=== PATIENT | male | born 1940 | race Caucasian/White ===

== ENCOUNTER 2020-06-24 10:52 | Inpatient (IN) | payer MEDICARE ==
[~2020-06-24] VITALS: Ht 177 cm; Wt 121.8 kg
[2020-06-24 10:30] VITALS: BP 153/65
--- NOTE | 2020-06-24 10:50 | NUR ---
Pt admitted to room 225-1, with an admitting diagnosis of S/P Laminectomy & Spinal fusion, on 06/24/[address] [facility] via ambulance, accompanied by 2 EMS attendants. ARLETH LOVE introduced to surroundings, call light, bed controls, phone, TV, temperature control, lights, meal times, smoking policy, visitor policy, side rail policy, bathrooms and showers. Patient Rights given to patient in the handbook. ARLETH LOVE acknowledges understanding that [facility] is not responsible for the loss or damage to any personal effects or valuables that are kept in the patients posession during their hospitalization. The following Patient Care Plans were discussed with the pt: Discharge Planning, Self Care Deficit, Impaired Mobility, Potential for falls/injury. ARLETH LOVE verbalizes understanding of Interdisciplinary Patient Education. Patient and/or family were informed about the Rapid Response Team and its purpose. Patient received Patient Rights Booklet, which includes Privacy Act Statement and Data Collection Information Summary.
[~2020-06-24 10:52] MED LIST: BISACODYL 10 MG SUPP (DULCOLAX) PR PRN; CALCIUM CARBONATE 500 MG (TUMS) TAB.CHEW PO PRN; DOCUSATE SODIUM 100 MG (COLACE) CAP PO PRN; FLEET ENEMA ADULT 1 EA BTL PR PRN; LOPERAMIDE 2 MG (IMODIUM) TABLET PO PRN; MELATONIN 3 MG TABLET PO PRN; ONDANSETRON 4 MG (ZOFRAN) ORAL DISSOLVE TAB PO PRN
[2020-06-24] MEDS ORDERED: LOSA100T57 PO (10:57)
[2020-06-24] MEDS ORDERED: TMSL.4C PO (10:57)
[2020-06-24] MEDS ORDERED: TRM50T PO (10:57)
[2020-06-24] MEDS ORDERED: LEVO50CA4 PO (10:57)
[2020-06-24] MEDS ORDERED: FURO40TA4 PO (10:57)
[2020-06-24] MEDS ORDERED: LORA10TA76 PO (10:57)
[2020-06-24] MEDS ORDERED: ONDA4TAB11 PO (10:57)
[2020-06-24] MEDS ORDERED: LACT1CAP39 PO (10:57)
[2020-06-24] MEDS ORDERED: MTP25TSR PO (10:57)
[2020-06-24] MEDS ORDERED: FENT1PAT57 TD (10:57)
[2020-06-24] MEDS ORDERED: ROSU5TAB PO (10:57)
[2020-06-24] MEDS ORDERED: DIPH25CA79 PO (10:57)
[2020-06-24] MEDS ORDERED: ACET-2267 PO (10:57)
[2020-06-24] MEDS ORDERED: OMEP20CA18 PO (10:57)
[2020-06-24] MEDS ORDERED: POTA10TA6 PO (10:57)
[2020-06-24] MEDS ORDERED: GABA300C PO ×2 (10:57)
[2020-06-24] MEDS ORDERED: VIT1TABL26 PO (10:57)
--- NOTE | 2020-06-24 11:16 | Occupational Therapy Eval ---
OT Evaluation-General/PLF Medical Diagnosis Admission Date Jun 24, 2020 at 10:52 Medical Diagnosis: Spondylosis with myelopathy Onset Date: Jun 21, 2020 Therapy Diagnosis Therapy Diagnosis: L2-4 fusion and L3-4 laminectomy. Precautions Precautions/Isolations: Standard Precautions Weight Bear Status Weight Bearing Restriction: Weight Bearing/Tolerated back precautions. Referral Physician: Lydia Referral Reason: Activity Tolerance, Self Care, Evaluation/Treatment, Strengthening/ROM Medical History Pertinent Medical History: Arthritis, HTN, Hypothroidism, OA Additional Medical History DDD, essential HTN, fatigue, GERD, HLD, hypothyroidism, OA, obesity, chronic pain, R TKA, R middle finger trigger finger Current History Persistent back/ BLE pain/ weakness. Back surg 2013 (fusion of L4-5); 06/21/20 L2-4 fusion and L3-4 laminectomy. Reviewed History: Yes Social History Home: Single Level Current Living Status: Spouse Entry Into Home: Ramp Steps Into Home: 0 (ramp from garage) Steps Inside Home: 0 ADL-Prior Level of Function SCALE: Activities may be completed with or without assistive devices. 8-Pvmsjqasyb-dpmebgq completes the activity by him/herself with no assistance from a helper. 5-Set-up or Clean-up Assistance-helper sets up or cleans up; patient completes activity. Kelly assists only prior to or following the activity. 4-Supervision or Touching Assistance-helper provides verbal cues and/or touching/steadying and/or contact guard assistance as patient completes activity. Assistance may be provided throughout the activity or intermittently. 3-Partial/Moderate Assistance-helper does LESS THAN HALF the effort. Kelly lifts, holds or supports trunk or limbs, but provides less than half the effort. 2-Substantial/Maximal Assistance-helper does MORE THAN HALF the effort. Kelly lifts or holds trunk or limbs and provides more than half the effort. 5-Djvwnbyac-glwbfv does ALL the effort. Patient does none of the effort to complete the activity. Or, the assistance of 2 or more helpers is required for the patient to complete the activity. If activity was not attempted, code reason: 7-Patient Refused. 9-Not Applicable-not attempted and the patient did not perform the activity before the current illness, exacerbation or injury. 10-Not Attempted due to Environmental Limitations-(lack of equipment, weather restraints, etc.). 88-Not Attempted due to Medical Conditions or Safety Concerns. ADL PLOF Comments Pt states IND within the home: use of walking stick/ walker 1-2 weeks prior to surgery due to pain/ weakness. 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 Drive Self: Yes OT Current Status Subjective Pt AxO, assisted from EMS staff to bed. Pt agrees to tx. States 6/10 pain, though denies pain meds as has pain patch. OT evaluation: (10) PT evaluation: [id number] OT/ PT co-treat: (30)Co treat rendered at this time. OT addresses UE movement/ balance/ problem solving/ fx endurance; PT addresses fx ambulation/ sit to stands/ transfers/ LE movement. Mental Status/Objective Patient Orientation: Person, Place, Situation Attachments: Drains Current Glasses/Contacts: Yes Hearing Aids: No Dentures/Partials: Yes Hand Dominance: Right Upper Extremity ROM R WFL L limited shoulder abduction/ shoulder flexion due to L shoulder repair. Upper Extremity Coordination WFL BUE (slight tremors, does not functionally affect tasks) Upper Extremity Sensation WLF per pt. Upper Extremity Strength (DNT due to precautions, though WFL) Edema: none noted. ADL-Treatment Eating (QC): 6 (IND) Oral Hygiene (QC): 5 (s/u) Shower/Bathe Self (QC): 2 (max A per clinical judgement) Upper Body Dressing (QC): 2 (max A for back brace. ) Lower Body Dressing (QC): 1 (TD due to max A x2 in stance. Pt able to thread BLE with min A and AD . ) On/Off Footwear (QC): 2 (Max A due to precautions and decreased energy. Pt is educated on sock aide (has one at home/ is familiar) and completes one sock with sock aide with mod A. ) Toileting Hygiene (QC): 1 (TD due to max Ax2 in stance. ) Other Treatments OT evaluation: [id number] (10) PT evaluation: [id number] OT/ PT co-treat: 1390-5409 (30)Co treat rendered at this time. OT addresses UE movement/ balance/ problem solving/ fx endurance; PT addresses fx ambulation/ sit to stands/ transfers/ LE movement. Pt educated on spinal precautions and use of AD for ADLs, pt is familiar with AD due to previous surgery and has AD at home. Pt completes log roll in bed to complete rolling with education throughout. Pt completes with mod A side to side. Pt bed mob from supine to sit with education and max Ax1/ mod A x1. Pt sit to stand with mod Ax2 from raised bed. Pt ambulates with increased time/ vocalizations due to pain to chair. Sits with control. Pt uncomfortable/ in pain, requests back to bed. Sit to stand from chair with min A. Pt ambulates to bed with CGA. Pt sits/ supine with max A. Pt reclined, introduced to room/ call light/ menu/ ARU expectations. OT individual tx: [id number] (30) Pt completes bed mob with max A supine to sit. Pt then sits EOB to complete sponge bath as outlined. C/o pain throughout, nursing notified and administration of medication. OT/ PT co-treat: 4712-8247 (10) Pt sit to stand with max A x1 while OT addresses bottom hygiene (TD) and pant hike (TD). pt sits EOB. Pt requests to lay down. Sit to supine with TD, TD to reach HOB. Increase in pain noted. Pt left with PT end of session. Education OT Patient Education: Correct positioning, Energy conservation, Modified ADL techniques, Progress toward Goal/Update tx plan, Purpose of tx/functional activities, Reviewed precautions, Rehab process, Safety issues, Transfer techniques, Use of adapted equipment Teaching Recipient: Patient Teaching Methods: Demonstration, Discussion Response to Teaching: Verbalize Understanding, Return Demonstration, Reinforcement Needed OT Fdc Goals Disaster Recovery Specialist Goals Time Frame: Jul 08, 2020 Eating (QC): 6 Oral Hygiene (QC): 6 Toileting Hygiene (QC): 4 Shower/Bathe Self (QC): 5 Upper Body Dressing (QC): 6 Lower Body Dressing (QC): 4 On/Off Footwear (QC): 6 Additional Goals: 1-Demonstrate ADL Tasks, 2-Verbalize Understanding, 3- ImproveStrength/Aby 1=Demonstrate adherence to instructed precautions during ADL tasks. 2=Patient will verbalize/demonstrate understanding of assistive devices/mo difications for ADL. 3=Patient will improve strength/tolerance for activity to enable patient to perform ADL's. OT Education/Plan Problem List/Assessment Assessment: Decreased Activ Tolerance, Decreased UE Strength, Dependent Transfers, Impaired Bed Mobility, Impaired Funct Balance, Impaired I ADL's, Impaired Self-Care Skills, Restricted Funct UE ROM Discharge Recommendations Plan/Recommendations: Continue POC Therapy Discharge Recommendati: Intermittent Supervision, Home & Family, Post Acute OT Treatment Plan/Plan of Care Treatment,Training & Education: Yes Patient would benefit from OT for education, treatment and training to promote independence in ADL's, mobility, safety and/or upper extremity function for ADL's. Plan of Care: ADL Retraining, Caregiver Training, Concurrent Therapy, Functional Mobility, Group Exercise/Act as Ind, Orthotic Fitting/Training, UE Funct Exercise/Act, W/C Management Training Treatment Duration: Jul 08, 2020 Frequency: At least 5 of 7 days/Wk (IRF) Estimated Hrs Per Day: 1.5 hours per day Agreement: Yes Rehab Potential: Good Time/GCodes Start Time: 10:55 (1315) Stop Time: 11:50 (1355) Total Time Billed (hr/min): 85 (2 separate tx: 45+40= 85) Billed Treatment Time OT evaluation: 9634-9059 (15) 1, EVM PT evaluation: 3243-1398 OT/ PT co-treat: [id number] (30)Co treat rendered at this time. OT addresses UE movement/ balance/ problem solving/ fx endurance; PT addresses fx ambulation/ sit to stands/ transfers/ LE movement. 1, FA 2 OT tx with OT/ PT co-treat: 7084-2662 (40): 1, ADL 4 SHASTA LUTZ OTR Jun 24, 2020 11:16
--- NOTE | 2020-06-24 11:58 | Physical Therapy Evaluation ---
PT Evaluation-General Medical Diagnosis Admission Date Jun 24, 2020 at 10:52 Medical Diagnosis: Spondylosis with myelopathy Onset Date: Jun 21, 2020 Therapy Diagnosis Therapy Diagnosis: weakness; abn gait Precautions Precautions/Isolations: Standard Precautions Lumbar brace when up Referral Physician: Lydia Reason for Referral: Evaluation/Treatment Medical History Pertinent Medical History: Arthritis, HTN, Hypothroidism, OA Current History Post lumbar fusion L2-4 with replacement of hardware L4-5. Admitted to ARU for continued skilled therapy services and medical management. Laminectomy L3-4 Reviewed History: Yes Social History Home: Single Level Current Living Status: Spouse Entry Into Home: Ramp PT Steps Into Home: 0 (ramp from garage) PT Steps Inside Home: 0 Prior Prior Level of Function SCALE: Activities may be completed with or without assistive devices. 8-Eymrqucsyl-eyobcxk completes the activity by him/herself with no assistance from a helper. 5-Set-up or Clean-up Assistance-helper sets up or cleans up; patient completes activity. Terrell assists only prior to or following the activity. 4-Supervision or Touching Assistance-helper provides verbal cues and/or touching/steadying and/or contact guard assistance as patient completes activity. Assistance may be provided throughout the activity or intermittently. 3-Partial/Moderate Assistance-helper does LESS THAN HALF the effort. Terrell lifts, holds or supports trunk or limbs, but provides less than half the effort. 2-Substantial/Maximal Assistance-helper does MORE THAN HALF the effort. Terrell lifts or holds trunk or limbs and provides more than half the effort. 1-Bqhxnjjyt-nyxgwk does ALL the effort. Patient does none of the effort to complete the activity. Or, the assistance of 2 or more helpers is required for the patient to complete the activity. If activity was not attempted, code reason: 7-Patient Refused. 9-Not Applicable-not attempted and the patient did not perform the activity before the current illness, exacerbation or injury. 10-Not Attempted due to Environmental Limitations-(lack of equipment, weather restraints, etc.). 88-Not Attempted due to Medical Conditions or Safety Concerns. Bed Mobility: 6 Transfers (B,C,W/C): 6 Gait: 6 (use of cane or walking stick; gait primarily in home distances. ) Indoor Mobility (Ambulation): Independent Stairs: Not [place] Limited out of home ambulation, but still drives; uses a ramp to enter/exit his home. Pt reports he was indep with self care. PT Evaluation-Current Subjective Agrees to PT. Reports he lives with his and she is in good health. She will be able to assist some at home. Pain Numeric Pain Scale: 7 Location: Posterior Location Body Site: Back Pain Description: Ache Pt/Family Goals Return home at prior ability to care for himself. Objective Patient Orientation: Person, Place, Time, Situation ROM/Strength ROM Lower Extremities WFL; neural tension noted right LE. Strength Lower Extremities Grossly 3/5 throughout Integumentary/Posture Integumentary intact Bowel Incontinence: No Bladder Incontinence: No Posture symmetrical with slightly rounded shoulders. Neuromuscular (Tone, Coordination, Reflexes) intact and functional B LE Sensory Vision: Functional Hearing: Functional Hand Dominance: Right Sensation Right Lower Extremit: Intact Sensation Left Lower Extremity: Intact Transfers Roll Left & Right (QC): 2 Sit to Lying (QC): 2 Lying to Sitting/Side of Bed(Q: 2 Sit to Stand (QC): 2 Chair/Iqa-md-Ketrm Xfer(QC): 3 Toilet Transfer (QC): 2 Car Transfer (QC): 88 (unsafe/unable to attempt due to limited transfer status. ) max assist with bed mobility with skilled cues for sequencing; reviewed log roll technique and used it for transfers. Cues for hand placement with sit to stand transfers; takes extra time to come to a full stand with quad and hip extensor weakness noted. Gait Does the Patient Walk?: Yes Mode of Locomotion: Walk Anticipated Mode of Locomotion: Walk Walk 10 feet (QC): 88 (unable to walk this distance safely) Walk 50 ft with 2 Turns(QC): 88 Walk 150 ft (QC): 88 Walking 10ft/uneven surface-QC: 88 Distance: 5 ft x 2 Gait Assistive Device: FWW Comments/Gait Description slow gait with close CGA with noted quad weakness. Wheelchair Training Does the Pt Use a Wheelchair?: No Wheel 50 ft with 2 turns (QC): 9 Wheel 150 ft (QC): 9 Stairs 1 Step (curb) (QC): 88 4 Steps (QC): 9 12 Steps (QC): 9 Balance Sitting Static: Fair Sitting Dynamic: Fair Standing Static: Fair Standing Dynamic: Fair Picking up an Object (QC): 88 (back precautions forbid this) Treatment Co treat with OT due to the need for skill of 2 clincians to effectively and safely complete tasks; OT addressed safety and use of UE as PT addressed gross mobility, transitional movement and transfer activity. Bed mobility, transfers and walking short distances performed. Pt in bed post treatment with needs met. LSO in place throughout treatment. Assessment/Needs Post lumbar surgery with noted strength, balance, activity tolerance deficits as well as increased pain. he is requiring assist with all functional mobility and unable to safely return home. He is max assist with bed mobility and transfers and only able to walk approx 5 ft at a time. He will benefit from skilled PT services to address deficits to return mobiltiy to a mod indep level to allow him to discharge home with his . Rehab Potential: Good PT Short Term Goals Short Term Goals Time Frame: Jul 05, 2020 Roll Left & Right: 4 Sit to lyin Lying to sitting on side of be: 4 Sit to stand: 4 Chair/zse-em-knxmm transfer: 4 Toilet transfer: 4 Walk 10 feet: 4 Walk 50 feet with two turns: 4 PT Family Engagement Specialist Goals Family Engagement Specialist Goals PT Family Engagement Specialist Goals Time Frame: Jul 22, 2020 Roll Left & Right (QC): 6 Sit to Lying (QC): 6 Lying-Sitting on Side/Bed(QC): 6 Sit to Stand (QC): 6 Chair/Jag-bf-Vpcse Xfer(QC): 6 Toilet Transfer (QC): 6 Car Transfer (QC): 6 Does the Patient Walk: Yes Walk 10 feet (QC): 6 Walk 50ft with 2 Turns (QC): 6 Walk 150 ft (QC): 6 Walking 10ft on Uneven Surface: 5 1 Step (curb) (QC): 4 4 Steps (QC): 9 12 Steps (QC): 9 Picking up an Object (QC): 88 Wheel 50 feet with 2 turns (QC: 9 Wheel 150 feet: 9 PT Plan Problem List Problem List: Activity Tolerance, Functional Strength, Safety, Balance, Gait, Transfer, Bed Mobility Treatment/Plan Treatment Plan: Continue Plan of Care Treatment Plan: Bed Mobility, Education, Functional Activity Aby, Functional Strength, Group Therapy, Gait, Safety, Therapeutic Exercise, Transfers Treatment Duration: Jul 22, 2020 Frequency: At least 5 of 7 days/Wk (IRF) Estimated Hrs Per Day: 1.5 hours per day Patient and/or Family Agrees t: Yes Safety Risks/Education Patient Education: Transfer Techniques, Safety Issues Teaching Recipient: Patient Teaching Methods: Demonstration, Discussion Response to Teaching: Reinforcement Needed Discharge Recommendations Therapy Discharge Recommendati: Post Acute PT Time/GCodes Time In: 1110 Time Out: 1120 (1120 to 1150 (co treat with OT)) Total Billed Treatment Time: 40 Total Billed Treatment visit EVM 10 FA 30 ROBERT SHIN PT Jun 24, 2020 11:58
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
[2020-06-24] MEDS ORDERED: FUROSEMIDE 40 MG (LASIX) TAB PO PRN (12:15)
[2020-06-24] MEDS ORDERED: KCL 10 MEQ TAB (MICRO K) PO PRN (12:15)
[2020-06-24] MEDS: ACETAMINOPHEN 500 MG TAB (TYLENOL) PO SCH ×3 (13:35→23:33)
[2020-06-24] MEDS: SENNA W/DOCUSATE (SENOKOT S) TABLET PO SCH ×2 (13:38→21:51)
[2020-06-24] MEDS: polyethylene glycoL POWDER 17 GM (MIRALAX) PACK PO SCH ×2 (13:39→21:52)
[2020-06-24] MEDS: DOCUSATE SODIUM 100 MG (COLACE) CAP PO SCH ×2 (13:39→21:51)
[2020-06-24] MEDS: LACTULOSE SYRUP 10GM/15ML (ENULOSE) 30ML UDC PO PRN (13:39)
--- NOTE | 2020-06-24 13:40 | NUR ---
DURAGESIC PATCH WAS PLACED ON RT SHOULDER AT [facility] PRIOR TO PT LEAVING THERE THIS AM. THIS RN PLACED OPSITE OVER THE PATCH TO KEEP SECURE
--- NOTE | 2020-06-24 14:54 | ST Cognitive Linguistic Eval ---
Speech Evaluation-General Medical Diagnosis Spondylosis with myelopathy Onset Date: Jun 21, 2020 Therapy Diagnosis Therapy Diagnosis: Cognitive-communication Medical History Pertinent Medical History: Arthritis, HTN, Hypothroidism, OA Reviewed History: Yes Social History Current Living Status: Spouse Speech PLF-Current Status Prior Level of Function Patient lives at home with his where he was independent for much of his daily needs. Subjective Patient was resting in bed following his PT session. Language Eval: Auditory Comprehends Simple Yes/No Ques: Functional Indent/Objects Multiple Mac: Functional Ident/Pics in Multiple Mac: Functional Follows 1-Step Commands: Functional Follows Complex Directions: Functional Follows General Conversations: Functional Language Eval: Verbal Language Completes Spontaneous Greeting: Functional Produces Auto, Serial Info: Functional Imitates Simple Words/Phrases: Functional Word Finding: Functional Requests Basic Needs: Functional States Basic Personal Info: Functional Expresses Complex Ideas: Functional Objective Cognitive Domain Attention: WNL Memory: WNL Problem Solving: Functional Executive Functions: WNL Visuospatial Skills: WNL Composite Severity Rating: WNL Clock Drawing Severity Rating: WNL Objective Formal/Standardized Tests [facility] Mental Status ([facility]) Results 28/30, within normal range of function Oral Motor/Speech Production Within Normal Limits Impression Patient is a pleasant 79 y/o male who was admitted to the ARU s/p spinal surgery. Patient was given the UMS at bedside with a score of 28/30 obtained. This score is within the normal range of function and does not indicate further ST services. Speech Patient Assess Expression of Ideas/Wants: Expression (4) Understanding Verbal Content: Understands (4) Brief Interview-Mental Status: Yes Repetition of Three Words: Three (3) Temporal Orientation: Year: Correct (3) Temporal Orientation: Month: Accurate within 5 days(2) Temporal Orientation: Day: Correct (1) Recall : Wear to say "Sock": Yes, no cue required (2) Recall : Color: Yes, after cueing (1) Recall : Bed: Yes, no cue required (2) Memory/Recall Ability: Current season, Staff names and faces, That he or she is in a hsp/hsp unit Speech-Plan Patient/Family Goals Patient/Family Goals: Patient plans on returning to his home upon discharge. Treatment Plan Speech Therapy Treatment Plan: Discontinue ST Treatment Duration: Jun 24, 2020 Frequency: 1 time per week Estimated Hrs Per Day: .5 hour per day Rehab Potential: Good Barriers to Learning: None identified Pt/Family Agrees to Plan: Yes Safety Risks/Education Teaching Recipient: Patient Teaching Methods: Discussion Response to Teaching: Verbalize Understanding Education Topics Provided: Safety within his room, utilization of the call light as needed Time Speech Therapy Time In: 14:30 Speech Therapy Time Out: 15:00 Total Billed Time: 30 Billed Treatment Time 1, SPSNDCOMTANISHA Santamaria Jun 24, 2020 14:54
--- NOTE | 2020-06-24 14:56 | Physical Therapy Daily Note ---
PT Daily Note-Current Subjective Pt initially co-treated with OT to complete bathing/dressing due to difficulty with standing. Pt reports severe lumbar pain on arrival and throughout seated and standing activity. Moderate relief reported once he transferred to supine. Pain Numeric Pain Scale: 10-Worst Possible Pain Location: Lower Location Body Site: Back Pain Description: Stabbing, Sharp Appearance Pt is in agony when performing standing and when going from seated to supine. He is total assist for sit to supine and with bed mobility. Mental Status Patient Orientation: Person, Place, Time, Situation Transfers SCALE: Activities may be completed with or without assistive devices. 7-Pzotxhhciv-vugxaob completes the activity by him/herself with no assistance from a helper. 5-Set-up or Clean-up Assistance-helper sets up or cleans up; patient completes activity. [place] assists only prior to or following the activity. 4-Supervision or Touching Assistance-helper provides verbal cues and/or touching/steadying and/or contact guard assistance as patient completes activity. Assistance may be provided throughout the activity or intermittently. 3-Partial/Moderate Assistance-helper does LESS THAN HALF the effort. [place] lifts, holds or supports trunk or limbs, but provides less than half the effort. 2-Substantial/Maximal Assistance-helper does MORE THAN HALF the effort. [place] lifts or holds trunk or limbs and provides more than half the effort. 7-Fmbyccprr-pdxbir does ALL the effort. Patient does none of the effort to complete the activity. Or, the assistance of 2 or more helpers is required for the patient to complete the activity. If activity was not attempted, code reason: 7-Patient Refused. 9-Not Applicable-not attempted and the patient did not perform the activity before the current illness, exacerbation or injury. 10-Not Attempted due to Environmental Limitations-(lack of equipment, weather restraints, etc.). 88-Not Attempted due to Medical Conditions or Safety Concerns. Roll Left & Right (QC): 1 Sit to Lying (QC): 1 Lying to Sitting/Side of Bed(Q: 1 Sit to Stand (QC): 1 Gait Training Does the Patient Walk?: No and Walking Goal IS indicated Gait Assistive Device: FWW Performed sit to stand to complete bathing and dressing. Unable to take steps forward or side due to lumbar pain. Exercises Supine Ex: LE Protocol, Glut sets Supine Reps: 20 Treatments Co-treat with OT for completing bathing and dressing due to pt difficulty with transfers and standing. Aided OT with sit to stand and steadying in standing. Pt requires total assist for transfer and bed mobility with at least 2 people for all mobility. Assessment Current Status: Good Progress Pt had set a personal goal yesterday to perform a heel slide without assistance. He was able to perform 10 on each side without assist and required assist for the last 10 on each. PT Short Term Goals Short Term Goals Time Frame: Jul 05, 2020 Roll Left & Right: 4 Sit to lyin Lying to sitting on side of be: 4 Sit to stand: 4 Chair/jlx-dt-exbmd transfer: 4 Toilet transfer: 4 Walk 10 feet: 4 Walk 50 feet with two turns: 4 PT Manager Hospice Goals Halfway Goals PT Manager Hospice Goals Time Frame: Jul 22, 2020 Roll Left & Right (QC): 6 Sit to Lying (QC): 6 Lying-Sitting on Side/Bed(QC): 6 Sit to Stand (QC): 6 Chair/Buj-ht-Hpbgw Xfer(QC): 6 Toilet Transfer (QC): 6 Car Transfer (QC): 6 Does the Patient Walk: Yes Walk 10 feet (QC): 6 Walk 50ft with 2 Turns (QC): 6 Walk 150 ft (QC): 6 Walking 10ft on Uneven Surface: 5 1 Step (curb) (QC): 4 4 Steps (QC): 9 12 Steps (QC): 9 Picking up an Object (QC): 88 Wheel 50 feet with 2 turns (QC: 9 Wheel 150 feet: 9 PT Plan Treatment/Plan Treatment Plan: Continue Plan of Care Treatment Plan: Bed Mobility, Education, Functional Activity Aby, Functional Strength, Group Therapy, Gait, Safety, Therapeutic Exercise, Transfers Treatment Duration: Jul 22, 2020 Frequency: At least 5 of 7 days/Wk (IRF) Estimated Hrs Per Day: 1.5 hours per day Patient and/or Family Agrees t: Yes Time/GCodes Time In: 1345 Time Out: 1425 Total Billed Treatment Time: 40 Total Billed Treatment 1, fa (10), ex x2 (30) DONNA HUDDLESTON PT Jun 24, 2020 14:56
[2020-06-24 17:14] VITALS: BP 148/66
[2020-06-24] MEDS: LACTOBACILLUS ACIDOPHILUS (PROBIOTIC) CAPSULE PO SCH (17:52)
[2020-06-24] MEDS: ALPRAZolam 0.25 MG (XANAX) TAB PO PRN (19:11)
--- NOTE | 2020-06-24 19:28 | NUR ---
Bedside report received from MELLISA BAUER, assume care of pt
--- NOTE | 2020-06-24 19:30 | NUR ---
Resting quietly in bed, pain level 0/10 on CNPI SCALE
[2020-06-24] MEDS ORDERED: GABAPENTIN 300 MG (NEURONTIN) CAP PO SCH (21:00)
[2020-06-24 21:48] VITALS: BP 165/71
[2020-06-24] MEDS: TAMSULOSIN 0.4 MG (FLOMAX) CAP PO SCH (21:51)
[2020-06-24] MEDS: LOSARTAN 100 MG (COZAAR) TABLET PO SCH (21:51)
[2020-06-24] MEDS: ROSUVASTATIN 5 MG (CRESTOR) TABLET PO SCH (21:51)
--- NOTE | 2020-06-24 21:51 | NUR ---
Pt took all laxatives, states pain in lower back is so bad can not stand it, v/s [phone]%-165/71 rates pain at 10/10 on numeric scale, tried repositioning pt but pt will not try position change long enough to see if it helps
--- NOTE | 2020-06-24 22:12 | NUR ---
notified of pt c/o lower back pain & meds already given & could not have any more until close to midnight
--- NOTE | 2020-06-24 22:13 | NUR ---
No new orders received
--- NOTE | 2020-06-24 23:33 | NUR ---
scheduled Tylenol 500mg & Ultram 50mg & melatonin 3mg, rates pain to back at 10/10 on numeric scale, tried getting pt up to chair but immediately wants to go back to bed, told pt to try at least 30min
--- NOTE | 2020-06-25 00:15 | NUR ---
still rates pain at 10/10 on numeric scale, to commode then back to bed
--- NOTE | 2020-06-25 00:25 | NUR ---
stated could increase ULTRAM 50mfg q 3h PRN but pt gets confused at night also has increase pain at nightime, we could also try Voltaren gel & k pad
--- NOTE | 2020-06-25 00:48 | NUR ---
Resting quietly in bed, pain level 0/10 on CNPI SCALE
--- NOTE | 2020-06-25 03:16 | NUR ---
C/O back pain, pain level 10/10 on numeric scale, ultram 50mg given
--- NOTE | 2020-06-25 04:05 | NUR ---
Resting quietly in bed, pain level 0/10 on CNPI SCALE
--- NOTE | 2020-06-25 05:13 | Individualized Plan of Care ---
Individualized Plan of Care Rehab Nursing IPOC Order Admission Date Jun 24, 2020 at 10:52 Current Orders Orders Admission Order(Inpt,Obs,Sdc) (06/24/20 04:39) Vital Signs: Per Unit Policy ( 08,16,00 (06/24/20 04:39) Mateusz Suero (06/24/20 04:39) Sequential Compression Device Q4H (06/24/20 04:39) Director Drug Safety-Inpt Rehab Con (06/24/20 04:39) Rehab Nursing Orders-Ipoc (06/24/20 04:39) Physical Therapy Rehab Orders (06/24/20 04:39) Occupational Therapy Rehab Ord (06/24/20 04:39) Speech Therapy Rehab Orders (06/24/20 04:39) Cbc With Automated Diff (06/25/20 06:00) Comprehensive Metabolic Panel (06/25/20 06:00) General/Regular (06/24/20 Breakfast) Intake & Output 06,14, (06/24/20 04:39) Precautions (Aru) (06/24/20 04:39) Weekly Weight WEEK (06/24/20 04:39) Rehab-Intensity Of Therapy (06/24/20 04:39) Initiate Admission Nursing Pro .admission (06/24/20 04:39) Alprazolam Tablet (Xanax Tablet) (06/24/20 04:45) Calcium Carbonate Chew Tablet (Antacid C (06/24/20 04:45) Diphenhydramine Tablet (Benadryl Tablet) (06/24/20 04:45) Docusate Sodium Capsule (Colace Capsule) (06/24/20 09:00) Docusate Sodium Capsule (Colace Capsule) (06/24/20 04:45) Bisacodyl Suppository (Dulcolax Supposit (06/24/20 04:45) Lactulose Oral Solution (Enulose Oral So (06/24/20 04:45) Na Phos/Na Biphos Enema (Fleet Enema Kiko (06/24/20 04:45) Guaifenesin/Codeine Syrup (Robitussin Ac (06/24/20 04:45) Loperamide Tablet (Imodium Tablet) (06/24/20 04:45) Melatonin Tablet (Melatonin Tablet) (06/24/20 04:45) Polyethylene Glycol Powder Pkt (Miralax (06/24/20 09:00) Ondansetron Oral Dissolve Tab (Zofran (06/24/20 04:45) Senna S Tablet (Senokot S Tablet) (06/24/20 09:00) Tramadol Tablet (Ultram Tablet) (06/24/20 04:45) Vte Contraindication (06/24/20 04:39) Initiate Admission Nursing Pro .admission (06/24/20 04:39) Acetaminophen Tablet/Caplet (Tylenol T (06/24/20 11:00) Acetaminophen Tablet (Tylenol Tablet) (06/24/20 12:15) Furosemide Tablet (Lasix Tablet) (06/24/20 12:15) Gabapentin Capsule/Tablet (Neurontin Cap (06/25/20 08:00) Gabapentin Capsule/Tablet (Neurontin Cap (06/24/20 21:00) Loratadine Tablet (Claritin Tablet) (06/24/20 12:15) Losartan Tablet (Cozaar Tablet) (06/24/20 21:00) Metoprolol Succinate (Xl) Tab (Toprol Xl (06/24/20 21:00) Omeprazole (Non-Formulary) (Prilosec (No (06/25/20 09:00) Ondansetron Oral Dissolve Tab (Zofran (06/24/20 12:15) Potassium Chloride (Tablet) (Klor Con Ta (06/24/20 12:15) Rosuvastatin Tablet (Crestor Tablet) (06/24/20 21:00) Tamsulosin Capsule (Flomax Capsule) (06/24/20 21:00) Tramadol Tablet (Ultram Tablet) (06/24/20 12:15) Lactobacillus Acidophilus Cap (Acidophil (06/24/20 18:00) Levothyroxine Tablet (Synthroid Tablet) (06/25/20 06:30) (Nf) Vit A,C & E/Lutein/Minerals (Ocuvit (06/25/20 09:00) General/Regular (06/24/20 Lunch) Pantoprazole Tablet (Protonix Tablet) (06/25/20 09:00) Fentanyl Patch (Duragesic Patch) (06/26/20 09:00) Therapeutic Multivitamin Tab (Vitamins, (06/25/20 07:00) Patient Visit (06/24/20 ) Pt Eval Moderate Complexity (06/24/20 ) Functional Activities, Ea 15 (06/24/20 ) Fentanyl Patch (Duragesic Patch) (06/27/20 09:00) Patch Removal (Patch Removal) (06/27/20 08:59) Patient Visit (06/24/20 ) Speech Sound Lang Comp (06/24/20 ) Patient Visit (06/24/20 ) Functional Activities, Ea 15 (06/24/20 ) Exercise Therap, Ea 15 Min (06/24/20 ) Diclofenac 1% Gel (Voltaren 1% Gel) (06/25/20 09:00) Tramadol Tablet (Ultram Tablet) (06/25/20 00:45) Quetiapine Immediate Release (Seroquel I (06/25/20 09:18) Quetiapine Immediate Release (Seroquel I (06/25/20 21:00) Urinalysis (06/25/20 14:23) Patient Visit (06/25/20 ) Functional Activities, Ea 15 (06/25/20 ) Olanzapine Orally Dissolve Tab (Zyprexa (06/25/20 21:00) Haloperidol Injection (Haldol Injectio (06/25/20 15:45) Lorazepam Injection (Ativan Injection) (06/25/20 15:45) Ct Head Wo (06/25/20 15:37) Rehab Nursing Orders: Ongoing Assess. of Cognitive Status, Ongoing Assess. of Function Status, Bladder Management, Bladder Scan, Bladder Training, Bowel Management, Bowel Training, Disease Management & Educaiton, DVT Prophylaxis, Fall Prevention, Fluid/Electrolyte/Nutrition Mgmt, Infection Prevention, Medication Management & Education, Management of Risks & Complications, Management of Skin Intergrity, Nutrition Management, Pain Management, Patient/Family Support, Safety Management Intensity of Therapy to be met Patient to be seen: Min.3h per day/5 of 7d PT IPOC Problem List: Activity Tolerance, Functional Strength, Safety, Balance, Gait, Transfer, Bed Mobility Treatment Plan: Continue Plan of Care Bed Mobility, Education, Functional Activity Aby, Functional Strength, Group Therapy, Gait, Safety, Therapeutic Exercise, Transfers Treatment Duration: Jul 22, 2020 Frequency: At least 5 of 7 days/Wk (IRF) Estimated Hrs Per Day: 1.5 hours per day OT IPOC Problems: Decreased Activ Tolerance, Decreased UE Strength, Dependent Transfers, Impaired Bed Mobility, Impaired Funct Balance, Impaired I ADL's, Impaired Self-Care Skills, Restricted Funct UE ROM OT Treatment, Training and Edu: Yes Plan of Care: ADL Retraining, Caregiver Training, Concurrent Therapy, Functional Mobility, Group Exercise/Act as Ind, Orthotic Fitting/Training, UE Funct Exercise/Act, W/C Management Training Treatment Duration: Jul 08, 2020 Frequency: At least 5 of 7 days/Wk (IRF) Estimated Hrs Per Day: 1.[address] IPOC Speech Therapy Treatment Plan: Discontinue ST Treatment Duration: Jun 24, 2020 Frequency: 1 time per week Estimated Hrs Per Day: .5 hour per day Director Drug Safety/Case Mgmt Director Drug Safety/Case Managemen: Discharge Planning Dietitian/Construction Pit Worker Dietitian/Construction Pit Worker to monitor nutritional status and make changes and/or recommendations as needed and work with speech pathology on dietary upgrades as the occur. Physician IPOC Medical Issues being managed closely and that require the 24 hour availability of a physician: Recent complex lumbar spine surgery will need close monitoring due to delirium following the surgery and the apparent baseline dementia confirmed after speaking to spouse and will try to prevent decompensation Medical Issues: Bowel/Bladder Function, DVT Prophylaxis, Falls Precautions, Fluid/Electrolyte/Nutrition Balance, Infection Protection, Swallowing Precautions Brief Synthesis of Preadmission Screen, Post-Admission Evaluation, and Therapy Evaluations: PT OT ST will focus on regaining strength and function along with orientation in order to enable him to return to home with to live independent Medical Prognosis: Guarded Anticipated Length of Stay: 7 days ERIC LUTHER DO Jun 25, 2020 05:13
--- NOTE | 2020-06-25 05:13 | PM&R Progress Note ---
Subjective HPI/CC On Admission Date Seen by Provider: Jun 25, 2020 Time Seen by Provider: 08:00 Subjective/Events-last exam 06/25/20: Confusion last night was significant Pain out of proportion to the number of days he is out of post op is related to his cognitive deficits Hgb 9.4 Ultram and Tylenol given for pain No BM yet Impulsive Oxycodone made him very confused at [facility] Seroquel 12.5 will be given now and 25mg in evening and Zyprexa 5mg at night Spoke to in-depth for 15 minutes on the phone since I knew her from [facility] and it is now apparent he has cognition deficits so will try to improve and clear the delirium with antipsychotics Kept his eyes closed similar to 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 dementia 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 [place] [facility] [place] of Systems Musculoskeletal: back pain Neurological: Confusion Objective Exam Vital Signs Vital Signs Date Time Temp Pulse Resp B/P (MAP) Pulse Ox O2 Delivery O2 Flow Rate FiO2 06/26/20 05:38 36.4 95 19 138/60 (86) 94 Room Air Capillary Refill : General Appearance: No Apparent Distress, WD/WN, Chronically ill HEENT: PERRL/EOMI, Normal ENT Inspection, Pharynx Normal Neck: Full Range of Motion, Normal Inspection, Non Tender, Supple, Carotid Bruit Respiratory: Chest Non Tender, Lungs Clear, Normal Breath Sounds, No Accessory Muscle Use, No Respiratory Distress Cardiovascular: Regular Rate, Rhythm, No Edema, No Gallop, No JVD, No Murmur, Normal Peripheral Pulses Gastrointestinal: Normal Bowel Sounds, No Organomegaly, No Pulsatile Mass, Non Tender, Soft Back: Normal Inspection, Decreased Range of Motion, Muscle Spasm, Vertebral Tenderness Extremity: Normal Capillary Refill, Normal Inspection, Normal Range of Motion, Non Tender, No Calf Tenderness, No Pedal Edema Neurologic/Psychiatric: Alert, Oriented x3, No Motor/Sensory Deficits, Normal Mood/Affect, Abnormal Gait, Disoriented, Motor Weakness (bilateral legs) Skin: Normal Color, Warm/Dry Lymphatic: No Adenopathy Results/Procedures Lab Patient resulted labs reviewed. FIM Transfers Therapy Code Descriptions/Definitions Functional [place] Measure: 0=Not Assessed/NA 4=Minimal Assistance 1=Total Assistance 5=Supervision or Setup 2=Maximal Assistance 6=Modified Vilas 3=Moderate Assistance 7=Complete IndependenceSCALE: Activities may be completed with or without assistive devices. 1-Avhnixnopx-mcwqirr completes the activity by him/herself with no assistance from a helper. 5-Set-up or Clean-up Assistance-helper sets up or cleans up; patient completes activity. [place] assists only prior to or following the activity. 4-Supervision or Touching Assistance-helper provides verbal cues and/or touching/steadying and/or contact guard assistance as patient completes activity. Assistance may be provided throughout the activity or intermittently. 3-Partial/Moderate Assistance-helper does LESS THAN HALF the effort. [place] lifts, holds or supports trunk or limbs, but provides less than half the effort. 2-Substantial/Maximal Assistance-helper does MORE THAN HALF the effort. [place] lifts or holds trunk or limbs and provides more than half the effort. 2-Cnxeksdam-aqgsun does ALL the effort. Patient does none of the effort to complete the activity. Or, the assistance of 2 or more helpers is required for the patient to complete the activity. If activity was not attempted, code reason: 7-Patient Refused. 9-Not Applicable-not attempted and the patient did not perform the activity before the current illness, exacerbation or injury. 10-Not Attempted due to Environmental Limitations-(lack of equipment, weather restraints, etc.). 88-Not Attempted due to Medical Conditions or Safety Concerns. Roll Left to Right (QC): 1 Sit to Lying (QC): 1 Sit to Stand (QC): 1 Chair/Mpy-gz-Znatd Xfer(QC): 3 Car Transfer (QC): 88 (unsafe/unable to attempt due to limited transfer status. ) Gait Training Does the Patient Walk?: No and Walking Goal IS indicated Walk 10 feet (QC): 88 (unable to walk this distance safely) Walk 50 ft with 2 Turns(QC): 88 Walk 150 ft (QC): 88 Walking 10ft/uneven surface-QC: 88 Gait Assistive Device: FWW Wheelchair Training Does the Pt Use a Wheelchair?: No Wheel 50 ft with 2 turns (QC): 9 Wheel 150 ft (QC): 9 Stair Training 1 Step (curb) (QC): 88 4 Steps (QC): 9 12 Steps (QC): 9 Balance Picking up an Object (QC): 88 (back precautions forbid this) ADL-Treatment Eating (QC): 6 (IND) Oral Hygiene (QC): 5 (s/u) Shower/Bathe Self (QC): 2 (max A per clinical judgement) Upper Body Dressing (QC): 2 (max A for back brace. ) Lower Body Dressing (QC): 1 (TD due to max A x2 in stance. Pt able to thread BLE with min A and AD . ) On/Off Footwear (QC): 2 (Max A due to precautions and decreased energy. Pt is educated on sock aide (has one at home/ is familiar) and completes one sock with sock aide with mod A. ) Toileting Hygiene (QC): 1 (TD due to max Ax2 in stance. ) Assessment/Plan Assessment and Plan Assess & Plan/Chief Complaint Assessment: s/p lumbar spine surgery for stenosis now with slow recovery and severe pain Cognitive deficits contributing to slow recovery and severe pain out of proportion of expected HTN HLP BETTY Obesity Prostate cancer hx Constipation Plan: BM regimen IRF protocol Pain meds Monitor confusion Limit pain meds due to confusion 06/25/20: Monitor confusion Dementia noted after speaking to and the interaction I had with the patient in [facility] Antipsychotics (1) Spinal stenosis, lumbar region with neurogenic claudication (2) Prostate cancer (3) Obesity (4) Hypertension (5) Cognitive deficits (6) BETTY on CPAP (7) Hyperlipemia ERIC LUTHER DO Jun 25, 2020 05:13
[2020-06-25] MEDS: LEVOTHYROXINE 50 MCG (LEVOTHROID) TAB PO SCH (05:52)
[2020-06-25] MEDS: MULTIVIT W/MINERALS TAB (THERAGRAN M) PO SCH (05:52)
[2020-06-25] MEDS: ACETAMINOPHEN 500 MG TAB (TYLENOL) PO SCH ×3 (05:53→20:07)
[2020-06-25 05:55] VITALS: BP 158/70
[2020-06-25 06:05] LABS: BASOPHILS % (AUTO) 1 % (0-10); EOSINOPHILS # (AUTO) 0.1 10^3/uL (0.0-0.3); EOSINOPHILS % (AUTO) 1 % (0-10); HEMATOCRIT 29 % (40-54); HEMOGLOBIN 9.4 g/dL (13.3-17.7); LYMPHOCYTES # (AUTO) 0.5 10^3/uL (1.0-4.0); LYMPHOCYTES % (AUTO) 9 % (12-44); MEAN CORPUSCULAR HEMOGLOBIN 30 pg (25-34); MEAN CORPUSCULAR HGB CONC 32 g/dL (32-36); MEAN CORPUSCULAR VOLUME 92 fL (80-99); MEAN PLATELET VOLUME 9.4 fL (9.0-12.2); MONOCYTES # (AUTO) 0.6 10^3/uL (0.0-1.0); MONOCYTES % (AUTO) 10 % (0-12); NEUTROPHILS # (AUTO) 4.8 10^3/uL (1.8-7.8); NEUTROPHILS % (AUTO) 78 % (42-75); PLATELET COUNT 207 10^3/uL (130-400); WHITE BLOOD COUNT 6.1 10^3/uL (4.3-11.0)
[2020-06-25 06:25] LABS: CHLORIDE 100 MMOL/L (98-107); POTASSIUM 4.4 MMOL/L (3.6-5.0); SODIUM 135 MMOL/L (135-145)
[2020-06-25 06:26] LABS: CALCIUM 8.6 MG/DL (8.5-10.1)
[2020-06-25 06:27] LABS: GLUCOSE 98 MG/DL (70-105); TOTAL PROTEIN 5.1 GM/DL (6.4-8.2)
[2020-06-25 06:28] LABS: CARBON DIOXIDE 24 MMOL/L (21-32)
[2020-06-25 06:29] LABS: BILIRUBIN,TOTAL 0.9 MG/DL (0.1-1.0)
[2020-06-25 06:30] LABS: ALKALINE PHOSPHATASE 46 U/L (40-136)
[2020-06-25 06:31] LABS: CREATININE SERUM 0.93 MG/DL (0.60-1.30); GFR ESTIMATED > 60
[2020-06-25 06:32] LABS: BUN/CREATININE RATIO 14
[2020-06-25 06:34] LABS: ALANINE AMINOTRANSFERASE 14 U/L (0-55)
--- NOTE | 2020-06-25 06:41 | NUR ---
up in recliner with 2 people assist & walker
--- NOTE | 2020-06-25 07:58 | NUR ---
Pt was sitting up in recliner, rocking himself, moaning, c/o pain, attempting to get out of chair by himself, but unable, had turned call lt on, & pushing breakfast tray away, which he had partially ate. Ax2 to transfer from chair to bed. Pt reports that he does feel better in bed, the pain is less; less moaning. Bed alarm turned on, 4 rails up, call lt in hand.
[2020-06-25] MEDS: ONDANSETRON 4 MG (ZOFRAN) ORAL DISSOLVE TAB PO PRN (08:14)
[2020-06-25] MEDS ORDERED: OMEPRAZOLE 20 MG (PriLOSEC) CAP NON-FORMULARY PO SCH (09:00)
[2020-06-25] MEDS ORDERED: NON-FORMULARY MEDICATION 1 EA EA (Vit A,C & E/Lutein/Minerals (Ocuvite with Lutein Tablet) PO SCH (09:00)
[2020-06-25 09:02] VITALS: BP 138/65
[2020-06-25] MEDS: LACTULOSE SYRUP 10GM/15ML (ENULOSE) 30ML UDC PO PRN (09:05)
[2020-06-25] MEDS: polyethylene glycoL POWDER 17 GM (MIRALAX) PACK PO SCH ×2 (09:05→21:00)
[2020-06-25] MEDS: PANTOPRAZOLE 20 MG TABLET (PROTONIX) PO SCH (09:06)
[2020-06-25] MEDS: DOCUSATE SODIUM 100 MG (COLACE) CAP PO SCH ×2 (09:06→21:00)
[2020-06-25] MEDS: GABAPENTIN 300 MG (NEURONTIN) CAP PO SCH ×2 (09:06→14:28)
[2020-06-25] MEDS: ALPRAZolam 0.25 MG (XANAX) TAB PO PRN (09:06)
[2020-06-25] MEDS: LACTOBACILLUS ACIDOPHILUS (PROBIOTIC) CAPSULE PO SCH ×2 (09:06→20:07)
[2020-06-25] MEDS: SENNA W/DOCUSATE (SENOKOT S) TABLET PO SCH ×2 (09:12→21:00)
[2020-06-25] MEDS ORDERED: QUEtiapine 25 MG (SEROquel) TAB IMMEDIATE RELEASE PO NR (09:18)
[2020-06-25] MEDS: DICLOFENAC 1% GEL 100 GM (VOLTAREN) TUBE TOP SCH ×4 (10:19→21:00)
--- NOTE | 2020-06-25 11:14 | Physical Therapy Daily Note ---
PT Daily Note-Current Subjective Pt in bed w/ RN in room, upon arrival. NEEDLE STRAIGHTENER has heard pt moaning and shouting out all morning. Per RN, pt has received pain medication. Pain Numeric Pain Scale: 10-Worst Possible Pain Location: Lower Location Body Site: Back Mental Status Patient Orientation: Person, Confused Attachments: Drains Transfers SCALE: Activities may be completed with or without assistive devices. 0-Uyjdbwwizj-zzroppk completes the activity by him/herself with no assistance from a helper. 5-Set-up or Clean-up Assistance-helper sets up or cleans up; patient completes activity. [place] assists only prior to or following the activity. 4-Supervision or Touching Assistance-helper provides verbal cues and/or touching/steadying and/or contact guard assistance as patient completes activi ty. Assistance may be provided throughout the activity or intermittently. 3-Partial/Moderate Assistance-helper does LESS THAN HALF the effort. [place] lifts, holds or supports trunk or limbs, but provides less than half the effort. 2-Substantial/Maximal Assistance-helper does MORE THAN HALF the effort. [place] lifts or holds trunk or limbs and provides more than half the effort. 7-Xkuqkvazy-pzdbbu does ALL the effort. Patient does none of the effort to complete the activity. Or, the assistance of 2 or more helpers is required for the patient to complete the activity. If activity was not attempted, code reason: 7-Patient Refused. 9-Not Applicable-not attempted and the patient did not perform the activity before the current illness, exacerbation or injury. 10-Not Attempted due to Environmental Limitations-(lack of equipment, weather restraints, etc.). 88-Not Attempted due to Medical Conditions or Safety Concerns. Treatments Attempted supine ex; pt unable to tolerate, moans and yells out. Attempted to reposition pt; pt unable to tolerate, moans and yells out. Pt remains in bed w/ bedside table and call light w/in reach and all needs met. Assessment Current Status: Poor Progress Pt moans and yells out w/ all movement. Pt unable to tell NEEDLE STRAIGHTENER where he is; pt told NEEDLE STRAIGHTENER he's at [facility]. Pt pain level extremely limits pt ability to participate w/ NEEDLE STRAIGHTENER. PT Short Term Goals Short Term Goals Time Frame: Jul 05, 2020 Roll Left & Right: 4 Sit to lyin Lying to sitting on side of be: 4 Sit to stand: 4 Chair/lny-lq-kogya transfer: 4 Toilet transfer: 4 Walk 10 feet: 4 Walk 50 feet with two turns: 4 PT Deli Clerk Goals Deli Clerk Goals PT Residential Goals Time Frame: Jul 22, 2020 Roll Left & Right (QC): 6 Sit to Lying (QC): 6 Lying-Sitting on Side/Bed(QC): 6 Sit to Stand (QC): 6 Chair/Hij-ta-Trgnw Xfer(QC): 6 Toilet Transfer (QC): 6 Car Transfer (QC): 6 Does the Patient Walk: Yes Walk 10 feet (QC): 6 Walk 50ft with 2 Turns (QC): 6 Walk 150 ft (QC): 6 Walking 10ft on Uneven Surface: 5 1 Step (curb) (QC): 4 4 Steps (QC): 9 12 Steps (QC): 9 Picking up an Object (QC): 88 Wheel 50 feet with 2 turns (QC: 9 Wheel 150 feet: 9 PT Plan Problem List Problem List: Activity Tolerance, Functional Strength, Safety, Balance, Gait, Transfer, Bed Mobility, ROM, Other (Pain level control) Treatment/Plan Treatment Plan: Continue Plan of Care Treatment Plan: Bed Mobility, Education, Functional Activity Aby, Functional Strength, Group Therapy, Gait, Safety, Therapeutic Exercise, Transfers Treatment Duration: Jul 22, 2020 Frequency: At least 5 of 7 days/Wk (IRF) Estimated Hrs Per Day: 1.5 hours per day Patient and/or Family Agrees t: Yes Safety Risks/Education Patient Education: Correct Positioning, Safety Issues Teaching Recipient: Patient Teaching Methods: Discussion Response to Teaching: Unable to Comprehend Time/GCodes Time In: 1035 Time Out: 1050 Total Billed Treatment Time: 15 Total Billed Treatment 1, FA (15m) DANY COLLINS NEEDLE STRAIGHTENER Jun 25, 2020 11:14
[2020-06-25 14:37] LABS: CLARITY,URINE CLEAR; COLOR,URINE YELLOW; GLUCOSE, URINE (UA) NEGATIVE (NEGATIVE); KETONES,URINE 3+ (NEGATIVE); LEUKOCYTE ESTERASE ,URINE NEGATIVE (NEGATIVE); NITRITE,URINE NEGATIVE (NEGATIVE); PROTEIN,URINE NEGATIVE (NEGATIVE)
[2020-06-25 14:49] LABS: BACTERIA,URINE NEGATIVE /HPF; BILIRUBIN,URINE 1+ (NEGATIVE); SQUAMOUS EPITHELIAL CELL,UR 0-2 /HPF
[2020-06-25] MEDS ORDERED: LORazepam INJ 2 MG/ML (ATIVAN) VIAL IM PRN (15:45)
[2020-06-25] MEDS ORDERED: HALOPERIDOL 5 MG/ML (HALDOL) VIAL IM PRN (15:45)
--- NOTE | 2020-06-25 15:59 | NUR ---
PT INCT OF LG SOFT BM IN BED, CLEANSED
--- NOTE | 2020-06-25 16:39 | NUR ---
PT DRINKING VANMARCUS HOPKINS & PEDRO LUIS PERSAUD NOW
[2020-06-25 17:08] VITALS: BP 145/63
--- NOTE | 2020-06-25 17:27 | NUR ---
PT RETURNING PER BED FROM CT HEAD ORDERED.
--- NOTE | 2020-06-25 18:45 | Diagnostic Imaging Report ---
TECHNIQUE: CT head without contrast. All CT scans use one or more of the following dose optimizing techniques: automated exposure control, MA and/or KvP adjustment based on patient size and exam type or iterative reconstruction. INDICATION: Acute mental status changes, poor historian. COMPARISON STUDY: None. FINDINGS: Noncontrast CT scanning of the head demonstrates no mass effect, midline shift, hemorrhage or extra-axial fluid collection. The león-white matter differentiation is normal. Minimal age-related atrophy is present. Paranasal sinuses and mastoid air cells are clear. IMPRESSION: Normal CT scanning of the head. Dictated by: Dictated on workstation # [id number]
--- NOTE | 2020-06-25 19:45 | NUR ---
Dr. Freeman on floor to see pts, this RN notified her that 1800 scheduled meds have not been given bc pt has been sleeping since around 1744. Dr. Freeman stated that was fine, can wait until pt wakes up to give evening or night meds. Pt sleeping now, in bed, appears comfortable, resp 18, no signs of discomfort or pain.
[2020-06-25 22:00] VITALS: BP 187/74
--- NOTE | 2020-06-25 22:00 | NUR ---
AWAKENED TO BE CLEANED. INCONTINENT OF A LARGE AMOUNT OF BROWN DIARRHEA STOOL AND TOTAL LINEN CHANGE AND PARTIAL BATH GIVEN. DENIES PAIN AT THIS TIME. ORIENTED TO NAME ONLY AND BED EXIT ALARM ON.
[2020-06-25] MEDS: ROSUVASTATIN 5 MG (CRESTOR) TABLET PO SCH (22:08)
[2020-06-25] MEDS: QUEtiapine 25 MG (SEROquel) TAB IMMEDIATE RELEASE PO SCH (22:09)
[2020-06-25] MEDS: TAMSULOSIN 0.4 MG (FLOMAX) CAP PO SCH (22:09)
[2020-06-25] MEDS: LOSARTAN 100 MG (COZAAR) TABLET PO SCH (22:12)
[2020-06-25] MEDS: OLANZapine 5 MG ODT (ZyPREXA ZYDIS) PO SCH (22:55)
[2020-06-26] MEDS: ACETAMINOPHEN 500 MG TAB (TYLENOL) PO SCH ×4 (00:37→18:34)
--- NOTE | 2020-06-26 01:00 | NUR ---
COMPLAIN BACK PAIN AND MEDICATED WITH TYLENOL AND ULTRAM. REPOSITIONED. ONLY 20 CC OUTPUT PER NITHYA DRAIN IN 30 HOURS. ORDER TO REMOVE DRAIN WHEN < 80 CC RELAYED BY Mahesh WISDOM RN AND DRAIN REMOVED AND LARGE BANDAID APPLIED AFTER HOLDING PRESSURE.
[2020-06-26] MEDS: ALPRAZolam 0.25 MG (XANAX) TAB PO PRN ×2 (01:54→12:00)
[2020-06-26 05:38] VITALS: BP 138/60
--- NOTE | 2020-06-26 06:00 | NUR ---
SLEPT FAIR. HAD A HARD TIME GETTING COMFORTABLE IN BED. USED URINAL WELL - INCONTINENT X 1 TONIGHT. NO AGITATION TONIGHT.
[2020-06-26] MEDS: LEVOTHYROXINE 50 MCG (LEVOTHROID) TAB PO SCH (06:41)
[2020-06-26] MEDS: MULTIVIT W/MINERALS TAB (THERAGRAN M) PO SCH (06:42)
--- NOTE | 2020-06-26 08:08 | PM&R Progress Note ---
Subjective HPI/CC On Admission Date Seen by Provider: Jun 26, 2020 Time Seen by Provider: 12:30 Subjective/Events-last exam 06/26/20: Confusion varies Zyprexa helped him sleep Seroquel in evening has also helped Talked about his pain and told him we will continue to support him in pain meds but he needs to move around BM large last night Ate bfast Dry mouth reported 06/25/20: Confusion last night was significant Pain out of proportion to the number of days he is out of post op is related to his cognitive deficits Hgb 9.4 Ultram and Tylenol given for pain No BM yet Impulsive Oxycodone made him very confused at [place] Seroquel 12.5 will be given now and 25mg in evening and Zyprexa 5mg at night Spoke to in-depth for 15 minutes on the phone since I knew her from [place] and it is now apparent he has cognition deficits so will try to improve and clear the delirium with antipsychotics Kept his eyes closed similar to the dementia 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 in senior unit at [facility] Review of Systems Musculoskeletal: back pain Neurological: Confusion Objective Exam Vital Signs Vital Signs Date Time Temp Pulse Resp B/P (MAP) Pulse Ox O2 Delivery O2 Flow Rate FiO2 06/26/20 17:33 36.4 79 20 138/64 (88) 92 Room Air Capillary Refill : General Appearance: No Apparent Distress, WD/WN, Chronically ill HEENT: PERRL/EOMI, Normal ENT Inspection, Pharynx Normal Neck: Full Range of Motion, Normal Inspection, Non Tender, Supple, Carotid Bruit Respiratory: Chest Non Tender, Lungs Clear, Normal Breath Sounds, No Accessory Muscle Use, No Respiratory Distress Cardiovascular: Regular Rate, Rhythm, No Edema, No Gallop, No JVD, No Murmur, Normal Peripheral Pulses Gastrointestinal: Normal Bowel Sounds, No Organomegaly, No Pulsatile Mass, Non Tender, Soft Back: Normal Inspection, Decreased Range of Motion, Muscle Spasm, Vertebral Tenderness Extremity: Normal Capillary Refill, Normal Inspection, Normal Range of Motion, Non Tender, No Calf Tenderness, No Pedal Edema Neurologic/Psychiatric: Alert, Oriented x3, No Motor/Sensory Deficits, Normal Mood/Affect, Abnormal Gait, Disoriented, Motor Weakness (bilateral legs) Skin: Normal Color, Warm/Dry Lymphatic: No Adenopathy Results/Procedures Lab Patient resulted labs reviewed. FIM Transfers Therapy Code Descriptions/Definitions Functional [place] Measure: 0=Not Assessed/NA 4=Minimal Assistance 1=Total Assistance 5=Supervision or Setup 2=Maximal Assistance 6=Modified [place] 3=Moderate Assistance 7=Complete IndependenceSCALE: Activities may be completed with or without assistive devices. 6-Onsrmyvkaa-nxvrtmc completes the activity by him/herself with no assistance from a helper. 5-Set-up or Clean-up Assistance-helper sets up or cleans up; patient completes activity. [place] assists only prior to or following the activity. 4-Supervision or Touching Assistance-helper provides verbal cues and/or touching/steadying and/or contact guard assistance as patient completes activity. Assistance may be provided throughout the activity or intermittently. 3-Partial/Moderate Assistance-helper does LESS THAN HALF the effort. [place] lifts, holds or supports trunk or limbs, but provides less than half the effort. 2-Substantial/Maximal Assistance-helper does MORE THAN HALF the effort. [place] lifts or holds trunk or limbs and provides more than half the effort. 2-Ydctimliq-tdxdts does ALL the effort. Patient does none of the effort to complete the activity. Or, the assistance of 2 or more helpers is required for the patient to complete the activity. If activity was not attempted, code reason: 7-Patient Refused. 9-Not Applicable-not attempted and the patient did not perform the activity before the current illness, exacerbation or injury. 10-Not Attempted due to Environmental Limitations-(lack of equipment, weather restraints, etc.). 88-Not Attempted due to Medical Conditions or Safety Concerns. Roll Left to Right (QC): 1 Sit to Lying (QC): 1 Sit to Stand (QC): 1 Chair/Gdj-tp-Nyyiz Xfer(QC): 3 Car Transfer (QC): 88 (unsafe/unable to attempt due to limited transfer status. ) Gait Training Does the Patient Walk?: No and Walking Goal IS indicated Walk 10 feet (QC): 88 (unable to walk this distance safely) Walk 50 ft with 2 Turns(QC): 88 Walk 150 ft (QC): 88 Walking 10ft/uneven surface-QC: 88 Gait Assistive Device: FWW Wheelchair Training Does the Pt Use a Wheelchair?: No Wheel 50 ft with 2 turns (QC): 9 Wheel 150 ft (QC): 9 Stair Training 1 Step (curb) (QC): 88 4 Steps (QC): 9 12 Steps (QC): 9 Balance Picking up an Object (QC): 88 (back precautions forbid this) ADL-Treatment Eating (QC): 6 (IND) Oral Hygiene (QC): 5 (s/u) Shower/Bathe Self (QC): 2 (max A per clinical judgement) Upper Body Dressing (QC): 2 (max A for back brace. ) Lower Body Dressing (QC): 1 (TD due to max A x2 in stance. Pt able to thread BLE with min A and AD . ) On/Off Footwear (QC): 2 (Max A due to precautions and decreased energy. Pt is educated on sock aide (has one at home/ is familiar) and completes one sock with sock aide with mod A. ) Toileting Hygiene (QC): 1 (TD due to max Ax2 in stance. ) Assessment/Plan Assessment and Plan Assess & Plan/Chief Complaint Assessment: s/p lumbar spine surgery for stenosis now with slow recovery and severe pain Cognitive deficits contributing to slow recovery and severe pain out of proportion of expected HTN HLP BETTY Obesity Prostate cancer hx Constipation Plan: BM regimen IRF protocol Pain meds Monitor confusion Limit pain meds due to confusion 06/25/20: Monitor confusion Dementia noted after speaking to and the interaction I had with the patient in [place] Antipsychotics 06/26/20: Anti-psychotics Monitor delirium Pain management PT OT (1) Spinal stenosis, lumbar region with neurogenic claudication (2) Prostate cancer (3) Obesity (4) Hypertension (5) Cognitive deficits (6) BETTY on CPAP (7) Hyperlipemia ERIC LUTHER DO Jun 26, 2020 08:08
[2020-06-26] MEDS ORDERED: fentaNYL PATCH 25 MCG (DURAGESIC) TD SCH (09:00)
[2020-06-26] MEDS: LACTOBACILLUS ACIDOPHILUS (PROBIOTIC) CAPSULE PO SCH ×2 (10:12→18:34)
[2020-06-26] MEDS: SENNA W/DOCUSATE (SENOKOT S) TABLET PO SCH ×2 (10:12→21:47)
[2020-06-26] MEDS: PANTOPRAZOLE 20 MG TABLET (PROTONIX) PO SCH (10:12)
[2020-06-26] MEDS: GABAPENTIN 300 MG (NEURONTIN) CAP PO SCH ×2 (10:12→11:19)
[2020-06-26] MEDS: DOCUSATE SODIUM 100 MG (COLACE) CAP PO SCH ×2 (10:13→21:47)
[2020-06-26] MEDS: DICLOFENAC 1% GEL 100 GM (VOLTAREN) TUBE TOP SCH ×4 (10:13→21:56)
[2020-06-26] MEDS: polyethylene glycoL POWDER 17 GM (MIRALAX) PACK PO SCH ×2 (10:13→21:48)
[2020-06-26] MEDS: ACETAMINOPHEN 325 MG TABLET PO PRN (11:29)
[2020-06-26] MEDS ORDERED: SALIVA STIMULANT MOUTH SPRAY (BIOTENE) 1.5 OZ MM PRN (12:00)
[2020-06-26 17:33] VITALS: BP 138/64
--- NOTE | 2020-06-26 19:52 | NUR ---
Received order on day of admission that NITHYA drain can be removed when 50cc or less drainage in 24 hours.
[2020-06-26] MEDS: LOSARTAN 100 MG (COZAAR) TABLET PO SCH (21:48)
[2020-06-26] MEDS: OLANZapine 5 MG ODT (ZyPREXA ZYDIS) PO SCH (21:48)
[2020-06-26] MEDS: TAMSULOSIN 0.4 MG (FLOMAX) CAP PO SCH (21:48)
[2020-06-26] MEDS: QUEtiapine 25 MG (SEROquel) TAB IMMEDIATE RELEASE PO SCH (21:48)
[2020-06-26] MEDS: ROSUVASTATIN 5 MG (CRESTOR) TABLET PO SCH (21:48)
[2020-06-27] MEDS: ACETAMINOPHEN 500 MG TAB (TYLENOL) PO SCH ×4 (00:22→18:35)
[2020-06-27 01:22] VITALS: BP 116/62
[2020-06-27] MEDS: LEVOTHYROXINE 50 MCG (LEVOTHROID) TAB PO SCH (05:37)
[2020-06-27 06:05] LABS: BASOPHILS % (AUTO) 1 % (0-10); EOSINOPHILS # (AUTO) 0.1 10^3/uL (0.0-0.3); EOSINOPHILS % (AUTO) 2 % (0-10); HEMATOCRIT 30 % (40-54); HEMOGLOBIN 9.5 g/dL (13.3-17.7); LYMPHOCYTES # (AUTO) 0.4 10^3/uL (1.0-4.0); LYMPHOCYTES % (AUTO) 10 % (12-44); MEAN CORPUSCULAR HEMOGLOBIN 30 pg (25-34); MEAN CORPUSCULAR HGB CONC 32 g/dL (32-36); MEAN CORPUSCULAR VOLUME 94 fL (80-99); MEAN PLATELET VOLUME 9.4 fL (9.0-12.2); MONOCYTES # (AUTO) 0.4 10^3/uL (0.0-1.0); MONOCYTES % (AUTO) 10 % (0-12); NEUTROPHILS % (AUTO) 72 % (42-75); PLATELET COUNT 254 10^3/uL (130-400); WHITE BLOOD COUNT 4.2 10^3/uL (4.3-11.0)
[2020-06-27 06:15] LABS: ALBUMIN 2.8 GM/DL (3.2-4.5); POTASSIUM 4.3 MMOL/L (3.6-5.0)
[2020-06-27] MEDS: MULTIVIT W/MINERALS TAB (THERAGRAN M) PO SCH (06:16)
[2020-06-27 06:17] LABS: CALCIUM 8.4 MG/DL (8.5-10.1)
[2020-06-27 06:18] LABS: TOTAL PROTEIN 4.9 GM/DL (6.4-8.2)
[2020-06-27 06:20] LABS: BILIRUBIN,TOTAL 0.6 MG/DL (0.1-1.0)
[2020-06-27 06:21] LABS: CREATININE SERUM 1.18 MG/DL (0.60-1.30)
[2020-06-27 06:37] VITALS: BP 132/58
--- NOTE | 2020-06-27 08:44 | PM&R Progress Note ---
Subjective HPI/CC On Admission Date Seen by Provider: Jun 27, 2020 Time Seen by Provider: 08:30 Subjective/Events-last exam 06/27/20: Pt still pretty confused No Haldol or Ativan required Changing dressing daily Zyprexa at night seems to be helpful Keeps his eyes closed most of the time but does open them when we try to get him to open his eyes Updated Dr. Stark 06/26/20: Confusion varies Zyprexa helped him sleep Seroquel in evening has also helped Talked about his pain and told him we will continue to support him in pain meds but he needs to move around BM large last night Ate bfast Dry mouth reported 06/25/20: Confusion last night was significant Pain out of proportion to the number of days he is out of post op is related to his cognitive deficits Hgb 9.4 Ultram and Tylenol given for pain No BM yet Impulsive Oxycodone made him very confused at [place] Seroquel 12.5 will be given now and 25mg in evening and Zyprexa 5mg at night Spoke to in-depth for 15 minutes on the phone since I knew her from [place] and it is now apparent he has cognition deficits so will try to improve and clear the delirium with antipsychotics Kept his eyes closed similar to the dementia 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 in senior unit at [facility] Review of Systems General: Fatigue, Malaise Musculoskeletal: back pain Neurological: Weakness Objective Exam Vital Signs Vital Signs Date Time Temp Pulse Resp B/P (MAP) Pulse Ox O2 Delivery O2 Flow Rate FiO2 06/27/20 21:10 98 151/66 (94) 99 Room Air 06/27/20 18:39 36.7 16 Capillary Refill : General Appearance: No Apparent Distress, WD/WN, Chronically ill HEENT: PERRL/EOMI, Normal ENT Inspection, Pharynx Normal Neck: Full Range of Motion, Normal Inspection, Non Tender, Supple, Carotid Bruit Respiratory: Chest Non Tender, Lungs Clear, Normal Breath Sounds, No Accessory Muscle Use, No Respiratory Distress Cardiovascular: Regular Rate, Rhythm, No Edema, No Gallop, No JVD, No Murmur, Normal Peripheral Pulses Gastrointestinal: Normal Bowel Sounds, No Organomegaly, No Pulsatile Mass, Non Tender, Soft Back: Normal Inspection, Decreased Range of Motion, Muscle Spasm, Vertebral Tenderness Extremity: Normal Capillary Refill, Normal Inspection, Normal Range of Motion, Non Tender, No Calf Tenderness, No Pedal Edema Neurologic/Psychiatric: Alert, Oriented x3, No Motor/Sensory Deficits, Normal Mood/Affect, Abnormal Gait, Disoriented, Motor Weakness (bilateral legs) Skin: Normal Color, Warm/Dry Lymphatic: No Adenopathy Results/Procedures Lab Laboratory Tests 06/27/20 05:20 Patient resulted labs reviewed. FIM Transfers Therapy Code Descriptions/Definitions Functional [place] Measure: 0=Not Assessed/NA 4=Minimal Assistance 1=Total Assistance 5=Supervision or Setup 2=Maximal Assistance 6=Modified [place] 3=Moderate Assistance 7=Complete IndependenceSCALE: Activities may be completed with or without assistive devices. 4-Sgxsedogky-wrogtqd completes the activity by him/herself with no assistance from a helper. 5-Set-up or Clean-up Assistance-helper sets up or cleans up; patient completes activity. [place] assists only prior to or following the activity. 4-Supervision or Touching Assistance-helper provides verbal cues and/or touching/steadying and/or contact guard assistance as patient completes activity. Assistance may be provided throughout the activity or intermittently. 3-Partial/Moderate Assistance-helper does LESS THAN HALF the effort. [place] lifts, holds or supports trunk or limbs, but provides less than half the effort. 2-Substantial/Maximal Assistance-helper does MORE THAN HALF the effort. [place] lifts or holds trunk or limbs and provides more than half the effort. 5-Kmgcdcdzc-ctfxnw does ALL the effort. Patient does none of the effort to complete the activity. Or, the assistance of 2 or more helpers is required for the patient to complete the activity. If activity was not attempted, code reason: 7-Patient Refused. 9-Not Applicable-not attempted and the patient did not perform the activity before the current illness, exacerbation or injury. 10-Not Attempted due to Environmental Limitations-(lack of equipment, weather restraints, etc.). 88-Not Attempted due to Medical Conditions or Safety Concerns. Roll Left to Right (QC): 1 Sit to Lying (QC): 1 Sit to Stand (QC): 1 Chair/Xtu-xu-Jgkbv Xfer(QC): 3 Car Transfer (QC): 88 (unsafe/unable to attempt due to limited transfer status. ) Gait Training Does the Patient Walk?: No and Walking Goal IS indicated Walk 10 feet (QC): 88 (unable to walk this distance safely) Walk 50 ft with 2 Turns(QC): 88 Walk 150 ft (QC): 88 Walking 10ft/uneven surface-QC: 88 Gait Assistive Device: FWW Wheelchair Training Does the Pt Use a Wheelchair?: No Wheel 50 ft with 2 turns (QC): 9 Wheel 150 ft (QC): 9 Stair Training 1 Step (curb) (QC): 88 4 Steps (QC): 9 12 Steps (QC): 9 Balance Picking up an Object (QC): 88 (back precautions forbid this) ADL-Treatment Eating (QC): 6 (IND) Oral Hygiene (QC): 5 (s/u) Shower/Bathe Self (QC): 2 (max A per clinical judgement) Upper Body Dressing (QC): 2 (max A for back brace. ) Lower Body Dressing (QC): 1 (TD due to max A x2 in stance. Pt able to thread BLE with min A and AD . ) On/Off Footwear (QC): 2 (Max A due to precautions and decreased energy. Pt is educated on sock aide (has one at home/ is familiar) and completes one sock with sock aide with mod A. ) Toileting Hygiene (QC): 1 (TD due to max Ax2 in stance. ) Assessment/Plan Assessment and Plan Assess & Plan/Chief Complaint Assessment: s/p lumbar spine surgery for stenosis now with slow recovery and severe pain Cognitive deficits contributing to slow recovery and severe pain out of proportion of expected HTN HLP BETTY Obesity Prostate cancer hx Constipation Plan: BM regimen IRF protocol Pain meds Monitor confusion Limit pain meds due to confusion 06/25/20: Monitor confusion Dementia noted after speaking to and the interaction I had with the patient in [place] Antipsychotics 06/26/20: Anti-psychotics Monitor delirium Pain management PT OT 06/27/20: Antipsychotics Monitor closely Monitor BP (1) Spinal stenosis, lumbar region with neurogenic claudication (2) Prostate cancer (3) Obesity (4) Hypertension (5) Cognitive deficits (6) BETTY on CPAP (7) Hyperlipemia ERIC LUTHER DO Jun 27, 2020 08:44
[2020-06-27] MEDS: SENNA W/DOCUSATE (SENOKOT S) TABLET PO SCH ×2 (09:47→21:30)
[2020-06-27] MEDS: PANTOPRAZOLE 20 MG TABLET (PROTONIX) PO SCH (09:48)
[2020-06-27] MEDS: GABAPENTIN 300 MG (NEURONTIN) CAP PO SCH ×2 (09:48→13:38)
[2020-06-27] MEDS: polyethylene glycoL POWDER 17 GM (MIRALAX) PACK PO SCH ×2 (09:48→21:31)
[2020-06-27] MEDS: DOCUSATE SODIUM 100 MG (COLACE) CAP PO SCH ×2 (09:48→21:31)
[2020-06-27] MEDS: LACTOBACILLUS ACIDOPHILUS (PROBIOTIC) CAPSULE PO SCH ×2 (09:48→17:25)
[2020-06-27] MEDS: DICLOFENAC 1% GEL 100 GM (VOLTAREN) TUBE TOP SCH ×4 (09:49→21:37)
[2020-06-27] MEDS: ALPRAZolam 0.25 MG (XANAX) TAB PO PRN (10:28)
[2020-06-27] MEDS: fentaNYL PATCH 25 MCG (DURAGESIC) TD SCH (10:28)
--- NOTE | 2020-06-27 10:58 | Physical Therapy Daily Note ---
PT Daily Note-Current Subjective Patient in bed pre tx, agrees to PT, has 10/10 pain in low back, nurse gives him pain meds during tx, will be co-treating with OT due to poor patient mobility, strength, endurance, severe pain, the need to coordinate UE and LE during activity, safety and reduce risk of falls. Appearance Patient in bed post tx with nurse call, phone, tray, all needs met. Mental Status Patient Orientation: Person, Place, Situation back brace Transfers SCALE: Activities may be completed with or without assistive devices. 2-Cofjybrpdl-qxqwegy completes the activity by him/herself with no assistance from a helper. 5-Set-up or Clean-up Assistance-helper sets up or cleans up; patient completes activity. [place] assists only prior to or following the activity. 4-Supervision or Touching Assistance-helper provides verbal cues and/or touching/steadying and/or contact guard assistance as patient completes activity. Assistance may be provided throughout the activity or intermittently. 3-Partial/Moderate Assistance-helper does LESS THAN HALF the effort. [place] lifts, holds or supports trunk or limbs, but provides less than half the effort. 2-Substantial/Maximal Assistance-helper does MORE THAN HALF the effort. [place] lifts or holds trunk or limbs and provides more than half the effort. 7-Fqflyfjco-nmdirx does ALL the effort. Patient does none of the effort to complete the activity. Or, the assistance of 2 or more helpers is required for the patient to complete the activity. If activity was not attempted, code reason: 7-Patient Refused. 9-Not Applicable-not attempted and the patient did not perform the activity before the current illness, exacerbation or injury. 10-Not Attempted due to Environmental Limitations-(lack of equipment, weather restraints, etc.). 88-Not Attempted due to Medical Conditions or Safety Concerns. Roll Left & Right (QC): 2 Sit to Lying (QC): 1 Lying to Sitting/Side of Bed(Q: 2 Sit to Stand (QC): 1 Chair/Tsa-tg-Zxbuj Xfer(QC): 1 Toilet Transfer (QC): 1 Patient rolls to the side with max assist, supine to sit with max assist, dress upper and put on back brace, stand pivot transfer to dependent, put on shorts and stand again to get them up, after getting to room use a sit to stand machine to transfer back to bed, after standing he says he is having a BM in his pants, transfer to commode, has a small BM, stand again with sit to stand machine, clean and then transfer to bed, dependent for sit to supine. 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 Assessment Current Status: Poor Progress decline in functional mobility, severe pain, need to get pain meds before PT next time PT Short Term Goals Short Term Goals Time Frame: Jul 05, 2020 Roll Left & Right: 4 Sit to lyin Lying to sitting on side of be: 4 Sit to stand: 4 Chair/qxl-ts-nxpjo transfer: 4 Toilet transfer: 4 Walk 10 feet: 4 Walk 50 feet with two turns: 4 PT Penitentiary Goals Penitentiary Goals PT Penitentiary Goals Time Frame: Jul 22, 2020 Roll Left & Right (QC): 6 Sit to Lying (QC): 6 Lying-Sitting on Side/Bed(QC): 6 Sit to Stand (QC): 6 Chair/Ihg-ix-Uliyc Xfer(QC): 6 Toilet Transfer (QC): 6 Car Transfer (QC): 6 Does the Patient Walk: Yes Walk 10 feet (QC): 6 Walk 50ft with 2 Turns (QC): 6 Walk 150 ft (QC): 6 Walking 10ft on Uneven Surface: 5 1 Step (curb) (QC): 4 4 Steps (QC): 9 12 Steps (QC): 9 Picking up an Object (QC): 88 Wheel 50 feet with 2 turns (QC: 9 Wheel 150 feet: 9 PT Plan Problem List Problem List: Activity Tolerance, Functional Strength, Safety, Balance, Gait, Transfer, Bed Mobility, ROM Treatment/Plan Treatment Plan: Continue Plan of Care Treatment Plan: Bed Mobility, Education, Functional Activity Aby, Functional Strength, Group Therapy, Gait, Safety, Therapeutic Exercise, Transfers Treatment Duration: Jul 22, 2020 Frequency: At least 5 of 7 days/Wk (IRF) Estimated Hrs Per Day: 1.5 hours per day Patient and/or Family Agrees t: Yes Safety Risks/Education Patient Education: Transfer Techniques, Correct Positioning, W/C Management, Reviewed Don/Doff Brace, Safety Issues Teaching Recipient: Patient Teaching Methods: Demonstration, Discussion Response to Teaching: Reinforcement Needed Time/GCodes Time In: 1000 Time Out: 1100 Total Billed Treatment Time: 60 Total Billed Treatment 1 visit FA 60' co-treated with OT for 60' JAYLYN VARGAS PT Jun 27, 2020 10:58
--- NOTE | 2020-06-27 11:00 | Occupational Ther Daily Note ---
OT Current Status-Daily Note Subjective Pt alert, lying in bed. Pt agrees to therapy. Pt c/o back pain and nausea, 10+/10. Reported to nrsg and nrsg brought meds when available. Mental Status/Objective Patient Orientation: Person, Place, Time, Situation Attachments: Other-See Comments (back brace) ADL-Treatment Pt dependent with lower body dressing due to assist x2 one to stand and one to manipulate clothing, Max A x2 for bed mobility. Max A x2 for supine to EOB then verbal cues to sit up and not lean back. Initially Max A x2 for SPT from bed to w/c then using sit to stand lift to transfer back to bed. Pt dependent with transfer to toilet, hygiene and clothing manipulation. After session, pt lying in bed with call light/phone in reach. All needs met in room. Therapy Code Descriptions/Definitions Functional [place] Measure: 0=Not Assessed/NA 4=Minimal Assistance 1=Total Assistance 5=Supervision or Setup 2=Maximal Assistance 6=Modified [place] 3=Moderate Assistance 7=Complete IndependenceSCALE: Activities may be completed with or without assistive devices. 8-Nymrvsfkdz-zzkauyn completes the activity by him/herself with no assistance from a helper. 5-Set-up or Clean-up Assistance-helper sets up or cleans up; patient completes activity. [place] assists only prior to or following the activity. 4-Supervision or Touching Assistance-helper provides verbal cues and/or touching/steadying and/or contact guard assistance as patient completes activity. Assistance may be provided throughout the activity or intermittently. 3-Partial/Moderate Assistance-helper does LESS THAN HALF the effort. [place] lifts, holds or supports trunk or limbs, but provides less than half the effort. 2-Substantial/Maximal Assistance-helper does MORE THAN HALF the effort. [place] lifts or holds trunk or limbs and provides more than half the effort. 6-Gbugzoqhb-jvdsnk does ALL the effort. Patient does none of the effort to complete the activity. Or, the assistance of 2 or more helpers is required for the patient to complete the activity. If activity was not attempted, code reason: 7-Patient Refused. 9-Not Applicable-not attempted and the patient did not perform the activity before the current illness, exacerbation or injury. 10-Not Attempted due to Environmental Limitations-(lack of equipment, weather restraints, etc.). 88-Not Attempted due to Medical Conditions or Safety Concerns. Upper Body Dressing (QC): 2 (Max A for upper body dressing.) Lower Body Dressing (QC): 1 On/Off Footwear: 2 Toileting Hygiene (QC): 1 Toilet Transfer (QC): 1 Other Treatment Co-treat with PT ([id number]), skills of 2 clinicians required for skilled instruction and mobility due to increased pain, dependent mobility and decreased activity tolerance. PT focusing on transfers and w/c mobility while OT focusing on B UE placment during mobility and ADLs. Pt would only propel w/c 3x's with B UE before taking rest break. Pt c/o pain throughout session, breaks taken for pain and activity tolerance. After therapy, pt lying in bed with call light/phone in reach. All needs met in room. OT Cost Recorder Goals Assisted Goals Time Frame: Jul 08, 2020 Eating (QC): 6 Oral Hygiene (QC): 6 Toileting Hygiene (QC): 4 Shower/Bathe Self (QC): 5 Upper Body Dressing (QC): 6 Lower Body Dressing (QC): 4 On/Off Footwear (QC): 6 Additional Goals: 1-Demonstrate ADL Tasks, 2-Verbalize Understanding, 3- ImproveStrength/Aby 1=Demonstrate adherence to instructed precautions during ADL tasks. 2=Patient will verbalize/demonstrate understanding of assistive devices/modifications for ADL. 3=Patient will improve strength/tolerance for activity to enable patient to perform ADL's. OT Education/Plan Problem List/Assessment Assessment: Decreased Activ Tolerance, Decreased Safety Aware, Decreased UE Strength, Dependent Transfers, Impaired Bed Mobility, Impaired Coordination, Impaired Funct Balance, Impaired Self-Care Skills, Restricted Funct UE ROM Discharge Recommendations Plan/Recommendations: Continue POC Treatment Plan/Plan of Care Patient would benefit from OT for education, treatment and training to promote independence in ADL's, mobility, safety and/or upper extremity function for ADL's. Plan of Care: ADL Retraining, Caregiver Training, Concurrent Therapy, Functional Mobility, Group Exercise/Act as Ind, Orthotic Fitting/Training, UE Funct Exercise/Act, W/C Management Training Treatment Duration: Jul 08, 2020 Frequency: At least 5 of 7 days/Wk (IRF) Estimated Hrs Per Day: 1.5 hours per day Agreement: Yes Rehab Potential: Good Time/GCodes Start Time: 10:00 Stop Time: 11:00 Total Time Billed (hr/min): 60 Billed Treatment Time 1 visit-ADL 2 (30 min) FA 2 (30 min) ROBERT MCDONOUGH Jun 27, 2020 11:00
--- NOTE | 2020-06-27 13:32 | Occupational Ther Daily Note ---
OT Current Status-Daily Note Subjective Pt alert, lying in bed. Pt agrees to therapy. Pt states that he is pain though did not rate. Pt stated that he felt like that the pain meds need to be stronger to cut through the pain even if it is addictive. Mental Status/Objective Patient Orientation: Person, Place, Time, Situation ADL-Treatment Therapy Code Descriptions/Definitions Functional [place] Measure: 0=Not Assessed/NA 4=Minimal Assistance 1=Total Assistance 5=Supervision or Setup 2=Maximal Assistance 6=Modified [place] 3=Moderate Assistance 7=Complete IndependenceSCALE: Activities may be completed with or without assistive devices. 3-Gmlecflrad-egjstpa completes the activity by him/herself with no assistance from a helper. 5-Set-up or Clean-up Assistance-helper sets up or cleans up; patient completes activity. [place] assists only prior to or following the activity. 4-Supervision or Touching Assistance-helper provides verbal cues and/or luis alberto keisha/steadying and/or contact guard assistance as patient completes activity. Assistance may be provided throughout the activity or intermittently. 3-Partial/Moderate Assistance-helper does LESS THAN HALF the effort. [place] lifts, holds or supports trunk or limbs, but provides less than half the effort. 2-Substantial/Maximal Assistance-helper does MORE THAN HALF the effort. [place] lifts or holds trunk or limbs and provides more than half the effort. 3-Npzxzdmqm-xegnqo does ALL the effort. Patient does none of the effort to complete the activity. Or, the assistance of 2 or more helpers is required for the patient to complete the activity. If activity was not attempted, code reason: 7-Patient Refused. 9-Not Applicable-not attempted and the patient did not perform the activity before the current illness, exacerbation or injury. 10-Not Attempted due to Environmental Limitations-(lack of equipment, weather restraints, etc.). 88-Not Attempted due to Medical Conditions or Safety Concerns. Other Treatment Pt able to set own meal then uses regular utensils to eat. Pt takes increased time to complete all tasks due to increased pain and fatigue. Pt educated on theraband B UE exercises using medium resistant band. Due to increased pain, pt only able to complete 3 exercise, 1 set 10 reps. After session, pt lying in bed with call light/phone with in reach. All needs met in room. OT [facility]itent[facility] Goals Operation Agent Goals Time Frame: Jul 08, 2020 Eating (QC): 6 Oral Hygiene (QC): 6 Toileting Hygiene (QC): 4 Shower/Bathe Self (QC): 5 Upper Body Dressing (QC): 6 Lower Body Dressing (QC): 4 On/Off Footwear (QC): 6 Additional Goals: 1-Demonstrate ADL Tasks, 2-Verbalize Understanding, 3- ImproveStrength/Aby 1=Demonstrate adherence to instructed precautions during ADL tasks. 2=Patient will verbalize/demonstrate understanding of assistive devices/modifications for ADL. 3=Patient will improve strength/tolerance for activity to enable patient to perform ADL's. OT Education/Plan Problem List/Assessment Assessment: Decreased Activ Tolerance, Decreased UE Strength, Dependent Transfers, Impaired Bed Mobility, Impaired Self-Care Skills Discharge Recommendations Plan/Recommendations: Continue POC Treatment Plan/Plan of Care Patient would benefit from OT for education, treatment and training to promote independence in ADL's, mobility, safety and/or upper extremity function for ADL's. Plan of Care: ADL Retraining, Caregiver Training, Concurrent Therapy, Functional Mobility, Group Exercise/Act as Ind, Orthotic Fitting/Training, UE Funct Exercise/Act, W/C Management Training Treatment Duration: Jul 08, 2020 Frequency: At least 5 of 7 days/Wk (IRF) Estimated Hrs Per Day: 1.5 hours per day Agreement: Yes Rehab Potential: Good Time/GCodes Start Time: 13:00 Stop Time: 13:30 Total Time Billed (hr/min): 30 Billed Treatment Time 1 visit-FA 1 (15 min) EX 1 (15 min) ROBERT MCDONOUGH Jun 27, 2020 13:31
[2020-06-27] MEDS: FENTANYL PATCH REMOVAL TP SCH (13:39)
--- NOTE | 2020-06-27 14:23 | Physical Therapy Daily Note ---
PT Daily Note-Current Subjective Patient in bed pre tx, agrees to PT, voices no complaints of pain, talking non- sensically Appearance Patient in bed post tx with nurse call, phone, tray, all needs met. Mental Status Patient Orientation: Person, Confused, Situation Transfers SCALE: Activities may be completed with or without assistive devices. 5-Yaeciewlkm-uylqtqt completes the activity by him/herself with no assistance from a helper. 5-Set-up or Clean-up Assistance-helper sets up or cleans up; patient completes activity. [place] assists only prior to or following the activity. 4-Supervision or Touching Assistance-helper provides verbal cues and/or touching/steadying and/or contact guard assistance as patient completes activity. Assistance may be provided throughout the activity or intermittently. 3-Partial/Moderate Assistance-helper does LESS THAN HALF the effort. [place] lifts, holds or supports trunk or limbs, but provides less than half the effort. 2-Substantial/Maximal Assistance-helper does MORE THAN HALF the effort. [place] lifts or holds trunk or limbs and provides more than half the effort. 6-Qqarfwrwq-zcfpdh does ALL the effort. Patient does none of the effort to complete the activity. Or, the assistance of 2 or more helpers is required for the patient to complete the activity. If activity was not attempted, code reason: 7-Patient Refused. 9-Not Applicable-not attempted and the patient did not perform the activity before the current illness, exacerbation or injury. 10-Not Attempted due to Environmental Limitations-(lack of equipment, weather restraints, etc.). 88-Not Attempted due to Medical Conditions or Safety Concerns. Exercises Supine Ex: Ankle pumps, Quad Set, Glut sets, Heel Slides, Short Arc Quads, Str aight leg raise, Hip abd/add Supine Reps: 20 (AAROM with HS, SLR, hip abd/add) Treatments LE exercise Assessment Current Status: Poor Progress Patient needs assist with exercise, needed several rest breaks due to fatigue and pain. PT Short Term Goals Short Term Goals Time Frame: Jul 05, 2020 Roll Left & Right: 4 Sit to lyin Lying to sitting on side of be: 4 Sit to stand: 4 Chair/cev-tz-jqxih transfer: 4 Toilet transfer: 4 Walk 10 feet: 4 Walk 50 feet with two turns: 4 PT Assistant Football Coach Goals Assistant Football Coach Goals PT Snf Goals Time Frame: Jul 22, 2020 Roll Left & Right (QC): 6 Sit to Lying (QC): 6 Lying-Sitting on Side/Bed(QC): 6 Sit to Stand (QC): 6 Chair/Ecy-tx-Qaoqy Xfer(QC): 6 Toilet Transfer (QC): 6 Car Transfer (QC): 6 Does the Patient Walk: Yes Walk 10 feet (QC): 6 Walk 50ft with 2 Turns (QC): 6 Walk 150 ft (QC): 6 Walking 10ft on Uneven Surface: 5 1 Step (curb) (QC): 4 4 Steps (QC): 9 12 Steps (QC): 9 Picking up an Object (QC): 88 Wheel 50 feet with 2 turns (QC: 9 Wheel 150 feet: 9 PT Plan Problem List Problem List: Activity Tolerance, Functional Strength, Safety, Balance, Gait, Transfer, Bed Mobility, ROM Treatment/Plan Treatment Plan: Continue Plan of Care Treatment Plan: Bed Mobility, Education, Functional Activity Aby, Functional Strength, Group Therapy, Gait, Safety, Therapeutic Exercise, Transfers Treatment Duration: Jul 22, 2020 Frequency: At least 5 of 7 days/Wk (IRF) Estimated Hrs Per Day: 1.5 hours per day Patient and/or Family Agrees t: Yes Safety Risks/Education Patient Education: Correct Positioning, Safety Issues Teaching Recipient: Patient Teaching Methods: Demonstration, Discussion Response to Teaching: Reinforcement Needed Time/GCodes Time In: 1400 Time Out: 1430 Total Billed Treatment Time: 30 Total Billed Treatment 1 visit EX 30' JAYLYN VARGAS PT Jun 27, 2020 14:23
--- NOTE | 2020-06-27 16:02 | NUR ---
CM/SS ADMISSION Patient was admitted 06/24/20 to ARU from [facility] post op for lumbar spinal stenosis with neurogenic claudication. Contacted spouse Nohemi Ramey for additional input regarding history and performance. Patient was reportedly IADL prior to surgery. He used a 'walking stick' for ambulation, he has a FWW he would use when his back was more problematic. This FWW is reportedly old and no longer folds up. The goal is that patient would return home as before. PCP: Dr. Simone Bonds, affiliated with [address] [phone] PHARMACY: [facility] [place] INSURANCE: Medicare with supplement through DME: Has 'walking stick', cane, broken FWW, shower chair, walk-in shower, back brace post op BARRIERS TO DISCHARGE PLANNING: Patient has exhibited confusion and/or cognitive deficits which his describes as unusual. His PLOF was 6's, now as low as 2-3's for mobility. They have two children in different states. When asked if they had a network of friends or family to assist locally, Nohemi stated she could call the neighbor across the street or EMS. Patient's goal is to return home, maximizing his level of functioning is paramount. He is insured well for post discharge [facility] therapies as long as he is safe to ambulate short distances at home. CONTACTS: Tommie Ramey, Son [address] [place] [address] Dylon Ramey, Son [address] [place] [address] Nohemi understands the purpose and process of the weekly patient care conference and that patient's first review will be 06/29/20.
--- NOTE | 2020-06-27 18:38 | NUR ---
"RD ASSESSMENT PMHx: CA(prostate); GERD; HTN; HLD; hypothyroidism; PT INTERACTION: Pt was awake and pleasant during nutrition consult for MST score. Note pt has AMS, per chart review. Pt states current appetite is poor. Note avg PO intake 40% x3d, per chart review. Pt states following a regular diet at home, and has no issues with chewing/swallowing food. Pt states some recent issues with nausea. Note last BM was 06/26, and pt currently on bowel regimen of colace BID, senna BID, and miralax BID, per chart review. Pt states unsure of recent wt changes. Note unable to determine recent wt hx, per chart review. Upon visual assessment, pt appears to be well nourished with no visible signs of muscle/fat wasting. Given PO intake, wt hx, and visual assessment, pt does not meet criteria for malnutrition per ASPEN guidelines. Est. kcal needs: 6051-5461 kcal | 15-18 kcal/kg Est. Pro needs: 94-118 g Pro | 0.8-1.0 g Pro/kg PES STATEMENT: Inadequate oral intake (NI-2.1) related to loss of appetite, and nausea, as evidenced by pt interview, and avg PO intake 40% x3d. INTERVENTION: Continue with current diet order of Regular diet. Add Ensure Enlive (vary) to meals TID, for increased kcal intake. Provides 350 kcal and 20 g Pro per serving. Will continue to follow and reassess as pt needs, intake, and status change. Amrit JIMENEZ, MS RD LD [phone] cell"
[2020-06-27 18:39] VITALS: BP 119/69
[2020-06-27 21:10] VITALS: BP 151/66
[2020-06-27] MEDS: OLANZapine 5 MG ODT (ZyPREXA ZYDIS) PO SCH (21:31)
[2020-06-27] MEDS: LOSARTAN 100 MG (COZAAR) TABLET PO SCH (21:31)
[2020-06-27] MEDS: TAMSULOSIN 0.4 MG (FLOMAX) CAP PO SCH (21:31)
[2020-06-27] MEDS: ROSUVASTATIN 5 MG (CRESTOR) TABLET PO SCH (21:31)
[2020-06-27] MEDS: QUEtiapine 25 MG (SEROquel) TAB IMMEDIATE RELEASE PO SCH (21:31)
[2020-06-28] MEDS: ACETAMINOPHEN 500 MG TAB (TYLENOL) PO SCH ×4 (00:52→17:28)
[2020-06-28] MEDS: LEVOTHYROXINE 50 MCG (LEVOTHROID) TAB PO SCH (05:40)
[2020-06-28 06:20] VITALS: BP 137/62
[2020-06-28] MEDS: MULTIVIT W/MINERALS TAB (THERAGRAN M) PO SCH (06:36)
[2020-06-28 08:00] VITALS: BP 131/58
[2020-06-28] MEDS: LACTOBACILLUS ACIDOPHILUS (PROBIOTIC) CAPSULE PO SCH ×2 (08:11→17:27)
[2020-06-28] MEDS: PANTOPRAZOLE 20 MG TABLET (PROTONIX) PO SCH (08:11)
[2020-06-28] MEDS: GABAPENTIN 300 MG (NEURONTIN) CAP PO SCH ×2 (08:11→11:54)
[2020-06-28] MEDS: DICLOFENAC 1% GEL 100 GM (VOLTAREN) TUBE TOP SCH ×4 (08:12→21:14)
[2020-06-28] MEDS: DOCUSATE SODIUM 100 MG (COLACE) CAP PO SCH ×2 (08:13→19:19)
[2020-06-28] MEDS: polyethylene glycoL POWDER 17 GM (MIRALAX) PACK PO SCH ×2 (08:14→19:20)
--- NOTE | 2020-06-28 08:41 | PM&R Progress Note ---
Subjective HPI/CC On Admission Date Seen by Provider: Jun 28, 2020 Time Seen by Provider: 08:30 Subjective/Events-last exam 06/28/20: Ultram and Tylenol working pretty well Much improved mentation Has his eyes open today Gabapentin will be increased back to his home dosing gradually Updated Dr. Stark 06/27/20: Pt still pretty confused No Haldol or Ativan required Changing dressing daily Zyprexa at night seems to be helpful Keeps his eyes closed most of the time but does open them when we try to get him to open his eyes Updated Dr. Stark 06/26/20: Confusion varies Zyprexa helped him sleep Seroquel in evening has also helped Talked about his pain and told him we will continue to support him in pain meds but he needs to move around BM large last night Ate bfast Dry mouth reported 06/25/20: Confusion last night was significant Pain out of proportion to the number of days he is out of post op is related to his cognitive deficits Hgb 9.4 Ultram and Tylenol given for pain No BM yet Impulsive Oxycodone made him very confused at [place] Seroquel 12.5 will be given now and 25mg in evening and Zyprexa 5mg at night Spoke to in-depth for 15 minutes on the phone since I knew her from [place] and it is now apparent he has cognition deficits so will try to improve and clear the delirium with antipsychotics Kept his eyes closed similar to the dementia 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 in senior unit at [facility] Review of Systems Musculoskeletal: back pain Neurological: Weakness, Confusion Objective Exam Vital Signs Vital Signs Date Time Temp Pulse Resp B/P (MAP) Pulse Ox O2 Delivery O2 Flow Rate FiO2 06/28/20 20:45 Room Air 06/28/20 17:40 36.8 85 18 116/69 (85) 94 Capillary Refill : General Appearance: No Apparent Distress, WD/WN, Chronically ill HEENT: PERRL/EOMI, Normal ENT Inspection, Pharynx Normal Neck: Full Range of Motion, Normal Inspection, Non Tender, Supple, Carotid Bru it Respiratory: Chest Non Tender, Lungs Clear, Normal Breath Sounds, No Accessory Muscle Use, No Respiratory Distress Cardiovascular: Regular Rate, Rhythm, No Edema, No Gallop, No JVD, No Murmur, Normal Peripheral Pulses Gastrointestinal: Normal Bowel Sounds, No Organomegaly, No Pulsatile Mass, Non Tender, Soft Back: Normal Inspection, Decreased Range of Motion, Muscle Spasm, Vertebral Tenderness Extremity: Normal Capillary Refill, Normal Inspection, Normal Range of Motion, Non Tender, No Calf Tenderness, No Pedal Edema Neurologic/Psychiatric: Alert, Oriented x3, No Motor/Sensory Deficits, Normal Mood/Affect, Abnormal Gait, Disoriented, Motor Weakness (bilateral legs) Skin: Normal Color, Warm/Dry Lymphatic: No Adenopathy Results/Procedures Lab Patient resulted labs reviewed. FIM Transfers Therapy Code Descriptions/Definitions Functional [place] Measure: 0=Not Assessed/NA 4=Minimal Assistance 1=Total Assistance 5=Supervision or Setup 2=Maximal Assistance 6=Modified [place] 3=Moderate Assistance 7=Complete IndependenceSCALE: Activities may be completed with or without assistive devices. 3-Shkowpqfjo-iscavqb completes the activity by him/herself with no assistance from a helper. 5-Set-up or Clean-up Assistance-helper sets up or cleans up; patient completes activity. [place] assists only prior to or following the activity. 4-Supervision or Touching Assistance-helper provides verbal cues and/or touching/steadying and/or contact guard assistance as patient completes activity. Assistance may be provided throughout the activity or intermittently. 3-Partial/Moderate Assistance-helper does LESS THAN HALF the effort. [place] lifts, holds or supports trunk or limbs, but provides less than half the effort. 2-Substantial/Maximal Assistance-helper does MORE THAN HALF the effort. [place] lifts or holds trunk or limbs and provides more than half the effort. 8-Uszdrbnai-okbwjr does ALL the effort. Patient does none of the effort to c omplete the activity. Or, the assistance of 2 or more helpers is required for the patient to complete the activity. If activity was not attempted, code reason: 7-Patient Refused. 9-Not Applicable-not attempted and the patient did not perform the activity before the current illness, exacerbation or injury. 10-Not Attempted due to Environmental Limitations-(lack of equipment, weather restraints, etc.). 88-Not Attempted due to Medical Conditions or Safety Concerns. Roll Left to Right (QC): 2 Sit to Lying (QC): 1 Sit to Stand (QC): 1 Chair/Hgc-vw-Sovaj Xfer(QC): 1 Car Transfer (QC): 88 (unsafe/unable to attempt due to limited transfer status. ) Gait Training Does the Patient Walk?: No and Walking Goal IS indicated Walk 10 feet (QC): 88 (unable to walk this distance safely) Walk 50 ft with 2 Turns(QC): 88 Walk 150 ft (QC): 88 Walking 10ft/uneven surface-QC: 88 Gait Assistive Device: FWW Wheelchair Training Does the Pt Use a Wheelchair?: Yes Wheel 50 ft with 2 turns (QC): 9 Wheel 150 ft (QC): 9 Type of Wheelchair: Manual Stair Training 1 Step (curb) (QC): 88 4 Steps (QC): 9 12 Steps (QC): 9 Balance Picking up an Object (QC): 88 (back precautions forbid this) ADL-Treatment Eating (QC): 6 (IND) Oral Hygiene (QC): 5 (s/u) Shower/Bathe Self (QC): 2 (max A per clinical judgement) Upper Body Dressing (QC): 2 (Max A for upper body dressing.) Lower Body Dressing (QC): 1 On/Off Footwear (QC): 2 Toileting Hygiene (QC): 1 Toilet Transfer (QC): 1 Assessment/Plan Assessment and Plan Assess & Plan/Chief Complaint Assessment: s/p lumbar spine surgery for stenosis now with slow recovery and severe pain Cognitive deficits contributing to slow recovery and severe pain out of proportion of expected HTN HLP BETTY Obesity Prostate cancer hx Constipation Plan: BM regimen IRF protocol Pain meds Monitor confusion Limit pain meds due to confusion 06/25/20: Monitor confusion Dementia noted after speaking to and the interaction I had with the patient in [place] Antipsychotics 06/26/20: Anti-psychotics Monitor delirium Pain management PT OT 06/27/20: Antipsychotics Monitor closely Monitor BP 06/28/20: Improved mentation Monitor BP Pain management (1) Spinal stenosis, lumbar region with neurogenic claudication (2) Prostate cancer (3) Obesity (4) Hypertension (5) Cognitive deficits (6) BETTY on CPAP (7) Hyperlipemia ERIC LUTHER DO Jun 28, 2020 08:41
[2020-06-28] MEDS: SENNA W/DOCUSATE (SENOKOT S) TABLET PO SCH ×2 (08:46→19:20)
--- NOTE | 2020-06-28 11:06 | Occupational Ther Daily Note ---
OT Current Status-Daily Note Subjective Pt alert, lying in bed. Pt had signs of confusion during therapy, such as difficulty with understanding that he was on a BSC, OWENS had explained multiple times that OT/PT had placed him on BSC and continued to think he had to call nrsg to get him cleaned up from a BM. Mental Status/Objective Patient Orientation: Person, Place, Situation Attachments: Other-See Comments (back brace) ADL-Treatment Co-treat with PT ([id number]), skills of 2 clinicians required for skilled instruction and mobility due to increased pain, dependent mobility and decreased activity tolerance. PT focusing on transfers and w/c mobility while OT focusing on B UE placment during mobility and ADLs. Using sit to stand lift to complete all transfers. Pt unable to wt bear or push to stand due to increase weakness and self limiting behavior. Pt able to roll to R side and with assist from PT a ble to push to sit EOB. Pt required physical assist to sit on EOB due to pain and pt would attempt to throw self backward. Dependent with donning lower body clothing, max A with footwear. During transfer pt stated that he was having a BM and was placed on BSC then did not understand that he was on BSC. Pt dependent with toileting and lower body dressing. Pt would only propel w/c 3x's with B UE then stated he could not do anymore. Attempted to stand with pt at parallel bars, unable to push buttocks off of w/c. B UE and B LE exercises completed to strengthen for standing. Pt c/o pain throughout session, breaks taken for pain and activity tolerance. Pt dependent for scooting up in bed. Pt is assisting with rolling toward R side. After therapy, pt lying in bed with call light/phone in reach. All needs met in room. Therapy Code Descriptions/Definitions Functional [place] Measure: 0=Not Assessed/NA 4=Minimal Assistance 1=Total Assistance 5=Supervision or Setup 2=Maximal Assistance 6=Modified [place] 3=Moderate Assistance 7=Complete IndependenceSCALE: Activities may be completed with or without assistive devices. 6-Pjycazitdn-desbcyk completes the activity by him/herself with no assistance from a helper. 5-Set-up or Clean-up Assistance-helper sets up or cleans up; patient completes activity. [place] assists only prior to or following the activity. 4-Supervision or Touching Assistance-helper provides verbal cues and/or touching/steadying and/or contact guard assistance as patient completes activity. Assistance may be provided throughout the activity or intermittently. 3-Partial/Moderate Assistance-helper does LESS THAN HALF the effort. [place] lifts, holds or supports trunk or limbs, but provides less than half the effort. 2-Substantial/Maximal Assistance-helper does MORE THAN HALF the effort. [place] lifts or holds trunk or limbs and provides more than half the effort. 7-Icfgqnaez-frfgno does ALL the effort. Patient does none of the effort to complete the activity. Or, the assistance of 2 or more helpers is required for the patient to complete the activity. If activity was not attempted, code reason: 7-Patient Refused. 9-Not Applicable-not attempted and the patient did not perform the activity before the current illness, exacerbation or injury. 10-Not Attempted due to Environmental Limitations-(lack of equipment, weather restraints, etc.). 88-Not Attempted due to Medical Conditions or Safety Concerns. Lower Body Dressing (QC): 1 On/Off Footwear: 2 Toileting Hygiene (QC): 1 Toilet Transfer (QC): 1 OT Penitentiary Goals Door Trimmer Goals Time Frame: Jul 08, 2020 Eating (QC): 6 Oral Hygiene (QC): 6 Toileting Hygiene (QC): 4 Shower/Bathe Self (QC): 5 Upper Body Dressing (QC): 6 Lower Body Dressing (QC): 4 On/Off Footwear (QC): 6 Additional Goals: 1-Demonstrate ADL Tasks, 2-Verbalize Understanding, 3- ImproveStrength/Aby 1=Demonstrate adherence to instructed precautions during ADL tasks. 2=Patient will verbalize/demonstrate understanding of assistive devices/modifications for ADL. 3=Patient will improve strength/tolerance for activity to enable patient to perform ADL's. OT Education/Plan Problem List/Assessment Assessment: Decreased Activ Tolerance, Decreased Safety Aware, Decreased UE Strength, Dependent Transfers, Impaired Bed Mobility, Impaired Cognition, Impaired Self-Care Skills Discharge Recommendations Plan/Recommendations: Continue POC Treatment Plan/Plan of Care Patient would benefit from OT for education, treatment and training to promote independence in ADL's, mobility, safety and/or upper extremity function for ADL's. Plan of Care: ADL Retraining, Caregiver Training, Concurrent Therapy, F unctional Mobility, Group Exercise/Act as Ind, Orthotic Fitting/Training, UE Funct Exercise/Act, W/C Management Training Treatment Duration: Jul 08, 2020 Frequency: At least 5 of 7 days/Wk (IRF) Estimated Hrs Per Day: 1.5 hours per day Agreement: Yes Rehab Potential: Good Time/GCodes Start Time: 10:00 Stop Time: 11:00 Total Time Billed (hr/min): 60 Billed Treatment Time 1 visit-ADL 2 (30 min) FA 2 (30 min) co-treat with PT 60 min ROBERT MCDONOUGH Jun 28, 2020 11:06
--- NOTE | 2020-06-28 11:54 | Physical Therapy Daily Note ---
PT Daily Note-Current Subjective Patient in bed pre tx, agrees to PT, has unrated pain in back. Will be co- treating with OT due to poor patient mobility, severe pain, endurance, strength, the need to coordinate UE and LE during activity, reduce risk of falls. Appearance Patient in bed post tx with nurse call, phone, tray, all needs met. Mental Status Patient Orientation: Person, Place, Situation back brace Transfers SCALE: Activities may be completed with or without assistive devices. 0-Uyrmkdhskl-mipmtnc completes the activity by him/herself with no assistance from a helper. 5-Set-up or Clean-up Assistance-helper sets up or cleans up; patient completes activity. [place] assists only prior to or following the activity. 4-Supervision or Touching Assistance-helper provides verbal cues and/or touching/steadying and/or contact guard assistance as patient completes activity. Assistance may be provided throughout the activity or intermittently. 3-Partial/Moderate Assistance-helper does LESS THAN HALF the effort. [place] lifts, holds or supports trunk or limbs, but provides less than half the effort. 2-Substantial/Maximal Assistance-helper does MORE THAN HALF the effort. [place] lifts or holds trunk or limbs and provides more than half the effort. 9-Prvspoydr-jwqrtr does ALL the effort. Patient does none of the effort to complete the activity. Or, the assistance of 2 or more helpers is required for the patient to complete the activity. If activity was not attempted, code reason: 7-Patient Refused. 9-Not Applicable-not attempted and the patient did not perform the activity before the current illness, exacerbation or injury. 10-Not Attempted due to Environmental Limitations-(lack of equipment, weather restraints, etc.). 88-Not Attempted due to Medical Conditions or Safety Concerns. Roll Left & Right (QC): 2 Sit to Lying (QC): 1 Lying to Sitting/Side of Bed(Q: 2 Sit to Stand (QC): 1 Chair/Xtt-iu-Psnpl Xfer(QC): 1 Toilet Transfer (QC): 1 Patient roll and supine to sit with max assist, put brace on (dependent), partially dress, use sit to stand machine to transfer to , patient states he need to have a BM, sit to stand to commode, patient has a BM, dependent for cleaning and dressing, transfer to , patient is only able to propel WC about 10' before saying he can't do it any more (min assist), taken to therapy gym, practice standing, he cannot stand but performs 2 sets of 5 of pre standing exercise, patient is taken back to his room, has a BM while using the sit to stand machine to transfer to bed, dependent for cleaning, lays down dependent, scoots up dependent. Treatments PT performed bed mobility and transfers, pre standing, WC mobility, toileting, OT performed toileting, dressing, cleaning, UE positioning and safety during activity Assessment Current Status: Poor Progress Patient has poor motivation, he doesn't seem to be able to handle his pain but at the same time he seems very groggy. Patient gives up easily. PT Short Term Goals Short Term Goals Time Frame: Jul 05, 2020 Roll Left & Right: 4 Sit to lyin Lying to sitting on side of be: 4 Sit to stand: 4 Chair/ird-fx-vnrjs transfer: 4 Toilet transfer: 4 Walk 10 feet: 4 Walk 50 feet with two turns: 4 PT Dust Control Engineer Goals Dust Control Engineer Goals PT [facility] Goals Time Frame: Jul 22, 2020 Roll Left & Right (QC): 6 Sit to Lying (QC): 6 Lying-Sitting on Side/Bed(QC): 6 Sit to Stand (QC): 6 Chair/Etl-ri-Doznr Xfer(QC): 6 Toilet Transfer (QC): 6 Car Transfer (QC): 6 Does the Patient Walk: Yes Walk 10 feet (QC): 6 Walk 50ft with 2 Turns (QC): 6 Walk 150 ft (QC): 6 Walking 10ft on Uneven Surface: 5 1 Step (curb) (QC): 4 4 Steps (QC): 9 12 Steps (QC): 9 Picking up an Object (QC): 88 Wheel 50 feet with 2 turns (QC: 9 Wheel 150 feet: 9 PT Plan Problem List Problem List: Activity Tolerance, Functional Strength, Safety, Balance, Gait, Transfer, Bed Mobility, ROM Treatment/Plan Treatment Plan: Continue Plan of Care Treatment Plan: Bed Mobility, Education, Functional Activity Aby, Functional Strength, Group Therapy, Gait, Safety, Therapeutic Exercise, Transfers Treatment Duration: Jul 22, 2020 Frequency: At least 5 of 7 days/Wk (IRF) Estimated Hrs Per Day: 1.5 hours per day Patient and/or Family Agrees t: Yes Safety Risks/Education Patient Education: Transfer Techniques, Correct Positioning, Safety Issues Teaching Recipient: Patient Teaching Methods: Demonstration, Discussion Response to Teaching: Reinforcement Needed Time/GCodes Time In: 1000 Time Out: 1100 Total Billed Treatment Time: 60 Total Billed Treatment 1 visit FA 60' co-treated with OT for 60' JAYLYN VARGAS PT Jun 28, 2020 11:54
--- NOTE | 2020-06-28 13:00 | NUR ---
FEELS LOW BACK PAIN NOT BEING CONTROLLED. DR. LUTHER NOTIFIED AND INCREASED NEURONTIN DOSE. SHE DOES NOT WANT TO INCREASE PAIN MEDICATIONS AT THIS TIME DUE TO CONFUSION. PATIENT FEELS GIVING TYLENOL AND ULTRAM TOGETHER WORKS BEST. MENTALLY CLEARER TODAY.
--- NOTE | 2020-06-28 13:38 | Occupational Ther Daily Note ---
OT Current Status-Daily Note Subjective Pt alert, lying in bed. Pt agrees to therapy. Nrsg in room. Pt c/o pain though does not rate. Mental Status/Objective Patient Orientation: Person, Place, Time, Situation ADL-Treatment Therapy Code Descriptions/Definitions Functional [place] Measure: 0=Not Assessed/NA 4=Minimal Assistance 1=Total Assistance 5=Supervision or Setup 2=Maximal Assistance 6=Modified [place] 3=Moderate Assistance 7=Complete IndependenceSCALE: Activities may be completed with or without assistive devices. 9-Gisdtgopad-xkcweda completes the activity by him/herself with no assistance from a helper. 5-Set-up or Clean-up Assistance-helper sets up or cleans up; patient completes activity. [place] assists only prior to or following the activity. 4-Supervision or Touching Assistance-helper provides verbal cues and/or touching/steadying and/or contact guard assistance as patient completes activity. Assistance may be provided throughout the activity or intermittently. 3-Partial/Moderate Assistance-helper does LESS THAN HALF the effort. [place] lifts, holds or supports trunk or limbs, but provides less than half the effort. 2-Substantial/Maximal Assistance-helper does MORE THAN HALF the effort. [place] lifts or holds trunk or limbs and provides more than half the effort. 8-Mgzzfxttv-enczfs does ALL the effort. Patient does none of the effort to complete the activity. Or, the assistance of 2 or more helpers is required for the patient to complete the activity. If activity was not attempted, code reason: 7-Patient Refused. 9-Not Applicable-not attempted and the patient did not perform the activity before the current illness, exacerbation or injury. 10-Not Attempted due to Environmental Limitations-(lack of equipment, weather restraints, etc.). 88-Not Attempted due to Medical Conditions or Safety Concerns. Other Treatment Pt able to remember 2 of 5 exercises using medium resistance theraband. Skilled instruction for technique and modifications required for correct positioning. Pt required verbal and physical cues to complete exercises to maintain proper technique. Pt able to complete 4/6 exercises without cues in second set of exercises. 2 sets 10 reps of each exercise. Pt c/o decreased AROM of L shldr due to past surgery. Pt assisted with scooting self up in bed with bed rails, assist x2 and HOB declined. After session, pt lying in bed with call light/phone in reach. OT Skilled Nursing Goals Skilled Nursing Goals Time Frame: Jul 08, 2020 Eating (QC): 6 Oral Hygiene (QC): 6 Toileting Hygiene (QC): 4 Shower/Bathe Self (QC): 5 Upper Body Dressing (QC): 6 Lower Body Dressing (QC): 4 On/Off Footwear (QC): 6 Additional Goals: 1-Demonstrate ADL Tasks, 2-Verbalize Understanding, 3- ImproveStrength/[place] 1=Demonstrate adherence to instructed precautions during ADL tasks. 2=Patient will verbalize/demonstrate understanding of assistive de vices/modifications for ADL. 3=Patient will improve strength/tolerance for activity to enable patient to perform ADL's. OT Education/Plan Problem List/Assessment Assessment: Decreased Activ Tolerance, Decreased UE Strength, Impaired Bed Mobility, Impaired Self-Care Skills, Restricted Funct UE ROM Discharge Recommendations Plan/Recommendations: Continue POC Treatment Plan/Plan of Care Patient would benefit from OT for education, treatment and training to promote independence in ADL's, mobility, safety and/or upper extremity function for ADL's. Plan of Care: ADL Retraining, Caregiver Training, Concurrent Therapy, Functional Mobility, Group Exercise/Act as Ind, Orthotic Fitting/Training, UE Funct Exercise/Act, W/C Management Training Treatment Duration: Jul 08, 2020 Frequency: At least 5 of 7 days/Wk (IRF) Estimated Hrs Per Day: 1.5 hours per day Agreement: Yes Rehab Potential: Good Time/GCodes Start Time: 13:00 Stop Time: 13:30 Total Time Billed (hr/min): 30 Billed Treatment Time 1 visit-FA 1 (10 min) EX 1 (20 min) ROBERT MCDONOUGH Jun 28, 2020 13:38
--- NOTE | 2020-06-28 14:00 | Physical Therapy Daily Note ---
PT Daily Note-Current Subjective Patient in bed pre tx, agrees to PT, has unrated low back pain Appearance Patient in bed post tx with nurse call, phone, tray, all needs met. Mental Status Patient Orientation: Person, Place, Situation Attachments: SCD's Transfers SCALE: Activities may be completed with or without assistive devices. 1-Uovwkyptee-eyqafry completes the activity by him/herself with no assistance from a helper. 5-Set-up or Clean-up Assistance-helper sets up or cleans up; patient completes activity. [place] assists only prior to or following the activity. 4-Supervision or Touching Assistance-helper provides verbal cues and/or touching/steadying and/or contact guard assistance as patient completes activity. Assistance may be provided throughout the activity or intermittently. 3-Partial/Moderate Assistance-helper does LESS THAN HALF the effort. [place] lifts, holds or supports trunk or limbs, but provides less than half the effort. 2-Substantial/Maximal Assistance-helper does MORE THAN HALF the effort. [place] lifts or holds trunk or limbs and provides more than half the effort. 2-Nkfzjadgz-wnqwol does ALL the effort. Patient does none of the effort to complete the activity. Or, the assistance of 2 or more helpers is required for the patient to complete the activity. If activity was not attempted, code reason: 7-Patient Refused. 9-Not Applicable-not attempted and the patient did not perform the activity before the current illness, exacerbation or injury. 10-Not Attempted due to Environmental Limitations-(lack of equipment, weather restraints, etc.). 88-Not Attempted due to Medical Conditions or Safety Concerns. Exercises Supine Ex: Ankle pumps, Quad Set, Glut sets, Heel Slides, Short Arc Quads, Straight leg raise, Hip abd/add Supine Reps: 20 AAROM with hip abd/add, heel slides, SLR, patient has significant pain with SLR, multiple rest breaks due to pain and fatigue Treatments LE exercise Assessment Current Status: Poor Progress no change in mobility PT Short Term Goals Short Term Goals Time Frame: Jul 05, 2020 Roll Left & Right: 4 Sit to lyin Lying to sitting on side of be: 4 Sit to stand: 4 Chair/kaz-lh-rvxpe transfer: 4 Toilet transfer: 4 Walk 10 feet: 4 Walk 50 feet with two turns: 4 PT Fpc Goals [employer] 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 Teacher Goals PT Fpc Goals Time Frame: Jul 22, 2020 Roll Left & Right (QC): 6 Sit to Lying (QC): 6 Lying-Sitting on Side/Bed(QC): 6 Sit to Stand (QC): 6 Chair/Bfe-ce-Qwbse Xfer(QC): 6 Toilet Transfer (QC): 6 Car Transfer (QC): 6 Does the Patient Walk: Yes Walk 10 feet (QC): 6 Walk 50ft with 2 Turns (QC): 6 Walk 150 ft (QC): 6 Walking 10ft on Uneven Surface: 5 1 Step (curb) (QC): 4 4 Steps (QC): 9 12 Steps (QC): 9 Picking up an Object (QC): 88 Wheel 50 feet with 2 turns (QC: 9 Wheel 150 feet: 9 PT Plan Problem List Problem List: Activity Tolerance, Functional Strength, Safety, Balance, Gait, Transfer, Bed Mobility, ROM Treatment/Plan Treatment Plan: Continue Plan of Care Treatment Plan: Bed Mobility, Education, Functional Activity Aby, Functional Strength, Group Therapy, Gait, Safety, Therapeutic Exercise, Transfers Treatment Duration: Jul 22, 2020 Frequency: At least 5 of 7 days/Wk (IRF) Estimated Hrs Per Day: 1.5 hours per day Patient and/or Family Agrees t: Yes Safety Risks/Education Patient Education: Correct Positioning, Safety Issues Teaching Recipient: Patient Teaching Methods: Demonstration, Discussion Response to Teaching: Reinforcement Needed Time/GCodes Time In: 1330 Time Out: 1400 Total Billed Treatment Time: 30 Total Billed Treatment 1 visit EX 30' JAYLYN VARGAS PT Jun 28, 2020 14:00
--- NOTE | 2020-06-28 17:00 | NUR ---
BACK PAIN INCREASED AGAIN WHEN TRYING TO SIT UP IN BED TO EAT DINNER. PAIN EASED AFTER MEDICATING AND REPOSITIONING. IS VERY GRATEFUL FOR ASSISTANCE. NO FURTHER LOOSE STOOLS SINCE THIS AM.
[2020-06-28] MEDS: GABAPENTIN 600 MG (NEURONTIN) TAB PO SCH (17:27)
[2020-06-28 17:40] VITALS: BP 116/69
--- NOTE | 2020-06-28 21:10 | NUR ---
Pt requesting pm meds as he is ready to go to sleep from the night. Meds given. Pt informed of schedules Tylenol for midnight and he requested to not be woken up for this . Cont to monitor.
[2020-06-28] MEDS: OLANZapine 5 MG ODT (ZyPREXA ZYDIS) PO SCH (21:13)
[2020-06-28] MEDS: ROSUVASTATIN 5 MG (CRESTOR) TABLET PO SCH (21:13)
[2020-06-28] MEDS: TAMSULOSIN 0.4 MG (FLOMAX) CAP PO SCH (21:13)
[2020-06-28] MEDS: QUEtiapine 25 MG (SEROquel) TAB IMMEDIATE RELEASE PO SCH (21:13)
[2020-06-28] MEDS: LOSARTAN 100 MG (COZAAR) TABLET PO SCH (21:13)
[2020-06-29] MEDS: ACETAMINOPHEN 500 MG TAB (TYLENOL) PO SCH ×5 (00:09→23:30)
[2020-06-29] MEDS: MULTIVIT W/MINERALS TAB (THERAGRAN M) PO SCH (06:01)
[2020-06-29] MEDS: LEVOTHYROXINE 50 MCG (LEVOTHROID) TAB PO SCH (06:01)
[2020-06-29 06:22] VITALS: BP 143/65
[2020-06-29] MEDS: GABAPENTIN 300 MG (NEURONTIN) CAP PO SCH ×2 (08:21→12:42)
[2020-06-29] MEDS: PANTOPRAZOLE 20 MG TABLET (PROTONIX) PO SCH (08:21)
[2020-06-29] MEDS: DOCUSATE SODIUM 100 MG (COLACE) CAP PO SCH ×2 (08:21→19:45)
[2020-06-29] MEDS: polyethylene glycoL POWDER 17 GM (MIRALAX) PACK PO SCH ×2 (08:21→19:45)
[2020-06-29] MEDS: LACTOBACILLUS ACIDOPHILUS (PROBIOTIC) CAPSULE PO SCH ×2 (08:21→17:19)
[2020-06-29] MEDS: SENNA W/DOCUSATE (SENOKOT S) TABLET PO SCH ×2 (08:22→19:45)
[2020-06-29] MEDS: DICLOFENAC 1% GEL 100 GM (VOLTAREN) TUBE TOP SCH ×4 (08:22→20:19)
[2020-06-29 08:25] VITALS: BP 148/66
--- NOTE | 2020-06-29 10:21 | NUR ---
C/O SEVERE DRY MOUTH. BIOTENE MOUTH SPRAY AT BEDSIDE. DR. LUTHER INFORMED WITH ORDERS TO DC SEROJULIANAL.
--- NOTE | 2020-06-29 10:24 | Occupational Ther Daily Note ---
OT Current Status-Daily Note Subjective Pt mostly alert, Ox4. Pt agrees to tx. Pt states 7/10 pain and OT asks if pt desires pain medication. Pt states yes, nursing is notified. However, pt denies pain medication, stating he would rather take medication in one pill rather than 2 separate. Nursing and pt discuss issue, pt denies medication at this time. Pt's pain and decreased strength limits pt through session. Co-treat with PT ([id number]), skills of 2 clinicians required for skilled instruction and mobility due to increased pain, dependent mobility and decreased activity tolerance. PT focusing on transfers and w/c mobility while OT focusing on B UE placment during mobility and ADLs. Mental Status/Objective Patient Orientation: Person, Place, Situation ADL-Treatment Therapy Code Descriptions/Definitions Functional [place] Measure: 0=Not Assessed/NA 4=Minimal Assistance 1=Total Assistance 5=Supervision or Setup 2=Maximal Assistance 6=Modified [place] 3=Moderate Assistance 7=Complete IndependenceSCALE: Activities may be completed with or without assistive devices. 4-Oolxgnzsmy-xkyefce completes the activity by him/herself with no assistance from a helper. 5-Set-up or Clean-up Assistance-helper sets up or cleans up; patient completes activity. [place] assists only prior to or following the activity. 4-Supervision or Touching Assistance-helper provides verbal cues and/or touching/steadying and/or contact guard assistance as patient completes activi ty. Assistance may be provided throughout the activity or intermittently. 3-Partial/Moderate Assistance-helper does LESS THAN HALF the effort. [place] lifts, holds or supports trunk or limbs, but provides less than half the effort. 2-Substantial/Maximal Assistance-helper does MORE THAN HALF the effort. [place] lifts or holds trunk or limbs and provides more than half the effort. 7-Kigdymjlh-qkoznx does ALL the effort. Patient does none of the effort to complete the activity. Or, the assistance of 2 or more helpers is required for the patient to complete the activity. If activity was not attempted, code reason: 7-Patient Refused. 9-Not Applicable-not attempted and the patient did not perform the activity before the current illness, exacerbation or injury. 10-Not Attempted due to Environmental Limitations-(lack of equipment, weather restraints, etc.). 88-Not Attempted due to Medical Conditions or Safety Concerns. Eating (QC): 6 Shower/Bathe Self (QC): 1 (TD due to need of Ax2 during sit to stand/ bottom care. Pt completes UB washing, OT completes LB washing and bottom/ back/ feet.) Upper Body Dressing (QC): 3 (s/u shirt. mod A with back brace tightening. ) Lower Body Dressing (QC): 1 (TD due to need of Ax2 in stance to lime puller hips. Pt completes undergarment donning with use of AD. Pt's pants donned for him at this time due to pain and increased time needed. Pt sit to stand with max Ax2, OT completes bottom care/ pant hike while PT maintains stance with pt. ) Toileting Hygiene (QC): 1 (TD) Other Treatment Pt denies pain meds after stating he desires pain meds. Pt agrees to OT/ PT co- treat and sponge bath. Denies getting to recliner, rather would complete EOB. Pt completes bed mob supine to sit with assistance. Pt sits EOB ~20 min while completing UB/ washing/ prep for stance. Pt sit to stand max A x2, OT complete bottom care/ pant hike while PT addresses fx stance/ mobility/ balance. Pt must return to sit after ~15-20 seconds of stance. Pt states increased pain (sharp/ shooting) and decreased ability to stand/ decreased strength. Pt is educated on need to swap beds, agrees to sit in recliner for bit. Sit to stand max Ax2, s mall steps with walker and Ax2 for balance/ safety. Pt sits in recliner, desires to sit back in chair, though cannot assist physically with this. Prior to getting pt toward back of chair pt expresses need to get to bed/ immediate need. Pt completes similar sit to stand and small steps toward EOB. Sit to supine with max A and adjusted in bed with TD/ Ax2. Pt rests, OT completes LB washing with TD. Bed exercises completed remainder of session with skilled adaptations due to L shoulder AROM and pain limitations. Pt completes the following with red theraband/ adaptation to L shoulder with either PROM/ AAROM/ AROM: shoulder flexion, shoulder ab/ adduction, shoulder in/ external rotation, midline crossing, bicep curls. Pt completes 10 reps bilaterally as tolerated. Pt left in bed with all needs met, call light in reach. Pt educated on additional session after lunch to address fx mobility. Pt agrees. Pt AxO in bed. Agrees to tx. Pt completes sit to supine max A. Sits EOB ~3 min to prep for stance. Sit to stand max Ax2, pt stands minimally before stating need for return to sit. Pt sits with limited control, stating L knee buckled and R knee couldn't hold him up. Use of sit to stand lift from EOB to chair (TD), pt able to straighten LEs without cues in sit to stand. Pt sits in recliner, pt states, "That went better than expected," denied pain, pt's head leans to R side onto OT, stating, "I'm fatigued." Pt's head flops onto OT, no control, eyes close. Pt does not respond to name call or touch of shoulder. Pt responds to sternal rub after ~5 seconds of application. Pt wakes, stating he doesn't remember sitting down, though he had no pain. Vitals are assessed by nursing staff. Pt is left with nursing staff for assistance/ pt is safe in chair with staff present. Education OT Patient Education: Correct positioning, Exercise program, Home exercise program, Modified ADL techniques, Purpose of tx/functional activities, Reviewed precautions, Rehab process, Safety issues, Transfer techniques Teaching Recipient: Patient Teaching Methods: Demonstration, Discussion Response to Teaching: Verbalize Understanding, Unable to Return Demonstration, Return Demonstration, Reinforcement Needed OT Suture Winder Hand Goals Assisted Goals Time Frame: Jul 08, 2020 Eating (QC): 6 Oral Hygiene (QC): 6 Toileting Hygiene (QC): 4 Shower/Bathe Self (QC): 5 Upper Body Dressing (QC): 6 Lower Body Dressing (QC): 4 On/Off Footwear (QC): 6 Additional Goals: 1-Demonstrate ADL Tasks, 2-Verbalize Understanding, 3- ImproveStrength/[place] 1=Demonstrate adherence to instructed precautions during ADL tasks. 2=Patient will verbalize/demonstrate understanding of assistive devices/modifications for ADL. 3=Patient will improve strength/tolerance for activity to enable patient to perform ADL's. OT Education/Plan Problem List/Assessment Assessment: Decreased Activ Tolerance, Decreased UE Strength, Dependent Transfers, Impaired Bed Mobility, Impaired Funct Balance, Impaired I ADL's, Impaired Self-Care Skills, Restricted Funct UE ROM Discharge Recommendations Plan/Recommendations: Continue POC Therapy Discharge Recommendati: Scheduled Assistance, Home & Family, Post Acute OT Treatment Plan/Plan of Care Treatment,Training & Education: Yes Patient would benefit from OT for education, treatment and training to promote independence in ADL's, mobility, safety and/or upper extremity function for ADL's. Plan of Care: ADL Retraining, Caregiver Training, Concurrent Therapy, Functional Mobility, Group Exercise/Act as Ind, Orthotic Fitting/Training, UE Funct Exercise/Act, W/C Management Training Treatment Duration: Jul 08, 2020 Frequency: At least 5 of 7 days/Wk (IRF) Estimated Hrs Per Day: 1.5 hours per day Agreement: Yes Rehab Potential: Good Time/GCodes Start Time: 09:00 (1245) Stop Time: 10:00 (1515) Total Time Billed (hr/min): 90 (60+30) Billed Treatment Time [id number]: 1, ADL 2 (30), EX 2 (30)= 60 Co-treat with PT ([id number]), skills of 2 clinicians required for skilled instruction and mobility due to increased pain, dependent mobility and decreased activity tolerance. PT focusing on transfers and w/c mobility while OT focusing on B UE placment during mobility and ADLs. [id number] (30):1, FA 2 (30) Total: 90 SHASTA LUTZ OTR Jun 29, 2020 10:24
--- NOTE | 2020-06-29 10:36 | PM&R Progress Note ---
Subjective HPI/CC On Admission Date Seen by Provider: Jun 29, 2020 Time Seen by Provider: 08:30 Subjective/Events-last exam 06/29/20: Pt having significant dry mouth Seroquel will be discontinued to help that Zyprexa at night will be maintained Pt still complaining of more and more pain, I did confer with Dr. Stark which the pain is out of proportion for the type of surgery and type of disease he has of the spine, so although his mentation is improved, I doubt we will be able to cross over the threshold to improve his status 06/28/20: Ultram and Tylenol working pretty well Much improved mentation Has his eyes open today Gabapentin will be increased back to his home dosing gradually Updated Dr. Stark 06/27/20: Pt still pretty confused No Haldol or Ativan required Changing dressing daily Zyprexa at night seems to be helpful Keeps his eyes closed most of the time but does open them when we try to get him to open his eyes Updated Dr. Stark 06/26/20: Confusion varies Zyprexa helped him sleep Seroquel in evening has also helped Talked about his pain and told him we will continue to support him in pain meds but he needs to move around BM large last night Ate bfast Dry mouth reported 06/25/20: Confusion last night was significant Pain out of proportion to the number of days he is out of post op is related to his cognitive deficits Hgb 9.4 Ultram and Tylenol given for pain No BM yet Impulsive Oxycodone made him very confused at [place] Seroquel 12.5 will be given now and 25mg in evening and Zyprexa 5mg at night Spoke to in-depth for 15 minutes on the phone since I knew her from [place] and it is now apparent he has cognition deficits so will try to improve and clear the delirium with antipsychotics Kept his eyes closed similar to the dementia 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 [facility] [place] Systems General: Fatigue Musculoskeletal: back pain Neurological: Confusion Objective Exam Vital Signs Vital Signs Date Time Temp Pulse Resp B/P (MAP) Pulse Ox O2 Delivery O2 Flow Rate FiO2 06/29/20 20:36 Room Air 06/29/20 20:15 130/77 (94) 97 06/29/20 17:27 37.0 89 20 2.00 Capillary Refill : General Appearance: No Apparent Distress, WD/WN, Chronically ill HEENT: PERRL/EOMI, Normal ENT Inspection, Pharynx Normal Neck: Full Range of Motion, Normal Inspection, Non Tender, Supple, Carotid Bruit Respiratory: Chest Non Tender, Lungs Clear, Normal Breath Sounds, No Accessory Muscle Use, No Respiratory Distress Cardiovascular: Regular Rate, Rhythm, No Edema, No Gallop, No JVD, No Murmur, Normal Peripheral Pulses Gastrointestinal: Normal Bowel Sounds, No Organomegaly, No Pulsatile Mass, Non Tender, Soft Back: Normal Inspection, Decreased Range of Motion, Muscle Spasm, Vertebral Tenderness Extremity: Normal Capillary Refill, Normal Inspection, Normal Range of Motion, Non Tender, No Calf Tenderness, No Pedal Edema Neurologic/Psychiatric: Alert, Oriented x3, No Motor/Sensory Deficits, Normal Mood/Affect, Abnormal Gait, Disoriented, Motor Weakness (bilateral legs) Skin: Normal Color, Warm/Dry Lymphatic: No Adenopathy Results/Procedures Lab Patient resulted labs reviewed. FIM Transfers Therapy Code Descriptions/Definitions Functional [place] Measure: 0=Not Assessed/NA 4=Minimal Assistance 1=Total Assistance 5=Supervision or Setup 2=Maximal Assistance 6=Modified [place] 3=Moderate Assistance 7=Complete IndependenceSCALE: Activities may be completed with or without assistive devices. 2-Tmujwmjtek-hxhifgn completes the activity by him/herself with no assistance from a helper. 5-Set-up or Clean-up Assistance-helper sets up or cleans up; patient completes activity. [place] assists only prior to or following the activity. 4-Supervision or Touching Assistance-helper provides verbal cues and/or touching/steadying and/or contact guard assistance as patient completes a ctivity. Assistance may be provided throughout the activity or intermittently. 3-Partial/Moderate Assistance-helper does LESS THAN HALF the effort. [place] lifts, holds or supports trunk or limbs, but provides less than half the effort. 2-Substantial/Maximal Assistance-helper does MORE THAN HALF the effort. [place] lifts or holds trunk or limbs and provides more than half the effort. 5-Ccxvwmctj-ntcqtk does ALL the effort. Patient does none of the effort to complete the activity. Or, the assistance of 2 or more helpers is required for the patient to complete the activity. If activity was not attempted, code reason: 7-Patient Refused. 9-Not Applicable-not attempted and the patient did not perform the activity before the current illness, exacerbation or injury. 10-Not Attempted due to Environmental Limitations-(lack of equipment, weather restraints, etc.). 88-Not Attempted due to Medical Conditions or Safety Concerns. Roll Left to Right (QC): 2 Sit to Lying (QC): 1 Sit to Stand (QC): 1 Chair/Iib-uz-Iwxea Xfer(QC): 1 Car Transfer (QC): 88 (unsafe/unable to attempt due to limited transfer status. ) Gait Training Walk 10 feet (QC): 88 (unable to walk this distance safely) Walk 50 ft with 2 Turns(QC): 88 Walk 150 ft (QC): 88 Walking 10ft/uneven surface-QC: 88 Gait Assistive Device: FWW Wheelchair Training Wheel 50 ft with 2 turns (QC): 9 Wheel 150 ft (QC): 9 Stair Training 1 Step (curb) (QC): 88 4 Steps (QC): 9 12 Steps (QC): 9 Balance Picking up an Object (QC): 88 (back precautions forbid this) ADL-Treatment Eating (QC): 6 Oral Hygiene (QC): 5 (s/u) Shower/Bathe Self (QC): 1 (TD due to need of Ax2 during sit to stand/ bottom care. Pt completes UB washing, OT completes LB washing and bottom/ back/ feet.) Upper Body Dressing (QC): 3 (s/u shirt. mod A with back brace tightening. 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 Pt completes undergarment donning with use of AD. Pt's pants donned for him at this time due to pain and increased time needed. Pt sit to stand with max Ax2, OT completes bottom care/ pant hike while PT maintains stance with pt. ) On/Off Footwear (QC): 2 Toileting Hygiene (QC): 1 (TD) Toilet Transfer (QC): 1 Assessment/Plan Assessment and Plan Assess & Plan/Chief Complaint Assessment: s/p lumbar spine surgery for stenosis now with slow recovery and severe pain Cognitive deficits contributing to slow recovery and severe pain out of proport ion of expected HTN HLP BETTY Obesity Prostate cancer hx Constipation Plan: BM regimen IRF protocol Pain meds Monitor confusion Limit pain meds due to confusion 06/25/20: Monitor confusion Dementia noted after speaking to and the interaction I had with the patient in [place] Antipsychotics 06/26/20: Anti-psychotics Monitor delirium Pain management PT OT 06/27/20: Antipsychotics Monitor closely Monitor BP 06/28/20: Improved mentation Monitor BP Pain management 06/29/20: MOnitor pain Improved cognition Pain out of proportion and extended longer than expected for type of surgery per Dr Stark (1) Spinal stenosis, lumbar region with neurogenic claudication (2) Prostate cancer (3) Obesity (4) Hypertension (5) Cognitive deficits (6) BETTY on CPAP (7) Hyperlipemia ERIC LUTHER DO Jun 29, 2020 10:36
--- NOTE | 2020-06-29 12:22 | Physical Therapy Daily Note ---
PT Daily Note-Current Subjective Agreeable to PT. Reports back pain that limits participation this date. Has a lengthy conversation regarding pain meds, but ulitmately decides not to take them. Pt agrees to participate with skilled therapy but only allows up to the chair for a short period of time then requests to return to bed. Pain Numeric Pain Scale: 7 Location: Posterior Location Body Site: Back (central low back) Pain Description: Stabbing (like a sword is stabbing him) Comment: Pt reports once he is standing, his pain does not decrease Mental Status Patient Orientation: Person, Confused (slightly; seems to have difficulty processing / reasoning), Place, Time, Situation Transfers SCALE: Activities may be completed with or without assistive devices. 8-Pmkareqwbq-xwmdthm completes the activity by him/herself with no assistance from a helper. 5-Set-up or Clean-up Assistance-helper sets up or cleans up; patient completes activity. [place] assists only prior to or following the activity. 4-Supervision or Touching Assistance-helper provides verbal cues and/or touching/steadying and/or contact guard assistance as patient completes acti vity. Assistance may be provided throughout the activity or intermittently. 3-Partial/Moderate Assistance-helper does LESS THAN HALF the effort. [place] lifts, holds or supports trunk or limbs, but provides less than half the effort. 2-Substantial/Maximal Assistance-helper does MORE THAN HALF the effort. [place] lifts or holds trunk or limbs and provides more than half the effort. 5-Elwbueucc-doqmnn does ALL the effort. Patient does none of the effort to complete the activity. Or, the assistance of 2 or more helpers is required for the patient to complete the activity. If activity was not attempted, code reason: 7-Patient Refused. 9-Not Applicable-not attempted and the patient did not perform the activity before the current illness, exacerbation or injury. 10-Not Attempted due to Environmental Limitations-(lack of equipment, weather restraints, etc.). 88-Not Attempted due to Medical Conditions or Safety Concerns. Roll Left & Right (QC): 3 Sit to Lying (QC): 2 (assist with trunk and legs to get into bed. ) Lying to Sitting/Side of Bed(Q: 2 (mod to max assist with heavy cues for sequencing and use of log roll technique. ) Sit to Stand (QC): 2 (mod assist iwth skilled cues for sequencing) Chair/Xjw-ao-Giffv Xfer(QC): 3 (close CGA with cues; uses FWW; able to take a few steps forward, turn, back up and sit; performed x 2 reps. ) Exercises Supine Ex: Ankle pumps, Quad Set, Glut sets, Heel Slides, Hip abd/add Supine Reps: 10 (LE strength training for functional standing, transfers and gait initiation) Treatments Co-treat with PT ([id number]), skills of 2 clinicians required for skilled instruction and mobility due to increased pain, dependent mobility and decreased activity tolerance. PT focusing on transfers and core strength/balance as OT addressed ADL care. PT performed gross mobility and transitional mobility while OT focusing on B UE placment during mobility and ADLs. Pt sat EOB for ADL's, pt transferred to from the chair with FWW and pt performed leg exercises in bed. Assessment Current Status: Fair Progress Transfers and mobility limited by pain; seems to have weakness right LE with fear of poor quad control in standing. Pt did participate in active transfers this visit versus using the sit to stand lift as yesterday. PT Short Term Goals Short Term Goals Time Frame: Jul 05, 2020 Roll Left & Right: 4 Sit to lyin Lying to sitting on side of be: 4 Sit to stand: 4 Chair/zli-zy-eylgo transfer: 4 Toilet transfer: 4 Walk 10 feet: 4 Walk 50 feet with two turns: 4 PT Etcher [employer]lytic Goals Etcher [employer]lytic Goals PT Etcher [employer] Goals Time Frame: Jul 22, 2020 Roll Left & Right (QC): 6 Sit to Lying (QC): 6 Lying-Sitting on Side/Bed(QC): 6 Sit to Stand (QC): 6 Chair/Ese-fm-Npzfg Xfer(QC): 6 Toilet Transfer (QC): 6 Car Transfer (QC): 6 Does the Patient Walk: Yes Walk 10 feet (QC): 6 Walk 50ft with 2 Turns (QC): 6 Walk 150 ft (QC): 6 Walking 10ft on Uneven Surface: 5 1 Step (curb) (QC): 4 4 Steps (QC): 9 12 Steps (QC): 9 Picking up an Object (QC): 88 Wheel 50 feet with 2 turns (QC: 9 Wheel 150 feet: 9 PT Plan Problem List Problem List: Activity Tolerance, Functional Strength, Safety, Balance, Gait, Transfer, Bed Mobility Treatment/Plan Treatment Plan: Continue Plan of Care Treatment Plan: Bed Mobility, Education, Functional Activity Aby, Functional Strength, Group Therapy, Gait, Safety, Therapeutic Exercise, Transfers Treatment Duration: Jul 22, 2020 Frequency: At least 5 of 7 days/Wk (IRF) Estimated Hrs Per Day: 1.5 hours per day Patient and/or Family Agrees t: Yes Safety Risks/Education Patient Education: Transfer Techniques, Safety Issues Teaching Recipient: Patient Teaching Methods: Demonstration, Discussion Response to Teaching: Reinforcement Needed Discharge Recommendations Therapy Discharge Recommendati: Post Acute PT Time/GCodes Time In: 900 Time Out: 1000 Total Billed Treatment Time: 60 Total Billed Treatment visit FA 45 EX 15 Co treat 60 ROBERT SHIN PT Jun 29, 2020 12:22
--- NOTE | 2020-06-29 12:45 | NUR ---
SYNCOPAL EPISODE WHILE WORKING WITH THERAPY. PATIENT WAS COMING TO NURSING ENTERED THE ROOM. BP 130'S/70. HR REGULAR, BUT TACHY- 115... SLOWLY DECREASED TO 103. BLOOD SUGAR 99. RETAIL TEAM MEMBER CALLED TO ASSESS. DR. LUTHER NOTIFIED. ALSO INFORMED OF CONTINUED BACK PAIN. ONLY ABLE TO TOLERATE 10 MINUTES IN THE CHAIR AT A TIME.
--- NOTE | 2020-06-29 13:25 | Physical Therapy Daily Note ---
PT Daily Note-Current Subjective Agrees to PT. After sit to stand x 1 at EOB, pt expressed that he could not attempt again and requested to use sit to stand lift. Transfers SCALE: Activities may be completed with or without assistive devices. 3-Xzluzbufxt-slyscik completes the activity by him/herself with no assistance from a helper. 5-Set-up or Clean-up Assistance-helper sets up or cleans up; patient completes activity. [place] assists only prior to or following the activity. 4-Supervision or Touching Assistance-helper provides verbal cues and/or touching/steadying and/or contact guard assistance as patient completes activity. Assistance may be provided throughout the activity or intermittently. 3-Partial/Moderate Assistance-helper does LESS THAN HALF the effort. [place] lifts, holds or supports trunk or limbs, but provides less than half the effort. 2-Substantial/Maximal Assistance-helper does MORE THAN HALF the effort. [place] lifts or holds trunk or limbs and provides more than half the effort. 4-Kksorkfxa-mubebo does ALL the effort. Patient does none of the effort to complete the activity. Or, the assistance of 2 or more helpers is required for the patient to complete the activity. If activity was not attempted, code reason: 7-Patient Refused. 9-Not Applicable-not attempted and the patient did not perform the activity before the current illness, exacerbation or injury. 10-Not Attempted due to Environmental Limitations-(lack of equipment, weather restraints, etc.). 88-Not Attempted due to Medical Conditions or Safety Concerns. Treatments Co treat with OT, as the skill of 2 clinicians indicated for full pt management of sequencing cues, management of UE use/placement, management of LE placement, core strength/balance and standing activities. Pt requires heavy assist to mobilize and heavy cues to complete tasks. Supine to sit with max assist with cues and assist with UE/LE; applied LSO; Sit to stand x 1 with max assist, pt only able to stay upright momentarily then had to sit; requested sit to stand lift for transfer to chair. Used sit to stand lift and transferred to chair; pt able to activate gluts and quads and came to a full industrial spray painter the lift. As he was lowered and in a full seated position, he reported he felt very fatigued and then had an episode of syncope. Nursing summoned; he was aroused with a sternal rub. Nursing began assessment and monitor of vitals; hotel houseman notified. Pt up in chair, legs elevated and nursing present as therapy exited room. Assessment Requires more assist this afternoon and unable to perform SPT. Syncopal episode with nursing following. PT Short Term Goals Short Term Goals Time Frame: Jul 05, 2020 Roll Left & Right: 4 Sit to lyin Lying to sitting on side of be: 4 Sit to stand: 4 Chair/blo-fw-aootk transfer: 4 Toilet transfer: 4 Walk 10 feet: 4 Walk 50 feet with two turns: 4 PT Care Home Goals Care Home Goals PT Components Engineer Goals Time Frame: Jul 22, 2020 Roll Left & Right (QC): 6 Sit to Lying (QC): 6 Lying-Sitting on Side/Bed(QC): 6 Sit to Stand (QC): 6 Chair/New-vd-Kikke Xfer(QC): 6 Toilet Transfer (QC): 6 Car Transfer (QC): 6 Does the Patient Walk: Yes Walk 10 feet (QC): 6 Walk 50ft with 2 Turns (QC): 6 Walk 150 ft (QC): 6 Walking 10ft on Uneven Surface: 5 1 Step (curb) (QC): 4 4 Steps (QC): 9 12 Steps (QC): 9 Picking up an Object (QC): 88 Wheel 50 feet with 2 turns (QC: 9 Wheel 150 feet: 9 PT Plan Problem List Problem List: Activity Tolerance, Functional Strength, Safety Treatment/Plan Treatment Plan: Continue Plan of Care Treatment Plan: Bed Mobility, Education, Functional Activity Aby, Functional Strength, Group Therapy, Gait, Safety, Therapeutic Exercise, Transfers Treatment Duration: Jul 22, 2020 Frequency: At least 5 of 7 days/Wk (IRF) Estimated Hrs Per Day: 1.5 hours per day Patient and/or Family Agrees t: Yes Time/GCodes Time In: 1245 Time Out: 1315 Total Billed Treatment Time: 30 Total Billed Treatment visit FA 30 Co treat 30 ROBERT SHIN PT Jun 29, 2020 13:25
--- NOTE | 2020-06-29 16:05 | NUR ---
CM/SS PATIENT CARE CONFERENCE Reviewed Summary with patient and then with spouse Nohemi Ramey by phone. Both are in agreement to Nohemi coming Saturday 07/01 at 1000 for family education/training/performance review. Patient's goal is to return home with spouse. Pain has continued to be prohibitive as far as participation with therapy and, therefore, to any notable progress. Patient conversed more meaningfully during this encounter than previous visits.
[2020-06-29] MEDS: GABAPENTIN 600 MG (NEURONTIN) TAB PO SCH (17:20)
[2020-06-29 17:27] VITALS: BP 153/68
[2020-06-29 20:15] VITALS: BP 130/77
[2020-06-29] MEDS: OLANZapine 5 MG ODT (ZyPREXA ZYDIS) PO SCH (20:17)
[2020-06-29] MEDS: ROSUVASTATIN 5 MG (CRESTOR) TABLET PO SCH (20:17)
[2020-06-29] MEDS: TAMSULOSIN 0.4 MG (FLOMAX) CAP PO SCH (20:17)
[2020-06-29] MEDS: LOSARTAN 100 MG (COZAAR) TABLET PO SCH (20:17)
[2020-06-30] MEDS: MULTIVIT W/MINERALS TAB (THERAGRAN M) PO SCH (05:30)
[2020-06-30] MEDS: ACETAMINOPHEN 500 MG TAB (TYLENOL) PO SCH ×4 (05:30→23:56)
[2020-06-30] MEDS: LEVOTHYROXINE 50 MCG (LEVOTHROID) TAB PO SCH (05:30)
[2020-06-30 06:31] VITALS: BP 130/59
[2020-06-30] MEDS: SENNA W/DOCUSATE (SENOKOT S) TABLET PO SCH ×2 (07:40→19:29)
[2020-06-30] MEDS: DOCUSATE SODIUM 100 MG (COLACE) CAP PO SCH ×2 (07:40→19:29)
[2020-06-30] MEDS: polyethylene glycoL POWDER 17 GM (MIRALAX) PACK PO SCH ×2 (07:40→19:29)
[2020-06-30] MEDS: DICLOFENAC 1% GEL 100 GM (VOLTAREN) TUBE TOP SCH ×4 (07:52→20:03)
[2020-06-30] MEDS: PANTOPRAZOLE 20 MG TABLET (PROTONIX) PO SCH (07:52)
[2020-06-30] MEDS: LACTOBACILLUS ACIDOPHILUS (PROBIOTIC) CAPSULE PO SCH ×2 (07:52→17:11)
[2020-06-30] MEDS: GABAPENTIN 300 MG (NEURONTIN) CAP PO SCH ×2 (07:52→11:32)
[2020-06-30] MEDS: FENTANYL PATCH REMOVAL TP SCH (07:53)
[2020-06-30] MEDS: fentaNYL PATCH 25 MCG (DURAGESIC) TD SCH (07:56)
--- NOTE | 2020-06-30 10:50 | PM&R Progress Note ---
Subjective HPI/CC On Admission Date Seen by Provider: Jun 30, 2020 Time Seen by Provider: 11:00 Subjective/Events-last exam 06/30/20: Pt much improved mentation Was able to stand on parallel bars with assistance Slow progress Didnt mention pain all day and then he reported to the nurse and the nurse did not realize his mentation has been causing a focus on pain Pt had not complained of pain at all for hours Bowels are moving 06/29/20: Pt having significant dry mouth Seroquel will be discontinued to help that Zyprexa at night will be maintained Pt still complaining of more and more pain, I did confer with Dr. Stark which the pain is out of proportion for the type of surgery and type of disease he has of the spine, so although his mentation is improved, I doubt we will be able to cross over the threshold to improve his status 06/28/20: Ultram and Tylenol working pretty well Much improved mentation Has his eyes open today Gabapentin will be increased back to his home dosing gradually Updated Dr. Stark 06/27/20: Pt still pretty confused No Haldol or Ativan required Changing dressing daily Zyprexa at night seems to be helpful Keeps his eyes closed most of the time but does open them when we try to get him to open his eyes Updated Dr. Stark 06/26/20: Confusion varies Zyprexa helped him sleep Seroquel in evening has also helped Talked about his pain and told him we will continue to support him in pain meds but he needs to move around BM large last night Ate bfast Dry mouth reported 06/25/20: Confusion last night was significant Pain out of proportion to the number of days he is out of post op is related to his cognitive deficits Hgb 9.4 Ultram and Tylenol given for pain No BM yet Impulsive Oxycodone made him very confused at [place] Seroquel 12.5 will be given now and 25mg in evening and Zyprexa 5mg at night Spoke to in-depth for 15 minutes on the phone since I knew her from [place] and it is now apparent he has cognition deficits so will try to improve and clear the delirium with antipsychotics Kept his eyes closed similar to the dementia 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 in senior unit at [facility] [place] Review of Systems General: Fatigue, Malaise Musculoskeletal: back pain Neurological: Confusion Objective Exam Vital Signs Vital Signs Date Time Temp Pulse Resp B/P (MAP) Pulse Ox O2 Delivery O2 Flow Rate FiO2 06/30/20 20:00 Room Air 06/30/20 16:28 36.6 87 16 135/63 (87) 97 06/30/20 06:31 2.00 Capillary Refill : General Appearance: No Apparent Distress, WD/WN, Chronically ill HEENT: PERRL/EOMI, Normal ENT Inspection, Pharynx Normal Neck: Full Range of Motion, Normal Inspection, Non Tender, Supple, Carotid Bruit Respiratory: Chest Non Tender, Lungs Clear, Normal Breath Sounds, No Accessory Muscle Use, No Respiratory Distress Cardiovascular: Regular Rate, Rhythm, No Edema, No Gallop, No JVD, No Murmur, Normal Peripheral Pulses Gastrointestinal: Normal Bowel Sounds, No Organomegaly, No Pulsatile Mass, Non Tender, Soft Back: Normal Inspection, Decreased Range of Motion, Muscle Spasm, Vertebral Tenderness Extremity: Normal Capillary Refill, Normal Inspection, Normal Range of Motion, Non Tender, No Calf Tenderness, No Pedal Edema Neurologic/Psychiatric: Alert, Oriented x3, No Motor/Sensory Deficits, Normal Mood/Affect, Abnormal Gait, Disoriented, Motor Weakness (bilateral legs) Skin: Normal Color, Warm/Dry Lymphatic: No Adenopathy Results/Procedures Lab Patient resulted labs reviewed. FIM Transfers Therapy Code Descriptions/Definitions Functional [place] Measure: 0=Not Assessed/NA 4=Minimal Assistance 1=Total Assistance 5=Supervision or Setup 2=Maximal Assistance 6=Modified [place] 3=Moderate Assistance 7=Complete IndependenceSCALE: Activities may be completed with or without assistive devices. 5-Sydbbirvkj-yjwuoqj completes the activity by him/herself with no assistance from a helper. 5-Set-up or Clean-up Assistance-helper sets up or cleans up; patient completes activity. [place] assists only prior to or following the activity. 4-Supervision or Touching Assistance-helper provides verbal cues and/or touching/steadying and/or contact guard assistance as patient completes activity. Assistance may be provided throughout the activity or intermittently. 3-Partial/Moderate Assistance-helper does LESS THAN HALF the effort. [place] lifts, holds or supports trunk or limbs, but provides less than half the effort. 2-Substantial/Maximal Assistance-helper does MORE THAN HALF the effort. [place] lifts or holds trunk or limbs and provides more than half the effort. 8-Thbbevgjk-smypwb does ALL the effort. Patient does none of the effort to complete the activity. Or, the assistance of 2 or more helpers is required for the patient to complete the activity. If activity was not attempted, code reason: 7-Patient Refused. 9-Not Applicable-not attempted and the patient did not perform the activity before the current illness, exacerbation or injury. 10-Not Attempted due to Environmental Limitations-(lack of equipment, weather restraints, etc.). 88-Not Attempted due to Medical Conditions or Safety Concerns. Roll Left to Right (QC): 3 Sit to Lying (QC): 2 (assist with trunk and legs to get into bed. ) Sit to Stand (QC): 2 (mod assist iwth skilled cues for sequencing) Chair/Vpi-yb-Egnsa Xfer(QC): 3 (close CGA with cues; uses FWW; able to take a few steps forward, turn, back up and sit; performed x 2 reps. ) Car Transfer (QC): 88 (unsafe/unable to attempt due to limited transfer status. ) Gait Training Walk 10 feet (QC): 88 (unable to walk this distance safely) Walk 50 ft with 2 Turns(QC): 88 Walk 150 ft (QC): 88 Walking 10ft/uneven surface-QC: 88 Gait Assistive Device: FWW Wheelchair Training Wheel 50 ft with 2 turns (QC): 9 Wheel 150 ft (QC): 9 Stair Training 1 Step (curb) (QC): 88 4 Steps (QC): 9 12 Steps (QC): 9 Balance Picking up an Object (QC): 88 (back precautions forbid this) ADL-Treatment Eating (QC): 6 Oral Hygiene (QC): 5 (s/u) Shower/Bathe Self (QC): 1 (TD due to need of Ax2 during sit to stand/ bottom care. Pt completes UB washing, OT completes LB washing and bottom/ back/ feet.) Upper Body Dressing (QC): 3 (s/u shirt. mod A with back brace tightening. 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 Pt completes undergarment donning with use of AD. Pt's pants donned for him at this time due to pain and increased time needed. Pt sit to stand with max Ax2, OT completes bottom care/ pant hike while PT maintains stance with pt. ) On/Off Footwear (QC): 2 Toileting Hygiene (QC): 1 (TD) Toilet Transfer (QC): 1 Assessment/Plan Assessment and Plan Assess & Plan/Chief Complaint Assessment: s/p lumbar spine surgery for stenosis now with slow recovery and severe pain Cognitive deficits contributing to slow recovery and severe pain out of proportion of expected HTN HLP BETTY Obesity Prostate cancer hx Constipation Plan: BM regimen IRF protocol Pain meds Monitor confusion Limit pain meds due to confusion 06/25/20: Monitor confusion Dementia noted after speaking to and the interaction I had with the patient in [place] Antipsychotics 06/26/20: Anti-psychotics Monitor delirium Pain management PT OT 06/27/20: Antipsychotics Monitor closely Monitor BP 06/28/20: Improved mentation Monitor BP Pain management 06/29/20: MOnitor pain Improved cognition Pain out of proportion and extended longer than expected for type of surgery per Dr Stark 06/30/20: Monitor pain Fentanyl patch Improved cognition (1) Spinal stenosis, lumbar region with neurogenic claudication (2) Prostate cancer (3) Obesity (4) Hypertension (5) Cognitive deficits (6) BETTY on CPAP (7) Hyperlipemia ERIC LUTHER DO Jun 30, 2020 10:50
--- NOTE | 2020-06-30 12:35 | NUR ---
Notified Dr Freeman at this time that pt states his pain is not being managed. Dr Freeman stated she discussed with Dr Sosa and wasn't going to order anything more for pain. Cont with ultram, neurontin, tylenol, voltaren and positioning as needed. Will cont to monitor. Pt up in bedside recliner at this time. Call light in reach.
--- NOTE | 2020-06-30 12:56 | Occupational Ther Daily Note ---
OT Current Status-Daily Note Subjective Pt alert, lying in bed. Pt agrees to therapy. Pt c/o pain throughout treatment, nrsg brought medication. Pt stated that he was going to have a positive attitude today. Mental Status/Objective Patient Orientation: Person, Place, Time, Situation ADL-Treatment Therapy Code Descriptions/Definitions Functional [place] Measure: 0=Not Assessed/NA 4=Minimal Assistance 1=Total Assistance 5=Supervision or Setup 2=Maximal Assistance 6=Modified [place] 3=Moderate Assistance 7=Complete IndependenceSCALE: Activities may be completed with or without assistive devices. 6-Jpsfzattra-gxpvngt completes the activity by him/herself with no assistance from a helper. 5-Set-up or Clean-up Assistance-helper sets up or cleans up; patient completes activity. [place] assists only prior to or following the activity. 4-Supervision or Touching Assistance-helper provides verbal cues and/or touching/steadying and/or contact guard assistance as patient completes activity. Assistance may be provided throughout the activity or intermittently. 3-Partial/Moderate Assistance-helper does LESS THAN HALF the effort. [place] lifts, holds or supports trunk or limbs, but provides less than half the effort. 2-Substantial/Maximal Assistance-helper does MORE THAN HALF the effort. [place] lifts or holds trunk or limbs and provides more than half the effort. 3-Onfxuaijd-mnpflf does ALL the effort. Patient does none of the effort to complete the activity. Or, the assistance of 2 or more helpers is required for the patient to complete the activity. If activity was not attempted, code reason: 7-Patient Refused. 9-Not Applicable-not attempted and the patient did not perform the activity before the current illness, exacerbation or injury. 10-Not Attempted due to Environmental Limitations-(lack of equipment, weather restraints, etc.). 88-Not Attempted due to Medical Conditions or Safety Concerns. Other Treatment Co-treat with PT ([id number]), skills of 2 clinicians required for skilled instruction and mobility due to increased pain, dependent mobility and decreased activity tolerance. PT focusing on transfers, standing and w/c mobility while OT focusing on B UE placement during mobility and ADLs. Assist x1 for supine to sitting EOB with HOB elevated. Max A x2 for SPT from EOB to w/c. Pt able to propel w/c slowly by self then fatigues and requires active assistance. Pt stood in parallel bars 3x's, did not attempt to ambulate. ~15 sec each stand. Bicep with 1# wt, 20 each arm. Pt then propelled w/c skilled nursing back to room with assist. 3 attempts with max A x2 for sit to stand and SPT from w/c to recliner. Pt unable to complete so sit stand lift used. After session, pt sitting in recliner with call light/phone in reach. All needs met in room. OT Metal Weigher Goals Fpc Goals Time Frame: Jul 08, 2020 Eating (QC): 6 Oral Hygiene (QC): 6 Toileting Hygiene (QC): 4 Shower/Bathe Self (QC): 5 Upper Body Dressing (QC): 6 Lower Body Dressing (QC): 4 On/Off Footwear (QC): 6 Additional Goals: 1-Demonstrate ADL Tasks, 2-Verbalize Understanding, 3- ImproveStrength/Aby 1=Demonstrate adherence to instructed precautions during ADL tasks. 2=Patient will verbalize/demonstrate understanding of assistive devices/modifications for ADL. 3=Patient will improve strength/tolerance for activity to enable patient to perform ADL's. OT Education/Plan Problem List/Assessment Assessment: Decreased Activ Tolerance, Decreased Safety Aware, Decreased UE Strength, Dependent Transfers, Impaired Bed Mobility, Impaired Coordination, Impaired Funct Balance, Impaired Self-Care Skills, Restricted Funct UE ROM Discharge Recommendations Plan/Recommendations: Continue POC Treatment Plan/Plan of Care Patient would benefit from OT for education, treatment and training to promote independence in ADL's, mobility, safety and/or upper extremity function for ADL's. Plan of Care: ADL Retraining, Caregiver Training, Concurrent Therapy, Functional Mobility, Group Exercise/Act as Ind, Orthotic Fitting/Training, UE Funct Exercise/Act, W/C Management Training Treatment Duration: Jul 08, 2020 Frequency: At least 5 of 7 days/Wk (IRF) Estimated Hrs Per Day: 1.5 hours per day Agreement: Yes Rehab Potential: Good Time/GCodes Start Time: 11:00 Stop Time: 12:10 Total Time Billed (hr/min): 70 Billed Treatment Time 1 visit-FA 5 (70 min) Co-treat with PT [phone] ROBERT MCDONOUGH Jun 30, 2020 12:56
--- NOTE | 2020-06-30 13:23 | Occupational Ther Daily Note ---
OT Current Status-Daily Note Subjective Pt alert, agrees to therapy. Pt wants to get back into bed. Pt c/o pain, pain meds administered 1 hour ago. Mental Status/Objective Patient Orientation: Person, Place, Time, Situation Attachments: Oxygen (placed on pt while in bed), SCD's ADL-Treatment Therapy Code Descriptions/Definitions Functional [place] Measure: 0=Not Assessed/NA 4=Minimal Assistance 1=Total Assistance 5=Supervision or Setup 2=Maximal Assistance 6=Modified [place] 3=Moderate Assistance 7=Complete IndependenceSCALE: Activities may be completed with or without assistive devices. 7-Bekmsfeain-trnaska completes the activity by him/herself with no assistance from a helper. 5-Set-up or Clean-up Assistance-helper sets up or cleans up; patient completes activity. [place] assists only prior to or following the activity. 4-Supervision or Touching Assistance-helper provides verbal cues and/or touching/steadying and/or contact guard assistance as patient completes activity. Assistance may be provided throughout the activity or intermittently. 3-Partial/Moderate Assistance-helper does LESS THAN HALF the effort. [place] lifts, holds or supports trunk or limbs, but provides less than half the effort. 2-Substantial/Maximal Assistance-helper does MORE THAN HALF the effort. [place] lifts or holds trunk or limbs and provides more than half the effort. 1-Uqtxpvfej-olkctu does ALL the effort. Patient does none of the effort to complete the activity. Or, the assistance of 2 or more helpers is required for the patient to complete the activity. If activity was not attempted, code reason: 7-Patient Refused. 9-Not Applicable-not attempted and the patient did not perform the activity before the current illness, exacerbation or injury. 10-Not Attempted due to Environmental Limitations-(lack of equipment, weather restraints, etc.). 88-Not Attempted due to Medical Conditions or Safety Concerns. Bathing Location: R Lower Leg (including foot) Other Treatment Co-treat with PT [id number], skills of 2 clinicians required for skilled instruction and care due to pt's increase in pain, lethargy and decreased mobility. PT focusing on transfers and bed mobility while OT focusing on B UE placement during transfers and bed mobility. Pt lethargic and increased pain, leaning toward L side and has difficulty with righting and maintaining upright position. Transferred with sit to stand lift to bed. Assist x2 for EOB to supine then assist x2 to position. Pt made comfortable in bed. Call light/phone in reach. All needs met in room. OT Fdc Goals Umbrella Cutter Goals Time Frame: Jul 08, 2020 Eating (QC): 6 Oral Hygiene (QC): 6 Toileting Hygiene (QC): 4 Shower/Bathe Self (QC): 5 Upper Body Dressing (QC): 6 Lower Body Dressing (QC): 4 On/Off Footwear (QC): 6 Additional Goals: 1-Demonstrate ADL Tasks, 2-Verbalize Understanding, 3- ImproveStrength/Aby 1=Demonstrate adherence to instructed precautions during ADL tasks. 2=Patient will verbalize/demonstrate understanding of assistive devices/modifications for ADL. 3=Patient will improve strength/tolerance for activity to enable patient to perform ADL's. OT Education/Plan Problem List/Assessment Assessment: Decreased Activ Tolerance, Decreased Safety Aware, Decreased UE Strength, Dependent Transfers, Impaired Bed Mobility, Impaired Coordination, Impaired Funct Balance, Impaired Self-Care Skills Discharge Recommendations Plan/Recommendations: Continue POC Treatment Plan/Plan of Care Patient would benefit from OT for education, treatment and training to promote independence in ADL's, mobility, safety and/or upper extremity function for ADL's. Plan of Care: ADL Retraining, Caregiver Training, Concurrent Therapy, Functional Mobility, Group Exercise/Act as Ind, Orthotic Fitting/Training, UE Funct Exercise/Act, W/C Management Training Treatment Duration: Jul 08, 2020 Frequency: At least 5 of 7 days/Wk (IRF) Estimated Hrs Per Day: 1.5 hours per day Agreement: Yes Rehab Potential: Good Time/GCodes Start Time: 13:00 Stop Time: 13:20 Total Time Billed (hr/min): 20 Billed Treatment Time 1 visit-FA 1 (20 min) co-treat with PT [phone] ROBERT MCDONOUGH Jun 30, 2020 13:23
--- NOTE | 2020-06-30 13:23 | Physical Therapy Daily Note ---
PT Daily Note-Current Subjective Patient in recliner pre tx, has unrated back pain, patient is lethargic and in pain and would like to get back into bed. Appearance Patient in bed post tx with nurse call, phone, tray, all needs met. Mental Status Patient Orientation: Person, Place, Situation Attachments: SCD's back brace Transfers SCALE: Activities may be completed with or without assistive devices. 1-Lwyzoroipx-dkdhqnp completes the activity by him/herself with no assistance from a helper. 5-Set-up or Clean-up Assistance-helper sets up or cleans up; patient completes activity. [place] assists only prior to or following the activity. 4-Supervision or Touching Assistance-helper provides verbal cues and/or touching/steadying and/or contact guard assistance as patient completes activity. Assistance may be provided throughout the activity or intermittently. 3-Partial/Moderate Assistance-helper does LESS THAN HALF the effort. [place] lifts, holds or supports trunk or limbs, but provides less than half the effort. 2-Substantial/Maximal Assistance-helper does MORE THAN HALF the effort. [place] lifts or holds trunk or limbs and provides more than half the effort. 9-Jwwlokhfc-jrrakc does ALL the effort. Patient does none of the effort to comp lete the activity. Or, the assistance of 2 or more helpers is required for the patient to complete the activity. If activity was not attempted, code reason: 7-Patient Refused. 9-Not Applicable-not attempted and the patient did not perform the activity before the current illness, exacerbation or injury. 10-Not Attempted due to Environmental Limitations-(lack of equipment, weather restraints, etc.). 88-Not Attempted due to Medical Conditions or Safety Concerns. Roll Left & Right (QC): 1 Sit to Lying (QC): 1 Sit to Stand (QC): 1 Chair/Uvx-ie-Afoyz Xfer(QC): 1 Patient cannot stand from the recliner. Sit to stand machine used to stand patient and transfer to bed, dependent for sit to supine and to mobilize in bed. Treatments bed mobility and transfers Assessment Current Status: Poor Progress Patient was lethargic, in pain, unable or unwilling to participate much at all. PT Short Term Goals Short Term Goals Time Frame: Jul 05, 2020 Roll Left & Right: 4 Sit to lyin Lying to sitting on side of be: 4 Sit to stand: 4 Chair/apr-rx-gneay transfer: 4 Toilet transfer: 4 Walk 10 feet: 4 Walk 50 feet with two turns: 4 PT Correction Goals Correction Goals PT Correction Goals Time Frame: Jul 22, 2020 Roll Left & Right (QC): 6 Sit to Lying (QC): 6 Lying-Sitting on Side/Bed(QC): 6 Sit to Stand (QC): 6 Chair/Txo-as-Pipaa Xfer(QC): 6 Toilet Transfer (QC): 6 Car Transfer (QC): 6 Does the Patient Walk: Yes Walk 10 feet (QC): 6 Walk 50ft with 2 Turns (QC): 6 Walk 150 ft (QC): 6 Walking 10ft on Uneven Surface: 5 1 Step (curb) (QC): 4 4 Steps (QC): 9 12 Steps (QC): 9 Picking up an Object (QC): 88 Wheel 50 feet with 2 turns (QC: 9 Wheel 150 feet: 9 PT Plan Problem List Problem List: Activity Tolerance, Functional Strength, Safety, Balance, Gait, Transfer, Bed Mobility, ROM Treatment/Plan Treatment Plan: Continue Plan of Care Treatment Plan: Bed Mobility, Education, Functional Activity Aby, Functional Strength, Group Therapy, Gait, Safety, Therapeutic Exercise, Transfers Treatment Duration: Jul 22, 2020 Frequency: At least 5 of 7 days/Wk (IRF) Estimated Hrs Per Day: 1.5 hours per day Patient and/or Family Agrees t: Yes Safety Risks/Education Patient Education: Transfer Techniques, Correct Positioning, Safety Issues Teaching Recipient: Patient Teaching Methods: Demonstration, Discussion Response to Teaching: Reinforcement Needed Time/GCodes Time In: 1300 Time Out: 1320 Total Billed Treatment Time: 20 Total Billed Treatment 1 visit FA 20' JAYLYN VARGAS PT Jun 30, 2020 13:23
--- NOTE | 2020-06-30 13:47 | Physical Therapy Daily Note ---
PT Daily Note-Current Subjective Patient in bed pre tx, agrees to PT, has 5/10 pain in back which he says is his normal level of pain. Will be co-treating with OT due to poor patient mobility, strength, endurance, severe pain with activity, the need to coordinate UE and LE during activity, safety and reduce risk of falls. Appearance Patient in recliner post tx with nurse call, phone, tray, all needs met. Mental Status Patient Orientation: Person, Place, Situation back brace Transfers SCALE: Activities may be completed with or without assistive devices. 6-Ftrvnaangn-xfrycsx completes the activity by him/herself with no assistance from a helper. 5-Set-up or Clean-up Assistance-helper sets up or cleans up; patient completes activity. [place] assists only prior to or following the activity. 4-Supervision or Touching Assistance-helper provides verbal cues and/or touching/steadying and/or contact guard assistance as patient completes activity. Assistance may be provided throughout the activity or intermittently. 3-Partial/Moderate Assistance-helper does LESS THAN HALF the effort. [place] lifts, holds or supports trunk or limbs, but provides less than half the effort. 2-Substantial/Maximal Assistance-helper does MORE THAN HALF the effort. [place] lifts or holds trunk or limbs and provides more than half the effort. 9-Ylwteshww-kxrpdn does ALL the effort. Patient does none of the effort to complete the activity. Or, the assistance of 2 or more helpers is required for the patient to complete the activity. If activity was not attempted, code reason: 7-Patient Refused. 9-Not Applicable-not attempted and the patient did not perform the activity before the current illness, exacerbation or injury. 10-Not Attempted due to Environmental Limitations-(lack of equipment, weather restraints, etc.). 88-Not Attempted due to Medical Conditions or Safety Concerns. Roll Left & Right (QC): 3 Lying to Sitting/Side of Bed(Q: 3 Sit to Stand (QC): 3 Chair/Gov-sz-Uwlew Xfer(QC): 3 Patient was able to stand from an elevated bed with mod assist and perform a transfer using his rolling walker and taking several steps and sitting in his WC. Patient propelled to therapy gym, went to parallel bars and stood x3 for about 10 seconds each time, patient was not able to take any steps forward, performed LE seated exercises, propelled back to room, was not able to stand and transfer to recliner, had to use the sit to stand machine. Wheelchair Training Does the Pt Use a Wheelchair?: Yes Wheel 50 ft with 2 turns (QC): 4 Type of Wheelchair: Manual 100'x2 Exercises Seated Therapy Exercises: Ankle pumps, Long arc quads, Hip flexion Seated Reps: 20 Treatments PT performed bed mobility and transfers, standing, WC mobility, OT performed dressing, UE ROM and positioning during activity and safety cues. Assessment Current Status: Poor Progress Patient has poor motivation. Progress is very small and very slow. PT Short Term Goals Short Term Goals Time Frame: Jul 05, 2020 Roll Left & Right: 4 Sit to lyin Lying to sitting on side of be: 4 Sit to stand: 4 Chair/ftp-bd-tdscj transfer: 4 Toilet transfer: 4 Walk 10 feet: 4 Walk 50 feet with two turns: 4 PT Long-Term Goals Long-Term Goals PT Long-Term Goals Time Frame: Jul 22, 2020 Roll Left & Right (QC): 6 Sit to Lying (QC): 6 Lying-Sitting on Side/Bed(QC): 6 Sit to Stand (QC): 6 Chair/Zrt-of-Uoeue Xfer(QC): 6 Toilet Transfer (QC): 6 Car Transfer (QC): 6 Does the Patient Walk: Yes Walk 10 feet (QC): 6 Walk 50ft with 2 Turns (QC): 6 Walk 150 ft (QC): 6 Walking 10ft on Uneven Surface: 5 1 Step (curb) (QC): 4 4 Steps (QC): 9 12 Steps (QC): 9 Picking up an Object (QC): 88 Wheel 50 feet with 2 turns (QC: 9 Wheel 150 feet: 9 PT Plan Problem List Problem List: Activity Tolerance, Functional Strength, Safety, Balance, Gait, Transfer, Bed Mobility, ROM Treatment/Plan Treatment Plan: Continue Plan of Care Treatment Plan: Bed Mobility, Education, Functional Activity Aby, Functional Strength, Group Therapy, Gait, Safety, Therapeutic Exercise, Transfers Treatment Duration: Jul 22, 2020 Frequency: At least 5 of 7 days/Wk (IRF) Estimated Hrs Per Day: 1.5 hours per day Patient and/or Family Agrees t: Yes Safety Risks/Education Patient Education: Transfer Techniques, Correct Positioning, W/C Management, Reviewed Don/Doff Brace, Safety Issues Teaching Recipient: Patient Teaching Methods: Demonstration, Discussion Response to Teaching: Reinforcement Needed Time/GCodes Time In: 1100 Time Out: 1210 Total Billed Treatment Time: 70 Total Billed Treatment 1 visit FA 70' co-treated with OT for 70' JAYLYN VARGAS PT Jun 30, 2020 13:47
[2020-06-30 16:28] VITALS: BP 135/63
[2020-06-30] MEDS: GABAPENTIN 600 MG (NEURONTIN) TAB PO SCH (17:11)
[2020-06-30] MEDS: LOSARTAN 100 MG (COZAAR) TABLET PO SCH (20:01)
[2020-06-30] MEDS: TAMSULOSIN 0.4 MG (FLOMAX) CAP PO SCH (20:01)
[2020-06-30] MEDS: OLANZapine 5 MG ODT (ZyPREXA ZYDIS) PO SCH (20:01)
[2020-06-30] MEDS: ROSUVASTATIN 5 MG (CRESTOR) TABLET PO SCH (20:01)
[2020-07-01 05:39] VITALS: BP 124/59
[2020-07-01] MEDS: MULTIVIT W/MINERALS TAB (THERAGRAN M) PO SCH (06:04)
[2020-07-01] MEDS: ACETAMINOPHEN 500 MG TAB (TYLENOL) PO SCH ×4 (06:04→23:52)
[2020-07-01] MEDS: LEVOTHYROXINE 50 MCG (LEVOTHROID) TAB PO SCH (06:04)
[2020-07-01] MEDS: DOCUSATE SODIUM 100 MG (COLACE) CAP PO SCH ×2 (08:05→20:31)
[2020-07-01] MEDS: PANTOPRAZOLE 20 MG TABLET (PROTONIX) PO SCH (08:05)
[2020-07-01] MEDS: LACTOBACILLUS ACIDOPHILUS (PROBIOTIC) CAPSULE PO SCH ×2 (08:05→17:00)
[2020-07-01] MEDS: SENNA W/DOCUSATE (SENOKOT S) TABLET PO SCH ×2 (08:05→20:31)
[2020-07-01] MEDS: DICLOFENAC 1% GEL 100 GM (VOLTAREN) TUBE TOP SCH ×4 (08:06→20:31)
[2020-07-01] MEDS: polyethylene glycoL POWDER 17 GM (MIRALAX) PACK PO SCH ×2 (08:06→20:31)
[2020-07-01] MEDS: GABAPENTIN 300 MG (NEURONTIN) CAP PO SCH ×2 (08:06→13:37)
[2020-07-01] MEDS: ACETAMINOPHEN 325 MG TABLET PO PRN (10:08)
--- NOTE | 2020-07-01 10:28 | PM&R Progress Note ---
Subjective HPI/CC On Admission Date Seen by Provider: Jul 01, 2020 Time Seen by Provider: 10:30 Subjective/Events-last exam 07/01/20: Family training today appears very disappointed with his progress although I had called her 4 times since admit to tell her he had cognition issues affecting his performance very petite and cannot even push him in a wheelchair Likely nursing facility for slower recovery will be required very irritated with his lack of progress and return of good function 06/30/20: Pt much improved mentation Was able to stand on parallel bars with assistance Slow progress Didnt mention pain all day and then he reported to the nurse and the nurse did not realize his mentation has been causing a focus on pain Pt had not complained of pain at all for hours Bowels are moving 06/29/20: Pt having significant dry mouth Seroquel will be discontinued to help that Zyprexa at night will be maintained Pt still complaining of more and more pain, I did confer with Dr. Stark which the pain is out of proportion for the type of surgery and type of disease he has of the spine, so although his mentation is improved, I doubt we will be able to cross over the threshold to improve his status 06/28/20: Ultram and Tylenol working pretty well Much improved mentation Has his eyes open today Gabapentin will be increased back to his home dosing gradually Updated Dr. Stark 06/27/20: Pt still pretty confused No Haldol or Ativan required Changing dressing daily Zyprexa at night seems to be helpful Keeps his eyes closed most of the time but does open them when we try to get him to open his eyes Updated Dr. Stark 06/26/20: Confusion varies Zyprexa helped him sleep Seroquel in evening has also helped Talked about his pain and told him we will continue to support him in pain meds but he needs to move around BM large last night Ate bfast Dry mouth reported 06/25/20: Confusion last night was significant Pain out of proportion to the number of days he is out of post op is related to his cognitive deficits Hgb 9.4 Ultram and Tylenol given for pain No BM yet Impulsive Oxycodone made him very confused at [place] Seroquel 12.5 will be given now and 25mg in evening and Zyprexa 5mg at night Spoke to in-depth for 15 minutes on the phone since I knew her from [place] and it is now apparent he has cognition deficits so will try to improve and clear the delirium with antipsychotics Kept his eyes closed similar to [place] dementia 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 [facility] [place] Systems General: Fatigue Neurological: Weakness, Incoordination Objective Exam Vital Signs Vital Signs Date Time Temp Pulse Resp B/P (MAP) Pulse Ox O2 Delivery O2 Flow Rate FiO2 07/02/20 05:04 36.3 80 16 136/62 (86) 95 Room Air 06/30/20 06:31 2.00 Capillary Refill : General Appearance: No Apparent Distress, WD/WN, Chronically ill HEENT: PERRL/EOMI, Normal ENT Inspection, Pharynx Normal Neck: Full Range of Motion, Normal Inspection, Non Tender, Supple, Carotid Bruit Respiratory: Chest Non Tender, Lungs Clear, Normal Breath Sounds, No Accessory Muscle Use, No Respiratory Distress Cardiovascular: Regular Rate, Rhythm, No Edema, No Gallop, No JVD, No Murmur, Normal Peripheral Pulses Gastrointestinal: Normal Bowel Sounds, No Organomegaly, No Pulsatile Mass, Non Tender, Soft Back: Normal Inspection, Decreased Range of Motion, Muscle Spasm, Vertebral Tenderness Extremity: Normal Capillary Refill, Normal Inspection, Normal Range of Motion, Non Tender, No Calf Tenderness, No Pedal Edema Neurologic/Psychiatric: Alert, Oriented x3, No Motor/Sensory Deficits, Normal Mood/Affect, Abnormal Gait, Disoriented, Motor Weakness (bilateral legs) Skin: Normal Color, Warm/Dry Lymphatic: No Adenopathy Results/Procedures Lab Patient resulted labs reviewed. FIM Transfers Therapy Code Descriptions/Definitions Functional [place] Measure: 0=Not Assessed/NA 4=Minimal Assistance 1=Total Assistance 5=Supervision or Setup 2=Maximal Assistance 6=Modified [place] 3=Moderate Assistance 7=Complete IndependenceSCALE: Activities may be completed with or without assistive devices. 0-Yyxkijpfks-xsvfijx completes the activity by him/herself with no assistance from a helper. 5-Set-up or Clean-up Assistance-helper sets up or cleans up; patient completes activity. [place] assists only prior to or following the activity. 4-Supervision or Touching Assistance-helper provides verbal cues and/or touching/steadying and/or contact guard assistance as patient completes activity. Assistance may be provided throughout the activity or intermittently. 3-Partial/Moderate Assistance-helper does LESS THAN HALF the effort. [place] lifts, holds or supports trunk or limbs, but provides less than half the effort. 2-Substantial/Maximal Assistance-helper does MORE THAN HALF the effort. [place] lifts or holds trunk or limbs and provides more than half the effort. 7-Nkngvejre-qfpmke does ALL the effort. Patient does none of the effort to complete the activity. Or, the assistance of 2 or more helpers is required for the patient to complete the activity. If activity was not attempted, code reason: 7-Patient Refused. 9-Not Applicable-not attempted and the patient did not perform the activity before the current illness, exacerbation or injury. 10-Not Attempted due to Environmental Limitations-(lack of equipment, weather restraints, etc.). 88-Not Attempted due to Medical Conditions or Safety Concerns. Roll Left to Right (QC): 3 Sit to Lying (QC): 1 Sit to Stand (QC): 3 Chair/Owa-gb-Spprf Xfer(QC): 3 Car Transfer (QC): 88 (unsafe/unable to attempt due to limited transfer status. ) Gait Training Walk 10 feet (QC): 88 (unable to walk this distance safely) Walk 50 ft with 2 Turns(QC): 88 Walk 150 ft (QC): 88 Walking 10ft/uneven surface-QC: 88 Gait Assistive Device: FWW Wheelchair Training Does the Pt Use a Wheelchair?: Yes Wheel 50 ft with 2 turns (QC): 4 Wheel 150 ft (QC): 9 Type of Wheelchair: Manual Stair Training 1 Step (curb) (QC): 88 4 Steps (QC): 9 12 Steps (QC): 9 Balance Picking up an Object (QC): 88 (back precautions forbid this) ADL-Treatment Eating (QC): 6 Oral Hygiene (QC): 5 (s/u) Bathing Location: R Lower Leg (including foot) Shower/Bathe Self (QC): 1 (TD due to need of Ax2 during sit to stand/ bottom care. Pt completes UB washing, OT completes LB washing and bottom/ back/ feet.) Upper Body Dressing (QC): 3 (s/u shirt. mod A with back brace tightening. ) Lower Body Dressing (QC): 1 (TD due to need of Ax2 in stance to thread pulling machine attendant hips. Pt completes undergarment donning with use of AD. Pt's pants donned for him at this time due to pain and increased time needed. Pt sit to stand with max Ax2, OT completes bottom care/ pant hike while PT maintains stance with pt. ) On/Off Footwear (QC): 2 Toileting Hygiene (QC): 1 (TD) Toilet Transfer (QC): 1 Assessment/Plan Assessment and Plan Assess & Plan/Chief Complaint Assessment: s/p lumbar spine surgery for stenosis now with slow recovery and severe pain Cognitive deficits contributing to slow recovery and severe pain out of proportion of expected HTN HLP BETTY Obesity Prostate cancer hx Constipation Plan: BM regimen IRF protocol Pain meds Monitor confusion Limit pain meds due to confusion 06/25/20: Monitor confusion Dementia noted after speaking to and the interaction I had with the patient in [place] Antipsychotics 06/26/20: Anti-psychotics Monitor delirium Pain management PT OT 06/27/20: Antipsychotics Monitor closely Monitor BP 06/28/20: Improved mentation Monitor BP Pain management 06/29/20: Monitor pain Improved cognition Pain out of proportion and extended longer than expected for type of surgery per Dr Stark 06/30/20: Monitor pain Fentanyl patch Improved cognition 07/01/20: Inquire with Dr Stark about steroids as has requested Patient improved cognition Slow progress (1) Spinal stenosis, lumbar region with neurogenic claudication (2) Prostate cancer (3) Obesity (4) Hypertension (5) Cognitive deficits (6) BETTY on CPAP (7) Hyperlipemia ERIC LUTHER DO Jul 01, 2020 10:28
--- NOTE | 2020-07-01 11:36 | NUR ---
CM/SS CONCURRENT DOCUMENTATION Patient's Nohemi here this a.m. as planned to observe patient current performance level. Nohemi is quite petite and would not be able to be any kind of ambulation stability for patient, and doubtful she could push him in a wheelchair. They both agree patient would need to be able to ambulate independently at least short distances prior to returning home. They indicate their home is one level and could accommodate wheelchair use inside, their entrance from garage is wheelchair accessible without any steps. Patient does not have wheelchair or walker. Will need to monitor assistive device recommendations from therapy team. They inquired about [facility] providing Covid vaccine to patients. Nohemi is on a list through [employer] for hers. In general, answered all their questions to their satisfaction. Provided professional card with all contact information for Nohemi. Continue intermittent review and planning for post hospital care.
--- NOTE | 2020-07-01 11:46 | Occupational Ther Daily Note ---
OT Current Status-Daily Note Subjective Pt alert, lying in bed. Pt agrees to therapy. Pt did not c/o pain initially though when moving pain increased to 9/10. present for family education. Mental Status/Objective Patient Orientation: Person, Place, Time, Situation Attachments: Other-See Comments (back brace) ADL-Treatment 1st Treatment [id number]: Co-treat with PT ([id number]), skills of 2 clinicians required for skilled instruction and mobility due to increased pain, dependent mobility and decreased activity tolerance. PT focusing on transfers, standing and w/c mobility while OT focusing on B UE placement during mobility and ADLs. Assist x1 for supine to sitting EOB with HOB elevated. Sitting EOB, pt able to don/doff shirt by self after set up. Using project manager entertainment and media, pt able to thread feet into pants legs sitting EOB then max Ax2 to hike pants over hips. Max A x2 for SPT from EOB to using FWW w/c. Pt able to propel w/c slowly by self then fatigues and requires active assistance. Pt ambulated in parallel bars 3x's, see PT notes for progress. Attempted to have pt complete sit to stand and reach for FWW to transfer into bed. Pt unable to complete this even with max Ax2. Pt required sit to stand lift to complete transfer to recliner. After therapy, pt sitting in recliner with call light/phone in reach. All needs met in room. present. 2nd Treatment [id number]: Pt sitting in recliner. Working on pt's ability to complete own positioning. Educated pt on how recliner works and placement of B UE and B LE to adjust self. Pt attempted to complete each task. Pt unable to complete by self. Requires assist x2 to complete. After session, pt sitting reclined in chair with call light/phone in reach. present in room. All needs met in room. Therapy Code Descriptions/Definitions Functional [place] Measure: 0=Not Assessed/NA 4=Minimal Assistance 1=Total Assistance 5=Supervision or Setup 2=Maximal Assistance 6=Modified [place] 3=Moderate Assistance 7=Complete IndependenceSCALE: Activities may be completed with or without assistive devices. 2-Cousofqgqp-neqfvnq completes the activity by him/herself with no assistance from a helper. 5-Set-up or Clean-up Assistance-helper sets up or cleans up; patient completes activity. [place] assists only prior to or following the activity. 4-Supervision or Touching Assistance-helper provides verbal cues and/or touching/steadying and/or contact guard assistance as patient completes activity. Assistance may be provided throughout the activity or intermittently. 3-Partial/Moderate Assistance-helper does LESS THAN HALF the effort. [place] lifts, holds or supports trunk or limbs, but provides less than half the effort. 2-Substantial/Maximal Assistance-helper does MORE THAN HALF the effort. [place] lifts or holds trunk or limbs and provides more than half the effort. 3-Wdcmcukpz-tnltyv does ALL the effort. Patient does none of the effort to complete the activity. Or, the assistance of 2 or more helpers is required for the patient to complete the activity. If activity was not attempted, code reason: 7-Patient Refused. 9-Not Applicable-not attempted and the patient did not perform the activity before the current illness, exacerbation or injury. 10-Not Attempted due to Environmental Limitations-(lack of equipment, weather restraints, etc.). 88-Not Attempted due to Medical Conditions or Safety Concerns. Upper Body Dressing (QC): 5 Lower Body Dressing (QC): 1 On/Off Footwear: 2 OT Front Office Spec Goals Fdc Goals Time Frame: Jul 08, 2020 Eating (QC): 6 Oral Hygiene (QC): 6 Toileting Hygiene (QC): 4 Shower/Bathe Self (QC): 5 Upper Body Dressing (QC): 6 Lower Body Dressing (QC): 4 On/Off Footwear (QC): 6 Additional Goals: 1-Demonstrate ADL Tasks, 2-Verbalize Understanding, 3- ImproveStrength/Aby 1=Demonstrate adherence to instructed precautions during ADL tasks. 2=Patient will verbalize/demonstrate understanding of assistive devices/modifications for ADL. 3=Patient will improve strength/tolerance for activity to enable patient to perform ADL's. OT Education/Plan Problem List/Assessment Assessment: Decreased Activ Tolerance, Decreased Safety Aware, Decreased UE Strength, Dependent Transfers, Impaired Cognition, Impaired Coordination, Impaired Funct Balance, Impaired I ADL's, Impaired Self-Care Skills Discharge Recommendations Plan/Recommendations: Continue POC Treatment Plan/Plan of Care Patient would benefit from OT for education, treatment and training to promote independence in ADL's, mobility, safety and/or upper extremity function for ADL's. Plan of Care: ADL Retraining, Caregiver Training, Concurrent Therapy, Functional Mobility, Group Exercise/Act as Ind, Orthotic Fitting/Training, UE Funct Exercise/Act, W/C Management Training Treatment Duration: Jul 08, 2020 Frequency: At least 5 of 7 days/Wk (IRF) Estimated Hrs Per Day: 1.5 hours per day Agreement: Yes Rehab Potential: Good Time/GCodes Start Time: 10:00 (1115) Stop Time: 11:00 (1130) Total Time Billed (hr/min): 75 Billed Treatment Time 2 visits-FA 3 (45 min) ADL 2 (30 min) co-treat with PT [id number], individual [id number] ROBERT MCDONOUGH Jul 01, 2020 11:46
--- NOTE | 2020-07-01 11:58 | Physical Therapy Daily Note ---
PT Daily Note-Current Subjective Patient in bed pre tx, agrees to PT, has 5/10 back pain (pain got to 9/10 during tx), his is here to observe tx to help her plan for DC. Will be co- treating with OT due to poor patient mobility, strength, endurance, severe pain with activity, coordinate UE and LE during activity, safety and reduce risk of falls. Appearance Patient in recliner post tx with nurse call, phone, tray, legs elevated, in room. Mental Status Patient Orientation: Person, Place, Situation back Transfers SCALE: Activities may be completed with or without assistive devices. 2-Xysvjtoaip-iwqwloq completes the activity by him/herself with no assistance from a helper. 5-Set-up or Clean-up Assistance-helper sets up or cleans up; patient completes activity. [place] assists only prior to or following the activity. 4-Supervision or Touching Assistance-helper provides verbal cues and/or touching/steadying and/or contact guard assistance as patient completes activity. Assistance may be provided throughout the activity or intermittently. 3-Partial/Moderate Assistance-helper does LESS THAN HALF the effort. [place] lifts, holds or supports trunk or limbs, but provides less than half the effort. 2-Substantial/Maximal Assistance-helper does MORE THAN HALF the effort. [place] lifts or holds trunk or limbs and provides more than half the effort. 8-Euzabvpqs-fjusqe does ALL the effort. Patient does none of the effort to complete the activity. Or, the assistance of 2 or more helpers is required for the patient to complete the activity. If activity was not attempted, code reason: 7-Patient Refused. 9-Not Applicable-not attempted and the patient did not perform the activity before the current illness, exacerbation or injury. 10-Not Attempted due to Environmental Limitations-(lack of equipment, weather restraints, etc.). 88-Not Attempted due to Medical Conditions or Safety Concerns. Roll Left & Right (QC): 3 Lying to Sitting/Side of Bed(Q: 2 Sit to Stand (QC): 1 Chair/Sbc-df-Twojp Xfer(QC): 1 Patient was max assist for supine to sit, was able to stand from an elevated bed using rolling walker and mod assist and take a few steps to WC with min assist (patient also dressed while sitting EOB), he propelled WC to therapy gym to parallel bars, he stood x3 and ambulated 5'x2. Patient was only able to propel WC about 30' on the way back to his room, and was not able to stand from WC and perform transfer to recliner, had to use a sit to stand machine (dependent). Wheelchair Training Wheel 50 ft with 2 turns (QC): 4 Type of Wheelchair: Manual 120', 30' Treatments PT performed bed mobility and transfer training, ambulation, WC mobility, assisted with positioning and safety during dressing, OT performed dressing, UE positioning and safety during activity. Assessment Current Status: Fair Progress very slow progress, still required sit to stand machine for transfers PT Short Term Goals Short Term Goals Time Frame: Jul 05, 2020 Roll Left & Right: 4 Sit to lyin Lying to sitting on side of be: 4 Sit to stand: 4 Chair/avj-ou-paiqi transfer: 4 Toilet transfer: 4 Walk 10 feet: 4 Walk 50 feet with two turns: 4 PT Nursing Home Goals Overhauler Goals PT Nursing Home Goals Time Frame: Jul 22, 2020 Roll Left & Right (QC): 6 Sit to Lying (QC): 6 Lying-Sitting on Side/Bed(QC): 6 Sit to Stand (QC): 6 Chair/Iuc-ie-Rolsm Xfer(QC): 6 Toilet Transfer (QC): 6 Car Transfer (QC): 6 Does the Patient Walk: Yes Walk 10 feet (QC): 6 Walk 50ft with 2 Turns (QC): 6 Walk 150 ft (QC): 6 Walking 10ft on Uneven Surface: 5 1 Step (curb) (QC): 4 4 Steps (QC): 9 12 Steps (QC): 9 Picking up an Object (QC): 88 Wheel 50 feet with 2 turns (QC: 9 Wheel 150 feet: 9 PT Plan Problem List Problem List: Activity Tolerance, Functional Strength, Safety, Balance, Gait, Transfer, Bed Mobility, ROM Treatment/Plan Treatment Plan: Continue Plan of Care Treatment Plan: Bed Mobility, Education, Functional Activity Aby, Functional Strength, Group Therapy, Gait, Safety, Therapeutic Exercise, Transfers Treatment Duration: Jul 22, 2020 Frequency: At least 5 of 7 days/Wk (IRF) Estimated Hrs Per Day: 1.5 hours per day Patient and/or Family Agrees t: Yes Safety Risks/Education Patient Education: Gait Training, Transfer Techniques, Correct Positioning, W/C Management, Safety Issues Teaching Recipient: Patient Teaching Methods: Demonstration, Discussion Response to Teaching: Reinforcement Needed Time/GCodes Time In: 1000 Time Out: 1100 Total Billed Treatment Time: 60 Total Billed Treatment 1 visit FA 60' co-treated with OT for 60' JAYLYN VARGAS PT Jul 01, 2020 11:57
[2020-07-01] MEDS ORDERED: DICL100G31 TOP (13:02)
[2020-07-01] MEDS ORDERED: ASPI-1238 PO (13:02)
[2020-07-01] MEDS ORDERED: IBUP-2185 PO (13:02)
[2020-07-01] MEDS ORDERED: UBID100C17 PO (13:02)
--- NOTE | 2020-07-01 13:09 | Occupational Ther Daily Note ---
OT Current Status-Daily Note Subjective Pt alert, sitting in recliner. Pt agrees to therapy. No c/o pain only discomfort. Mental Status/Objective Patient Orientation: Person, Place, Time, Situation ADL-Treatment OT and Nrsg in room. Pt requests to use urinal. Pt unable to manipulate clothing in recliner. Attempted to use sit to stand lift to transfer pt to requested bed. When pt sat upright in chair, pt was talking then went silent, eyes closed and unresponsive. Attempted sternal rub, no result. Laid pt back in recliner immediately then due to back pain with quick movement, pt opened eyes and stated "what is going on". Pt did not remember any blacking out. Pt c ontinued to need to urinate, OT assisted while nrsg went to get vitals machine. Pt required assistance to manipulate clothing, place and hold urinal then empty. Pt then stated that he wanted to stay in recliner as long as he could get comfortable. Nrsg and OT moved pt, pt unable to assist with any mobility, and was made comfortable. After therapy, nrsg still in room. Call light/phone in reach. in room. All needs met in room. Therapy Code Descriptions/Definitions Functional [place] Measure: 0=Not Assessed/NA 4=Minimal Assistance 1=Total Assistance 5=Supervision or Setup 2=Maximal Assistance 6=Modified [place] 3=Moderate Assistance 7=Complete IndependenceSCALE: Activities may be completed with or without assistive devices. 7-Ltuqnhudlt-zdbqcds completes the activity by him/herself with no assistance from a helper. 5-Set-up or Clean-up Assistance-helper sets up or cleans up; patient completes activity. [place] assists only prior to or following the activity. 4-Supervision or Touching Assistance-helper provides verbal cues and/or touching/steadying and/or contact guard assistance as patient completes activity. Assistance may be provided throughout the activity or intermittently. 3-Partial/Moderate Assistance-helper does LESS THAN HALF the effort. [place] lifts, holds or supports trunk or limbs, but provides less than half the effort. 2-Substantial/Maximal Assistance-helper does MORE THAN HALF the effort. [place] lifts or holds trunk or limbs and provides more than half the effort. 5-Idwqyxkrn-mxsumx does ALL the effort. Patient does none of the effort to complete the activity. Or, the assistance of 2 or more helpers is required for the patient to complete the activity. If activity was not attempted, code reason: 7-Patient Refused. 9-Not Applicable-not attempted and the patient did not perform the activity before the current illness, exacerbation or injury. 10-Not Attempted due to Environmental Limitations-(lack of equipment, weather restraints, etc.). 88-Not Attempted due to Medical Conditions or Safety Concerns. Toileting Hygiene (QC): 1 OT Long-Term Goals Tax Auditor Goals Time Frame: Jul 08, 2020 Eating (QC): 6 Oral Hygiene (QC): 6 Toileting Hygiene (QC): 4 Shower/Bathe Self (QC): 5 Upper Body Dressing (QC): 6 Lower Body Dressing (QC): 4 On/Off Footwear (QC): 6 Additional Goals: 1-Demonstrate ADL Tasks, 2-Verbalize Understanding, 3- ImproveStrength/Aby 1=Demonstrate adherence to instructed precautions during ADL tasks. 2=Patient will verbalize/demonstrate understanding of assistive devices/modifications for ADL. 3=Patient will improve strength/tolerance for activity to enable patient to perform ADL's. OT Education/Plan Problem List/Assessment Assessment: Dependent Transfers, Impaired Self-Care Skills Discharge Recommendations Plan/Recommendations: Continue POC Treatment Plan/Plan of Care Patient would benefit from OT for education, treatment and training to promote independence in ADL's, mobility, safety and/or upper extremity function for ADL's. Plan of Care: ADL Retraining, Caregiver Training, Concurrent Therapy, Functional Mobility, Group Exercise/Act as Ind, Orthotic Fitting/Training, UE Funct Exercise/Act, W/C Management Training Treatment Duration: Jul 08, 2020 Frequency: At least 5 of 7 days/Wk (IRF) Estimated Hrs Per Day: 1.5 hours per day Agreement: Yes Rehab Potential: Good Time/GCodes Start Time: 12:00 Stop Time: 12:15 Total Time Billed (hr/min): 15 Billed Treatment Time 1 visit-FA 1 (15 min) ROBERT MCDONOUGH Jul 01, 2020 13:09
[2020-07-01] MEDS ORDERED: HYDR12.56 PO (13:42)
--- NOTE | 2020-07-01 13:51 | ST Cognitive Linguistic Eval ---
Speech Evaluation-General Medical Diagnosis Spondylosis with myelopathy Onset Date: Jun 21, 2020 Therapy Diagnosis Therapy Diagnosis: Cognitive-communication Referral Referring Physician: Dr. Freeman Medical History Pertinent Medical History: Arthritis, HTN, Hypothroidism, OA Reviewed History: Yes Social History Current Living Status: Spouse Speech PLF-Current Status Prior Level of Function Patient lives at home with his where he was independent for much of his daily needs. Subjective Patient pleasant and cooperative with the cognitive assessment. Language Eval: Auditory Comprehends Simple Yes/No Ques: Functional Indent/Objects Multiple Mac: Functional Ident/Pics in Multiple Mac: Functional Follows 1-Step Commands: Functional Follows Complex Directions: Functional Follows General Conversations: Functional Language Eval: Verbal Language Completes Spontaneous Greeting: Functional Produces Auto, Serial Info: Functional Imitates Simple Words/Phrases: Functional Word Finding: Functional Requests Basic Needs: Functional States Basic Personal Info: Functional Expresses Complex Ideas: Functional Objective Cognitive Domain Attention: WNL Memory: WNL Problem Solving: Functional Executive Functions: WNL Visuospatial Skills: WNL Composite Severity Rating: WNL Objective Formal/Standardized Tests Informal speech tasks, patient interview (with present) Results patient is within normal limits of function for tasks presented Oral Motor/Speech Production Within Normal Limits Impression Patient is an 79 y/o male who was admitted to the ARU s/p spinal surgery. Patient was initially evaluated upon admission with scores within normal range of function. Since the initial evaluation the patient has been reported to be " difficult" at times with the other therapists. Patient has had a great deal of pain reported and has argued about his pain medication. Patient mentioned today during the follow up cognitive assessment that "they were going to be changing some of his medications. Patient appears to be cognitively intact. 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 There may be a mild cognitive deficit, however with his personality it is a fine line between the two. At this time it is not recommended for further ST services. Speech Patient Assess Expression of Ideas/Wants: Expression (4) Understanding Verbal Content: Understands (4) Brief Interview-Mental Status: Yes Repetition of Three Words: Three (3) Temporal Orientation: Year: Correct (3) Temporal Orientation: Month: Accurate within 5 days(2) Temporal Orientation: Day: Correct (1) Recall : Wear to say "Sock": Yes, no cue required (2) Recall : Color: Yes, after cueing (1) Recall : Bed: Yes, no cue required (2) Memory/Recall Ability: Current season, Staff names and faces, That he or she is in a hsp/hsp unit Speech-Plan Patient/Family Goals Patient/Family Goals: Patient plans on returning to his home where he lives with his . Treatment Plan Speech Therapy Treatment Plan: Discontinue ST Treatment Duration: Jun 24, 2020 Frequency: 1 time per week Estimated Hrs Per Day: .5 hour per day Rehab Potential: Good Barriers to Learning: None identified for further ST services Pt/Family Agrees to Plan: Yes Safety Risks/Education Teaching Recipient: Patient Teaching Methods: Demonstration, Discussion Response to Teaching: Verbalize Understanding, Return Demonstration Education Topics Provided: Continued safety within the room and upon his return home Time Speech Therapy Time In: 13:30 Speech Therapy Time Out: 13:50 Total Billed Time: 20 Billed Treatment Time 1, TANISHA Ruhsing Jul 01, 2020 13:51
--- NOTE | 2020-07-01 14:23 | NUR ---
SPOKE WITH THE PT AND HIS (JESENIA) AND WENT THRU THE EXT MED HISTORY TO COMPLETE THE MED REC MEDICATIONS THAT HAVE BEEN REMOVED DUE TO PT NOT TAKING: FENTANYL POTASSIUM FUROSEMIDE CULTURELLE MEDICATIONS THAT HAVE BEEN CHANGED: GABAPENTIN 300MG- PT TAKES 1 CAPS Q 6 H AND 3 CAPS HS MEDICATIONS THAT [facility]E DISCHARGED BUT PT WAS TAKING PRIOR TO THE ADMISSION THERE: ASPIRIN 81MG COQ10 IBUPROFEN VOLTAREN GEL Addendum: 07/01/20 at 1433 by CECE NATARAJAN online marketing strategist PT WAS ALSO TAKING HCTZ 12.5MG PRIOR TO [facility] BUT IT IS NOT LISTED ON THE DISCHARGE ORDERS. ACCORDING TO THE PT POTASSIUM AND FUROSEMIDE WERE DISCONTINUED BY DR. ANNE AND HCTZ WAS STARTED
--- NOTE | 2020-07-01 14:51 | Physical Therapy Daily Note ---
PT Daily Note-Current Subjective Patient in recliner pre tx, agrees to PT, has 8/10 back pain, needs to have a BM, will use sit to stand machine to transfer to commode. Appearance Patient in bed post tx with nurse call, phone, tray, SCD's on, in room. Mental Status Patient Orientation: Person, Place, Situation Attachments: SCD's back brace Transfers SCALE: Activities may be completed with or without assistive devices. 2-Dtmjmiarck-swizpeb completes the activity by him/herself with no assistance from a helper. 5-Set-up or Clean-up Assistance-helper sets up or cleans up; patient completes activity. [place] assists only prior to or following the activity. 4-Supervision or Touching Assistance-helper provides verbal cues and/or touching /steadying and/or contact guard assistance as patient completes activity. Assistance may be provided throughout the activity or intermittently. 3-Partial/Moderate Assistance-helper does LESS THAN HALF the effort. [place] lifts, holds or supports trunk or limbs, but provides less than half the effort. 2-Substantial/Maximal Assistance-helper does MORE THAN HALF the effort. [place] lifts or holds trunk or limbs and provides more than half the effort. 1-Zvbwevgax-plqale does ALL the effort. Patient does none of the effort to complete the activity. Or, the assistance of 2 or more helpers is required for the patient to complete the activity. If activity was not attempted, code reason: 7-Patient Refused. 9-Not Applicable-not attempted and the patient did not perform the activity before the current illness, exacerbation or injury. 10-Not Attempted due to Environmental Limitations-(lack of equipment, weather restraints, etc.). 88-Not Attempted due to Medical Conditions or Safety Concerns. Roll Left & Right (QC): 1 Sit to Lying (QC): 1 Sit to Stand (QC): 1 Chair/Pkw-am-Sujwa Xfer(QC): 1 Exercises Supine Ex: Ankle pumps, Quad Set, Glut sets, Heel Slides, Short Arc Quads, Straight leg raise (AAROM), Hip abd/add Supine Reps: 20 Treatments bed mobility and transfers, LE exercise, toileting Assessment Current Status: Poor Progress poor motivation, no change in mobility PT Short Term Goals Short Term Goals Time Frame: Jul 05, 2020 Roll Left & Right: 4 Sit to lyin Lying to sitting on side of be: 4 Sit to stand: 4 Chair/vjq-cr-stgra transfer: 4 Toilet transfer: 4 Walk 10 feet: 4 Walk 50 feet with two turns: 4 PT [place]oper Goals Snf Goals PT Snf Goals Time Frame: Jul 22, 2020 Roll Left & Right (QC): 6 Sit to Lying (QC): 6 Lying-Sitting on Side/Bed(QC): 6 Sit to Stand (QC): 6 Chair/Efo-xl-Hnffk Xfer(QC): 6 Toilet Transfer (QC): 6 Car Transfer (QC): 6 Does the Patient Walk: Yes Walk 10 feet (QC): 6 Walk 50ft with 2 Turns (QC): 6 Walk 150 ft (QC): 6 Walking 10ft on Uneven Surface: 5 1 Step (curb) (QC): 4 4 Steps (QC): 9 12 Steps (QC): 9 Picking up an Object (QC): 88 Wheel 50 feet with 2 turns (QC: 9 Wheel 150 feet: 9 PT Plan Problem List Problem List: Activity Tolerance, Functional Strength, Safety, Balance, Gait, Transfer, Bed Mobility, ROM Treatment/Plan Treatment Plan: Continue Plan of Care Treatment Plan: Bed Mobility, Education, Functional Activity Aby, Functional Strength, Group Therapy, Gait, Safety, Therapeutic Exercise, Transfers Treatment Duration: Jul 22, 2020 Frequency: At least 5 of 7 days/Wk (IRF) Estimated Hrs Per Day: 1.5 hours per day Patient and/or Family Agrees t: Yes Safety Risks/Education Patient Education: Transfer Techniques, Correct Positioning, Reviewed Don/Doff Brace, Safety Issues Teaching Recipient: Patient Teaching Methods: Demonstration, Discussion Response to Teaching: Reinforcement Needed Time/GCodes Time In: 1300 Time Out: 1330 Total Billed Treatment Time: 30 Total Billed Treatment 1 visit EX 15' FA 15' JAYLYN VARGAS PT Jul 01, 2020 14:51
[2020-07-01 16:20] VITALS: BP 135/66
[2020-07-01] MEDS: GABAPENTIN 600 MG (NEURONTIN) TAB PO SCH (17:01)
[2020-07-01] MEDS: TAMSULOSIN 0.4 MG (FLOMAX) CAP PO SCH (20:30)
[2020-07-01] MEDS: LOSARTAN 100 MG (COZAAR) TABLET PO SCH (20:30)
[2020-07-01] MEDS: OLANZapine 5 MG ODT (ZyPREXA ZYDIS) PO SCH (20:30)
[2020-07-01] MEDS: ROSUVASTATIN 5 MG (CRESTOR) TABLET PO SCH (20:30)
[2020-07-02 05:04] VITALS: BP 136/62
--- NOTE | 2020-07-02 05:56 | PM&R Progress Note ---
Subjective HPI/CC On Admission Date Seen by Provider: Jul 02, 2020 Time Seen by Provider: 13:30 Subjective/Events-last exam 07/02/20: Patient doing very well Cognition seems to be improved Trial of Solumedrol 80mg IM will be given today Monitor for confusion from steroids 07/01/20: Family training today appears very disappointed with his progress although I had called her 4 times since admit to tell her he had cognition issues affecting his performance very petite and cannot even push him in a wheelchair Likely nursing facility for slower recovery will be required very irritated with his lack of progress and return of good function 06/30/20: Pt much improved mentation Was able to stand on parallel bars with assistance Slow progress Didnt mention pain all day and then he reported to the nurse and the nurse did not realize his mentation has been causing a focus on pain Pt had not complained of pain at all for hours Bowels are moving 06/29/20: Pt having significant dry mouth Seroquel will be discontinued to help that Zyprexa at night will be maintained Pt still complaining of more and more pain, I did confer with Dr. Stark which the pain is out of proportion for the type of surgery and type of disease he has of the spine, so although his mentation is improved, I doubt we will be able to cross over the threshold to improve his status 06/28/20: Ultram and Tylenol working pretty well Much improved mentation Has his eyes open today Gabapentin will be increased back to his home dosing gradually Updated Dr. Stark 06/27/20: Pt still pretty confused No Haldol or Ativan required Changing dressing daily Zyprexa at night seems to be helpful Keeps his eyes closed most of the time but does open them when we try to get him to open his eyes Updated Dr. Stark 06/26/20: Confusion varies Zyprexa helped him sleep Seroquel in evening has also helped Talked about his pain and told him we will continue to support him in pain meds but he needs to move around BM large last night Ate bfast Dry mouth reported 06/25/20: Confusion last night was significant Pain out of proportion to the number of days he is out of post op is related to his cognitive deficits Hgb 9.4 Ultram and Tylenol given for pain No BM yet Impulsive Oxycodone made him very confused at [place] Seroquel 12.5 will be given now and 25mg in evening and Zyprexa 5mg at night Spoke to in-depth for 15 minutes on the phone since I knew her from [place] and it is now apparent he has cognition deficits so will try to improve and clear the delirium with antipsychotics Kept his eyes closed similar to the dementia 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 in senior unit at [facility] [place] Review of Systems Musculoskeletal: back pain Objective Exam Vital Signs Vital Signs Date Time Temp Pulse Resp B/P (MAP) Pulse Ox O2 Delivery O2 Flow Rate FiO2 07/03/20 05:05 37.7 71 16 162/70 (100) 93 Room Air 06/30/20 06:31 2.00 Capillary Refill : General Appearance: No Apparent Distress, WD/WN, Chronically ill HEENT: PERRL/EOMI, Normal ENT Inspection, Pharynx Normal Neck: Full Range of Motion, Normal Inspection, Non Tender, Supple, Carotid Bruit Respiratory: Chest Non Tender, Lungs Clear, Normal Breath Sounds, No Accessory Muscle Use, No Respiratory Distress Cardiovascular: Regular Rate, Rhythm, No Edema, No Gallop, No JVD, No Murmur, Normal Peripheral Pulses Gastrointestinal: Normal Bowel Sounds, No Organomegaly, No Pulsatile Mass, Non Tender, Soft Back: Normal Inspection, Decreased Range of Motion, Muscle Spasm, Vertebral Tenderness Extremity: Normal Capillary Refill, Normal Inspection, Normal Range of Motion, Non Tender, No Calf Tenderness, No Pedal Edema Neurologic/Psychiatric: Alert, Oriented x3, No Motor/Sensory Deficits, Normal Mood/Affect, Abnormal Gait, Disoriented, Motor Weakness (bilateral legs) Skin: Normal Color, Warm/Dry Lymphatic: No Adenopathy Results/Procedures Lab Patient resulted labs reviewed. FIM Transfers Therapy Code Descriptions/Definitions Functional [place] Measure: 0=Not Assessed/NA 4=Minimal Assistance 1=Total Assistance 5=Supervision or Setup 2=Maximal Assistance 6=Modified [place] 3=Moderate Assistance 7=Complete IndependenceSCALE: Activities may be completed with or without assistive devices. 6-Rocgizceui-mziawmo completes the activity by him/herself with no assistance from a helper. 5-Set-up or Clean-up Assistance-helper sets up or cleans up; patient completes activity. [place] assists only prior to or following the activity. 4-Supervision or Touching Assistance-helper provides verbal cues and/or touching/steadying and/or contact guard assistance as patient completes activity. Assistance may be provided throughout the activity or intermittently. 3-Partial/Moderate Assistance-helper does LESS THAN HALF the effort. [place] li fts, holds or supports trunk or limbs, but provides less than half the effort. 2-Substantial/Maximal Assistance-helper does MORE THAN HALF the effort. [place] lifts or holds trunk or limbs and provides more than half the effort. 9-Bevnabtzq-nyupud does ALL the effort. Patient does none of the effort to complete the activity. Or, the assistance of 2 or more helpers is required for the patient to complete the activity. If activity was not attempted, code reason: 7-Patient Refused. 9-Not Applicable-not attempted and the patient did not perform the activity before the current illness, exacerbation or injury. 10-Not Attempted due to Environmental Limitations-(lack of equipment, weather restraints, etc.). 88-Not Attempted due to Medical Conditions or Safety Concerns. Roll Left to Right (QC): 1 Sit to Lying (QC): 1 Sit to Stand (QC): 1 Chair/Twd-fg-Zmucc Xfer(QC): 1 Car Transfer (QC): 88 (unsafe/unable to attempt due to limited transfer status. ) Gait Training Walk 10 feet (QC): 88 (unable to walk this distance safely) Walk 50 ft with 2 Turns(QC): 88 Walk 150 ft (QC): 88 Walking 10ft/uneven surface-QC: 88 Gait Assistive Device: FWW Wheelchair Training Does the Pt Use a Wheelchair?: Yes Wheel 50 ft with 2 turns (QC): 4 Wheel 150 ft (QC): 9 Type of Wheelchair: Manual Stair Training 1 Step (curb) (QC): 88 4 Steps (QC): 9 12 Steps (QC): 9 Balance Picking up an Object (QC): 88 (back precautions forbid this) ADL-Treatment Eating (QC): 6 Oral Hygiene (QC): 5 (s/u) Bathing Location: R Lower Leg (including foot) Shower/Bathe Self (QC): 1 (TD due to need of Ax2 during sit to stand/ bottom care. Pt completes UB washing, OT completes LB washing and bottom/ back/ feet.) Upper Body Dressing (QC): 5 Lower Body Dressing (QC): 1 On/Off Footwear (QC): 2 Toileting Hygiene (QC): 1 Toilet Transfer (QC): 1 Assessment/Plan Assessment and Plan Assess & Plan/Chief Complaint Assessment: s/p lumbar spine surgery for stenosis now with slow recovery and severe pain Cognitive deficits contributing to slow recovery and severe pain out of proportion of expected HTN HLP BETTY Obesity Prostate cancer hx Constipation Plan: BM regimen IRF protocol Pain meds Monitor confusion Limit pain meds due to confusion 06/25/20: Monitor confusion Dementia noted after speaking to and the interaction I had with the patient in [place] Antipsychotics 06/26/20: Anti-psychotics Monitor delirium Pain management PT OT 06/27/20: Antipsychotics Monitor closely Monitor BP 06/28/20: Improved mentation Monitor BP Pain management 06/29/20: Monitor pain Improved cognition Pain out of proportion and extended longer than expected for type of surgery per Dr Stark 06/30/20: Monitor pain Fentanyl patch Improved cognition 07/01/20: Inquire with Dr Stark about steroids as has requested Patient improved cognition Slow progress 07/02/20: Slow progress Trial steroids for pain Monitor increase confusion with steroids (1) Spinal stenosis, lumbar region with neurogenic claudication (2) Prostate cancer (3) Obesity (4) Hypertension (5) Cognitive deficits (6) BETTY on CPAP (7) Hyperlipemia ERIC LUTHER DO Jul 02, 2020 05:56
[2020-07-02] MEDS: ACETAMINOPHEN 500 MG TAB (TYLENOL) PO SCH ×3 (06:24→16:58)
[2020-07-02] MEDS: MULTIVIT W/MINERALS TAB (THERAGRAN M) PO SCH (06:24)
[2020-07-02] MEDS: LEVOTHYROXINE 50 MCG (LEVOTHROID) TAB PO SCH (06:25)
[2020-07-02] MEDS ORDERED: methylPREDNISolone 40 MG/ML (Solu-MEDROL) VIAL IM NR (07:30)
[2020-07-02] MEDS: SENNA W/DOCUSATE (SENOKOT S) TABLET PO SCH ×2 (08:01→20:44)
[2020-07-02] MEDS: LACTOBACILLUS ACIDOPHILUS (PROBIOTIC) CAPSULE PO SCH ×2 (08:01→16:59)
[2020-07-02] MEDS: polyethylene glycoL POWDER 17 GM (MIRALAX) PACK PO SCH ×2 (08:01→20:44)
[2020-07-02] MEDS: PANTOPRAZOLE 20 MG TABLET (PROTONIX) PO SCH (08:01)
[2020-07-02] MEDS: GABAPENTIN 300 MG (NEURONTIN) CAP PO SCH ×2 (08:01→12:04)
[2020-07-02] MEDS: DOCUSATE SODIUM 100 MG (COLACE) CAP PO SCH ×2 (08:01→20:44)
[2020-07-02] MEDS: DICLOFENAC 1% GEL 100 GM (VOLTAREN) TUBE TOP SCH ×4 (08:02→20:43)
--- NOTE | 2020-07-02 11:36 | Physical Therapy Daily Note ---
PT Daily Note-Current Subjective Agrees to PT. Declines attempt at SPT , wants to use the sit to stand. Transfers SCALE: Activities may be completed with or without assistive devices. 4-Locrhkbjbf-tisqtvp completes the activity by him/herself with no assistance from a helper. 5-Set-up or Clean-up Assistance-helper sets up or cleans up; patient completes activity. [place] assists only prior to or following the activity. 4-Supervision or Touching Assistance-helper provides verbal cues and/or touching/steadying and/or contact guard assistance as patient completes activity. Assistance may be provided throughout the activity or intermittently. 3-Partial/Moderate Assistance-helper does LESS THAN HALF the effort. [place] lifts, holds or supports trunk or limbs, but provides less than half the effort. 2-Substantial/Maximal Assistance-helper does MORE THAN HALF the effort. [place] lifts or holds trunk or limbs and provides more than half the effort. 3-Kuvovkezd-ptstta does ALL the effort. Patient does none of the effort to complete the activity. Or, the assistance of 2 or more helpers is required for the patient to complete the activity. If activity was not attempted, code reason: 7-Patient Refused. 9-Not Applicable-not attempted and the patient did not perform the activity before the current illness, exacerbation or injury. 10-Not Attempted due to Environmental Limitations-(lack of equipment, weather restraints, etc.). 88-Not Attempted due to Medical Conditions or Safety Concerns. Treatments Supine to sit EOB with min assist with patient initiating transfer and participates well. Sat EOB x 5 minutes with CGA with 1 episode of falling backward on the bed with tamica to to sit upright. Donned back brace. Used sit to stand lift to transfer to the chair. Once in the chair, pt performed B LE t her ex x 10 reps for functional strength training. Pt up in chair post treatment with needs met. Assessment Poor trunk control seated EOB and decreased activity toleranc.e PT Short Term Goals Short Term Goals Time Frame: Jul 05, 2020 Roll Left & Right: 4 Sit to lyin Lying to sitting on side of be: 4 Sit to stand: 4 Chair/wbn-hb-oyijf transfer: 4 Toilet transfer: 4 Walk 10 feet: 4 Walk 50 feet with two turns: 4 PT Senior Living Goals Leg Assembler Goals PT Leg Assembler Goals Time Frame: Jul 22, 2020 Roll Left & Right (QC): 6 Sit to Lying (QC): 6 Lying-Sitting on Side/Bed(QC): 6 Sit to Stand (QC): 6 Chair/Pll-mz-Sxpfc Xfer(QC): 6 Toilet Transfer (QC): 6 Car Transfer (QC): 6 Does the Patient Walk: Yes Walk 10 feet (QC): 6 Walk 50ft with 2 Turns (QC): 6 Walk 150 ft (QC): 6 Walking 10ft on Uneven Surface: 5 1 Step (curb) (QC): 4 4 Steps (QC): 9 12 Steps (QC): 9 Picking up an Object (QC): 88 Wheel 50 feet with 2 turns (QC: 9 Wheel 150 feet: 9 PT Plan Problem List Problem List: Activity Tolerance, Functional Strength, Safety, Balance, Gait, Transfer, Bed Mobility Treatment/Plan Treatment Plan: Continue Plan of Care Treatment Plan: Bed Mobility, Education, Functional Activity Aby, Functional Strength, Group Therapy, Gait, Safety, Therapeutic Exercise, Transfers Treatment Duration: Jul 22, 2020 Frequency: At least 5 of 7 days/Wk (IRF) Estimated Hrs Per Day: 1.5 hours per day Patient and/or Family Agrees t: Yes Safety Risks/Education Patient Education: Transfer Techniques Teaching Recipient: Patient Teaching Methods: Demonstration, Discussion Response to Teaching: Reinforcement Needed Time/GCodes Time In: 955 Time Out: 1025 Total Billed Treatment Time: 30 Total Billed Treatment visit FA 30 ROBERT SHIN PT Jul 02, 2020 11:35
[2020-07-02] MEDS: GABAPENTIN 600 MG (NEURONTIN) TAB PO SCH (16:58)
[2020-07-02 17:40] VITALS: BP 168/67
[2020-07-02] MEDS: LOSARTAN 100 MG (COZAAR) TABLET PO SCH (20:42)
[2020-07-02] MEDS: TAMSULOSIN 0.4 MG (FLOMAX) CAP PO SCH (20:42)
[2020-07-02] MEDS: ROSUVASTATIN 5 MG (CRESTOR) TABLET PO SCH (20:42)
[2020-07-02] MEDS: OLANZapine 5 MG ODT (ZyPREXA ZYDIS) PO SCH (20:42)
[2020-07-03] MEDS: ACETAMINOPHEN 500 MG TAB (TYLENOL) PO SCH ×4 (00:04→17:23)
[2020-07-03 05:05] VITALS: BP 162/70
[2020-07-03] MEDS: MULTIVIT W/MINERALS TAB (THERAGRAN M) PO SCH (06:03)
[2020-07-03] MEDS: LEVOTHYROXINE 50 MCG (LEVOTHROID) TAB PO SCH (06:03)
[2020-07-03] MEDS: GABAPENTIN 300 MG (NEURONTIN) CAP PO SCH ×2 (08:42→12:15)
[2020-07-03] MEDS: PANTOPRAZOLE 20 MG TABLET (PROTONIX) PO SCH (08:42)
[2020-07-03] MEDS: DOCUSATE SODIUM 100 MG (COLACE) CAP PO SCH ×2 (08:42→20:01)
[2020-07-03] MEDS: LACTOBACILLUS ACIDOPHILUS (PROBIOTIC) CAPSULE PO SCH ×2 (08:42→17:23)
[2020-07-03] MEDS: fentaNYL PATCH 25 MCG (DURAGESIC) TD SCH (08:43)
[2020-07-03] MEDS: DICLOFENAC 1% GEL 100 GM (VOLTAREN) TUBE TOP SCH ×4 (08:43→20:02)
[2020-07-03] MEDS: SENNA W/DOCUSATE (SENOKOT S) TABLET PO SCH ×2 (08:43→20:01)
[2020-07-03] MEDS: polyethylene glycoL POWDER 17 GM (MIRALAX) PACK PO SCH ×2 (08:43→20:01)
[2020-07-03] MEDS: FENTANYL PATCH REMOVAL TP SCH (08:45)
[2020-07-03 09:04] VITALS: BP 155/63
--- NOTE | 2020-07-03 11:40 | PM&R Progress Note ---
Subjective HPI/CC On Admission Date Seen by Provider: Jul 03, 2020 Time Seen by Provider: 11:45 Subjective/Events-last exam 07/03/20: Had a bad afternoon yesterday Steroid injection did not help at all No confusion noted Monitoring pain when seated Difficult to follow thought process since he has severe pain and talks about it constantly then he asked me if he really needed Fentanyl patch?? 07/02/20: Patient doing very well Cognition seems to be improved Trial of Solumedrol 80mg IM will be given today Monitor for confusion from steroids 07/01/20: Family training today appears very disappointed with his progress although I had called her 4 times since admit to tell her he had cognition issues affecting his performance very petite and cannot even push him in a wheelchair Likely nursing facility for slower recovery will be required very irritated with his lack of progress and return of good function 06/30/20: Pt much improved mentation Was able to stand on parallel bars with assistance Slow progress Didnt mention pain all day and then he reported to the nurse and the nurse did not realize his mentation has been causing a focus on pain Pt had not complained of pain at all for hours Bowels are moving 06/29/20: Pt having significant dry mouth Seroquel will be discontinued to help that Zyprexa at night will be maintained Pt still complaining of more and more pain, I did confer with Dr. Stark which the pain is out of proportion for the type of surgery and type of disease he has of the spine, so although his mentation is improved, I doubt we will be able to cross over the threshold to improve his status 06/28/20: Ultram and Tylenol working pretty well Much improved mentation Has his eyes open today Gabapentin will be increased back to his home dosing gradually Updated Dr. Stark 06/27/20: Pt still pretty confused No Haldol or Ativan required Changing dressing daily Zyprexa at night seems to be helpful Keeps his eyes closed most of the time but does open them when we try to get him to open his eyes Updated Dr. Stark 06/26/20: Confusion varies Zyprexa helped him sleep Seroquel in evening has also helped Talked about his pain and told him we will continue to support him in pain meds but he needs to move around BM large last night Ate bfast Dry mouth reported 06/25/20: Confusion last night was significant Pain out of proportion to the number of days he is out of post op is related to his cognitive deficits Hgb 9.4 Ultram and Tylenol given for pain No BM yet Impulsive Oxycodone made him very confused at [place] Seroquel 12.5 will be given now and 25mg in evening and Zyprexa 5mg at night Spoke to in-depth for 15 minutes on the phone since I knew her from [place] and it is now apparent he has cognition deficits so will try to improve and clear the delirium with antipsychotics Kept his eyes closed similar to the dementia 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 in senior unit at [facility] [place] Review of Systems Musculoskeletal: back pain Neurological: Confusion Objective Exam Vital Signs Vital Signs Date Time Temp Pulse Resp B/P (MAP) Pulse Ox O2 Delivery O2 Flow Rate FiO2 07/03/20 17:27 36.7 92 16 134/62 (86) 94 Room Air 06/30/20 06:31 2.00 Capillary Refill : General Appearance: No Apparent Distress, WD/WN, Chronically ill HEENT: PERRL/EOMI, Normal ENT Inspection, Pharynx Normal Neck: Full Range of Motion, Normal Inspection, Non Tender, Supple, Carotid Bruit Respiratory: Chest Non Tender, Lungs Clear, Normal Breath Sounds, No Accessory Muscle Use, No Respiratory Distress Cardiovascular: Regular Rate, Rhythm, No Edema, No Gallop, No JVD, No Murmur, Normal Peripheral Pulses Gastrointestinal: Normal Bowel Sounds, No Organomegaly, No Pulsatile Mass, Non Tender, Soft Back: Normal Inspection, Decreased Range of Motion, Muscle Spasm, Vertebral Tenderness Extremity: Normal Capillary Refill, Normal Inspection, Normal Range of Motion, Non Tender, No Calf Tenderness, No Pedal Edema Neurologic/Psychiatric: Alert, Oriented x3, No Motor/Sensory Deficits, Normal Mood/Affect, Abnormal Gait, Disoriented, Motor Weakness (bilateral legs) Skin: Normal Color, Warm/Dry Lymphatic: No Adenopathy Results/Procedures Lab Patient resulted labs reviewed. FIM Transfers Therapy Code Descriptions/Definitions Functional [place] Measure: 0=Not Assessed/NA 4=Minimal Assistance 1=Total Assistance 5=Supervision or Setup 2=Maximal Assistance 6=Modified [place] 3=Moderate Assistance 7=Complete IndependenceSCALE: Activities may be completed with or without assistive devices. 2-Jkkjlravgw-phsskkn completes the activity by him/herself with no assistance from a helper. 5-Set-up or Clean-up Assistance-helper sets up or cleans up; patient completes activity. [place] assists only prior to or following the activity. 4-Supervision or Touching Assistance-helper provides verbal cues and/or touching/steadying and/or contact guard assistance as patient completes activity. Assistance may be provided throughout the activity or intermittently. 3-Partial/Moderate Assistance-helper does LESS THAN HALF the effort. [place] lifts, holds or supports trunk or limbs, but provides less than half the effort. 2-Substantial/Maximal Assistance-helper does MORE THAN HALF the effort. [place] lifts or holds trunk or limbs and provides more than half the effort. 7-Ztpbkxbpb-zvdvmq does ALL the effort. Patient does none of the effort to complete the activity. Or, the assistance of 2 or more helpers is required for the patient to complete the activity. If activity was not attempted, code reason: 7-Patient Refused. 9-Not Applicable-not attempted and the patient did not perform the activity before the current illness, exacerbation or injury. 10-Not Attempted due to Environmental Limitations-(lack of equipment, weather restraints, etc.). 88-Not Attempted due to Medical Conditions or Safety Concerns. Roll Left to Right (QC): 1 Sit to Lying (QC): 1 Sit to Stand (QC): 1 Chair/Iye-ny-Wmvqj Xfer(QC): 1 Car Transfer (QC): 88 (unsafe/unable to attempt due to limited transfer status. ) Gait Training Walk 10 feet (QC): 88 (unable to walk this distance safely) Walk 50 ft with 2 Turns(QC): 88 Walk 150 ft (QC): 88 Walking 10ft/uneven surface-QC: 88 Gait Assistive Device: FWW Wheelchair Training Does the Pt Use a Wheelchair?: Yes Wheel 50 ft with 2 turns (QC): 4 Wheel 150 ft (QC): 9 Type of Wheelchair: Manual Stair Training 1 Step (curb) (QC): 88 4 Steps (QC): 9 12 Steps (QC): 9 Balance Picking up an Object (QC): 88 (back precautions forbid this) ADL-Treatment Eating (QC): 6 Oral Hygiene (QC): 5 (s/u) Bathing Location: R Lower Leg (including foot) Shower/Bathe Self (QC): 1 (TD due to need of Ax2 during sit to stand/ bottom care. Pt completes UB washing, OT completes LB washing and bottom/ back/ feet.) Upper Body Dressing (QC): 5 Lower Body Dressing (QC): 1 On/Off Footwear (QC): 2 Toileting Hygiene (QC): 1 Toilet Transfer (QC): 1 Assessment/Plan Assessment and Plan Assess & Plan/Chief Complaint Assessment: s/p lumbar spine surgery for stenosis now with slow recovery and severe pain Cognitive deficits contributing to slow recovery and severe pain out of proportion of expected HTN HLP BETTY Obesity Prostate cancer hx Constipation Plan: BM regimen IRF protocol Pain meds Monitor confusion Limit pain meds due to confusion 06/25/20: Monitor confusion Dementia noted after speaking to and the interaction I had with the patient in [place] Antipsychotics 06/26/20: Anti-psychotics Monitor delirium Pain management PT OT 06/27/20: Antipsychotics Monitor closely Monitor BP 06/28/20: Improved mentation Monitor BP Pain management 06/29/20: Monitor pain Improved cognition Pain out of proportion and extended longer than expected for type of surgery per Dr Stark 06/30/20: Monitor pain Fentanyl patch Improved cognition 07/01/20: Inquire with Dr Stark about steroids as has requested Patient improved cognition Slow progress 07/02/20: Slow progress Trial steroids for pain Monitor increase confusion with steroids 07/03/20: Steroids had no effect on pain Fentanyl patch (1) Spinal stenosis, lumbar region with neurogenic claudication (2) Prostate cancer (3) Obesity (4) Hypertension (5) Cognitive deficits (6) BETTY on CPAP (7) Hyperlipemia ERIC LUTHER DO Jul 03, 2020 11:40
--- NOTE | 2020-07-03 15:04 | NUR ---
LOTS OF PAIN YESTERDAY AFTERNOON/EVENING AFTER SITTING UP IN THE CHAIR FOR APPROXIMATELY [address] LUTHER AWARE.
[2020-07-03] MEDS: GABAPENTIN 600 MG (NEURONTIN) TAB PO SCH (17:23)
[2020-07-03 17:27] VITALS: BP 134/62
[2020-07-03] MEDS: ROSUVASTATIN 5 MG (CRESTOR) TABLET PO SCH (20:00)
[2020-07-03] MEDS: TAMSULOSIN 0.4 MG (FLOMAX) CAP PO SCH (20:00)
[2020-07-03] MEDS: LOSARTAN 100 MG (COZAAR) TABLET PO SCH (20:00)
[2020-07-03] MEDS: OLANZapine 5 MG ODT (ZyPREXA ZYDIS) PO SCH (20:01)
[2020-07-04] MEDS: ACETAMINOPHEN 500 MG TAB (TYLENOL) PO SCH ×4 (00:42→17:31)
[2020-07-04 05:18] VITALS: BP 123/56
[2020-07-04 05:31] LABS: BASOPHILS # (AUTO) 0.1 10^3/uL (0.0-0.1); BASOPHILS % (AUTO) 1 % (0-10); EOSINOPHILS # (AUTO) 0.1 10^3/uL (0.0-0.3); EOSINOPHILS % (AUTO) 1 % (0-10); HEMATOCRIT 30 % (40-54); HEMOGLOBIN 9.2 g/dL (13.3-17.7); LYMPHOCYTES # (AUTO) 0.8 10^3/uL (1.0-4.0); LYMPHOCYTES % (AUTO) 14 % (12-44); MEAN CORPUSCULAR HEMOGLOBIN 29 pg (25-34); MEAN CORPUSCULAR HGB CONC 31 g/dL (32-36); MEAN CORPUSCULAR VOLUME 95 fL (80-99); MEAN PLATELET VOLUME 9.4 fL (9.0-12.2); MONOCYTES # (AUTO) 0.6 10^3/uL (0.0-1.0); MONOCYTES % (AUTO) 11 % (0-12); NEUTROPHILS % (AUTO) 71 % (42-75); PLATELET COUNT 385 10^3/uL (130-400); WHITE BLOOD COUNT 5.6 10^3/uL (4.3-11.0)
[2020-07-04 05:48] LABS: ALBUMIN 2.9 GM/DL (3.2-4.5); POTASSIUM 4.8 MMOL/L (3.6-5.0)
[2020-07-04 05:49] LABS: CALCIUM 8.8 MG/DL (8.5-10.1)
[2020-07-04 05:50] LABS: TOTAL PROTEIN 4.9 GM/DL (6.4-8.2)
[2020-07-04 05:52] LABS: BILIRUBIN,TOTAL 0.4 MG/DL (0.1-1.0)
[2020-07-04 05:54] LABS: CREATININE SERUM 1.37 MG/DL (0.60-1.30)
[2020-07-04] MEDS: LEVOTHYROXINE 50 MCG (LEVOTHROID) TAB PO SCH (06:08)
[2020-07-04] MEDS: MULTIVIT W/MINERALS TAB (THERAGRAN M) PO SCH (06:08)
[2020-07-04] MEDS: GABAPENTIN 300 MG (NEURONTIN) CAP PO SCH ×2 (08:06→11:44)
[2020-07-04] MEDS: LACTOBACILLUS ACIDOPHILUS (PROBIOTIC) CAPSULE PO SCH ×2 (08:06→17:28)
[2020-07-04] MEDS: PANTOPRAZOLE 20 MG TABLET (PROTONIX) PO SCH (08:06)
[2020-07-04] MEDS: polyethylene glycoL POWDER 17 GM (MIRALAX) PACK PO SCH ×2 (08:06→20:23)
[2020-07-04] MEDS: DOCUSATE SODIUM 100 MG (COLACE) CAP PO SCH ×2 (08:07→20:23)
[2020-07-04] MEDS: DICLOFENAC 1% GEL 100 GM (VOLTAREN) TUBE TOP SCH ×4 (08:07→20:25)
[2020-07-04] MEDS: SENNA W/DOCUSATE (SENOKOT S) TABLET PO SCH ×2 (08:07→20:23)
--- NOTE | 2020-07-04 08:36 | PM&R Progress Note ---
Subjective HPI/CC On Admission Date Seen by Provider: Jul 04, 2020 Time Seen by Provider: 08:30 Subjective/Events-last exam 07/04/20: Bowels moved on a bed pain Tramadol was given for pain No confusion Cant sit 07/03/20: Had a bad afternoon yesterday Steroid injection did not help at all No confusion noted Monitoring pain when seated Difficult to follow thought process since he has severe pain and talks about it constantly then he asked me if he really needed Fentanyl patch?? 07/02/20: Patient doing very well Cognition seems to be improved Trial of Solumedrol 80mg IM will be given today Monitor for confusion from steroids 07/01/20: Family training today appears very disappointed with his progress although I had called her 4 times since admit to tell her he had cognition issues affecting his performance very petite and cannot even push him in a wheelchair Likely nursing facility for slower recovery will be required very irritated with his lack of progress and return of good function 06/30/20: Pt much improved mentation Was able to stand on parallel bars with assistance Slow progress Didnt mention pain all day and then he reported to the nurse and the nurse did not realize his mentation has been causing a focus on pain Pt had not complained of pain at all for hours Bowels are moving 06/29/20: Pt having significant dry mouth Seroquel will be discontinued to help that Zyprexa at night will be maintained Pt still complaining of more and more pain, I did confer with Dr. Stark which the pain is out of proportion for the type of surgery and type of disease he has of the spine, so although his mentation is improved, I doubt we will be able to cross over the threshold to improve his status 06/28/20: Ultram and Tylenol working pretty well Much improved mentation Has his eyes open today Gabapentin will be increased back to his home dosing gradually Updated Dr. Stark 06/27/20: Pt still pretty confused No Haldol or Ativan required Changing dressing daily Zyprexa at night seems to be helpful Keeps his eyes closed most of the time but does open them when we try to get him to open his eyes Updated Dr. Stark 06/26/20: Confusion varies Zyprexa helped him sleep Seroquel in evening has also helped Talked about his pain and told him we will continue to support him in pain meds but he needs to move around BM large last night Ate bfast Dry mouth reported 06/25/20: Confusion last night was significant Pain out of proportion to the number of days he is out of post op is related to his cognitive deficits Hgb 9.4 Ultram and Tylenol given for pain No BM yet Impulsive Oxycodone made him very confused at [place] Seroquel 12.5 will be given now and 25mg in evening and Zyprexa 5mg at night Spoke to in-depth for 15 minutes on the phone since I knew her from [place] and it is now apparent he has cognition deficits so will try to improve and clear the delirium with antipsychotics Kept his eyes closed similar to the dementia 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 in senior unit at [facility] [place] Review of Systems Musculoskeletal: back pain Objective Exam Vital Signs Vital Signs Date Time Temp Pulse Resp B/P (MAP) Pulse Ox O2 Delivery O2 Flow Rate FiO2 07/04/20 18:00 37.0 77 18 124/60 (81) 96 Room Air 06/30/20 06:31 2.00 Capillary Refill : General Appearance: No Apparent Distress, WD/WN, Chronically ill HEENT: PERRL/EOMI, Normal ENT Inspection, Pharynx Normal Neck: Full Range of Motion, Normal Inspection, Non Tender, Supple, Carotid Bruit Respiratory: Chest Non Tender, Lungs Clear, Normal Breath Sounds, No Accessory Muscle Use, No Respiratory Distress Cardiovascular: Regular Rate, Rhythm, No Edema, No Gallop, No JVD, No Murmur, Normal Peripheral Pulses Gastrointestinal: Normal Bowel Sounds, No Organomegaly, No Pulsatile Mass, Non Tender, Soft Back: Normal Inspection, Decreased Range of Motion, Muscle Spasm, Vertebral Tenderness Extremity: Normal Capillary Refill, Normal Inspection, Normal Range of Motion, Non Tender, No Calf Tenderness, No Pedal Edema Neurologic/Psychiatric: Alert, Oriented x3, No Motor/Sensory Deficits, Normal Mood/Affect, Abnormal Gait, Disoriented, Motor Weakness (bilateral legs) Skin: Normal Color, Warm/Dry Lymphatic: No Adenopathy Results/Procedures Lab Laboratory Tests 07/04/20 04:35 Patient resulted labs reviewed. FIM Transfers Therapy Code Descriptions/Definitions Functional [place] Measure: 0=Not Assessed/NA 4=Minimal Assistance 1=Total Assistance 5=Supervision or Setup 2=Maximal Assistance 6=Modified [place] 3=Moderate Assistance 7=Complete IndependenceSCALE: Activities may be completed with or without assistive devices. 9-Dujoshvepu-xmrxpyb completes the activity by him/herself with no assistance from a helper. 5-Set-up or Clean-up Assistance-helper sets up or cleans up; patient completes activity. [place] assists only prior to or following the activity. 4-Supervision or Touching Assistance-helper provides verbal cues and/or touching/steadying and/or contact guard assistance as patient completes activity. Assistance may be provided throughout the activity or intermittently. 3-Partial/Moderate Assistance-helper does LESS THAN HALF the effort. [place] lifts, holds or supports trunk or limbs, but provides less than half the effort. 2-Substantial/Maximal Assistance-helper does MORE THAN HALF the effort. [place] lifts or holds trunk or limbs and provides more than half the effort. 9-Jcqlzfxwe-xgdoel does ALL the effort. Patient does none of the effort to complete the activity. Or, the assistance of 2 or more helpers is required for the patient to complete the activity. If activity was not attempted, code reason: 7-Patient Refused. 9-Not Applicable-not attempted and the patient did not perform the activity before the current illness, exacerbation or injury. 10-Not Attempted due to Environmental Limitations-(lack of equipment, weather restraints, etc.). 88-Not Attempted due to Medical Conditions or Safety Concerns. Roll Left to Right (QC): 1 Sit to Lying (QC): 1 Sit to Stand (QC): 1 Chair/Xxb-ij-Hyxbo Xfer(QC): 1 Car Transfer (QC): 88 (unsafe/unable to attempt due to limited transfer status. ) Gait Training Walk 10 feet (QC): 88 (unable to walk this distance safely) Walk 50 ft with 2 Turns(QC): 88 Walk 150 ft (QC): 88 Walking 10ft/uneven surface-QC: 88 Gait Assistive Device: FWW Wheelchair Training Does the Pt Use a Wheelchair?: Yes Wheel 50 ft with 2 turns (QC): 4 Wheel 150 ft (QC): 9 Type of Wheelchair: Manual Stair Training 1 Step (curb) (QC): 88 4 Steps (QC): 9 12 Steps (QC): 9 Balance Picking up an Object (QC): 88 (back precautions forbid this) ADL-Treatment Eating (QC): 6 Oral Hygiene (QC): 5 (s/u) Bathing Location: R Lower Leg (including foot) Shower/Bathe Self (QC): 1 (TD due to need of Ax2 during sit to stand/ bottom care. Pt completes UB washing, OT completes LB washing and bottom/ back/ feet.) Upper Body Dressing (QC): 5 Lower Body Dressing (QC): 1 On/Off Footwear (QC): 2 Toileting Hygiene (QC): 1 Toilet Transfer (QC): 1 Assessment/Plan Assessment and Plan Assess & Plan/Chief Complaint Assessment: s/p lumbar spine surgery for stenosis now with slow recovery and severe pain Cognitive deficits contributing to slow recovery and severe pain out of proportion of expected HTN HLP BETTY Obesity Prostate cancer hx Constipation Plan: BM regimen IRF protocol Pain meds Monitor confusion Limit pain meds due to confusion 06/25/20: Monitor confusion Dementia noted after speaking to and the interaction I had with the patient in [place] Antipsychotics 06/26/20: Anti-psychotics Monitor delirium Pain management PT OT 06/27/20: Antipsychotics Monitor closely Monitor BP 06/28/20: Improved mentation Monitor BP Pain management 06/29/20: Monitor pain Improved cognition Pain out of proportion and extended longer than expected for type of surgery per Dr Stark 06/30/20: Monitor pain Fentanyl patch Improved cognition 07/01/20: Inquire with Dr Stark about steroids as has requested Patient improved cognition Slow progress 07/02/20: Slow progress Trial steroids for pain Monitor increase confusion with steroids 07/03/20: Steroids had no effect on pain Fentanyl patch 07/04/20: Monitor pain Cognition improved Pain is a major issue (1) Spinal stenosis, lumbar region with neurogenic claudication (2) Prostate cancer (3) Obesity (4) Hypertension (5) Cognitive deficits (6) BETTY on CPAP (7) Hyperlipemia ERIC LUTHER DO Jul 04, 2020 08:36
--- NOTE | 2020-07-04 10:11 | Physical Therapy Daily Note ---
PT Daily Note-Current Subjective Pt. with OT for Co Rx. Pt.states he has back pain at 5-7 over 10 throughout course of Rx and activity. Pt. explains his home situation and layout and admits he has not walked more than 50 ft at at time or gone up stairs for many years. States he used a cane for gait Pain Numeric Pain Scale: 7 Location: Medial Location Body Site: Back Pain Description: Ache Mental Status Patient Orientation: Person, Place, Time, Situation Attachments: Other-See Comments (carey escalera) Transfers SCALE: Activities may be completed with or without assistive devices. 1-Ekdsnupskw-bsbvaxq completes the activity by him/herself with no assistance from a helper. 5-Set-up or Clean-up Assistance-helper sets up or cleans up; patient completes activity. [place] assists only prior to or following the activity. 4-Supervision or Touching Assistance-helper provides verbal cues and/or touc aj/steadying and/or contact guard assistance as patient completes activity. Assistance may be provided throughout the activity or intermittently. 3-Partial/Moderate Assistance-helper does LESS THAN HALF the effort. [place] lifts, holds or supports trunk or limbs, but provides less than half the effort. 2-Substantial/Maximal Assistance-helper does MORE THAN HALF the effort. [place] lifts or holds trunk or limbs and provides more than half the effort. 4-Ooospltcn-oghrsa does ALL the effort. Patient does none of the effort to complete the activity. Or, the assistance of 2 or more helpers is required for the patient to complete the activity. If activity was not attempted, code reason: 7-Patient Refused. 9-Not Applicable-not attempted and the patient did not perform the activity before the current illness, exacerbation or injury. 10-Not Attempted due to Environmental Limitations-(lack of equipment, weather restraints, etc.). 88-Not Attempted due to Medical Conditions or Safety Concerns. Roll Left & Right (QC): 3 Lying to Sitting/Side of Bed(Q: 3 Sit to Stand (QC): 3 Chair/Vns-gy-Efgdj Xfer(QC): 1 pt required mod to min assist for rolling to side and then to sit, sat EOB for bathing and dressing under OT instruction etc. sit to stand x 3 with mod assist of 2 and bed level raised. Pt. used FWW for stance. Pt. declined trial of 2-3 steps SPT bed to recliner which was positioned at 90degree angle to bed. Pt. requested LIKOP lift and this was used to TRF EOB to recliner Exercises Supine Ex: Ankle pumps, Quad Set, Glut sets, Heel Slides, Scooting, Hip abd/add Supine Reps: 15 Treatments PT OT co Rx secondary to low level tolerance for Rx, marked debililty and marked pain levels limiting function, therapies coordinated U&L for ADLs and exercises. Function and use of recliner in room was demonstrated to relieve pts back pain in near zero grav position which pt. states did relieve his pain from 7 to 4.5 pt. left in this position with call [place] after Rx Assessment Current Status: Fair Progress pain greatly limits progress, pt. possible self limiting as well, needs encour aged to press on PT Short Term Goals Short Term Goals Time Frame: Jul 05, 2020 Roll Left & Right: 4 Sit to lyin Lying to sitting on side of be: 4 Sit to stand: 4 Chair/mdy-on-qafks transfer: 4 Toilet transfer: 4 Walk 10 feet: 4 Walk 50 feet with two turns: 4 PT Nursing Home Goals [place] Goals PT [place] Goals Time Frame: Jul 22, 2020 Roll Left & Right (QC): 6 Sit to Lying (QC): 6 Lying-Sitting on Side/Bed(QC): 6 Sit to Stand (QC): 6 Chair/Yhv-nn-Uaqnp Xfer(QC): 6 Toilet Transfer (QC): 6 Car Transfer (QC): 6 Does the Patient Walk: Yes Walk 10 feet (QC): 6 Walk 50ft with 2 Turns (QC): 6 Walk 150 ft (QC): 6 Walking 10ft on Uneven Surface: 5 1 Step (curb) (QC): 4 4 Steps (QC): 9 12 Steps (QC): 9 Picking up an Object (QC): 88 Wheel 50 feet with 2 turns (QC: 9 Wheel 150 feet: 9 PT Plan Treatment/Plan Treatment Plan: Continue Plan of Care Treatment Plan: Bed Mobility, Education, Functional Activity Aby, Functional Strength, Group Therapy, Gait, Safety, Therapeutic Exercise, Transfers Treatment Duration: Jul 22, 2020 Frequency: At least 5 of 7 days/Wk (IRF) Estimated Hrs Per Day: 1.5 hours per day Patient and/or Family Agrees t: Yes Safety Risks/Education Patient Education: Transfer Techniques, Correct Positioning, Reviewed Don/Doff Brace, Disease Process, Safety Issues Teaching Recipient: Patient, Primary Caregiver Teaching Methods: Discussion Response to Teaching: Verbalize Understanding, Return Demonstration, Reinforcement Needed Time/GCodes Time In: 900 Time Out: 1000 Total Billed Treatment Time: 60 Total Billed Treatment 1,FA40,EX20m, PT OT co Rx 60 m TAINA MORAN MATCHBOOK ASSEMBLER Jul 04, 2020 10:11
--- NOTE | 2020-07-04 10:15 | Occupational Ther Daily Note ---
OT Current Status-Daily Note Subjective Pt alert, lying in bed. Initially pt stated pain was 5/10 then with movement 7+/10. Pt had just been given pain meds 1/2 hour before therapy session. Pt agrees to therapy though is self-limiting and takes increased time to complete all tasks to recover from pain. Mental Status/Objective Patient Orientation: Person, Place, Time, Situation ADL-Treatment 1st Treatment [id number]: Co-treat with PT ([id number]), skills of 2 clinicians required for skilled instruction and mobility due to increased pain, dependent mobility and decreased activity tolerance. PT focusing on transfers, standing and w/c mobility while OT focusing on B UE placement during mobility and ADLs. Assist x1 for supine to sitting EOB with HOB flat. Pt completed sponge bath sitting EOB, cleansed upper body and ting area. Sitting EOB, pt able to don/doff shirt by self after set up. Using dope house operator helper, pt able to thread feet into pants legs sitting EOB then min Ax2 to hike pants over hips. Using sock aide to don socks. Pt only stood one time, stating that his pain was at a 7 and above and he was not able to attempt to stand again. Using sit to stand lift, pt transferred to recliner. Initially pt agrees to complete oral care sitting in chair then refuses after supplies are gathered. Pt educated on positioning self in recliner then PT completed B LE exercises with pt. After session, pt reclined in chair with call light/phone in reach. All needs met in room. Therapy Code Descriptions/Definitions Functional [place] Measure: 0=Not Assessed/NA 4=Minimal Assistance 1=Total Assistance 5=Supervision or Setup 2=Maximal Assistance 6=Modified [place] 3=Moderate Assistance 7=Complete IndependenceSCALE: Activities may be completed with or without assistive devices. 9-Hwlhicxquv-vgnrvri completes the activity by him/herself with no assistance from a helper. 5-Set-up or Clean-up Assistance-helper sets up or cleans up; patient completes activity. [place] assists only prior to or following the activity. 4-Supervision or Touching Assistance-helper provides verbal cues and/or touching/steadying and/or contact guard assistance as patient completes activity. Assistance may be provided throughout the activity or intermittently. 3-Partial/Moderate Assistance-helper does LESS THAN HALF the effort. [place] lifts, holds or supports trunk or limbs, but provides less than half the effort. 2-Substantial/Maximal Assistance-helper does MORE THAN HALF the effort. [place] lifts or holds trunk or limbs and provides more than half the effort. 6-Qmqqbfika-olykgf does ALL the effort. Patient does none of the effort to complete the activity. Or, the assistance of 2 or more helpers is required for the patient to complete the activity. If activity was not attempted, code reason: 7-Patient Refused. 9-Not Applicable-not attempted and the patient did not perform the activity before the current illness, exacerbation or injury. 10-Not Attempted due to Environmental Limitations-(lack of equipment, weather restraints, etc.). 88-Not Attempted due to Medical Conditions or Safety Concerns. Oral Hygiene (QC): 7 Bathing Location: L Arm, R Arm, Chest, Abdomen, Perineal Area Shower/Bathe Self (QC): 2 Upper Body Dressing (QC): 5 Lower Body Dressing (QC): 1 On/Off Footwear: 5 Other Treatment 2nd Treatment([id number])-Pt agrees to complete B UE exercises using medium resistance theraband to increase strength and activity tolerance for daily functional tasks. Pt able to complete 4 exercise 1 set 10 reps 1 set 20 reps. Tilting HOB down, pt able to scoot self up in bed with bed rails and feet. After therapy, pt lying in bed with call light/phone in reach. OT Residential Goals Residential Goals Time Frame: Jul 08, 2020 Eating (QC): 6 Oral Hygiene (QC): 6 Toileting Hygiene (QC): 4 Shower/Bathe Self (QC): 5 Upper Body Dressing (QC): 6 Lower Body Dressing (QC): 4 On/Off Footwear (QC): 6 Additional Goals: 1-Demonstrate ADL Tasks, 2-Verbalize Understanding, 3- ImproveStrength/Aby 1=Demonstrate adherence to instructed precautions during ADL tasks. 2=Patient will verbalize/demonstrate understanding of assistive devices/modifications for ADL. 3=Patient will improve strength/tolerance for activity to enable patient to perform ADL's. OT Education/Plan Problem List/Assessment Assessment: Decreased Activ Tolerance, Decreased Safety Aware, Decreased UE Strength, Dependent Transfers, Impaired Bed Mobility, Impaired Coordination, Impaired Funct Balance, Impaired Self-Care Skills Discharge Recommendations Plan/Recommendations: Continue POC Treatment Plan/Plan of Care Patient would benefit from OT for education, treatment and training to promote independence in ADL's, mobility, safety and/or upper extremity function for ADL's. Plan of Care: ADL Retraining, Caregiver Training, Concurrent Therapy, Functional Mobility, Group Exercise/Act as Ind, Orthotic Fitting/Training, UE Funct Exercise/Act, W/C Management Training Treatment Duration: Jul 08, 2020 Frequency: At least 5 of 7 days/Wk (IRF) Estimated Hrs Per Day: 1.5 hours per day Agreement: Yes Rehab Potential: Good Time/GCodes Start Time: 09:00 (1130) Stop Time: 10:00 (1200) Total Time Billed (hr/min): 90 Billed Treatment Time 2 visits-ADL 2 (30 min), FA 3 (45 min), EX 1 (15 min) Co-treat with PT 0900- 1000, individual [id number] ROBERT MCDONOUGH Jul 04, 2020 10:14
--- NOTE | 2020-07-04 14:29 | Physical Therapy Daily Note ---
PT Daily Note-Current Subjective Pt. wants to get up to edge of bed, willing to work. Pain Location: No Pain Reported Mental Status Patient Orientation: Normal For Age Transfers SCALE: Activities may be completed with or without assistive devices. 2-Eynrbmcxgq-lvkgttn completes the activity by him/herself with no assistance from a helper. 5-Set-up or Clean-up Assistance-helper sets up or cleans up; patient completes activity. [place] assists only prior to or following the activity. 4-Supervision or Touching Assistance-helper provides verbal cues and/or touching/steadying and/or contact guard assistance as patient completes activity. Assistance may be provided throughout the activity or intermittently. 3-Partial/Moderate Assistance-helper does LESS THAN HALF the effort. [place] lifts, holds or supports trunk or limbs, but provides less than half the effort. 2-Substantial/Maximal Assistance-helper does MORE THAN HALF the effort. [place] lifts or holds trunk or limbs and provides more than half the effort. 3-Ukngjrsdw-eyavky does ALL the effort. Patient does none of the effort to complete the activity. Or, the assistance of 2 or more helpers is required for the patient to complete the activity. If activity was not attempted, code reason: 7-Patient Refused. 9-Not Applicable-not attempted and the patient did not perform the activity before the current illness, exacerbation or injury. 10-Not Attempted due to Environmental Limitations-(lack of equipment, weather restraints, etc.). 88-Not Attempted due to Medical Conditions or Safety Concerns. sup to side to sit mod to min assist, sit to stands for side scoots x 6 to get to head of bed with good success, sit to sup mod to min assist, also pushed self up in bed with instruction only Exercises Supine Ex: Bridging, Ankle pumps, Quad Set, Rolling, Glut sets, Heel Slides, Scooting, Straight leg raise, Hip abd/add Supine Reps: 12 Seated Therapy Exercises: Long arc quads, Hip flexion Seated Reps: 12 Treatments TRFs and exercise as described above Assessment Current Status: Good Progress PT Short Term Goals Short Term Goals Time Frame: Jul 05, 2020 Roll Left & Right: 4 Sit to lyin Lying to sitting on side of be: 4 Sit to stand: 4 Chair/owf-qt-uesui transfer: 4 Toilet transfer: 4 Walk 10 feet: 4 Walk 50 feet with two turns: 4 PT Prison Goals Prison Goals PT Prison Goals Time Frame: Jul 22, 2020 Roll Left & Right (QC): 6 Sit to Lying (QC): 6 Lying-Sitting on Side/Bed(QC): 6 Sit to Stand (QC): 6 Chair/Gar-gd-[place]koam Xfer(QC): 6 Toilet Transfer (QC): 6 Car Transfer (QC): 6 Does the Patient Walk: Yes Walk 10 feet (QC): 6 Walk 50ft with 2 Turns (QC): 6 Walk 150 ft (QC): 6 Walking 10ft on Uneven Surface: 5 1 Step (curb) (QC): 4 4 Steps (QC): 9 12 Steps (QC): 9 Picking up an Object (QC): 88 Wheel 50 feet with 2 turns (QC: 9 Wheel 150 feet: 9 PT Plan Treatment/Plan Treatment Plan: Continue Plan of Care Treatment Plan: Bed Mobility, Education, Functional Activity Aby, Functional Strength, Group Therapy, Gait, Safety, Therapeutic Exercise, Transfers Treatment Duration: Jul 22, 2020 Frequency: At least 5 of 7 days/Wk (IRF) Estimated Hrs Per Day: 1.5 hours per day Patient and/or Family Agrees t: Yes Safety Risks/Education Patient Education: Transfer Techniques, Correct Positioning, Disease Process, Safety Issues Teaching Recipient: Patient Teaching Methods: Demonstration, Discussion Response to Teaching: Verbalize Understanding, Return Demonstration, Reinforcement Needed Time/GCodes Time In: 1300 Time Out: 1330 Total Billed Treatment Time: 30 Total Billed Treatment 1,FA10m,EX20m TAINA MORAN SUPERVISOR [employer]ARM [employer]QUIPMENT MAINTENANCE Jul 04, 2020 14:29
[2020-07-04] MEDS: GABAPENTIN 600 MG (NEURONTIN) TAB PO SCH (17:28)
[2020-07-04 18:00] VITALS: BP 124/60
[2020-07-04] MEDS: OLANZapine 5 MG ODT (ZyPREXA ZYDIS) PO SCH (20:21)
[2020-07-04] MEDS: ROSUVASTATIN 5 MG (CRESTOR) TABLET PO SCH (20:21)
[2020-07-04] MEDS: LOSARTAN 100 MG (COZAAR) TABLET PO SCH (20:23)
[2020-07-04] MEDS: TAMSULOSIN 0.4 MG (FLOMAX) CAP PO SCH (20:23)
[2020-07-04 21:00] VITALS: BP 124/57
[2020-07-04] MEDS: LORATADINE (CLARITIN) 10 MG TAB PO PRN (21:33)
[2020-07-04] MEDS: diphenhydrAMINE 25 MG TAB (BENADRYL) PO PRN (21:33)
--- NOTE | 2020-07-04 22:00 | NUR ---
STATES FEELS HE IS MAKING PROGRESS. NO CONFUSION NOTED. COMPLAIN POST-NASAL DRAINAGE AND MEDICATED WITH BENADRYL AND CLARITIN REQUESTED. ABLE TO TURN SELF FAIRLY WELL.
[2020-07-05] MEDS: ACETAMINOPHEN 500 MG TAB (TYLENOL) PO SCH ×4 (01:05→18:12)
[2020-07-05] MEDS: guaiFENesin/CODEINE (ROBITUSSIN AC) 10ML UDC PO PRN ×2 (03:09→08:53)
[2020-07-05 05:05] VITALS: BP 125/58
[2020-07-05] MEDS: MULTIVIT W/MINERALS TAB (THERAGRAN M) PO SCH (06:23)
[2020-07-05] MEDS: LEVOTHYROXINE 50 MCG (LEVOTHROID) TAB PO SCH (06:23)
[2020-07-05] MEDS: SENNA W/DOCUSATE (SENOKOT S) TABLET PO SCH ×2 (07:52→19:23)
[2020-07-05] MEDS: polyethylene glycoL POWDER 17 GM (MIRALAX) PACK PO SCH ×2 (07:52→19:23)
[2020-07-05] MEDS: DOCUSATE SODIUM 100 MG (COLACE) CAP PO SCH ×2 (07:52→19:23)
[2020-07-05] MEDS: PANTOPRAZOLE 20 MG TABLET (PROTONIX) PO SCH (08:23)
[2020-07-05] MEDS: LACTOBACILLUS ACIDOPHILUS (PROBIOTIC) CAPSULE PO SCH ×2 (08:23→18:11)
[2020-07-05] MEDS: GABAPENTIN 300 MG (NEURONTIN) CAP PO SCH ×2 (08:23→12:41)
[2020-07-05] MEDS: DICLOFENAC 1% GEL 100 GM (VOLTAREN) TUBE TOP SCH ×4 (08:26→20:34)
--- NOTE | 2020-07-05 08:30 | PM&R Progress Note ---
Subjective HPI/CC On Admission Date Seen by Provider: Jul 05, 2020 Time Seen by Provider: 12:45 Subjective/Events-last exam 07/05/20: Pt having a little bit of orthostasis Laid in bed most of the day today Preparing for transfer to [facility] Updated over the phone regarding the plan for NH Updated patient on the fact he needed to go to a NH 07/04/20: Bowels moved on a bed pain Tramadol was given for pain No confusion Cant sit 07/03/20: Had a bad afternoon yesterday Steroid injection did not help at all No confusion noted Monitoring pain when seated Difficult to follow thought process since he has severe pain and talks about it constantly then he asked me if he really needed Fentanyl patch?? 07/02/20: Patient doing very well Cognition seems to be improved Trial of Solumedrol 80mg IM will be given today Monitor for confusion from steroids 07/01/20: Family training today appears very disappointed with his progress although I had called her 4 times since admit to tell her he had cognition issues affecting his performance very petite and cannot even push him in a wheelchair Likely nursing facility for slower recovery will be required very irritated with his lack of progress and return of good function 06/30/20: Pt much improved mentation Was able to stand on parallel bars with assistance Slow progress Didnt mention pain all day and then he reported to the nurse and the nurse did not realize his mentation has been causing a focus on pain Pt had not complained of pain at all for hours Bowels are moving 06/29/20: Pt having significant dry mouth Seroquel will be discontinued to help that Zyprexa at night will be maintained Pt still complaining of more and more pain, I did confer with Dr. Stark which the pain is out of proportion for the type of surgery and type of disease he has of the spine, so although his mentation is improved, I doubt we will be able to cross over the threshold to improve his status 06/28/20: Ultram and Tylenol working pretty well Much improved mentation Has his eyes open today Gabapentin will be increased back to his home dosing gradually Updated Dr. Stark 06/27/20: Pt still pretty confused No Haldol or Ativan required Changing dressing daily Zyprexa at night seems to be helpful Keeps his eyes closed most of the time but does open them when we try to get him to open his eyes Updated Dr. Stark 06/26/20: Confusion varies Zyprexa helped him sleep Seroquel in evening has also helped Talked about his pain and told him we will continue to support him in pain meds but he needs to move around BM large last night Ate bfast Dry mouth reported 06/25/20: Confusion last night was significant Pain out of proportion to the number of days he is out of post op is related to his cognitive deficits Hgb 9.4 Ultram and Tylenol given for pain No BM yet Impulsive Oxycodone made him very confused at [place] Seroquel 12.5 will be given now and 25mg in evening and Zyprexa 5mg at night Spoke to in-depth for 15 minutes on the phone since I knew her from [place] and it is now apparent he has cognition deficits so will try to improve and clear the delirium with antipsychotics Kept his eyes closed similar to the dementia 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 in senior unit at [facility] Review of Systems General: Fatigue, Malaise Neurological: Weakness, Incoordination Objective Exam Vital Signs Vital Signs Date Time Temp Pulse Resp B/P (MAP) Pulse Ox O2 Delivery O2 Flow Rate FiO2 07/05/20 20:45 Room Air 07/05/20 18:00 36.6 83 20 127/58 (81) 96 06/30/20 06:31 2.00 Capillary Refill : General Appearance: No Apparent Distress, WD/WN, Chronically ill HEENT: PERRL/EOMI, Normal ENT Inspection, Pharynx Normal Neck: Full Range of Motion, Normal Inspection, Non Tender, Supple, Carotid Bruit Respiratory: Chest Non Tender, Lungs Clear, Normal Breath Sounds, No Accessory Muscle Use, No Respiratory Distress Cardiovascular: Regular Rate, Rhythm, No Edema, No Gallop, No JVD, No Murmur, Normal Peripheral Pulses Gastrointestinal: Normal Bowel Sounds, No Organomegaly, No Pulsatile Mass, Non Tender, Soft Back: Normal Inspection, Decreased Range of Motion, Muscle Spasm, Vertebral Tenderness Extremity: Normal Capillary Refill, Normal Inspection, Normal Range of Motion, Non Tender, No Calf Tenderness, No Pedal Edema Neurologic/Psychiatric: Alert, Oriented x3, No Motor/Sensory Deficits, Normal Mood/Affect, Abnormal Gait, Disoriented, Motor Weakness (bilateral legs) Skin: Normal Color, Warm/Dry Lymphatic: No Adenopathy Results/Procedures Lab Patient resulted labs reviewed. FIM Transfers Therapy Code Descriptions/Definitions Functional [place] Measure: 0=Not Assessed/NA 4=Minimal Assistance 1=Total Assistance 5=Supervision or Setup 2=Maximal Assistance 6=Modified [place] 3=Moderate Assistance 7=Complete IndependenceSCALE: Activities may be completed with or without assistive devices. 9-Xekcosdulh-ecinzht completes the activity by him/herself with no assistance from a helper. 5-Set-up or Clean-up Assistance-helper sets up or cleans up; patient completes activity. [place] assists only prior to or following the activity. 4-Supervision or Touching Assistance-helper provides verbal cues and/or touching/steadying and/or contact guard assistance as patient completes activi ty. Assistance may be provided throughout the activity or intermittently. 3-Partial/Moderate Assistance-helper does LESS THAN HALF the effort. [place] lifts, holds or supports trunk or limbs, but provides less than half the effort. 2-Substantial/Maximal Assistance-helper does MORE THAN HALF the effort. [place] lifts or holds trunk or limbs and provides more than half the effort. 6-Ukqeudftw-mxiowe does ALL the effort. Patient does none of the effort to complete the activity. Or, the assistance of 2 or more helpers is required for the patient to complete the activity. If activity was not attempted, code reason: 7-Patient Refused. 9-Not Applicable-not attempted and the patient did not perform the activity before the current illness, exacerbation or injury. 10-Not Attempted due to Environmental Limitations-(lack of equipment, weather restraints, etc.). 88-Not Attempted due to Medical Conditions or Safety Concerns. Roll Left to Right (QC): 3 Sit to Lying (QC): 1 Sit to Stand (QC): 3 Chair/Ejo-mt-Khuxk Xfer(QC): 1 Car Transfer (QC): 88 (unsafe/unable to attempt due to limited transfer status. ) Gait Training Walk 10 feet (QC): 88 (unable to walk this distance safely) Walk 50 ft with 2 Turns(QC): 88 Walk 150 ft (QC): 88 Walking 10ft/uneven surface-QC: 88 Gait Assistive Device: FWW Wheelchair Training Does the Pt Use a Wheelchair?: Yes Wheel 50 ft with 2 turns (QC): 4 Wheel 150 ft (QC): 9 Type of Wheelchair: Manual Stair Training 1 Step (curb) (QC): 88 4 Steps (QC): 9 12 Steps (QC): 9 Balance Picking up an Object (QC): 88 (back precautions forbid this) ADL-Treatment Eating (QC): 6 Oral Hygiene (QC): 7 Bathing Location: L Arm, R Arm, Chest, Abdomen, Perineal Area Shower/Bathe Self (QC): 2 Upper Body Dressing (QC): 5 Lower Body Dressing (QC): 1 On/Off Footwear (QC): 5 Toileting Hygiene (QC): 1 Toilet Transfer (QC): 1 Assessment/Plan Assessment and Plan Assess & Plan/Chief Complaint Assessment: s/p lumbar spine surgery for stenosis now with slow recovery and severe pain Cognitive deficits contributing to slow recovery and severe pain out of proportion of expected HTN HLP BETTY Obesity Prostate cancer hx Constipation Plan: BM regimen IRF protocol Pain meds Monitor confusion Limit pain meds due to confusion 06/25/20: Monitor confusion Dementia noted after speaking to and the interaction I had with the patient in [place] Antipsychotics 06/26/20: Anti-psychotics Monitor delirium Pain management PT OT 06/27/20: Antipsychotics Monitor closely Monitor BP 06/28/20: Improved mentation Monitor BP Pain management 06/29/20: Monitor pain Improved cognition Pain out of proportion and extended longer than expected for type of surgery per Dr Stark 06/30/20: Monitor pain Fentanyl patch Improved cognition 07/01/20: Inquire with Dr Stark about steroids as has requested Patient improved cognition Slow progress 07/02/20: Slow progress Trial steroids for pain Monitor increase confusion with steroids 07/03/20: Steroids had no effect on pain Fentanyl patch 07/04/20: Monitor pain Cognition improved Pain is a major issue 07/05/20: Needs NHP Change of pain meds will not resolve his issue of inability to walk and will cause delirium (1) Spinal stenosis, lumbar region with neurogenic claudication (2) Prostate cancer (3) Obesity (4) Hypertension (5) Cognitive deficits (6) BETTY on CPAP (7) Hyperlipemia ERIC LUTHER DO Jul 05, 2020 08:30
[2020-07-05] MEDS: diphenhydrAMINE 25 MG TAB (BENADRYL) PO PRN (08:53)
--- NOTE | 2020-07-05 09:03 | Physical Therapy Daily Note ---
PT Daily Note-Current Subjective Pt laying Supine in bed upon arrival. Pt agrees to PT. BP is monitored throughout tx. Mental Status Patient Orientation: Person, Place, Situation Transfers SCALE: Activities may be completed with or without assistive devices. 1-Elinrdsbst-yxifdli completes the activity by him/herself with no assistance from a helper. 5-Set-up or Clean-up Assistance-helper sets up or cleans up; patient completes activity. [place] assists only prior to or following the activity. 4-Supervision or Touching Assistance-helper provides verbal cues and/or touching/steadying and/or contact guard assistance as patient completes activity. Assistance may be provided throughout the activity or intermittently. 3-Partial/Moderate Assistance-helper does LESS THAN HALF the effort. [place] lifts, holds or supports trunk or limbs, but provides less than half the effort. 2-Substantial/Maximal Assistance-helper does MORE THAN HALF the effort. [place] lifts or holds trunk or limbs and provides more than half the effort. 6-Eaxwohdre-oosgor does ALL the effort. Patient does none of the effort to complete the activity. Or, the assistance of 2 or more helpers is required for the patient to complete the activity. If activity was not attempted, code reason: 7-Patient Refused. 9-Not Applicable-not attempted and the patient did not perform the activity before the current illness, exacerbation or injury. 10-Not Attempted due to Environmental Limitations-(lack of equipment, weather restraints, etc.). 88-Not Attempted due to Medical Conditions or Safety Concerns. Roll Left & Right (QC): 4 Exercises Supine Ex: Ankle pumps, Quad Set, Rolling, Glut sets, Heel Slides Supine Reps: 15 Treatments Co-treat with PT ([id number]), skills of 2 clinicians required for skilled instruction and mobility due to increased pain, dependent mobility and decreased activity tolerance. PT focusing on transfers, bed mobility and B LE strengthening while OT focusing on B UE placement during mobility and ADLs. Pt was handed wash cloth and was able to complete upper body bathing and under pe nnis. Pt then rolled side to side with assist x1 to roll and stay on side while assist x1 to cleanse buttocks and ting area. Assist to complete lower body bathing and footwear. Pt complete sponge bath today due to BP issues. Pt required multiple lengthy recovery breaks throughout session. After session, pt lying in bed with call light/phone in reach. All needs met in room. Assessment BP's taken in supine with B LE elevated-106/44,87; 104/51,82; 96/49,82; 91/45,82 then after bed mobility and 30 min after last BP 161/56. PT Short Term Goals Short Term Goals Time Frame: Jul 05, 2020 Roll Left & Right: 4 Sit to lyin Lying to sitting on side of be: 4 Sit to stand: 4 Chair/ieu-ek-toyzk transfer: 4 Toilet transfer: 4 Walk 10 feet: 4 Walk 50 feet with two turns: 4 PT Detention Goals Industrial Manufacturing Technician Goals PT Detention Goals Time Frame: Jul 22, 2020 Roll Left & Right (QC): 6 Sit to Lying (QC): 6 Lying-Sitting on Side/Bed(QC): 6 Sit to Stand (QC): 6 Chair/Rjn-su-Dnnsf Xfer(QC): 6 Toilet Transfer (QC): 6 Car Transfer (QC): 6 Does the Patient Walk: Yes Walk 10 feet (QC): 6 Walk 50ft with 2 Turns (QC): 6 Walk 150 ft (QC): 6 Walking 10ft on Uneven Surface: 5 1 Step (curb) (QC): 4 4 Steps (QC): 9 12 Steps (QC): 9 Picking up an Object (QC): 88 Wheel 50 feet with 2 turns (QC: 9 Wheel 150 feet: 9 PT Plan Problem List Problem List: Activity Tolerance, Functional Strength, Transfer Treatment/Plan Treatment Plan: Continue Plan of Care Treatment Plan: Bed Mobility, Education, Functional Activity Aby, Functional Strength, Group Therapy, Gait, Safety, Therapeutic Exercise, Transfers Treatment Duration: Jul 22, 2020 Frequency: At least 5 of 7 days/Wk (IRF) Estimated Hrs Per Day: 1.5 hours per day Patient and/or Family Agrees t: Yes Safety Risks/Education Patient Education: Transfer Techniques, Correct Positioning, Safety Issues Teaching Recipient: Patient Teaching Methods: Discussion Response to Teaching: Verbalize Understanding Time/GCodes Time In: 800 Time Out: 900 Total Billed Treatment Time: 60 Total Billed Treatment 1, EX x2 (25m) & FA x2 (35m) Co-treat w/OT for 60m (800-900) AUGUSTO REZA PTA Jul 05, 2020 09:03
--- NOTE | 2020-07-05 11:18 | Occupational Ther Daily Note ---
OT Current Status-Daily Note Subjective Pt alert, lying in bed. Pt agrees to therapy. No c/o pain while lying. Pt c/o pain with movement though did not rate. BP issues at beginning of session, reported to nrsg. BP's taken in supine with B LE elevated-106/44,87; 104/51,82; 96/49,82; 91/45,82 then after bed mobility and 30 min after last BP 161/56. Mental Status/Objective Patient Orientation: Person, Place, Time, Situation ADL-Treatment Supine to EOB, mod A x1. Pt then began to feel dizzy and stated that he was going to fall backward. Sat EOB for 3 min attempting to adjust to different position, pt continued to feel dizzy. Pt then laid down. Attempting to have pt complete supine <--> sit with log roll due to back surgery, pt continues to require verbal and physical cues to complete correctly. With HOB tilted down, pt able to scoot self up in bed. Co-treat with PT ([id number]), skills of 2 clinicians required for skilled instruction and mobility due to increased pain, dependent mobility and decreased activity tolerance. PT focusing on transfers, bed mobility and B LE strengthening while OT focusing on B UE placement during mobility and ADLs. Pt was handed wash cloth and was able to complete upper body bathing and under pannis. Pt then rolled side to side with assist x1 to roll and stay on side while assist x1 to cleanse buttocks and ting area. Assist to complete lower body bathing and footwear. Pt complete sponge bath today due to BP issues. Pt required multiple lengthy recovery breaks throughout session. After session, pt lying in bed with call light/phone in reach. All needs met in room. Therapy Code Descriptions/Definitions Functional [place] Measure: 0=Not Assessed/NA 4=Minimal Assistance 1=Total Assistance 5=Supervision or Setup 2=Maximal Assistance 6=Modified [place] 3=Moderate Assistance 7=Complete IndependenceSCALE: Activities may be completed with or without assistive devices. 8-Xkblzxixdg-gscobfx completes the activity by him/herself with no assistance from a helper. 5-Set-up or Clean-up Assistance-helper sets up or cleans up; patient completes activity. [place] assists only prior to or following the activity. 4-Supervision or Touching Assistance-helper provides verbal cues and/or touching/steadying and/or contact guard assistance as patient completes activity. Assistance may be provided throughout the activity or intermittently. 3-Partial/Moderate Assistance-helper does LESS THAN HALF the effort. [place] l ifts, holds or supports trunk or limbs, but provides less than half the effort. 2-Substantial/Maximal Assistance-helper does MORE THAN HALF the effort. [place] lifts or holds trunk or limbs and provides more than half the effort. 9-Abcshbalt-iqwfcz does ALL the effort. Patient does none of the effort to complete the activity. Or, the assistance of 2 or more helpers is required for t he patient to complete the activity. If activity was not attempted, code reason: 7-Patient Refused. 9-Not Applicable-not attempted and the patient did not perform the activity before the current illness, exacerbation or injury. 10-Not Attempted due to Environmental Limitations-(lack of equipment, weather restraints, etc.). 88-Not Attempted due to Medical Conditions or Safety Concerns. Eating (QC): 6 Bathing Location: L Arm, R Arm, Abdomen Shower/Bathe Self (QC): 1 On/Off Footwear: 2 OT Plug Maker Goals Senior Care Goals Time Frame: Jul 08, 2020 Eating (QC): 6 Oral Hygiene (QC): 6 Toileting Hygiene (QC): 4 Shower/Bathe Self (QC): 5 Upper Body Dressing (QC): 6 Lower Body Dressing (QC): 4 On/Off Footwear (QC): 6 Additional Goals: 1-Demonstrate ADL Tasks, 2-Verbalize Understanding, 3- ImproveStrength/Aby 1=Demonstrate adherence to instructed precautions during ADL tasks. 2=Patient will verbalize/demonstrate understanding of assistive devices/modifications for ADL. 3=Patient will improve strength/tolerance for activity to enable patient to perform ADL's. OT Education/Plan Problem List/Assessment Assessment: Decreased Activ Tolerance, Impaired Bed Mobility, Impaired Self- Care Skills Discharge Recommendations Plan/Recommendations: Continue POC Treatment Plan/Plan of Care Patient would benefit from OT for education, treatment and training to promote independence in ADL's, mobility, safety and/or upper extremity function for ADL's. Plan of Care: ADL Retraining, Caregiver Training, Concurrent Therapy, Functional Mobility, Group Exercise/Act as Ind, Orthotic Fitting/Training, UE Funct Exercise/Act, W/C Management Training Treatment Duration: Jul 08, 2020 Frequency: At least 5 of 7 days/Wk (IRF) Estimated Hrs Per Day: 1.5 hours per day Agreement: Yes Rehab Potential: Good Time/GCodes Start Time: 07:30 Stop Time: 09:00 Total Time Billed (hr/min): 90 Billed Treatment Time 1 visit-ADL 4 (60 min) FA 2 (30 min) ROBERT MCDONOUGH Jul 05, 2020 11:18
--- NOTE | 2020-07-05 15:16 | Physical Therapy Daily Note ---
PT Daily Note-Current Subjective Pt laying Supine in bed upon arrival. Pt agrees to PT for reviewing Supine & Seated EX. Pain Location: Lower Location Body Site: Back Pain Description: Ache, Chronic Mental Status Patient Orientation: Person, Place, Situation Transfers SCALE: Activities may be completed with or without assistive devices. 8-Mooxywhiov-tarzged completes the activity by him/herself with no assistance from a helper. 5-Set-up or Clean-up Assistance-helper sets up or cleans up; patient completes activity. [place] assists only prior to or following the activity. 4-Supervision or Touching Assistance-helper provides verbal cues and/or touching/steadying and/or contact guard assistance as patient completes activity. Assistance may be provided throughout the activity or intermittently. 3-Partial/Moderate Assistance-helper does LESS THAN HALF the effort. [place] lifts, holds or supports trunk or limbs, but provides less than half the effort. 2-Substantial/Maximal Assistance-helper does MORE THAN HALF the effort. [place] lifts or holds trunk or limbs and provides more than half the effort. 8-Unekymdsg-xovieg does ALL the effort. Patient does none of the effort to complete the activity. Or, the assistance of 2 or more helpers is required for the patient to complete the activity. If activity was not attempted, code reason: 7-Patient Refused. 9-Not Applicable-not attempted and the patient did not perform the activity before the current illness, exacerbation or injury. 10-Not Attempted due to Environmental Limitations-(lack of equipment, weather restraints, etc.). 88-Not Attempted due to Medical Conditions or Safety Concerns. Weight Bearing Full Weight Bearing Full Weight Bearing Exercises Supine Ex: Ankle pumps, Quad Set, Glut sets, Heel Slides, Short Arc Quads, Straight leg raise, Hip abd/add Supine Reps: 15 Seated Therapy Exercises: Ankle pumps, Long arc quads, Hip flexion, Kicking activity Seated Reps: 15 Treatments [employer] issues written HEP for Supine & Seated Ex and encourages pt to complete multiple times a day both with staff and if able to individually. Pt disappointed about TF to SNF and asked what he needs to do to DC quickly. [employer] encourages pt to push self hard & make a little progress everyday. "The more you try to improve and work hard, the quicker the recovery will be." Pt resting in bed at end of tx with all needs met, call light in hand. Assessment Current Status: Fair Progress Pt continues to demonstrate lack of motivation to push self. PT Short Term Goals Short Term Goals Time Frame: Jul 05, 2020 Roll Left & Right: 4 Sit to lyin Lying to sitting on side of be: 4 Sit to stand: 4 Chair/jjo-ac-htofa transfer: 4 Toilet transfer: 4 Walk 10 feet: 4 Walk 50 feet with two turns: 4 PT Half-Way Goals Tape Maker Goals PT Half-Way Goals Time Frame: Jul 22, 2020 Roll Left & Right (QC): 6 Sit to Lying (QC): 6 Lying-Sitting on Side/Bed(QC): 6 Sit to Stand (QC): 6 Chair/Mxd-bt-Ghvfk Xfer(QC): 6 Toilet Transfer (QC): 6 Car Transfer (QC): 6 Does the Patient Walk: Yes Walk 10 feet (QC): 6 Walk 50ft with 2 Turns (QC): 6 Walk 150 ft (QC): 6 Walking 10ft on Uneven Surface: 5 1 Step (curb) (QC): 4 4 Steps (QC): 9 12 Steps (QC): 9 Picking up an Object (QC): 88 Wheel 50 feet with 2 turns (QC: 9 Wheel 150 feet: 9 PT Plan Problem List Problem List: Activity Tolerance, Functional Strength, Safety, Balance, Transfer Treatment/Plan Treatment Plan: Continue Plan of Care Treatment Plan: Bed Mobility, Education, Functional Activity Aby, Functional Strength, Group Therapy, Gait, Safety, Therapeutic Exercise, Transfers Treatment Duration: Jul 22, 2020 Frequency: At least 5 of 7 days/Wk (IRF) Estimated Hrs Per Day: 1.5 hours per day Patient and/or Family Agrees t: Yes Safety Risks/Education Patient Education: Issued Written HEP, Correct Positioning, Safety Issues Teaching Recipient: Patient Teaching Methods: Discussion Response to Teaching: Verbalize Understanding Time/GCodes Time In: 1330 Time Out: 1400 Total Billed Treatment Time: 30 Total Billed Treatment 1, EX (20m) & FA (10m) AUGUSTO REZA [employer] Jul 05, 2020 15:16
--- NOTE | 2020-07-05 17:48 | NUR ---
"RD ASSESSMENT PMHx: CA(prostate); GERD; HTN; HLD; hypothyroidism; PT INTERACTION: Pt was awake and pleasant during nutrition follow-up. Pt states he has been eating pretty good since last assessment. Note avg PO intake 42% x4d, per chart review. Pt states some issues with diarrhea since last assessment. Note last BM was 07/05, and pt currently on bowel regimen of colace BID, senna BID, and miralax BID, per chart review. Est. kcal needs: 8843-3756 kcal | 15-18 kcal/kg Est. Pro needs: 100-125 kcal | 0.8-1.0 g Pro/kg PES STATEMENT: Inadequate oral intake (NI-2.1) related to loss of appetite, and diarrhea, as evidenced by pt interview, and avg PO intake 42% x4d. INTERVENTION: Continue with current diet order of Regular diet. Add Ensure Enlive (vary) to meals TID, for increased kcal intake. Provides 350 kcal and 20 g Pro per serving. Will continue to follow and reassess as pt needs, intake, and status change. Amrit JIMENEZ, MS RD LD [phone] cell"
[2020-07-05 18:00] VITALS: BP 127/58
[2020-07-05] MEDS: GABAPENTIN 600 MG (NEURONTIN) TAB PO SCH (18:12)
[2020-07-05] MEDS: LOSARTAN 100 MG (COZAAR) TABLET PO SCH (20:32)
[2020-07-05] MEDS: TAMSULOSIN 0.4 MG (FLOMAX) CAP PO SCH (20:32)
[2020-07-05] MEDS: ROSUVASTATIN 5 MG (CRESTOR) TABLET PO SCH (20:32)
[2020-07-05] MEDS: OLANZapine 5 MG ODT (ZyPREXA ZYDIS) PO SCH (20:33)
[2020-07-06] MEDS: LEVOTHYROXINE 50 MCG (LEVOTHROID) TAB PO SCH (05:50)
[2020-07-06] MEDS: MULTIVIT W/MINERALS TAB (THERAGRAN M) PO SCH (05:50)
[2020-07-06] MEDS: ACETAMINOPHEN 500 MG TAB (TYLENOL) PO SCH ×4 (05:50→18:03)
[2020-07-06 06:01] VITALS: BP 105/57
--- NOTE | 2020-07-06 08:47 | PM&R Progress Note ---
Subjective HPI/CC On Admission Date Seen by Provider: Jul 06, 2020 Time Seen by Provider: 09:00 Subjective/Events-last exam 07/06/20: Pt moving a lot better but not consistent Appears to not want to go to the longterm Threw his dinner tray on the floor after I talked to him about going to a longterm so he did get irate Bowels are moving Dressing is really good 07/05/20: Pt having a little bit of orthostasis Laid in bed most of the day today Preparing for transfer to longterm Updated over the phone regarding the plan for NH Updated patient on the fact he needed to go to a NH 07/04/20: Bowels moved on a bed pain Tramadol was given for pain No confusion Cant sit 07/03/20: Had a bad afternoon yesterday Steroid injection did not help at all No confusion noted Monitoring pain when seated Difficult to follow thought process since he has severe pain and talks about it constantly then he asked me if he really needed Fentanyl patch?? 07/02/20: Patient doing very well Cognition seems to be improved Trial of Solumedrol 80mg IM will be given today Monitor for confusion from steroids 07/01/20: Family training today appears very disappointed with his progress although I had called her 4 times since admit to tell her he had cognition issues affecting his performance very petite and cannot even push him in a wheelchair Likely nursing facility for slower recovery will be required very irritated with his lack of progress and return of good function 06/30/20: Pt much improved mentation Was able to stand on parallel bars with assistance Slow progress Didnt mention pain all day and then he reported to the nurse and the nurse did not realize his mentation has been causing a focus on pain Pt had not complained of pain at all for hours Bowels are moving 06/29/20: Pt having significant dry mouth Seroquel will be discontinued to help that Zyprexa at night will be maintained Pt still complaining of more and more pain, I did confer with Dr. Stark which the pain is out of proportion for the type of surgery and type of disease he has of the spine, so although his mentation is improved, I doubt we will be able to cross over the threshold to improve his status 06/28/20: Ultram and Tylenol working pretty well Much improved mentation Has his eyes open today Gabapentin will be increased back to his home dosing gradually Updated Dr. Stark 06/27/20: Pt still pretty confused No Haldol or Ativan required Changing dressing daily Zyprexa at night seems to be helpful Keeps his eyes closed most of the time but does open them when we try to get him to open his eyes Updated Dr. Stark 06/26/20: Confusion varies Zyprexa helped him sleep Seroquel in evening has also helped Talked about his pain and told him we will continue to support him in pain meds but he needs to move around BM large last night Ate bfast Dry mouth reported 06/25/20: Confusion last night was significant Pain out of proportion to the number of days he is out of post op is related to his cognitive deficits Hgb 9.4 Ultram and Tylenol given for pain No BM yet Impulsive Oxycodone made him very confused at [place] Seroquel 12.5 will be given now and 25mg in evening and Zyprexa 5mg at night Spoke to in-depth for 15 minutes on the phone since I knew her from [place] and it is now apparent he has cognition deficits so will try to improve and clear the delirium with antipsychotics Kept his eyes closed similar to the dementia 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 in senior unit at [facility] Review of Systems General: Fatigue, Malaise Pulmonary: Dyspnea Musculoskeletal: back pain Objective Exam Vital Signs Vital Signs Date Time Temp Pulse Resp B/P (MAP) Pulse Ox O2 Delivery O2 Flow Rate FiO2 07/06/20 20:18 Room Air 07/06/20 17:42 36.6 97 20 142/64 (90) 91 Capillary Refill : General Appearance: No Apparent Distress, WD/WN, Chronically ill HEENT: PERRL/EOMI, Normal ENT Inspection, Pharynx Normal Neck: Full Range of Motion, Normal Inspection, Non Tender, Supple, Carotid Bruit Respiratory: Chest Non Tender, Lungs Clear, Normal Breath Sounds, No Accessory Muscle Use, No Respiratory Distress Cardiovascular: Regular Rate, Rhythm, No Edema, No Gallop, No JVD, No Murmur, Normal Peripheral Pulses Gastrointestinal: Normal Bowel Sounds, No Organomegaly, No Pulsatile Mass, Non Tender, Soft Back: Normal Inspection, Decreased Range of Motion, Muscle Spasm, Vertebral Tenderness Extremity: Normal Capillary Refill, Normal Inspection, Normal Range of Motion, Non Tender, No Calf Tenderness, No Pedal Edema Neurologic/Psychiatric: Alert, Oriented x3, No Motor/Sensory Deficits, Normal Mood/Affect, Abnormal Gait, Disoriented, Motor Weakness (bilateral legs) Skin: Normal Color, Warm/Dry Lymphatic: No Adenopathy Results/Procedures Lab Patient resulted labs reviewed. FIM Transfers Therapy Code Descriptions/Definitions Functional [place] Measure: 0=Not Assessed/NA 4=Minimal Assistance 1=Total Assistance 5=Supervision or Setup 2=Maximal Assistance 6=Modified [place] 3=Moderate Assistance 7=Complete IndependenceSCALE: Activities may be completed with or without assistive devices. 3-Lhbjxzfttg-czlfdfi completes the activity by him/herself with no assistance from a helper. 5-Set-up or Clean-up Assistance-helper sets up or cleans up; patient completes activity. [place] assists only prior to or following the activity. 4-Supervision or Touching Assistance-helper provides verbal cues and/or touching/steadying and/or contact guard assistance as patient completes activity. Assistance may be provided throughout the activity or intermittently. 3-Partial/Moderate Assistance-helper does LESS THAN HALF the effort. [place] lifts, holds or supports trunk or limbs, but provides less than half the effort. 2-Substantial/Maximal Assistance-helper does MORE THAN HALF the effort. [place] lifts or holds trunk or limbs and provides more than half the effort. 5-Jpgdcoprs-ocgown does ALL the effort. Patient does none of the effort to complete the activity. Or, the assistance of 2 or more helpers is required for the patient to complete the activity. If activity was not attempted, code reason: 7-Patient Refused. 9-Not Applicable-not attempted and the patient did not perform the activity before the current illness, exacerbation or injury. 10-Not Attempted due to Environmental Limitations-(lack of equipment, weather restraints, etc.). 88-Not Attempted due to Medical Conditions or Safety Concerns. Roll Left to Right (QC): 4 Sit to Lying (QC): 1 Sit to Stand (QC): 3 Chair/Afl-hb-Ewfrs Xfer(QC): 1 Car Transfer (QC): 88 (unsafe/unable to attempt due to limited transfer status. ) Gait Training Walk 10 feet (QC): 88 (unable to walk this distance safely) Walk 50 ft with 2 Turns(QC): 88 Walk 150 ft (QC): 88 Walking 10ft/uneven surface-QC: 88 Gait Assistive Device: FWW Wheelchair Training Wheel 50 ft with 2 turns (QC): 4 Wheel 150 ft (QC): 9 Stair Training 1 Step (curb) (QC): 88 4 Steps (QC): 9 12 Steps (QC): 9 Balance Picking up an Object (QC): 88 (back precautions forbid this) ADL-Treatment Eating (QC): 6 Oral Hygiene (QC): 7 Bathing Location: L Arm, R Arm, Abdomen Shower/Bathe Self (QC): 1 Upper Body Dressing (QC): 5 Lower Body Dressing (QC): 1 On/Off Footwear (QC): 2 Toileting Hygiene (QC): 1 Toilet Transfer (QC): 1 Assessment/Plan Assessment and Plan Assess & Plan/Chief Complaint Assessment: s/p lumbar spine surgery for stenosis now with slow recovery and severe pain Cognitive deficits contributing to slow recovery and severe pain out of proportion of expected HTN HLP BETTY Obesity Prostate cancer hx Constipation Plan: BM regimen IRF protocol Pain meds Monitor confusion Limit pain meds due to confusion 06/25/20: Monitor confusion Dementia noted after speaking to and the interaction I had with the patient in [place] Antipsychotics 06/26/20: Anti-psychotics Monitor delirium Pain management PT OT 06/27/20: Antipsychotics Monitor closely Monitor BP 06/28/20: Improved mentation Monitor BP Pain management 06/29/20: Monitor pain Improved cognition Pain out of proportion and extended longer than expected for type of surgery per Dr Stark 06/30/20: Monitor pain Fentanyl patch Improved cognition 07/01/20: Inquire with Dr Stark about steroids as has requested Patient improved cognition Slow progress 07/02/20: Slow progress Trial steroids for pain Monitor increase confusion with steroids 07/03/20: Steroids had no effect on pain Fentanyl patch 07/04/20: Monitor pain Cognition improved Pain is a major issue 07/05/20: Needs NHP Change of pain meds will not resolve his issue of inability to walk and will cause delirium 07/06/20: Inconsistent performance with therapy Monitor progress DC Saturday either to home if able or NH (1) Spinal stenosis, lumbar region with neurogenic claudication (2) Prostate cancer (3) Obesity (4) Hypertension (5) Cognitive deficits (6) BETTY on CPAP (7) Hyperlipemia ERIC LUTHER DO Jul 06, 2020 08:47
--- NOTE | 2020-07-06 08:54 | NUR ---
PT STATES THAT HE WOKE UP FEELING TOTALLY DIFFERENT THIS MORNING, W NO PAIN.
[2020-07-06] MEDS: DOCUSATE SODIUM 100 MG (COLACE) CAP PO SCH ×3 (08:56→20:25)
[2020-07-06] MEDS: SENNA W/DOCUSATE (SENOKOT S) TABLET PO SCH ×2 (08:56→20:25)
[2020-07-06] MEDS: GABAPENTIN 300 MG (NEURONTIN) CAP PO SCH ×2 (08:56→12:56)
[2020-07-06] MEDS: LORATADINE (CLARITIN) 10 MG TAB PO PRN (08:56)
[2020-07-06] MEDS: PANTOPRAZOLE 20 MG TABLET (PROTONIX) PO SCH (08:57)
[2020-07-06] MEDS: DICLOFENAC 1% GEL 100 GM (VOLTAREN) TUBE TOP SCH ×4 (08:57→20:25)
[2020-07-06] MEDS: LACTOBACILLUS ACIDOPHILUS (PROBIOTIC) CAPSULE PO SCH ×2 (08:57→17:52)
[2020-07-06] MEDS: polyethylene glycoL POWDER 17 GM (MIRALAX) PACK PO SCH ×2 (08:58→20:25)
[2020-07-06] MEDS: FENTANYL PATCH REMOVAL TP SCH (08:58)
--- NOTE | 2020-07-06 08:59 | Occupational Ther Daily Note ---
OT Current Status-Daily Note Subjective Pt alert, lying in bed. Pt agrees to therapy. C/o pain at 5/10 stating that was normal for him. Mental Status/Objective Patient Orientation: Person, Place, Time, Situation ADL-Treatment Therapy Code Descriptions/Definitions Functional [place] Measure: 0=Not Assessed/NA 4=Minimal Assistance 1=Total Assistance 5=Supervision or Setup 2=Maximal Assistance 6=Modified [place] 3=Moderate Assistance 7=Complete IndependenceSCALE: Activities may be completed with or without assistive devices. 3-Gxpxaaeazl-mlrlsnb completes the activity by him/herself with no assistance from a helper. 5-Set-up or Clean-up Assistance-helper sets up or cleans up; patient completes activity. [place] assists only prior to or following the activity. 4-Supervision or Touching Assistance-helper provides verbal cues and/or touching/steadying and/or contact guard assistance as patient completes activity. Assistance may be provided throughout the activity or intermittently. 3-Partial/Moderate Assistance-helper does LESS THAN HALF the effort. [place] lifts, holds or supports trunk or limbs, but provides less than half the effort. 2-Substantial/Maximal Assistance-helper does MORE THAN HALF the effort. [place] lifts or holds trunk or limbs and provides more than half the effort. 2-Fhizojqvm-xsnmqe does ALL the effort. Patient does none of the effort to complete the activity. Or, the assistance of 2 or more helpers is required for the patient to complete the activity. If activity was not attempted, code reason: 7-Patient Refused. 9-Not Applicable-not attempted and the patient did not perform the activity before the current illness, exacerbation or injury. 10-Not Attempted due to Environmental Limitations-(lack of equipment, weather restraints, etc.). 88-Not Attempted due to Medical Conditions or Safety Concerns. Eating (QC): 6 Oral Hygiene (QC): 6 Shower/Bathe Self (QC): 2 Upper Body Dressing (QC): 5 Lower Body Dressing (QC): 3 On/Off Footwear: 5 Toileting Hygiene (QC): 1 Other Treatment Co-treat with PT ([id number]), skills of 2 clinicians required for skilled instruction and care due to pt's increased pain level, decreased activity tolerance and inconsistency of mobility. PT focusing on transfers, ambulation and B LE strengthening while OT focusing on ADLs, B UE placement during mobility and B UE strengthening. Pt was able to go from supine to EOB using bed rails by self. Sat EOB to complete upper body bathing, assist for buttocks and lower body. CGA to transfer from EOB to w/c. Independent with eating and oral care. Pt transported to therapy gym in w/. Pt stood at parallel bars with CGA for safety then was able to ambulate 2x's the length of parallel bars before pt stated that he was fatigued and the pain was beginning. Then he was not able to push or use parallel bars to stand again. Pt was taken back to room then was able to stand with encouragement to work through the fatigue and pain. Pt transferred from w/c to recliner using FWW with CGA. See PT notes for ambulation and transfer progress. Pt's breakfast in room and tray placed in front of pt. Call light/phone in reach. All needs met in room. OT Detention Goals Detention Goals Time Frame: Jul 08, 2020 Eating (QC): 6 Oral Hygiene (QC): 6 Toileting Hygiene (QC): 4 Shower/Bathe Self (QC): 5 Upper Body Dressing (QC): 6 Lower Body Dressing (QC): 4 On/Off Footwear (QC): 6 Additional Goals: 1-Demonstrate ADL Tasks, 2-Verbalize Understanding, 3- ImproveStrength/Aby 1=Demonstrate adherence to instructed precautions during ADL tasks. 2=Patient will verbalize/demonstrate understanding of assistive devices/modifications for ADL. 3=Patient will improve strength/tolerance for activity to enable patient to perform ADL's. OT Education/Plan Problem List/Assessment Assessment: Decreased Activ Tolerance, Decreased Safety Aware, Decreased UE Strength, Impaired Self-Care Skills Discharge Recommendations Plan/Recommendations: Continue POC Treatment Plan/Plan of Care Patient would benefit from OT for education, treatment and training to promote independence in ADL's, mobility, safety and/or upper extremity function for ADL's. Plan of Care: ADL Retraining, Caregiver Training, Concurrent Therapy, Functional Mobility, Group Exercise/Act as Ind, Orthotic Fitting/Training, UE Funct Exercise/Act, W/C Management Training Treatment Duration: Jul 08, 2020 Frequency: At least 5 of 7 days/Wk (IRF) Estimated Hrs Per Day: 1.5 hours per day Agreement: Yes Rehab Potential: Good Time/GCodes Start Time: 07:30 Stop Time: 09:00 Total Time Billed (hr/min): 90 Billed Treatment Time 1 visit-ADL 2 (30 min) FA 4 (60 min) co-treat with PT [id number], individual [id number] ROBERT MCDONOUGH Jul 06, 2020 08:59
--- NOTE | 2020-07-06 09:02 | Physical Therapy Daily Note ---
PT Daily Note-Current Subjective Pt. agrees to PT OT co Rx, states he is perplexed by why he had such a horrible day yesterday and today he feels so much better and stronger. Pt. eventually c/o pain in back at 7-8/10 Pain Numeric Pain Scale: 7 Location: Medial Location Body Site: Back Pain Description: Pressure Mental Status Patient Orientation: Person, Place, Time, Situation Attachments: Other-See Comments (aspen brace, mask while out of room) Transfers SCALE: Activities may be completed with or without assistive devices. 4-Badonxwopg-vepbiiq completes the activity by him/herself with no assistance from a helper. 5-Set-up or Clean-up Assistance-helper sets up or cleans up; patient completes activity. [place] assists only prior to or following the activity. 4-Supervision or Touching Assistance-helper provides verbal cues and/or touching/steadying and/or contact guard assistance as patient completes activity. Assistance may be provided throughout the activity or intermittently. 3-Partial/Moderate Assistance-helper does LESS THAN HALF the effort. [place] lifts, holds or supports trunk or limbs, but provides less than half the effort. 2-Substantial/Maximal Assistance-helper does MORE THAN HALF the effort. [place] lifts or holds trunk or limbs and provides more than half the effort. 2-Looiczrag-mxguhp does ALL the effort. Patient does none of the effort to complete the activity. Or, the assistance of 2 or more helpers is required for the patient to complete the activity. If activity was not attempted, code reason: 7-Patient Refused. 9-Not Applicable-not attempted and the patient did not perform the activity before the current illness, exacerbation or injury. 10-Not Attempted due to Environmental Limitations-(lack of equipment, weather restraints, etc.). 88-Not Attempted due to Medical Conditions or Safety Concerns. Sit to Stand (QC): 3 Chair/Yxk-wa-Qnmca Xfer(QC): 3 pt. needs much instruction in sequence of TRF and positioning as well as encouragement to initiate. Pt. appears fearful and lets this influence him.. Weight Bearing Full Weight Bearing Full Weight Bearing Gait Training Does the Patient Walk?: Yes Gait Assistive Device: Parallel Bars 7-8 ft x 2 min to CGA and w/c behind, fatiguing and c/o increased pain quickly Wheelchair Training Does the Pt Use a Wheelchair?: Yes Wheel 50 ft with 2 turns (QC): 5 Type of Wheelchair: Manual needs instruction for manuevering and braking and positioning Exercises Seated Therapy Exercises: Ankle pumps, Sit to stand, Long arc quads, Hip flexion, Hip abd/add Seated Reps: 15 Assessment Current Status: Good Progress progress in sporadic, pt. seems to pull back from progress, perhaps fear, PT OT co Rx for coordination of ADLs and TRFs and w/c mob for safest most efficient Rx secondary to level of debility and inconsistency PT Short Term Goals Short Term Goals Time Frame: Jul 05, 2020 Roll Left & Right: 4 Sit to lyin Lying to sitting on side of be: 4 Sit to stand: 4 Chair/fxz-sy-dfqge transfer: 4 Toilet transfer: 4 Walk 10 feet: 4 Walk 50 feet with two turns: 4 PT Snf Goals Snf Goals PT Snf Goals Time Frame: Jul 22, 2020 Roll Left & Right (QC): 6 Sit to Lying (QC): 6 Lying-Sitting on Side/Bed(QC): 6 Sit to Stand (QC): 6 Chair/Vod-mc-Dyghv Xfer(QC): 6 Toilet Transfer (QC): 6 Car Transfer (QC): 6 Does the Patient Walk: Yes Walk 10 feet (QC): 6 Walk 50ft with 2 Turns (QC): 6 Walk 150 ft (QC): 6 Walking 10ft on Uneven Surface: 5 1 Step (curb) (QC): 4 4 Steps (QC): 9 12 Steps (QC): 9 Picking up an Object (QC): 88 Wheel 50 feet with 2 turns (QC: 9 Wheel 150 feet: 9 PT Plan Treatment/Plan Treatment Plan: Continue Plan of Care Treatment Plan: Bed Mobility, Education, Functional Activity Aby, Functional Strength, Group Therapy, Gait, Safety, Therapeutic Exercise, Transfers Treatment Duration: Jul 22, 2020 Frequency: At least 5 of 7 days/Wk (IRF) Estimated Hrs Per Day: 1.5 hours per day Patient and/or Family Agrees t: Yes Safety Risks/Education Patient Education: Gait Training, Transfer Techniques, Correct Positioning, W/C Management, Disease Process, Safety Issues Teaching Recipient: Patient Teaching Methods: Demonstration, Discussion Response to Teaching: Verbalize Understanding, Return Demonstration, Reinforcement Needed Time/GCodes Time In: 815 Time Out: 900 Total Billed Treatment Time: 45 Total Billed Treatment 1,FA15m,GT15m,EX15m TAINA MORAN HUMAN SERVICES INSTRUCTOR Jul 06, 2020 09:02
[2020-07-06] MEDS: fentaNYL PATCH 25 MCG (DURAGESIC) TD SCH (09:03)
[2020-07-06] MEDS: ACETAMINOPHEN 325 MG TABLET PO PRN (09:12)
--- NOTE | 2020-07-06 13:40 | Physical Therapy Daily Note ---
PT Daily Note-Current Subjective Pt. up in recliner, agrees to Rx. Pt. states his pain is a little better and explains that even though he has pain he also realizes he has some cognitive decline and worries that the pain medication could be contributing to what was already a concern for him regarding memory and cognition. Pain Numeric Pain Scale: 4 Location: Medial Location Body Site: Back Pain Description: Ache Mental Status Patient Orientation: Person, Place, Time, Situation Attachments: Other-See Comments (aspen brace) Transfers SCALE: Activities may be completed with or without assistive devices. 9-Zmgbibsdje-ruosqmy completes the activity by him/herself with no assistance from a helper. 5-Set-up or Clean-up Assistance-helper sets up or cleans up; patient completes activity. [place] assists only prior to or following the activity. 4-Supervision or Touching Assistance-helper provides verbal cues and/or touching/steadying and/or contact guard assistance as patient completes activity. Assistance may be provided throughout the activity or intermittently. 3-Partial/Moderate Assistance-helper does LESS THAN HALF the effort. [place] li fts, holds or supports trunk or limbs, but provides less than half the effort. 2-Substantial/Maximal Assistance-helper does MORE THAN HALF the effort. [place] lifts or holds trunk or limbs and provides more than half the effort. 4-Rotdydcxf-vgjcpl does ALL the effort. Patient does none of the effort to complete the activity. Or, the assistance of 2 or more helpers is required for the patient to complete the activity. If activity was not attempted, code reason: 7-Patient Refused. 9-Not Applicable-not attempted and the patient did not perform the activity before the current illness, exacerbation or injury. 10-Not Attempted due to Environmental Limitations-(lack of equipment, weather restraints, etc.). 88-Not Attempted due to Medical Conditions or Safety Concerns. Sit to Stand (QC): 4 Toilet Transfer (QC): 4 sit to stands x 3 and SPT chair to BSC all CGA with good technique Weight Bearing Full Weight Bearing Full Weight Bearing Exercises Supine Ex: Ankle pumps, Quad Set, Glut sets, Heel Slides, Scooting, Straight leg raise, Hip abd/add Supine Reps: 20 Seated Therapy Exercises: Ankle pumps, Sit to stand, Long arc quads, Hip flexion, Hip abd/add Seated Reps: 20 Assessment Current Status: Good Progress PT Short Term Goals Short Term Goals Time Frame: Jul 05, 2020 Roll Left & Right: 4 Sit to lyin Lying to sitting on side of be: 4 Sit to stand: 4 Chair/jrk-yg-soqnr transfer: 4 Toilet transfer: 4 Walk 10 feet: 4 Walk 50 feet with two turns: 4 PT [facility]ci Goals Channel Cementer Goals PT Channel Cementer Goals Time Frame: Jul 22, 2020 Roll Left & Right (QC): 6 Sit to Lying (QC): 6 Lying-Sitting on Side/Bed(QC): 6 Sit to Stand (QC): 6 Chair/Pmr-ju-Dhmry Xfer(QC): 6 Toilet Transfer (QC): 6 Car Transfer (QC): 6 Does the Patient Walk: Yes Walk 10 feet (QC): 6 Walk 50ft with 2 Turns (QC): 6 Walk 150 ft (QC): 6 Walking 10ft on Uneven Surface: 5 1 Step (curb) (QC): 4 4 Steps (QC): 9 12 Steps (QC): 9 Picking up an Object (QC): 88 Wheel 50 feet with 2 turns (QC: 9 Wheel 150 feet: 9 PT Plan Treatment/Plan Treatment Plan: Continue Plan of Care Treatment Plan: Bed Mobility, Education, Functional Activity Aby, Functional Strength, Group Therapy, Gait, Safety, Therapeutic Exercise, Transfers Treatment Duration: Jul 22, 2020 Frequency: At least 5 of 7 days/Wk (IRF) Estimated Hrs Per Day: 1.5 hours per day Patient and/or Family Agrees t: Yes Safety Risks/Education Patient Education: Transfer Techniques, Correct Positioning, Disease Process, Safety Issues Teaching Recipient: Patient Teaching Methods: Demonstration, Discussion Response to Teaching: Verbalize Understanding, Return Demonstration, Reinforcement Needed Time/GCodes Time In: 1300 Time Out: 1345 Total Billed Treatment Time: 45 Total Billed Treatment 1,FA25m,EX20m TAINA MORAN JUNIOR MECHANICAL ENGINEER Jul 06, 2020 13:40
[2020-07-06 17:42] VITALS: BP 142/64
[2020-07-06] MEDS: GABAPENTIN 600 MG (NEURONTIN) TAB PO SCH (17:52)
[2020-07-06] MEDS: TAMSULOSIN 0.4 MG (FLOMAX) CAP PO SCH (20:24)
[2020-07-06] MEDS: ROSUVASTATIN 5 MG (CRESTOR) TABLET PO SCH (20:24)
[2020-07-06] MEDS: LOSARTAN 100 MG (COZAAR) TABLET PO SCH (20:25)
[2020-07-06] MEDS: OLANZapine 5 MG ODT (ZyPREXA ZYDIS) PO SCH (20:25)
[2020-07-07] MEDS: ACETAMINOPHEN 500 MG TAB (TYLENOL) PO SCH ×4 (00:42→18:39)
[2020-07-07] MEDS: LEVOTHYROXINE 50 MCG (LEVOTHROID) TAB PO SCH (05:01)
[2020-07-07] MEDS: MULTIVIT W/MINERALS TAB (THERAGRAN M) PO SCH (05:01)
[2020-07-07 06:07] VITALS: BP 136/63
[2020-07-07] MEDS: DOCUSATE SODIUM 100 MG (COLACE) CAP PO SCH ×2 (08:26→21:21)
[2020-07-07] MEDS: polyethylene glycoL POWDER 17 GM (MIRALAX) PACK PO SCH ×2 (08:26→21:31)
[2020-07-07] MEDS: SENNA W/DOCUSATE (SENOKOT S) TABLET PO SCH ×2 (08:27→21:21)
[2020-07-07] MEDS: PANTOPRAZOLE 20 MG TABLET (PROTONIX) PO SCH (08:32)
[2020-07-07] MEDS: LACTOBACILLUS ACIDOPHILUS (PROBIOTIC) CAPSULE PO SCH ×2 (08:32→18:39)
[2020-07-07] MEDS: GABAPENTIN 300 MG (NEURONTIN) CAP PO SCH ×2 (08:32→12:06)
[2020-07-07] MEDS: DICLOFENAC 1% GEL 100 GM (VOLTAREN) TUBE TOP SCH ×4 (08:33→21:21)
--- NOTE | 2020-07-07 08:57 | Physical Therapy Daily Note ---
PT Daily Note-Current Subjective Patient in bed pre tx, agrees to PT, has unrated back pain, has already been working with OT. Will be co-treating with OT due to poor patient mobility, strength, endurance, coordinate UE and LE during activity, safety and reduce risk of falls. Appearance Patient in recliner post tx with nurse call, phone, tray, all needs met, legs elevated. Mental Status Patient Orientation: Person, Place, Situation back brace Transfers SCALE: Activities may be completed with or without assistive devices. 7-Ujfxjwwpiv-nfofmiq completes the activity by him/herself with no assistance from a helper. 5-Set-up or Clean-up Assistance-helper sets up or cleans up; patient completes activity. [place] assists only prior to or following the activity. 4-Supervision or Touching Assistance-helper provides verbal cues and/or touching/steadying and/or contact guard assistance as patient completes activity. Assistance may be provided throughout the activity or intermittently. 3-Partial/Moderate Assistance-helper does LESS THAN HALF the effort. [place] lifts, holds or supports trunk or limbs, but provides less than half the effort. 2-Substantial/Maximal Assistance-helper does MORE THAN HALF the effort. [place] lifts or holds trunk or limbs and provides more than half the effort. 1-Naxppverd-zujjks does ALL the effort. Patient does none of the effort to complete the activity. Or, the assistance of 2 or more helpers is required for the patient to complete the activity. If activity was not attempted, code reason: 7-Patient Refused. 9-Not Applicable-not attempted and the patient did not perform the activity before the current illness, exacerbation or injury. 10-Not Attempted due to Environmental Limitations-(lack of equipment, weather restraints, etc.). 88-Not Attempted due to Medical Conditions or Safety Concerns. Roll Left & Right (QC): 6 Sit to Lying (QC): 3 Lying to Sitting/Side of Bed(Q: 6 Sit to Stand (QC): 3 Chair/Iho-wd-Enxdf Xfer(QC): 3 Patient sits on the side of the bed and finishes bathing and dressing. Patient stands once to clean bottom, gets dizzy, BP is 101/60, has to lay down, sits back up for a while when he feels better, BP is about the same, finishes getting his underwear on, has to lay back down, sits back up when he feels better, transfers to WC using rolling walker with min assist. Weight Bearing Full Weight Bearing Full Weight Bearing Gait Training Distance: 15', 10' Walk 10 feet (QC): 4 Gait Persons Needed: 1 Gait Assistive Device: FWW WC follow, slow, wide RADHA Wheelchair Training Does the Pt Use a Wheelchair?: Yes Wheel 50 ft with 2 turns (QC): 4 Type of Wheelchair: Manual 120'x2 Treatments PT performed bed mobility and transfers, standing and positioning during bathing and dressing, ambulation, WC mobility, OT performed bathing and dressing, UE positioning and safety during activity. Assessment Current Status: Poor Progress Patient has started ambulating short distances with a rolling walker but overall his progress has been extremely slow and complicated by patient motivation PT Short Term Goals Short Term Goals Time Frame: Jul 05, 2020 Roll Left & Right: 4 Sit to lyin Lying to sitting on side of be: 4 Sit to stand: 4 Chair/sat-pr-rxncj transfer: 4 Toilet transfer: 4 Walk 10 feet: 4 Walk 50 feet with two turns: 4 PT Care Home Goals Grease Buffer Goals PT Care Home Goals Time Frame: Jul 22, 2020 Roll Left & Right (QC): 6 Sit to Lying (QC): 6 Lying-Sitting on Side/Bed(QC): 6 Sit to Stand (QC): 6 Chair/Lrc-bn-Tvedu Xfer(QC): 6 Toilet Transfer (QC): 6 Car Transfer (QC): 6 Does the Patient Walk: Yes Walk 10 feet (QC): 6 Walk 50ft with 2 Turns (QC): 6 Walk 150 ft (QC): 6 Walking 10ft on Uneven Surface: 5 1 Step (curb) (QC): 4 4 Steps (QC): 9 12 Steps (QC): 9 Picking up an Object (QC): 88 Wheel 50 feet with 2 turns (QC: 9 Wheel 150 feet: 9 PT Plan Problem List Problem List: Activity Tolerance, Functional Strength, Safety, Balance, Gait, Transfer, Bed Mobility, ROM Treatment/Plan Treatment Plan: Continue Plan of Care Treatment Plan: Bed Mobility, Education, Functional Activity Ayb, Functional Strength, Group Therapy, Gait, Safety, Therapeutic Exercise, Transfers Treatment Duration: Jul 22, 2020 Frequency: At least 5 of 7 days/Wk (IRF) Estimated Hrs Per Day: 1.5 hours per day Patient and/or Family Agrees t: Yes Safety Risks/Education Patient Education: Gait Training, Transfer Techniques, Correct Positioning, W/C Management, Safety Issues Teaching Recipient: Patient Teaching Methods: Demonstration, Discussion Response to Teaching: Reinforcement Needed Time/GCodes Time In: 0800 Time Out: 0900 Total Billed Treatment Time: 60 Total Billed Treatment 1 visit FA 60' co-treated for 60' JAYLYN VARGAS PT Jul 07, 2020 08:57
--- NOTE | 2020-07-07 09:00 | Occupational Ther Daily Note ---
OT Current Status-Daily Note Subjective Pt alert, lying in bed. Pt agrees to therapy. No c/o pain initially then c/o pain did not rate at low back area. Mental Status/Objective Patient Orientation: Person, Place, Time, Situation ADL-Treatment Co-treat with PT ([id number]), skills of 2 clinicians required for skilled instruction and care due to pt's increased pain level, decreased activity tolerance and inconsistency of mobility. PT focusing on transfers, ambulation and B LE strengthening while OT focusing on ADLs, B UE placement during mobility and B UE strengthening. Pt was able to go from supine to EOB 4x's using bed rails by self. Sat EOB to complete upper body bathing, assist for buttocks. Pt given long handle sponge to bathe lower legs/feet. Pt donned shirt and socks by self after set up. Min A to thread pants over feet then pt began to feel dizzy and laid back down in bed where he hiked pants over head. Pt c/o dizziness multiple times during therapy and requested to lay back down in bed. BP taken 101/60. CGA to transfer from EOB to w/c. Pt transported to therapy gym in w/c. Therapy Code Descriptions/Definitions Functional [place] Measure: 0=Not Assessed/NA 4=Minimal Assistance 1=Total Assistance 5=Supervision or Setup 2=Maximal Assistance 6=Modified [place] 3=Moderate Assistance 7=Complete IndependenceSCALE: Activities may be completed with or without assistive devices. 6-Ssmkzaansg-ehmfxbg completes the activity by him/herself with no assistance from a helper. 5-Set-up or Clean-up Assistance-helper sets up or cleans up; patient completes activity. [place] assists only prior to or following the activity. 4-Supervision or Touching Assistance-helper provides verbal cues and/or touching/steadying and/or contact guard assistance as patient completes activity. Assistance may be provided throughout the activity or intermittently. 3-Partial/Moderate Assistance-helper does LESS THAN HALF the effort. [place] lifts, holds or supports trunk or limbs, but provides less than half the effort. 2-Substantial/Maximal Assistance-helper does MORE THAN HALF the effort. [place] lifts or holds trunk or limbs and provides more than half the effort. 1-Hpeqrswrw-tdtora does ALL the effort. Patient does none of the effort to complete the activity. Or, the assistance of 2 or more helpers is required for the patient to complete the activity. If activity was not attempted, code reason: 7-Patient Refused. 9-Not Applicable-not attempted and the patient did not perform the activity before the current illness, exacerbation or injury. 10-Not Attempted due to Environmental Limitations-(lack of equipment, weather restraints, etc.). 88-Not Attempted due to Medical Conditions or Safety Concerns. Shower/Bathe Self (QC): 3 Upper Body Dressing (QC): 5 Lower Body Dressing (QC): 3 On/Off Footwear: 5 Pt requires multiple recovery breaks due to dizziness, self limiting behaviors and decreased activity tolerance. Other Treatment See PT notes for ambulation progress. Pt transferred back to recliner with CGA. Pt made comfortable in recliner. Call light/phone in reach. Nrsg in room. OT [place] Goals [facility] Goals Time Frame: Jul 08, 2020 Eating (QC): 6 Oral Hygiene (QC): 6 Toileting Hygiene (QC): 4 Shower/Bathe Self (QC): 5 Upper Body Dressing (QC): 6 Lower Body Dressing (QC): 4 On/Off Footwear (QC): 6 Additional Goals: 1-Demonstrate ADL Tasks, 2-Verbalize Understanding, 3-ImproveStrength/Aby 1=Demonstrate adherence to instructed precautions during ADL tasks. 2=Patient will verbalize/demonstrate understanding of assistive devices/modifications for ADL. 3=Patient will improve strength/tolerance for activity to enable patient to perform ADL's. OT Education/Plan Problem List/Assessment Assessment: Decreased Activ Tolerance, Decreased UE Strength, Impaired Funct Balance, Impaired Self-Care Skills Discharge Recommendations Plan/Recommendations: Continue POC Treatment Plan/Plan of Care Patient would benefit from OT for education, treatment and training to promote independence in ADL's, mobility, safety and/or upper extremity function for ADL' s. Plan of Care: ADL Retraining, Caregiver Training, Concurrent Therapy, Functional Mobility, Group Exercise/Act as Ind, Orthotic Fitting/Training, UE Funct Exercise/Act, W/C Management Training Treatment Duration: Jul 08, 2020 Frequency: At least 5 of 7 days/Wk (IRF) Estimated Hrs Per Day: 1.5 hours per day Agreement: Yes Rehab Potential: Good Time/GCodes Start Time: 07:30 Stop Time: 09:00 Total Time Billed (hr/min): 90 Billed Treatment Time 1 visit-ADL 3 (45 min) FA 3 (45 min) ROBERT MCDONOUGH Jul 07, 2020 09:00
--- NOTE | 2020-07-07 11:36 | Physical Therapy Daily Note ---
PT Daily Note-Current Subjective Patient in bed pre tx, agrees to PT, has 7/10 pain in back and he says he has already had pain meds. Appearance Patient in bed post tx with nurse call, phone, tray, all needs met. Mental Status Patient Orientation: Person, Place, Situation Transfers SCALE: Activities may be completed with or without assistive devices. 9-Sijwabnjtw-esczdsw completes the activity by him/herself with no assistance from a helper. 5-Set-up or Clean-up Assistance-helper sets up or cleans up; patient completes activity. [place] assists only prior to or following the activity. 4-Supervision or Touching Assistance-helper provides verbal cues and/or touching/steadying and/or contact guard assistance as patient completes activity. Assistance may be provided throughout the activity or intermittently. 3-Partial/Moderate Assistance-helper does LESS THAN HALF the effort. [place] lifts, holds or supports trunk or limbs, but provides less than half the effort. 2-Substantial/Maximal Assistance-helper does MORE THAN HALF the effort. [place] lifts or holds trunk or limbs and provides more than half the effort. 9-Wbfpshbmr-szwkuk does ALL the effort. Patient does none of the effort to complete the activity. Or, the assistance of 2 or more helpers is required for the patient to complete the activity. If activity was not attempted, code reason: 7-Patient Refused. 9-Not Applicable-not attempted and the patient did not perform the activity before the current illness, exacerbation or injury. 10-Not Attempted due to Environmental Limitations-(lack of equipment, weather restraints, etc.). 88-Not Attempted due to Medical Conditions or Safety Concerns. Weight Bearing Full Weight Bearing Full Weight Bearing Exercises Supine Ex: Ankle pumps, Quad Set, Glut sets, Heel Slides, Short Arc Quads, Straight leg raise (AAROM), Hip abd/add Supine Reps: 20 Treatments LE exercise Assessment Current Status: Fair Progress improving LE strength but patient still needed several rest breaks due to fatigue and pain PT Short Term Goals Short Term Goals Time Frame: Jul 05, 2020 Roll Left & Right: 4 Sit to lyin Lying to sitting on side of be: 4 Sit to stand: 4 Chair/htg-ms-aojaw transfer: 4 Toilet transfer: 4 Walk 10 feet: 4 Walk 50 feet with two turns: 4 PT Nuclear Officer Goals Nuclear Officer Goals PT Shelter Goals Time Frame: Jul 22, 2020 Roll Left & Right (QC): 6 Sit to Lying (QC): 6 Lying-Sitting on Side/Bed(QC): 6 Sit to Stand (QC): 6 Chair/Tfn-yj-Rshud Xfer(QC): 6 Toilet Transfer (QC): 6 Car Transfer (QC): 6 Does the Patient Walk: Yes Walk 10 feet (QC): 6 Walk 50ft with 2 Turns (QC): 6 Walk 150 ft (QC): 6 Walking 10ft on Uneven Surface: 5 1 Step (curb) (QC): 4 4 Steps (QC): 9 12 Steps (QC): 9 Picking up an Object (QC): 88 Wheel 50 feet with 2 turns (QC: 9 Wheel 150 feet: 9 PT Plan Problem List Problem List: Activity Tolerance, Functional Strength, Safety, Balance, Gait, Transfer, Bed Mobility, ROM Treatment/Plan Treatment Plan: Continue Plan of Care Treatment Plan: Bed Mobility, Education, Functional Activity Aby, Functional Strength, Group Therapy, Gait, Safety, Therapeutic Exercise, Transfers Treatment Duration: Jul 22, 2020 Frequency: At least 5 of 7 days/Wk (IRF) Estimated Hrs Per Day: 1.5 hours per day Patient and/or Family Agrees t: Yes Safety Risks/Education Patient Education: Correct Positioning, Safety Issues Teaching Recipient: Patient Teaching Methods: Demonstration, Discussion Response to Teaching: Reinforcement Needed Time/GCodes Time In: 1120 Time Out: 1150 Total Billed Treatment Time: 30 Total Billed Treatment 1 visit EX 30' JAYLYN VARGAS PT Jul 07, 2020 11:36
--- NOTE | 2020-07-07 12:05 | PM&R Progress Note ---
Subjective HPI/CC On Admission Date Seen by Provider: Jul 07, 2020 Time Seen by Provider: 11:30 Subjective/Events-last exam 07/07/20: Pt needs some additional pain medication changes and I went ahead and restarted the Hydrocodone and if it makes him confused I will remove it Somewhat inappropriate at times 07/06/20: Pt moving a lot better but not consistent Appears to not want to go to the [facility] Threw his dinner tray on the floor after I talked to him about going to a [facility] so he did get irate Bowels are moving Dressing is really good 07/05/20: Pt having a little bit of orthostasis Laid in bed most of the day today Preparing for transfer to [facility] Updated over the phone regarding the plan for NH Updated patient on the fact he needed to go to a NH 07/04/20: Bowels moved on a bed pain Tramadol was given for pain No confusion Cant sit 07/03/20: Had a bad afternoon yesterday Steroid injection did not help at all No confusion noted Monitoring pain when seated Difficult to follow thought process since he has severe pain and talks about it constantly then he asked me if he really needed Fentanyl patch?? 07/02/20: Patient doing very well Cognition seems to be improved Trial of Solumedrol 80mg IM will be given today Monitor for confusion from steroids 07/01/20: Family training today appears very disappointed with his progress although I had called her 4 times since admit to tell her he had cognition issues affecting his performance very petite and cannot even push him in a wheelchair Likely nursing facility for slower recovery will be required very irritated with his lack of progress and return of good function 06/30/20: Pt much improved mentation Was able to stand on parallel bars with assistance Slow progress Didnt mention pain all day and then he reported to the nurse and the nurse did not realize his mentation has been causing a focus on pain Pt had not complained of pain at all for hours Bowels are moving 06/29/20: Pt having significant dry mouth Seroquel will be discontinued to help that Zyprexa at night will be maintained Pt still complaining of more and more pain, I did confer with Dr. Stark which the pain is out of proportion for the type of surgery and type of disease he has of the spine, so although his mentation is improved, I doubt we will be able to cross over the threshold to improve his status 06/28/20: Ultram and Tylenol working pretty well Much improved mentation Has his eyes open today Gabapentin will be increased back to his home dosing gradually Updated Dr. Stark 06/27/20: Pt still pretty confused No Haldol or Ativan required Changing dressing daily Zyprexa at night seems to be helpful Keeps his eyes closed most of the time but does open them when we try to get him to open his eyes Updated Dr. Stark 06/26/20: Confusion varies Zyprexa helped him sleep Seroquel in evening has also helped Talked about his pain and told him we will continue to support him in pain meds but he needs to move around BM large last night Ate bfast Dry mouth reported 06/25/20: Confusion last night was significant Pain out of proportion to the number of days he is out of post op is related to his cognitive deficits Hgb 9.4 Ultram and Tylenol given for pain No BM yet Impulsive Oxycodone made him very confused at [place] Seroquel 12.5 will be given now and 25mg in evening and Zyprexa 5mg at night Spoke to in-depth for 15 minutes on the phone since I knew her from [place] and it is now apparent he has cognition deficits so will try to improve and clear the delirium with antipsychotics Kept his eyes closed similar to the dementia 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 in senior unit at [facility] Review of Systems General: Fatigue Objective Exam Vital Signs Vital Signs Date Time Temp Pulse Resp B/P (MAP) Pulse Ox O2 Delivery O2 Flow Rate FiO2 07/07/20 20:30 97 Room Air 07/07/20 18:00 36.5 82 18 136/60 (85) Capillary Refill : General Appearance: No Apparent Distress, WD/WN, Chronically ill HEENT: PERRL/EOMI, Normal ENT Inspection, Pharynx Normal Neck: Full Range of Motion, Normal Inspection, Non Tender, Supple, Carotid Bruit Respiratory: Chest Non Tender, Lungs Clear, Normal Breath Sounds, No Accessory Muscle Use, No Respiratory Distress Cardiovascular: Regular Rate, Rhythm, No Edema, No Gallop, No JVD, No Murmur, Normal Peripheral Pulses Gastrointestinal: Normal Bowel Sounds, No Organomegaly, No Pulsatile Mass, Non Tender, Soft Back: Normal Inspection, Decreased Range of Motion, Muscle Spasm, Vertebral T enderness Extremity: Normal Capillary Refill, Normal Inspection, Normal Range of Motion, Non Tender, No Calf Tenderness, No Pedal Edema Neurologic/Psychiatric: Alert, Oriented x3, No Motor/Sensory Deficits, Normal Mood/Affect, Abnormal Gait, Disoriented, Motor Weakness (bilateral legs) Skin: Normal Color, Warm/Dry Lymphatic: No Adenopathy Results/Procedures Lab Patient resulted labs reviewed. FIM Transfers Therapy Code Descriptions/Definitions Functional [place] Measure: 0=Not Assessed/NA 4=Minimal Assistance 1=Total Assistance 5=Supervision or Setup 2=Maximal Assistance 6=Modified [place] 3=Moderate Assistance 7=Complete IndependenceSCALE: Activities may be completed with or without assistive devices. 3-Xmlmacfddl-drbwlhf completes the activity by him/herself with no assistance from a helper. 5-Set-up or Clean-up Assistance-helper sets up or cleans up; patient completes activity. [place] assists only prior to or following the activity. 4-Supervision or Touching Assistance-helper provides verbal cues and/or touching/steadying and/or contact guard assistance as patient completes activity. Assistance may be provided throughout the activity or intermittently. 3-Partial/Moderate Assistance-helper does LESS THAN HALF the effort. [place] lifts, holds or supports trunk or limbs, but provides less than half the effort. 2-Substantial/Maximal Assistance-helper does MORE THAN HALF the effort. [place] lifts or holds trunk or limbs and provides more than half the effort. 5-Pmiemnjib-lvhakk does ALL the effort. Patient does none of the effort to complete the activity. Or, the assistance of 2 or more helpers is required for the patient to complete the activity. If activity was not attempted, code reason: 7-Patient Refused. 9-Not Applicable-not attempted and the patient did not perform the activity before the current illness, exacerbation or injury. 10-Not Attempted due to Environmental Limitations-(lack of equipment, weather restraints, etc.). 88-Not Attempted due to Medical Conditions or Safety Concerns. Roll Left to Right (QC): 6 Sit to Lying (QC): 3 Sit to Stand (QC): 3 Chair/Wxv-pt-Kcujw Xfer(QC): 3 Car Transfer (QC): 88 (unsafe/unable to attempt due to limited transfer status. ) Gait Training Distance: 15', 10' Walk 10 feet (QC): 4 Walk 50 ft with 2 Turns(QC): 88 Walk 150 ft (QC): 88 Walking 10ft/uneven surface-QC: 88 Gait Persons Needed: 1 Gait Assistive Device: FWW Wheelchair Training Does the Pt Use a Wheelchair?: Yes Wheel 50 ft with 2 turns (QC): 4 Wheel 150 ft (QC): 9 Type of Wheelchair: Manual Stair Training 1 Step (curb) (QC): 88 4 Steps (QC): 9 12 Steps (QC): 9 Balance Picking up an Object (QC): 88 (back precautions forbid this) ADL-Treatment Eating (QC): 6 Oral Hygiene (QC): 6 Bathing Location: L Arm, R Arm, Abdomen Shower/Bathe Self (QC): 3 Upper Body Dressing (QC): 5 Lower Body Dressing (QC): 3 On/Off Footwear (QC): 5 Toileting Hygiene (QC): 1 Toilet Transfer (QC): 1 Assessment/Plan Assessment and Plan Assess & Plan/Chief Complaint Assessment: s/p lumbar spine surgery for stenosis now with slow recovery and severe pain Cognitive deficits contributing to slow recovery and severe pain out of proportion of expected HTN HLP BETTY Obesity Prostate cancer hx Constipation Plan: BM regimen IRF protocol Pain meds Monitor confusion Limit pain meds due to confusion 06/25/20: Monitor confusion Dementia noted after speaking to and the interaction I had with the patient in [place] Antipsychotics 06/26/20: Anti-psychotics Monitor delirium Pain management PT OT 06/27/20: Antipsychotics Monitor closely Monitor BP 06/28/20: Improved mentation Monitor BP Pain management 06/29/20: Monitor pain Improved cognition Pain out of proportion and extended longer than expected for type of surgery per Dr Stark 06/30/20: Monitor pain Fentanyl patch Improved cognition 07/01/20: Inquire with Dr Stark about steroids as has requested Patient improved cognition Slow progress 07/02/20: Slow progress Trial steroids for pain Monitor increase confusion with steroids 07/03/20: Steroids had no effect on pain Fentanyl patch 07/04/20: Monitor pain Cognition improved Pain is a major issue 07/05/20: Needs NHP Change of pain meds will not resolve his issue of inability to walk and will cause delirium 07/06/20: Inconsistent performance with therapy Monitor progress DC [place] either to home if able or NH 07/07/20: Monitor pain Hydrocodone trial (1) Spinal stenosis, lumbar region with neurogenic claudication (2) Prostate cancer (3) Obesity (4) Hypertension (5) Cognitive deficits (6) BETTY on CPAP (7) Hyperlipemia ERIC LUTHER DO Jul 07, 2020 12:04
[2020-07-07 18:00] VITALS: BP 136/60
[2020-07-07] MEDS: HYDROcodone/APAP 5 MG/325 MG (LORTAB) TAB PO PRN (18:39)
[2020-07-07] MEDS: GABAPENTIN 600 MG (NEURONTIN) TAB PO SCH (18:39)
[2020-07-07] MEDS: ROSUVASTATIN 5 MG (CRESTOR) TABLET PO SCH (21:20)
[2020-07-07] MEDS: OLANZapine 5 MG ODT (ZyPREXA ZYDIS) PO SCH (21:20)
[2020-07-07] MEDS: TAMSULOSIN 0.4 MG (FLOMAX) CAP PO SCH (21:20)
[2020-07-07] MEDS: LOSARTAN 100 MG (COZAAR) TABLET PO SCH (21:20)
[2020-07-08] MEDS: ACETAMINOPHEN 500 MG TAB (TYLENOL) PO SCH ×5 (00:27→23:25)
[2020-07-08] MEDS: LEVOTHYROXINE 50 MCG (LEVOTHROID) TAB PO SCH (05:55)
[2020-07-08] MEDS: MULTIVIT W/MINERALS TAB (THERAGRAN M) PO SCH (05:55)
[2020-07-08 06:00] VITALS: BP 105/68
--- NOTE | 2020-07-08 08:54 | Occupational Ther Daily Note ---
OT Current Status-Daily Note Subjective Pt alert, lying in bed. Pt agrees to therapy. Pt rated pain initially at 5/10 stating that was his normal and did not want pain meds, 15 min later after ambulation pt stated that he was hurting more and needed pain meds, reported to nrsg. Pt had syncope episode, 102/43,92/48. Nrsg in room. Pt recovered and able to resume therapy. Mental Status/Objective Patient Orientation: Person, Place, Time, Situation Attachments: Other-See Comments (back brace) ADL-Treatment Pt declined ADLs. Pt stated that he was having BM and is not able to wait to use BSC. Assist x2 to place bedpan and take off to cleanse, 2x's. Therapy Code Descriptions/Definitions Functional [place] Measure: 0=Not Assessed/NA 4=Minimal Assistance 1=Total Assistance 5=Supervision or Setup 2=Maximal Assistance 6=Modified [place] 3=Moderate Assistance 7=Complete IndependenceSCALE: Activities may be completed with or without assistive devices. 4-Bhvfabvyad-bjejmls completes the activity by him/herself with no assistance from a helper. 5-Set-up or Clean-up Assistance-helper sets up or cleans up; patient completes activity. [place] assists only prior to or following the activity. 4-Supervision or Touching Assistance-helper provides verbal cues and/or touching/steadying and/or contact guard assistance as patient completes activity. Assistance may be provided throughout the activity or intermittently. 3-Partial/Moderate Assistance-helper does LESS THAN HALF the effort. [place] lifts, holds or supports trunk or limbs, but provides less than half the effort. 2-Substantial/Maximal Assistance-helper does MORE THAN HALF the effort. [place] lifts or holds trunk or limbs and provides more than half the effort. 0-Ebyyakfch-aedsdz does ALL the effort. Patient does none of the effort to complete the activity. Or, the assistance of 2 or more helpers is required for the patient to complete the activity. If activity was not attempted, code reason: 7-Patient Refused. 9-Not Applicable-not attempted and the patient did not perform the activity before the current illness, exacerbation or injury. 10-Not Attempted due to Environmental Limitations-(lack of equipment, weather restraints, etc.). 88-Not Attempted due to Medical Conditions or Safety Concerns. Other Treatment Co-treat with PT ([id number]), skills of 2 clinicians required for skilled instruction and care due to pt's increased pain level, decreased activity tolerance and inconsistency of mobility. PT focusing on transfers, ambulation and B LE strengthening while OT focusing on ADLs, B UE placement during mobility and B UE strengthening. Pt was able to go from supine to EOB using bed rails by self. Assist to thread pants over feet then pt able to hike in supine. When pt stood to transfer to w/c, pt stated that he needed the BSC. As pt was standing after attempting to use commode, pt had syncope episode, nrsg called. Pt's BP taken then transferred back to bed and taken again. Pt able to recover from episode and agree to continue therapy. See PT note for ambulation progress. After therapy, pt requested to lay back in bed. Call light/phone in reach. All needs met in room. Nrsg alerted of pt wanting pain meds. OT Or First Assist Registered Nurse Goals Or First Assist Registered Nurse Goals Time Frame: Jul 08, 2020 Eating (QC): 6 Oral Hygiene (QC): 6 Toileting Hygiene (QC): 4 Shower/Bathe Self (QC): 5 Upper Body Dressing (QC): 6 Lower Body Dressing (QC): 4 On/Off Footwear (QC): 6 Additional Goals: 1-Demonstrate ADL Tasks, 2-Verbalize Understanding, 3- ImproveStrength/Aby 1=Demonstrate adherence to instructed precautions during ADL tasks. 2=Patient will verbalize/demonstrate understanding of assistive devices/modifications for ADL. 3=Patient will improve strength/tolerance for activity to enable patient to perform ADL's. OT Education/Plan Problem List/Assessment Assessment: Decreased Activ Tolerance, Impaired Self-Care Skills Discharge Recommendations Plan/Recommendations: Continue POC Treatment Plan/Plan of Care Patient would benefit from OT for education, treatment and training to promote independence in ADL's, mobility, safety and/or upper extremity function for ADL's. Plan of Care: ADL Retraining, Caregiver Training, Concurrent Therapy, Functional Mobility, Group Exercise/Act as Ind, Orthotic Fitting/Training, UE Funct Exercise/Act, W/C Management Training Treatment Duration: Jul 08, 2020 Frequency: At least 5 of 7 days/Wk (IRF) Estimated Hrs Per Day: 1.5 hours per day Agreement: Yes Rehab Potential: Good Time/GCodes Start Time: 07:30 Stop Time: 09:00 Total Time Billed (hr/min): 90 Billed Treatment Time 1 visit-ADL 3 (45 min) FA 3 (45 min) co-treat with PT [id number], individual [id number] ROBERT MCDONOUGH Jul 08, 2020 08:54
[2020-07-08] MEDS: LACTOBACILLUS ACIDOPHILUS (PROBIOTIC) CAPSULE PO SCH ×2 (08:55→17:01)
[2020-07-08] MEDS: GABAPENTIN 300 MG (NEURONTIN) CAP PO SCH ×2 (08:55→14:01)
[2020-07-08] MEDS: PANTOPRAZOLE 20 MG TABLET (PROTONIX) PO SCH (08:56)
[2020-07-08] MEDS: DICLOFENAC 1% GEL 100 GM (VOLTAREN) TUBE TOP SCH ×4 (08:56→20:31)
[2020-07-08] MEDS: HYDROcodone/APAP 5 MG/325 MG (LORTAB) TAB PO PRN ×2 (08:56→17:52)
--- NOTE | 2020-07-08 08:58 | Physical Therapy Daily Note ---
PT Daily Note-Current Subjective Patient in bed pre tx, agrees to PT, has 5/10 back pain, nurse aware of pain, will be co-treating with OT due to poor patient mobility, strength, endurance, coordinate UE and LE with activity, severe pain with activity, safety and reduce risk of falls. Appearance Patient in bed post tx with nurse call, phone, tray, all needs met. Mental Status Patient Orientation: Person, Place, Situation back brace Transfers SCALE: Activities may be completed with or without assistive devices. 5-Lzcjvrxjkc-mapxgin completes the activity by him/herself with no assistance from a helper. 5-Set-up or Clean-up Assistance-helper sets up or cleans up; patient completes activity. [place] assists only prior to or following the activity. 4-Supervision or Touching Assistance-helper provides verbal cues and/or touching/steadying and/or contact guard assistance as patient completes activity. Assistance may be provided throughout the activity or intermittently. 3-Partial/Moderate Assistance-helper does LESS THAN HALF the effort. [place] lifts, holds or supports trunk or limbs, but provides less than half the effort. 2-Substantial/Maximal Assistance-helper does MORE THAN HALF the effort. [place] lifts or holds trunk or limbs and provides more than half the effort. 9-Bubzvksln-oaxoeb does ALL the effort. Patient does none of the effort to complete the activity. Or, the assistance of 2 or more helpers is required for the patient to complete the activity. If activity was not attempted, code reason: 7-Patient Refused. 9-Not Applicable-not attempted and the patient did not perform the activity before the current illness, exacerbation or injury. 10-Not Attempted due to Environmental Limitations-(lack of equipment, weather restraints, etc.). 88-Not Attempted due to Medical Conditions or Safety Concerns. Roll Left & Right (QC): 6 Sit to Lying (QC): 3 Lying to Sitting/Side of Bed(Q: 4 Sit to Stand (QC): 3 Chair/Vcv-kr-Xsrev Xfer(QC): 4 Toilet Transfer (QC): 4 Patient performs supine to sit with SBA, sit to stand with min assist and transfers to commode, then stand to clean and patient has a syncopal episode. His HR is 110 and O2 is 97% but BP is 102/43. He gets back to bed and BP is taken again and is 92/48. After a while he is feeling better and he performs supine to sit and then stands and transfers to WC and is taken to therapy gym. After getting back to his room he doesn't want to get into recliner so he transfers to the bed and lays down. Weight Bearing Full Weight Bearing Full Weight Bearing Gait Training Distance: 15', 20' Walk 10 feet (QC): 4 Gait Assistive Device: FWW CGA, much smoother steps, patient states he cannot do any more after two bouts of ambulation Wheelchair Training Does the Pt Use a Wheelchair?: Yes Type of Wheelchair: Manual 30', SBA, patient states he cannot do any more Treatments PT performed bed mobility and transfers, ambulation, WC mobility, OT performed toileting, dressing, UE positioning and safety during activity Assessment Current Status: Fair Progress Patient seems to perform much better if he can just get into the WC immediately from bed, if he has to use the commode (which is often), he ends up having syncopal episodes. PT Short Term Goals Short Term Goals Time Frame: Jul 05, 2020 Roll Left & Right: 4 Sit to lyin Lying to sitting on side of be: 4 Sit to stand: 4 Chair/mzn-yi-hbpud transfer: 4 Toilet transfer: 4 Walk 10 feet: 4 Walk 50 feet with two turns: 4 PT Acoustical Tile Patternmaker Goals Mcfp Goals PT Acoustical Tile Patternmaker Goals Time Frame: Jul 22, 2020 Roll Left & Right (QC): 6 Sit to Lying (QC): 6 Lying-Sitting on Side/Bed(QC): 6 Sit to Stand (QC): 6 Chair/Nzk-yw-Zmean Xfer(QC): 6 Toilet Transfer (QC): 6 Car Transfer (QC): 6 Does the Patient Walk: Yes Walk 10 feet (QC): 6 Walk 50ft with 2 Turns (QC): 6 Walk 150 ft (QC): 6 Walking 10ft on Uneven Surface: 5 1 Step (curb) (QC): 4 4 Steps (QC): 9 12 Steps (QC): 9 Picking up an Object (QC): 88 Wheel 50 feet with 2 turns (QC: 9 Wheel 150 feet: 9 PT Plan Problem List Problem List: Activity Tolerance, Functional Strength, Safety, Balance, Gait, Transfer, Bed Mobility, ROM Treatment/Plan Treatment Plan: Continue Plan of Care Treatment Plan: Bed Mobility, Education, Functional Activity Aby, Functional Strength, Group Therapy, Gait, Safety, Therapeutic Exercise, Transfers Treatment Duration: Jul 22, 2020 Frequency: At least 5 of 7 days/Wk (IRF) Estimated Hrs Per Day: 1.5 hours per day Patient and/or Family Agrees t: Yes Safety Risks/Education Patient Education: Gait Training, Transfer Techniques, Correct Positioning, W/C Management, Reviewed Don/Doff Brace, Safety Issues Teaching Recipient: Patient Teaching Methods: Demonstration, Discussion Response to Teaching: Reinforcement Needed Time/GCodes Time In: 0800 Time Out: 0900 Total Billed Treatment Time: 60 Total Billed Treatment 1 visit FA 60' co-treated with OT for 60' JAYLYN VARGAS PT Jul 08, 2020 08:58
[2020-07-08] MEDS: DOCUSATE SODIUM 100 MG (COLACE) CAP PO SCH ×2 (09:00→21:00)
[2020-07-08] MEDS: polyethylene glycoL POWDER 17 GM (MIRALAX) PACK PO SCH ×2 (09:00→21:00)
[2020-07-08] MEDS: SENNA W/DOCUSATE (SENOKOT S) TABLET PO SCH ×2 (09:00→21:00)
--- NOTE | 2020-07-08 10:21 | NUR ---
CM/SS PATIENT CARE CONFERENCE and DISCHARGE PLANNING Visited with patient 07/07/20 regarding team recommendation for bridge placement to snf environment to maximize patient probability of returning home as before. Patient was in agreement with target discharge of July 12, and stated his preference facility to be [facility]. Referral initiated today with admissions clinician/Kevin. From verbal presentation, anticipate acceptance; faxed clinical information and await their team review and confirmation. Followup Saturday.
--- NOTE | 2020-07-08 11:57 | Physical Therapy Daily Note ---
PT Daily Note-Current Subjective Patient in bed pre tx, agrees to PT, has unrated back pain. Appearance Patient in recliner post tx with nurse call,phone, tray, all needs met. Mental Status Patient Orientation: Person, Place, Situation back brace Transfers SCALE: Activities may be completed with or without assistive devices. 0-Redqtotoci-sdkhzyy completes the activity by him/herself with no assistance from a helper. 5-Set-up or Clean-up Assistance-helper sets up or cleans up; patient completes activity. Gary assists only prior to or following the activity. 4-Supervision or Touching Assistance-helper provides verbal cues and/or to uching/steadying and/or contact guard assistance as patient completes activity. Assistance may be provided throughout the activity or intermittently. 3-Partial/Moderate Assistance-helper does LESS THAN HALF the effort. Gary lifts, holds or supports trunk or limbs, but provides less than half the effort. 2-Substantial/Maximal Assistance-helper does MORE THAN HALF the effort. Gary lifts or holds trunk or limbs and provides more than half the effort. 7-Wmprnypbf-nvvwgm does ALL the effort. Patient does none of the effort to complete the activity. Or, the assistance of 2 or more helpers is required for the patient to complete the activity. If activity was not attempted, code reason: 7-Patient Refused. 9-Not Applicable-not attempted and the patient did not perform the activity before the current illness, exacerbation or injury. 10-Not Attempted due to Environmental Limitations-(lack of equipment, weather restraints, etc.). 88-Not Attempted due to Medical Conditions or Safety Concerns. Roll Left & Right (QC): 6 Lying to Sitting/Side of Bed(Q: 6 Sit to Stand (QC): 4 Chair/Lyx-oy-Tnygc Xfer(QC): 4 Weight Bearing Full Weight Bearing Full Weight Bearing Gait Training Distance: 5' Gait Persons Needed: 1 Gait Assistive Device: FWW CGA Exercises Supine Ex: Quad Set, Glut sets, Heel Slides, Short Arc Quads, Hip abd/add Supine Reps: 20 (Done in recliner with legs elevated.) Seated Therapy Exercises: Ankle pumps, Long arc quads, Hip flexion Seated Reps: 20 Treatments bed mobility and transfers, ambulation, LE exercise Assessment Current Status: Fair Progress Patient did not have syncopal episode after sitting, performed sit to stand and ambulated to recliner fairly easily PT Short Term Goals Short Term Goals Time Frame: Jul 05, 2020 Roll Left & Right: 4 Sit to lyin Lying to sitting on side of be: 4 Sit to stand: 4 Chair/hcz-cs-ymzcl transfer: 4 Toilet transfer: 4 Walk 10 feet: 4 Walk 50 feet with two turns: 4 PT Trade Show Coordinator Goals Detention Goals PT Detention Goals Time Frame: Jul 22, 2020 Roll Left & Right (QC): 6 Sit to Lying (QC): 6 Lying-Sitting on Side/Bed(QC): 6 Sit to Stand (QC): 6 Chair/Eqt-mq-Oimpb Xfer(QC): 6 Toilet Transfer (QC): 6 Car Transfer (QC): 6 Does the Patient Walk: Yes Walk 10 feet (QC): 6 Walk 50ft with 2 Turns (QC): 6 Walk 150 ft (QC): 6 Walking 10ft on Uneven Surface: 5 1 Step (curb) (QC): 4 4 Steps (QC): 9 12 Steps (QC): 9 Picking up an Object (QC): 88 Wheel 50 feet with 2 turns (QC: 9 Wheel 150 feet: 9 PT Plan Problem List Problem List: Activity Tolerance, Functional Strength, Safety, Balance, Gait, Transfer, Bed Mobility, ROM Treatment/Plan Treatment Plan: Continue Plan of Care Treatment Plan: Bed Mobility, Education, Functional Activity Aby, Functional Strength, Group Therapy, Gait, Safety, Therapeutic Exercise, Transfers Treatment Duration: Jul 22, 2020 Frequency: At least 5 of 7 days/Wk (IRF) Estimated Hrs Per Day: 1.5 hours per day Patient and/or Family Agrees t: Yes Safety Risks/Education Patient Education: Gait Training, Transfer Techniques, Correct Positioning, Reviewed Don/Doff Brace, Safety Issues Teaching Recipient: Patient Teaching Methods: Demonstration, Discussion Response to Teaching: Reinforcement Needed Time/GCodes Time In: 1130 Time Out: 1200 Total Billed Treatment Time: 30 Total Billed Treatment 1 visit FA 15' EX 15' JAYLYN VARGAS PT Jul 08, 2020 11:57
--- NOTE | 2020-07-08 12:33 | Consultation-Cardiology ---
HPI-Cardiology Cardiology Consultation Date of Consultation 07/08/20 Date of Admission Time Seen by Provider: 12:29 Indication: syncope HPI 79 years old gentleman with history of hypertension, hyperlipidemia, had lumbar surgery, has been having waxing and waning blood pressure, reported to have syncopal episode this morning. It occurred when he stood up from sitting position. He does not recall the event. Reporting feeling tired and falling asleep in the chair and doesn't recall falling asleep but did not recall the event of syncope. Denied any previous history of syncope. No chest pain. No palpitation. Home Medications & Allergies Allergies: Coded Allergies: Iodine and Iodide Containing Produc (Verified Allergy, Unknown, 06/24/20) morphine (Verified Allergy, Unknown, 06/24/20) Home Medication List Reviewed: Yes AWZ-Hirjdd-Dbnpoq Hx Patient Social History Marital Status: Employed/Student: retired ([employer] 39 yrs) Smoking Status: Never a Smoker Have you traveled recently?: No Alcohol Use?: No Immunizations Up To Date Date of Influenza Vaccine: Mar 21, 2020 Past Medical History Discussed below Family Medical History Family Medical Hx Noncontributory Review of Systems-General Review of Systems Constitutional: see HPI, malaise, weakness EENTM: see HPI, no symptoms reported Respiratory: no symptoms reported, see HPI Cardiovascular: see HPI; No chest pain, No edema, No Hx of Intervention, No palpitations; syncope; No vascular heart diseas, No other Gastrointestinal: no symptoms reported, see HPI, constipation Genitourinary: no symptoms reported, see HPI Musculoskeletal: see HPI, back pain, joint pain, muscle stiffness, muscle weakness Skin: see HPI Psychiatric/Neurological: See HPI, Other (memory loss?) Reviewed Test Results Reviewed Test Results Lab Laboratory Tests Test 07/08/20 08:20 Range/Units Glucometer 120 H 70-110 MG/DL Physical Exam Physical Exam Vital Signs Vital Signs - First Documented 07/02/20 05:04 Temp 36.3 Pulse 80 Resp 16 B/P (MAP) 136/62 (86) Pulse Ox 95 O2 Delivery Room Air Capillary Refill : Height, Weight, BMI Height: '" Weight: lbs. oz. kg; 38.87 BMI Method: General Appearance: No Apparent Distress, WD/WN, Chronically ill Eyes: Bilateral Eye Normal Inspection, Bilateral Eye PERRL HEENT: PERRL/EOMI, Normal ENT Inspection, Pharynx Normal Neck: Full Range of Motion, Normal Inspection, Non Tender, Supple, Carotid Bruit Respiratory: Chest Non Tender, Lungs Clear, Normal Breath Sounds, No Accessory Muscle Use, No Respiratory Distress Cardiovascular: Regular Rate, Rhythm, No Edema, No Gallop, No JVD, No Murmur, Normal Peripheral Pulses Gastrointestinal: Normal Bowel Sounds, No Organomegaly, No Pulsatile Mass, Non Tender, Soft Back: Normal Inspection, Decreased Range of Motion, Muscle Spasm, Vertebral Tenderness Extremity: Normal Capillary Refill, Normal Inspection, Normal Range of Motion, Non Tender, No Calf Tenderness, No Pedal Edema Neurologic/Psychiatric: Alert, Oriented x3, No Motor/Sensory Deficits, Normal Mood/Affect, Abnormal Gait, Disoriented, Motor Weakness (bilateral legs) Skin: Normal Color, Warm/Dry Lymphatic: No Adenopathy A/P-Cardiology Admission Diagnosis Syncope Lumbar stenosis Acute renal insufficiency Hypertension Assessment/Plan Syncope, probably hypotensive episode, patient appeared to be moderately hypotensive, he is on multiple blood pressure medication. I will continue with Toprol-XL 25 mg in the evening, discontinue losartan, has been on as needed Lasix, does not recall using it recently. I will stop the Lasix and the potassium supplement and monitor his blood pressure tolerance and response Acute renal insufficiency, worsening renal function, probably secondary to medication and dehydration. I instructed him to increase fluid intake. Discontinue losartan and monitor tolerance and response. Generalized weakness, debility, receiving physical therapy. History of lumbar spine stenosis, status post lumbar surgery with severe pain, multiple medication. Recovering slowly. Cognitive deficit contributing to the slow recovery, managed by Dr. Freeman History of hypertension, currently borderline hypotensive. I am adjusting his blood pressure medication will monitor his tolerance and response Hyperlipidemia, monitor lipids Obesity, BMI 39. Continue with physical therapy. Obstructive sleep apnea, managed by primary care physician History of prostate cancer. Maintained on tamsulosin Clinical Quality Measures DVT/VTE Risk/Contraindication: Contraindications-Pharm: Other *list below* Other: spinal hematoma risk RENATA MATTHEWS MD Jul 08, 2020 12:33
--- NOTE | 2020-07-08 13:14 | PM&R Progress Note ---
Subjective HPI/CC On Admission Date Seen by Provider: Jul 08, 2020 Time Seen by Provider: 12:45 Subjective/Events-last exam 07/08/20: Syncopal episode again when he stood up Cardiology consulted Holding some BP meds Monitoring closely 07/07/20: Pt needs some additional pain medication changes and I went ahead and restarted the Hydrocodone and if it makes him confused I will remove it Somewhat inappropriate at times 07/06/20: Pt moving a lot better but not consistent Appears to not want to go to the snf Threw his dinner tray on the floor after I talked to him about going to a snf so he did get irate Bowels are moving Dressing is really good 07/05/20: Pt having a little bit of orthostasis Laid in bed most of the day today Preparing for transfer to snf Updated over the phone regarding the plan for NH Updated patient on the fact he needed to go to a NH 07/04/20: Bowels moved on a bed pain Tramadol was given for pain No confusion Cant sit 07/03/20: Had a bad afternoon yesterday Steroid injection did not help at all No confusion noted Monitoring pain when seated Difficult to follow thought process since he has severe pain and talks about it constantly then he asked me if he really needed Fentanyl patch?? 07/02/20: Patient doing very well Cognition seems to be improved Trial of Solumedrol 80mg IM will be given today Monitor for confusion from steroids 07/01/20: Family training today appears very disappointed with his progress although I had called her 4 times since admit to tell her he had cognition issues affecting his performance very petite and cannot even push him in a wheelchair Likely nursing facility for slower recovery will be required very irritated with his lack of progress and return of good function 06/30/20: Pt much improved mentation Was able to stand on parallel bars with assistance Slow progress Didnt mention pain all day and then he reported to the nurse and the nurse did not realize his mentation has been causing a focus on pain Pt had not complained of pain at all for hours Bowels are moving 06/29/20: Pt having significant dry mouth Seroquel will be discontinued to help that Zyprexa at night will be maintained Pt still complaining of more and more pain, I did confer with Dr. Stark which the pain is out of proportion for the type of surgery and type of disease he has of the spine, so although his mentation is improved, I doubt we will be able to cross over the threshold to improve his status 06/28/20: Ultram and Tylenol working pretty well Much improved mentation Has his eyes open today Gabapentin will be increased back to his home dosing gradually Updated Dr. Stark 06/27/20: Pt still pretty confused No Haldol or Ativan required Changing dressing daily Zyprexa at night seems to be helpful Keeps his eyes closed most of the time but does open them when we try to get him to open his eyes Updated Dr. Stark 06/26/20: Confusion varies Zyprexa helped him sleep Seroquel in evening has also helped Talked about his pain and told him we will continue to support him in pain meds but he needs to move around BM large last night Ate bfast Dry mouth reported 06/25/20: Confusion last night was significant Pain out of proportion to the number of days he is out of post op is related to his cognitive deficits Hgb 9.4 Ultram and Tylenol given for pain No BM yet Impulsive Oxycodone made him very confused at [place] Seroquel 12.5 will be given now and 25mg in evening and Zyprexa 5mg at night Spoke to in-depth for 15 minutes on the phone since I knew her from [place] and it is now apparent he has cognition deficits so will try to improve and clear the delirium with antipsychotics Kept his eyes closed similar to the dementia 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 in senior unit at [facility] [place] Review of Systems General: Fatigue, Malaise Musculoskeletal: back pain Objective Exam Vital Signs Vital Signs Date Time Temp Pulse Resp B/P (MAP) Pulse Ox O2 Delivery O2 Flow Rate FiO2 07/09/20 05:26 36.2 76 18 140/60 (86) 94 Room Air Capillary Refill : General Appearance: No Apparent Distress, WD/WN, Chronically ill HEENT: PERRL/EOMI, Normal ENT Inspection, Pharynx Normal Neck: Full Range of Motion, Normal Inspection, Non Tender, Supple, Carotid Bruit Respiratory: Chest Non Tender, Lungs Clear, Normal Breath Sounds, No Accessory Muscle Use, No Respiratory Distress Cardiovascular: Regular Rate, Rhythm, No Edema, No Gallop, No JVD, No Murmur, Normal Peripheral Pulses Gastrointestinal: Normal Bowel Sounds, No Organomegaly, No Pulsatile Mass, Non Tender, Soft Back: Normal Inspection, Decreased Range of Motion, Muscle Spasm, Vertebral Tenderness Extremity: Normal Capillary Refill, Normal Inspection, Normal Range of Motion, Non Tender, No Calf Tenderness, No Pedal Edema Neurologic/Psychiatric: Alert, Oriented x3, No Motor/Sensory Deficits, Normal Mood/Affect, Abnormal Gait, Disoriented, Motor Weakness (bilateral legs) Skin: Normal Color, Warm/Dry Lymphatic: No Adenopathy Results/Procedures Lab Laboratory Tests 07/09/20 05:05 Patient resulted labs reviewed. FIM Transfers Therapy Code Descriptions/Definitions Functional [place] Measure: 0=Not Assessed/NA 4=Minimal Assistance 1=Total Assistance 5=Supervision or Setup 2=Maximal Assistance 6=Modified [place] 3=Moderate Assistance 7=Complete IndependenceSCALE: Activities may be completed with or without assistive devices. 2-Lcinduwutx-txifbdn completes the activity by him/herself with no assistance from a helper. 5-Set-up or Clean-up Assistance-helper sets up or cleans up; patient completes activity. [place] assists only prior to or following the activity. 4-Supervision or Touching Assistance-helper provides verbal cues and/or touching/steadying and/or contact guard assistance as patient completes activity. Assistance may be provided throughout the activity or intermittently. 3-Partial/Moderate Assistance-helper does LESS THAN HALF the effort. [place] lifts, holds or supports trunk or limbs, but provides less than half the effort. 2-Substantial/Maximal Assistance-helper does MORE THAN HALF the effort. [place] lifts or holds trunk or limbs and provides more than half the effort. 9-Wclkdqpwu-ibqwkz does ALL the effort. Patient does none of the effort to complete the activity. Or, the assistance of 2 or more helpers is required for the patient to complete the activity. If activity was not attempted, code reason: 7-Patient Refused. 9-Not Applicable-not attempted and the patient did not perform the activity before the current illness, exacerbation or injury. 10-Not Attempted due to Environmental Limitations-(lack of equipment, weather restraints, etc.). 88-Not Attempted due to Medical Conditions or Safety Concerns. Roll Left to Right (QC): 6 Sit to Lying (QC): 3 Sit to Stand (QC): 4 Chair/Pdr-mb-Fmguw Xfer(QC): 4 Car Transfer (QC): 88 (unsafe/unable to attempt due to limited transfer status. ) Gait Training Distance: 5' Walk 10 feet (QC): 4 Walk 50 ft with 2 Turns(QC): 88 Walk 150 ft (QC): 88 Walking 10ft/uneven surface-QC: 88 Gait Persons Needed: 1 Gait Assistive Device: FWW Wheelchair Training Does the Pt Use a Wheelchair?: Yes Wheel 50 ft with 2 turns (QC): 4 Wheel 150 ft (QC): 9 Type of Wheelchair: Manual Stair Training 1 Step (curb) (QC): 88 4 Steps (QC): 9 12 Steps (QC): 9 Balance Picking up an Object (QC): 88 (back precautions forbid this) ADL-Treatment Eating (QC): 6 Oral Hygiene (QC): 6 Bathing Location: L Arm, R Arm, Abdomen Shower/Bathe Self (QC): 3 Upper Body Dressing (QC): 5 Lower Body Dressing (QC): 3 On/Off Footwear (QC): 5 Toileting Hygiene (QC): 1 Toilet Transfer (QC): 1 Assessment/Plan Assessment and Plan Assess & Plan/Chief Complaint Assessment: s/p lumbar spine surgery for stenosis now with slow recovery and severe pain Cognitive deficits contributing to slow recovery and severe pain out of proportion of expected HTN HLP BETTY Obesity Prostate cancer hx Constipation Syncopal episodes prompting Cardiology consult 07/08/20 Plan: BM regimen IRF protocol Pain meds Monitor confusion Limit pain meds due to confusion 06/25/20: Monitor confusion Dementia noted after speaking to and the interaction I had with the patient in [place] Antipsychotics 06/26/20: Anti-psychotics Monitor delirium Pain management PT OT 06/27/20: Antipsychotics Monitor closely Monitor BP 06/28/20: Improved mentation Monitor BP Pain management 06/29/20: Monitor pain Improved cognition Pain out of proportion and extended longer than expected for type of surgery per Dr Stark 06/30/20: Monitor pain Fentanyl patch Improved cognition 07/01/20: Inquire with Dr Stark about steroids as has requested Patient improved cognition Slow progress 07/02/20: Slow progress Trial steroids for pain Monitor increase confusion with steroids 07/03/20: Steroids had no effect on pain Fentanyl patch 07/04/20: Monitor pain Cognition improved Pain is a major issue 07/05/20: Needs NHP Change of pain meds will not resolve his issue of inability to walk and will cause delirium 07/06/20: Inconsistent performance with therapy Monitor progress DC Saturday either to home if able or NH 07/07/20: Monitor pain Hydrocodone trial 07/08/20: Syncopal episode consulting Cards Hydrocodone does not seem to be causing confusion (1) Spinal stenosis, lumbar region with neurogenic claudication (2) Prostate cancer (3) Obesity (4) Hypertension (5) Cognitive deficits (6) BETTY on CPAP (7) Hyperlipemia ERIC LUTHER DO Jul 08, 2020 13:14
[2020-07-08 16:20] VITALS: BP 142/58
[2020-07-08] MEDS: GABAPENTIN 600 MG (NEURONTIN) TAB PO SCH (17:01)
[2020-07-08] MEDS: ROSUVASTATIN 5 MG (CRESTOR) TABLET PO SCH (20:31)
[2020-07-08] MEDS: OLANZapine 5 MG ODT (ZyPREXA ZYDIS) PO SCH (20:31)
[2020-07-08] MEDS: ALPRAZolam 0.25 MG (XANAX) TAB PO PRN (20:32)
[2020-07-08] MEDS: TAMSULOSIN 0.4 MG (FLOMAX) CAP PO SCH (20:32)
[2020-07-09] MEDS: HYDROcodone/APAP 5 MG/325 MG (LORTAB) TAB PO PRN ×3 (04:36→21:34)
[2020-07-09 05:26] VITALS: BP 140/60
[2020-07-09 05:44] LABS: HEMOGLOBIN 9.3 g/dL (13.3-17.7); MEAN PLATELET VOLUME 9.3 fL (9.0-12.2); WHITE BLOOD COUNT 4.2 10^3/uL (4.3-11.0)
[2020-07-09 06:10] LABS: CHLORIDE 103 MMOL/L (98-107); POTASSIUM 4.7 MMOL/L (3.6-5.0); SODIUM 138 MMOL/L (135-145)
[2020-07-09 06:11] LABS: CALCIUM 8.6 MG/DL (8.5-10.1)
[2020-07-09 06:12] LABS: GLUCOSE 100 MG/DL (70-105); TOTAL PROTEIN 4.8 GM/DL (6.4-8.2)
[2020-07-09 06:13] LABS: CARBON DIOXIDE 24 MMOL/L (21-32)
[2020-07-09 06:14] LABS: BILIRUBIN,TOTAL 0.6 MG/DL (0.1-1.0)
[2020-07-09 06:15] LABS: ALKALINE PHOSPHATASE 115 U/L (40-136)
[2020-07-09 06:16] LABS: CREATININE SERUM 1.11 MG/DL (0.60-1.30); GFR ESTIMATED > 60
[2020-07-09 06:17] LABS: BUN/CREATININE RATIO 18
[2020-07-09] MEDS: MULTIVIT W/MINERALS TAB (THERAGRAN M) PO SCH (06:17)
[2020-07-09] MEDS: LEVOTHYROXINE 50 MCG (LEVOTHROID) TAB PO SCH (06:17)
[2020-07-09] MEDS: ACETAMINOPHEN 500 MG TAB (TYLENOL) PO SCH ×3 (06:17→17:37)
[2020-07-09 06:19] LABS: ALANINE AMINOTRANSFERASE 16 U/L (0-55)
[2020-07-09] MEDS: fentaNYL PATCH 25 MCG (DURAGESIC) TD SCH (09:00)
[2020-07-09] MEDS: FENTANYL PATCH REMOVAL TP SCH (09:00)
[2020-07-09] MEDS: PANTOPRAZOLE 20 MG TABLET (PROTONIX) PO SCH (09:40)
[2020-07-09] MEDS: GABAPENTIN 300 MG (NEURONTIN) CAP PO SCH ×2 (09:40→12:09)
[2020-07-09] MEDS: LACTOBACILLUS ACIDOPHILUS (PROBIOTIC) CAPSULE PO SCH ×2 (09:40→17:37)
[2020-07-09] MEDS: DOCUSATE SODIUM 100 MG (COLACE) CAP PO SCH ×2 (09:41→21:00)
[2020-07-09] MEDS: polyethylene glycoL POWDER 17 GM (MIRALAX) PACK PO SCH ×2 (09:41→21:00)
[2020-07-09] MEDS: SENNA W/DOCUSATE (SENOKOT S) TABLET PO SCH ×2 (09:42→21:00)
[2020-07-09] MEDS: DICLOFENAC 1% GEL 100 GM (VOLTAREN) TUBE TOP SCH ×4 (09:42→20:17)
--- NOTE | 2020-07-09 10:30 | Cardiology Progress Note ---
Subjective Date Seen by Provider: Jul 09, 2020 Time Seen by Provider: 10:28 Subjective/Events-last exam Patient was seen at bedside sitting comfortably, was able to exercise today without dizzy spells or syncope Review of Systems General: No Chills, No Night Sweats; Fatigue; No Malaise, No Appetite, No Other HEENT: No Head Aches, No Visual Changes, No Eye Pain, No Ear Pain, No Dysphasia, No Sinus Congestion, No Post Nasal Drip, No Sore Throat, No Other Pulmonary: No Dyspnea, No Cough, No Pleuritic Chest Pain, No Other Cardiovascular: No: Chest Pain, Palpitations, Orthopnea, Paroxysmal Noc. Dyspnea, Edema, Lt Headedness, Other Objective-Cardiology Exam Last Set of Vital Signs Vital Signs 07/09/20 07/09/20 05:26 09:00 Temp 36.2 Pulse 76 Resp 18 B/P (MAP) 140/60 (86) Pulse Ox 94 O2 Delivery Room Air Capillary Refill : I&O Intake and Output 07/09/20 00:00 Intake Total 1370 ml Output Total 1470 ml Balance -100 ml Intake Oral 1370 ml Output Urine Total 1470 ml General: Alert, Oriented X3, Cooperative HEENT: Atraumatic, PERRLA Neck: Supple, No JVD, No Thyromegaly Lungs: Clear to Auscultation, Normal Air Movement Heart: Regular Rate, Normal S1, Normal S2, Other (systolic murmur) Abdomen: Normal Bowel Sounds, Soft, No Tenderness, No Hepatosplenomegaly, No Masses Extremities: No Clubbing, No Cyanosis, No Edema, Normal Pulses, No Tenderness/Swelling Skin: No Rashes, No Breakdown, No Significant Lesion Neuro: Normal Speech, Normal Tone, Sensation Intact Psych/Mental Status: Mental Status NL, Mood NL Results Lab Laboratory Tests 07/09/20 05:05 A/P-Cardiology Admission Diagnosis Syncope Lumbar stenosis Acute renal insufficiency Hypertension Assessment/Plan Syncope, probably hypotensive episode, eating better after adjusting his medication, blood pressure is mildly elevated. Continue to monitor Acute renal insufficiency, worsening renal function, probably secondary to medication and dehydration. I instructed him to increase fluid intake. Discontinue losartan and monitor tolerance and response. Generalized weakness, debility, receiving physical therapy. History of lumbar spine stenosis, status post lumbar surgery with severe pain, multiple medication. Recovering slowly. Cognitive deficit contributing to the slow recovery, managed by Dr. Freeman History of hypertension, currently borderline hypotensive. I am adjusting his blood pressure medication will monitor his tolerance and response Hyperlipidemia, monitor lipids Obesity, BMI 39. Continue with physical therapy. Obstructive sleep apnea, managed by primary care physician History of prostate cancer. Maintained on tamsulosin Clinical Quality Measures DVT/VTE Risk/Contraindication: Contraindications-Pharm: Other *list below* Other: spinal hematoma risk RENATA MATTHEWS MD Jul 09, 2020 10:30
--- NOTE | 2020-07-09 12:02 | Physical Therapy Daily Note ---
PT Daily Note-Current Subjective Pt denied pain. Pt agreeable to PT. Mental Status Patient Orientation: Person, Place, Situation Transfers SCALE: Activities may be completed with or without assistive devices. 1-Ziwrrkmbpl-wurwwbc completes the activity by him/herself with no assistance from a helper. 5-Set-up or Clean-up Assistance-helper sets up or cleans up; patient completes activity. [place] assists only prior to or following the activity. 4-Supervision or Touching Assistance-helper provides verbal cues and/or touching/steadying and/or contact guard assistance as patient completes activity. Assistance may be provided throughout the activity or intermittently. 3-Partial/Moderate Assistance-helper does LESS THAN HALF the effort. [place] lifts, holds or supports trunk or limbs, but provides less than half the effort. 2-Substantial/Maximal Assistance-helper does MORE THAN HALF the effort. [place] lifts or holds trunk or limbs and provides more than half the effort. 1-Ekpwtpjue-jlxncf does ALL the effort. Patient does none of the effort to complete the activity. Or, the assistance of 2 or more helpers is required for the patient to complete the activity. If activity was not attempted, code reason: 7-Patient Refused. 9-Not Applicable-not attempted and the patient did not perform the activity before the current illness, exacerbation or injury. 10-Not Attempted due to Environmental Limitations-(lack of equipment, weather restraints, etc.). 88-Not Attempted due to Medical Conditions or Safety Concerns. Weight Bearing Full Weight Bearing Full Weight Bearing Treatments Ther ex: AP, QS, heel slide, SAQ, hip abd x 15 ea. Transfer to EOB mod A. Pt had difficulty with sitting balance EOB. Donned back brace with min A. Donned shorts and shirt with mod A. Pt transferred to w/c SPT. Pt amb in hallway with FWW and f/u of w/c 1 x 50', 1 x 65'. Pt back to recliner with call light and all needs met. Assessment Current Status: Excellent Progress Pt amb at good speed, steady balance and did not show signs of fatigue. Pt noted back pain increased "a little" with ambulation. Otherwise, good tolerance for therapy. PT Short Term Goals Short Term Goals Time Frame: Jul 05, 2020 Roll Left & Right: 4 Sit to lyin Lying to sitting on side of be: 4 Sit to stand: 4 Chair/vsi-ue-sgjat transfer: 4 Toilet transfer: 4 Walk 10 feet: 4 Walk 50 feet with two turns: 4 PT Dry Heat Cabinet Attendant Goals Senior Living Goals PT Senior Living Goals Time Frame: Jul 22, 2020 Roll Left & Right (QC): 6 Sit to Lying (QC): 6 Lying-Sitting on Side/Bed(QC): 6 Sit to Stand (QC): 6 Chair/Kvg-om-Flrod Xfer(QC): 6 Toilet Transfer (QC): 6 Car Transfer (QC): 6 Does the Patient Walk: Yes Walk 10 feet (QC): 6 Walk 50ft with 2 Turns (QC): 6 Walk 150 ft (QC): 6 Walking 10ft on Uneven Surface: 5 1 Step (curb) (QC): 4 4 Steps (QC): 9 12 Steps (QC): 9 Picking up an Object (QC): 88 Wheel 50 feet with 2 turns (QC: 9 Wheel 150 feet: 9 PT Plan Treatment/Plan Treatment Plan: Continue Plan of Care Treatment Plan: Bed Mobility, Education, Functional Activity Aby, Functional Strength, Group Therapy, Gait, Safety, Therapeutic Exercise, Transfers Treatment Duration: Jul 22, 2020 Frequency: At least 5 of 7 days/Wk (IRF) Estimated Hrs Per Day: 1.5 hours per day Patient and/or Family Agrees t: Yes Time/GCodes Time In: 930 Time Out: 955 Total Billed Treatment Time: 25 Total Billed Treatment 1, gait 15', ther ex 10' LEANDER PICKERING CPTDonna Jul 09, 2020 12:02
--- NOTE | 2020-07-09 12:30 | NUR ---
PATIENT REQUESTING TO HOLD OFF ON FENTANYL PATCH AND TRY PRN LORTAB INSTEAD. DR. LUTHER OKAY WITH THIS PLAN. DID SO WELL AMBULATING IN [place] THIS MORNING AND PATIENT PROUD OF HIMSELF.
--- NOTE | 2020-07-09 12:33 | PM&R Progress Note ---
Subjective HPI/CC On Admission Date Seen by Provider: Jul 09, 2020 Time Seen by Provider: 12:45 Subjective/Events-last exam 07/09/20: Walked 50 feet today Can't sit in chair due to back pain recurs DC Fentanyl patch today his request Hydrocodone helpful and has not caused confusion Transfers are improved 07/08/20: Syncopal episode again when he stood up Cardiology consulted Holding some BP meds Monitoring closely 07/07/20: Pt needs some additional pain medication changes and I went ahead and restarted the Hydrocodone and if it makes him confused I will remove it Somewhat inappropriate at times 07/06/20: Pt moving a lot better but not consistent Appears to not want to go to the longterm Threw his dinner tray on the floor after I talked to him about going to a longterm so he did get irate Bowels are moving Dressing is really good 07/05/20: Pt having a little bit of orthostasis Laid in bed most of the day today Preparing for transfer to longterm Updated over the phone regarding the plan for NH Updated patient on the fact he needed to go to a NH 07/04/20: Bowels moved on a bed pain Tramadol was given for pain No confusion Cant sit 07/03/20: Had a bad afternoon yesterday Steroid injection did not help at all No confusion noted Monitoring pain when seated Difficult to follow thought process since he has severe pain and talks about it constantly then he asked me if he really needed Fentanyl patch?? 07/02/20: Patient doing very well Cognition seems to be improved Trial of Solumedrol 80mg IM will be given today Monitor for confusion from steroids 07/01/20: Family training today appears very disappointed with his progress although I had called her 4 ti mes since admit to tell her he had cognition issues affecting his performance very petite and cannot even push him in a wheelchair Likely nursing facility for slower recovery will be required very irritated with his lack of progress and return of good function 06/30/20: Pt much improved mentation Was able to stand on parallel bars with assistance Slow progress Didnt mention pain all day and then he reported to the nurse and the nurse did not realize his mentation has been causing a focus on pain Pt had not complained of pain at all for hours Bowels are moving 06/29/20: Pt having significant dry mouth Seroquel will be discontinued to help that Zyprexa at night will be maintained Pt still complaining of more and more pain, I did confer with Dr. Stark which the pain is out of proportion for the type of surgery and type of disease he has of the spine, so although his mentation is improved, I doubt we will be able to cross over the threshold to improve his status 06/28/20: Ultram and Tylenol working pretty well Much improved mentation Has his eyes open today Gabapentin will be increased back to his home dosing gradually Updated Dr. Stark 06/27/20: Pt still pretty confused No Haldol or Ativan required Changing dressing daily Zyprexa at night seems to be helpful Keeps his eyes closed most of the time but does open them when we try to get him to open his eyes Updated Dr. Stark 06/26/20: Confusion varies Zyprexa helped him sleep Seroquel in evening has also helped Talked about his pain and told him we will continue to support him in pain meds but he needs to move around BM large last night Ate bfast Dry mouth reported 06/25/20: Confusion last night was significant Pain out of proportion to the number of days he is out of post op is related to his cognitive deficits Hgb 9.4 Ultram and Tylenol given for pain No BM yet Impulsive Oxycodone made him very confused at [place] Seroquel 12.5 will be given now and 25mg in evening and Zyprexa 5mg at night Spoke to in-depth for 15 minutes on the phone since I knew her from [place] and it is now apparent he has cognition deficits so will try to improve and clear the delirium with antipsychotics Kept his eyes closed similar to the dementia 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 in senior [place] [facility] Review of Systems Musculoskeletal: back pain Objective Exam Vital Signs Vital Signs Date Time Temp Pulse Resp B/P (MAP) Pulse Ox O2 Delivery O2 Flow Rate FiO2 07/10/20 05:55 36.1 70 16 138/62 (87) 95 Room Air Capillary Refill : General Appearance: No Apparent Distress, WD/WN, Chronically ill HEENT: PERRL/EOMI, Normal ENT Inspection, Pharynx Normal Neck: Full Range of Motion, Normal Inspection, Non Tender, Supple, Carotid Bruit Respiratory: Chest Non Tender, Lungs Clear, Normal Breath Sounds, No Accessory Muscle Use, No Respiratory Distress Cardiovascular: Regular Rate, Rhythm, No Edema, No Gallop, No JVD, No Murmur, Normal Peripheral Pulses Gastrointestinal: Normal Bowel Sounds, No Organomegaly, No Pulsatile Mass, Non Tender, Soft Back: Normal Inspection, Decreased Range of Motion, Muscle Spasm, Vertebral Tenderness Extremity: Normal Capillary Refill, Normal Inspection, Normal Range of Motion, Non Tender, No Calf Tenderness, No Pedal Edema Neurologic/Psychiatric: Alert, Oriented x3, No Motor/Sensory Deficits, Normal Mood/Affect, Abnormal Gait, Disoriented, Motor Weakness (bilateral legs) Skin: Normal Color, Warm/Dry Lymphatic: No Adenopathy Results/Procedures Lab Patient resulted labs reviewed. FIM Transfers Therapy Code Descriptions/Definitions Functional [place] Measure: 0=Not Assessed/NA 4=Minimal Assistance 1=Total Assistance 5=Supervision or Setup 2=Maximal Assistance 6=Modified [place] 3=Moderate Assistance 7=Complete IndependenceSCALE: Activities may be completed with or without assistive devices. 1-Akzzeszkko-nxwkkwf completes the activity by him/herself with no assistance from a helper. 5-Set-up or Clean-up Assistance-helper sets up or cleans up; patient completes activity. [place] assists only prior to or following the activity. 4-Supervision or Touching Assistance-helper provides verbal cues and/or touching/steadying and/or contact guard assistance as patient completes activity. Assistance may be provided throughout the activity or intermittently. 3-Partial/Moderate Assistance-helper does LESS THAN HALF the effort. [place] lifts, holds or supports trunk or limbs, but provides less than half the effort. 2-Substantial/Maximal Assistance-helper does MORE THAN HALF the effort. [place] lifts or holds trunk or limbs and provides more than half the effort. 1-Ezxhlmxbb-xvduyf does ALL the effort. Patient does none of the effort to complete the activity. Or, the assistance of 2 or more helpers is required for the patient to complete the activity. If activity was not attempted, code reason: 7-Patient Refused. 9-Not Applicable-not attempted and the patient did not perform the activity before the current illness, exacerbation or injury. 10-Not Attempted due to Environmental Limitations-(lack of equipment, weather restraints, etc.). 88-Not Attempted due to Medical Conditions or Safety Concerns. Roll Left to Right (QC): 6 Sit to Lying (QC): 3 Sit to Stand (QC): 4 Chair/Ciu-cy-Swinl Xfer(QC): 4 Car Transfer (QC): 88 (unsafe/unable to attempt due to limited transfer status. ) Gait Training Distance: 5' Walk 10 feet (QC): 4 Walk 50 ft with 2 Turns(QC): 88 Walk 150 ft (QC): 88 Walking 10ft/uneven surface-QC: 88 Gait Persons Needed: 1 Gait Assistive Device: FWW Wheelchair Training Does the Pt Use a Wheelchair?: Yes Wheel 50 ft with 2 turns (QC): 4 Wheel 150 ft (QC): 9 Type of Wheelchair: Manual Stair Training 1 Step (curb) (QC): 88 4 Steps (QC): 9 12 Steps (QC): 9 Balance Picking up an Object (QC): 88 (back precautions forbid this) ADL-Treatment Eating (QC): 6 Oral Hygiene (QC): 6 Bathing Location: L Arm, R Arm, Abdomen Shower/Bathe Self (QC): 3 Upper Body Dressing (QC): 5 Lower Body Dressing (QC): 3 On/Off Footwear (QC): 5 Toileting Hygiene (QC): 1 Toilet Transfer (QC): 1 Assessment/Plan Assessment and Plan Assess & Plan/Chief Complaint Assessment: s/p lumbar spine surgery for stenosis now with slow recovery and severe pain Cognitive deficits contributing to slow recovery and severe pain out of proportion of expected HTN HLP BETTY Obesity Prostate cancer hx Constipation Syncopal episodes prompting Cardiology consult 07/08/20 Plan: BM regimen IRF protocol Pain meds Monitor confusion Limit pain meds due to confusion 06/25/20: Monitor confusion Dementia noted after speaking to and the interaction I had with the patient in [place] Antipsychotics 06/26/20: Anti-psychotics Monitor delirium Pain management PT OT 06/27/20: Antipsychotics Monitor closely Monitor BP 06/28/20: Improved mentation Monitor BP Pain management 06/29/20: Monitor pain Improved cognition Pain out of proportion and extended longer than expected for type of surgery per Dr Stark 06/30/20: Monitor pain Fentanyl patch Improved cognition 07/01/20: Inquire with Dr Stark about steroids as has requested Patient improved cognition Slow progress 07/02/20: Slow progress Trial steroids for pain Monitor increase confusion with steroids 07/03/20: Steroids had no effect on pain Fentanyl patch 07/04/20: Monitor pain Cognition improved Pain is a major issue 07/05/20: Needs NHP Change of pain meds will not resolve his issue of inability to walk and will cause delirium 07/06/20: Inconsistent performance with therapy Monitor progress DC Saturday either to home if able or NH 07/07/20: Monitor pain Hydrocodone trial 07/08/20: Syncopal episode consulting Cards Hydrocodone does not seem to be causing confusion 07/09/20: DC Fentanyl patch his request Hydrocodone improved pain Improved transfers and ambulation (1) Spinal stenosis, lumbar region with neurogenic claudication (2) Prostate cancer (3) Obesity (4) Hypertension (5) Cognitive deficits (6) BETTY on CPAP (7) Hyperlipemia ERIC LUTHER DO Jul 09, 2020 12:33
--- NOTE | 2020-07-09 13:00 | NUR ---
COMPLAINS SKIN AROUND BACK INCISION VERY TENDER FROM DRESSING CHANGES. READING BACK ON DR. TERRY'S NOTES "AFTER 7-10 DAYS, THE WOUNDS SHOULD NOT REQUIRE BEING COVERED". SURGERY WAS ON 06-21-20, THUS 18 DAYS AGO AND ISLAND DRESSING REMOVED.
[2020-07-09 16:33] VITALS: BP 142/59
[2020-07-09] MEDS: GABAPENTIN 600 MG (NEURONTIN) TAB PO SCH (17:37)
--- NOTE | 2020-07-09 18:00 | NUR ---
CONFUSED. HAD BEEN SLEEPING SO UNSURE IF WAS DREAMING OR COULD BE FROM [facility]. WILL CONTINUE TO MONITOR.
[2020-07-09] MEDS: ALPRAZolam 0.25 MG (XANAX) TAB PO PRN (20:14)
[2020-07-09] MEDS: OLANZapine 5 MG ODT (ZyPREXA ZYDIS) PO SCH (20:14)
[2020-07-09] MEDS: ROSUVASTATIN 5 MG (CRESTOR) TABLET PO SCH (20:14)
[2020-07-09] MEDS: TAMSULOSIN 0.4 MG (FLOMAX) CAP PO SCH (20:15)
[2020-07-10] MEDS: ACETAMINOPHEN 500 MG TAB (TYLENOL) PO SCH ×4 (00:48→17:26)
[2020-07-10] MEDS: LEVOTHYROXINE 50 MCG (LEVOTHROID) TAB PO SCH (05:35)
[2020-07-10 05:55] VITALS: BP 138/62
[2020-07-10] MEDS: MULTIVIT W/MINERALS TAB (THERAGRAN M) PO SCH (06:33)
[2020-07-10] MEDS: SENNA W/DOCUSATE (SENOKOT S) TABLET PO SCH ×2 (08:43→20:45)
[2020-07-10] MEDS: GABAPENTIN 300 MG (NEURONTIN) CAP PO SCH ×2 (08:44→11:15)
[2020-07-10] MEDS: PANTOPRAZOLE 20 MG TABLET (PROTONIX) PO SCH (08:44)
[2020-07-10] MEDS: LACTOBACILLUS ACIDOPHILUS (PROBIOTIC) CAPSULE PO SCH ×2 (08:44→17:26)
[2020-07-10] MEDS: DOCUSATE SODIUM 100 MG (COLACE) CAP PO SCH ×2 (08:44→20:45)
[2020-07-10] MEDS: polyethylene glycoL POWDER 17 GM (MIRALAX) PACK PO SCH ×2 (08:45→19:35)
[2020-07-10] MEDS: DICLOFENAC 1% GEL 100 GM (VOLTAREN) TUBE TOP SCH ×4 (08:47→20:46)
--- NOTE | 2020-07-10 10:00 | NUR ---
AMBULATED IN [place] 92 FEET WITH 3 REST PERIODS BY SITTING IN WHEELCHAIR. SAT UP IN CHAIR X 2. BACK PAIN IS BACK AND FORTH - RATES PAIN AN "8" AND THEN WILL SAY IT'S GONE. JESENIA TO VISIT TOMORROW.
--- NOTE | 2020-07-10 12:42 | PM&R Progress Note ---
Subjective HPI/CC On Admission Date Seen by Provider: Jul 10, 2020 Time Seen by Provider: 13:30 Subjective/Events-last exam 07/10/20: Inconsistent on ambulation Walked 92 feet today with 3 rest breaks Pain controlled Hydrocodone and Ultram and APAP used 07/09/20: Walked 50 feet today Can't sit in chair due to back pain recurs DC Fentanyl patch today his request Hydrocodone helpful and has not caused confusion Transfers are improved 07/08/20: Syncopal episode again when he stood up Cardiology consulted Holding some BP meds Monitoring closely 07/07/20: Pt needs some additional pain medication changes and I went ahead and restarted the Hydrocodone and if it makes him confused I will remove it Somewhat inappropriate at times 07/06/20: Pt moving a lot better but not consistent Appears to not want to go to the fci Threw his dinner tray on the floor after I talked to him about going to a fci so he did get irate Bowels are moving Dressing is really good 07/05/20: Pt having a little bit of orthostasis Laid in bed most of the day today Preparing for transfer to fci Updated over the phone regarding the plan for NH Updated patient on the fact he needed to go to a NH 07/04/20: Bowels moved on a bed pain Tramadol was given for pain No confusion Cant sit 07/03/20: Had a bad afternoon yesterday Steroid injection did not help at all No confusion noted Monitoring pain when seated Difficult to follow thought process since he has severe pain and talks about it constantly then he asked me if he really needed Fentanyl patch?? 07/02/20: Patient doing very well Cognition seems to be improved Trial of Solumedrol 80mg IM will be given today Monitor for confusion from steroids 07/01/20: Family training today appears very disappointed with his progress although I had called her 4 times since admit to tell her he had cognition issues affecting his performance very petite and cannot even push him in a wheelchair Likely nursing facility for slower recovery will be required very irritated with his lack of progress and return of good function 06/30/20: Pt much improved mentation Was able to stand on parallel bars with assistance Slow progress Didnt mention pain all day and then he reported to the nurse and the nurse did not realize his mentation has been causing a focus on pain Pt had not complained of pain at all for hours Bowels are moving 06/29/20: Pt having significant dry mouth Seroquel will be discontinued to help that Zyprexa at night will be maintained Pt still complaining of more and more pain, I did confer with Dr. Stark which the pain is out of proportion for the type of surgery and type of disease he has of the spine, so although his mentation is improved, I doubt we will be able to cross over the threshold to improve his status 06/28/20: Ultram and Tylenol working pretty well Much improved mentation Has his eyes open today Gabapentin will be increased back to his home dosing gradually Updated Dr. Stark 06/27/20: Pt still pretty confused No Haldol or Ativan required Changing dressing daily Zyprexa at night seems to be helpful Keeps his eyes closed most of the time but does open them when we try to get him to open his eyes Updated Dr. Stark 06/26/20: Confusion varies Zyprexa helped him sleep Seroquel in evening has also helped Talked about his pain and told him we will continue to support him in pain meds but he needs to move around BM large last night Ate bfast Dry mouth reported 06/25/20: Confusion last night was significant Pain out of proportion to the number of days he is out of post op is related to his cognitive deficits Hgb 9.4 Ultram and Tylenol given for pain No BM yet Impulsive Oxycodone made him very confused at [place] Seroquel 12.5 will be given now and 25mg in evening and Zyprexa 5mg at night Spoke to in-depth for 15 minutes on the phone since I knew her from [place] and it is now apparent he has cognition deficits so will try to improve and clear the delirium with antipsychotics Kept his eyes closed similar to the dementia 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 in senior unit at [facility] [place] Review of Systems General: Fatigue, Malaise Musculoskeletal: back pain Neurological: Confusion Objective Exam Vital Signs Vital Signs Date Time Temp Pulse Resp B/P (MAP) Pulse Ox O2 Delivery O2 Flow Rate FiO2 07/10/20 09:00 Room Air 07/10/20 05:55 36.1 70 16 138/62 (87) 95 Capillary Refill : General Appearance: No Apparent Distress, WD/WN, Chronically ill HEENT: PERRL/EOMI, Normal ENT Inspection, Pharynx Normal Neck: Full Range of Motion, Normal Inspection, Non Tender, Supple, Carotid Bruit Respiratory: Chest Non Tender, Lungs Clear, Normal Breath Sounds, No Accessory Muscle Use, No Respiratory Distress Cardiovascular: Regular Rate, Rhythm, No Edema, No Gallop, No JVD, No Murmur, Normal Peripheral Pulses Gastrointestinal: Normal Bowel Sounds, No Organomegaly, No Pulsatile Mass, Non Tender, Soft Back: Normal Inspection, Decreased Range of Motion, Muscle Spasm, Vertebral Tenderness Extremity: Normal Capillary Refill, Normal Inspection, Normal Range of Motion, Non Tender, No Calf Tenderness, No Pedal Edema Neurologic/Psychiatric: Alert, Oriented x3, No Motor/Sensory Deficits, Normal Mood/Affect, Abnormal Gait, Disoriented, Motor Weakness (bilateral legs) Skin: Normal Color, Warm/Dry Lymphatic: No Adenopathy Results/Procedures Lab Patient resulted labs reviewed. FIM Transfers Therapy Code Descriptions/Definitions Functional [place] Measure: 0=Not Assessed/NA 4=Minimal Assistance 1=Total Assistance 5=Supervision or Setup 2=Maximal Assistance 6=Modified [place] 3=Moderate Assistance 7=Complete IndependenceSCALE: Activities may be completed with or without assistive devices. 3-Ndldhybyll-jlefurz completes the activity by him/herself with no assistance from a helper. 5-Set-up or Clean-up Assistance-helper sets up or cleans up; patient completes activity. [place] assists only prior to or following the activity. 4-Supervision or Touching Assistance-helper provides verbal cues and/or touching/steadying and/or contact guard assistance as patient completes activity. Assistance may be provided throughout the activity or intermittently. 3-Partial/Moderate Assistance-helper does LESS THAN HALF the effort. [place] lifts, holds or supports trunk or limbs, but provides less than half the effort. 2-Substantial/Maximal Assistance-helper does MORE THAN HALF the effort. [place] lifts or holds trunk or limbs and provides more than half the effort. 7-Nxcrlhoru-timkuw does ALL the effort. Patient does none of the effort to complete the activity. Or, the assistance of 2 or more helpers is required for the patient to complete the activity. If activity was not attempted, code reason: 7-Patient Refused. 9-Not Applicable-not attempted and the patient did not perform the activity before the current illness, exacerbation or injury. 10-Not Attempted due to Environmental Limitations-(lack of equipment, weather restraints, etc.). 88-Not Attempted due to Medical Conditions or Safety Concerns. Roll Left to Right (QC): 6 Sit to Lying (QC): 3 Sit to Stand (QC): 4 Chair/Gzx-dr-Aveoo Xfer(QC): 4 Car Transfer (QC): 88 (unsafe/unable to attempt due to limited transfer status. ) Gait Training Distance: 5' Walk 10 feet (QC): 4 Walk 50 ft with 2 Turns(QC): 88 Walk 150 ft (QC): 88 Walking 10ft/uneven surface-QC: 88 Gait Persons Needed: 1 Gait Assistive Device: FWW Wheelchair Training Does the Pt Use a Wheelchair?: Yes Wheel 50 ft with 2 turns (QC): 4 Wheel 150 ft (QC): 9 Type of Wheelchair: Manual Stair Training 1 Step (curb) (QC): 88 4 Steps (QC): 9 12 Steps (QC): 9 Balance Picking up an Object (QC): 88 (back precautions forbid this) ADL-Treatment Eating (QC): 6 Oral Hygiene (QC): 6 Bathing Location: L Arm, R Arm, Abdomen Shower/Bathe Self (QC): 3 Upper Body Dressing (QC): 5 Lower Body Dressing (QC): 3 On/Off Footwear (QC): 5 Toileting Hygiene (QC): 1 Toilet Transfer (QC): 1 Assessment/Plan Assessment and Plan Assess & Plan/Chief Complaint Assessment: s/p lumbar spine surgery for stenosis now with slow recovery and severe pain Cognitive deficits contributing to slow recovery and severe pain out of proportion of expected HTN HLP BETTY Obesity Prostate cancer hx Constipation Syncopal episodes prompting Cardiology consult 07/08/20 Plan: BM regimen IRF protocol Pain meds Monitor confusion Limit pain meds due to confusion 06/25/20: Monitor confusion Dementia noted after speaking to and the interaction I had with the patient in [place] Antipsychotics 06/26/20: Anti-psychotics Monitor delirium Pain management PT OT 06/27/20: Antipsychotics Monitor closely Monitor BP 06/28/20: Improved mentation Monitor BP Pain management 06/29/20: Monitor pain Improved cognition Pain out of proportion and extended longer than expected for type of surgery per Dr Stark 06/30/20: Monitor pain Fentanyl patch Improved cognition 07/01/20: Inquire with Dr Stark about steroids as has requested Patient improved cognition Slow progress 07/02/20: Slow progress Trial steroids for pain Monitor increase confusion with steroids 07/03/20: Steroids had no effect on pain Fentanyl patch 07/04/20: Monitor pain Cognition improved Pain is a major issue 07/05/20: Needs NHP Change of pain meds will not resolve his issue of inability to walk and will cause delirium 07/06/20: Inconsistent performance with therapy Monitor progress DC Saturday either to home if able or NH 07/07/20: Monitor pain Hydrocodone trial 07/08/20: Syncopal episode consulting Cards Hydrocodone does not seem to be causing confusion 07/09/20: DC Fentanyl patch his request Hydrocodone improved pain Improved transfers and ambulation 07/10/20: Monitor closely Confusion varies (1) Spinal stenosis, lumbar region with neurogenic claudication (2) Prostate cancer (3) Obesity (4) Hypertension (5) Cognitive deficits (6) BETTY on CPAP (7) Hyperlipemia ERIC LUTHER DO Jul 10, 2020 12:42
--- NOTE | 2020-07-10 13:32 | Cardiology Progress Note ---
Subjective Date Seen by Provider: Jul 10, 2020 Time Seen by Provider: 13:31 Subjective/Events-last exam Patient was seen at bedside, laying down comfortably, denied any active pain, feeling better. Review of Systems General: No Chills, No Night Sweats, No Fatigue, No Malaise, No Appetite, No Other HEENT: No Head Aches, No Visual Changes, No Eye Pain, No Ear Pain, No Dysphasia, No Sinus Congestion, No Post Nasal Drip, No Sore Throat, No Other Pulmonary: No Dyspnea, No Cough, No Pleuritic Chest Pain, No Other Cardiovascular: No: Chest Pain, Palpitations, Orthopnea, Paroxysmal Noc. Dyspne a, Edema, Lt Headedness, Other Objective-Cardiology Exam Last Set of Vital Signs Vital Signs 07/10/20 07/10/20 05:55 09:00 Temp 36.1 Pulse 70 Resp 16 B/P (MAP) 138/62 (87) Pulse Ox 95 O2 Delivery Room Air Capillary Refill : I&O Intake and Output0 07/10/20 00:00 Intake Total 1700 ml Output Total 1725 ml Balance -25 ml Intake Oral 1700 ml Output Urine Total 1725 ml General: Alert, Oriented X3, Cooperative HEENT: Atraumatic, PERRLA Neck: Supple, No JVD, No Thyromegaly Lungs: Clear to Auscultation, Normal Air Movement Heart: Regular Rate, Normal S1, Normal S2, Other (systolic murmur) Abdomen: Normal Bowel Sounds, Soft, No Tenderness, No Hepatosplenomegaly, No Masses Extremities: No Clubbing, No Cyanosis, No Edema, Normal Pulses, No Tenderness/Swelling Skin: No Rashes, No Breakdown, No Significant Lesion Neuro: Normal Speech, Normal Tone, Sensation Intact Psych/Mental Status: Mental Status NL, Mood NL A/P-Cardiology Admission Diagnosis Syncope Lumbar stenosis Acute renal insufficiency Hypertension Assessment/Plan Syncope, probably hypotensive episode, eating better after adjusting his medication, blood pressure is mildly elevated. No further orthostatic dizziness or syncope reported. Continue to monitor Acute renal insufficiency, returned to normal renal function, probably secondary to dehydration, I discontinued losartan. Continue to monitor Generalized weakness, debility, receiving physical therapy. History of lumbar spine stenosis, status post lumbar surgery with severe pain, multiple medication. Recovering slowly. Cognitive deficit contributing to the slow recovery, managed by Dr. Freeman History of hypertension, currently borderline hypotensive. I am adjusting his blood pressure medication will monitor his tolerance and response Hyperlipidemia, monitor lipids Obesity, BMI 39. Continue with physical therapy. Obstructive sleep apnea, managed by primary care physician History of prostate cancer. Maintained on tamsulosin Clinical Quality Measures DVT/VTE Risk/Contraindication: Contraindications-Pharm: Other *list below* Other: spinal hematoma risk RENATA MATTHEWS MD Jul 10, 2020 13:32
--- NOTE | 2020-07-10 15:00 | NUR ---
AMBULATED 120 FEET WITH 2 REST PERIODS. LESS PAIN THIS AFTERNOON.
[2020-07-10 17:15] VITALS: BP 144/64
[2020-07-10] MEDS: GABAPENTIN 600 MG (NEURONTIN) TAB PO SCH (17:26)
[2020-07-10] MEDS: TAMSULOSIN 0.4 MG (FLOMAX) CAP PO SCH (20:44)
[2020-07-10] MEDS: OLANZapine 5 MG ODT (ZyPREXA ZYDIS) PO SCH (20:44)
[2020-07-10] MEDS: HYDROcodone/APAP 5 MG/325 MG (LORTAB) TAB PO PRN (20:45)
[2020-07-10] MEDS: ROSUVASTATIN 5 MG (CRESTOR) TABLET PO SCH (20:45)
[2020-07-11] MEDS: ACETAMINOPHEN 500 MG TAB (TYLENOL) PO SCH ×5 (03:12→23:15)
[2020-07-11] MEDS: LEVOTHYROXINE 50 MCG (LEVOTHROID) TAB PO SCH (05:36)
[2020-07-11] MEDS: MULTIVIT W/MINERALS TAB (THERAGRAN M) PO SCH (05:36)
[2020-07-11 05:41] VITALS: BP 129/57
[2020-07-11 05:45] LABS: ALBUMIN 3.2 GM/DL (3.2-4.5); BASOPHILS % (AUTO) 1 % (0-10); CHLORIDE 105 MMOL/L (98-107); EOSINOPHILS # (AUTO) 0.2 10^3/uL (0.0-0.3); EOSINOPHILS % (AUTO) 5 % (0-10); HEMATOCRIT 33 % (40-54); HEMOGLOBIN 10.1 g/dL (13.3-17.7); LYMPHOCYTES # (AUTO) 0.5 10^3/uL (1.0-4.0); LYMPHOCYTES % (AUTO) 14 % (12-44); MEAN CORPUSCULAR HEMOGLOBIN 29 pg (25-34); MEAN CORPUSCULAR HGB CONC 31 g/dL (32-36); MEAN CORPUSCULAR VOLUME 95 fL (80-99); MEAN PLATELET VOLUME 9.4 fL (9.0-12.2); MONOCYTES # (AUTO) 0.6 10^3/uL (0.0-1.0); MONOCYTES % (AUTO) 15 % (0-12); NEUTROPHILS # (AUTO) 2.5 10^3/uL (1.8-7.8); NEUTROPHILS % (AUTO) 64 % (42-75); PLATELET COUNT 302 10^3/uL (130-400); POTASSIUM 4.5 MMOL/L (3.6-5.0); SODIUM 141 MMOL/L (135-145)
[2020-07-11 05:46] LABS: CALCIUM 8.5 MG/DL (8.5-10.1)
[2020-07-11 05:47] LABS: GLUCOSE 97 MG/DL (70-105); TOTAL PROTEIN 5.1 GM/DL (6.4-8.2)
[2020-07-11 05:48] LABS: CARBON DIOXIDE 25 MMOL/L (21-32)
[2020-07-11 05:49] LABS: BILIRUBIN,TOTAL 0.6 MG/DL (0.1-1.0)
[2020-07-11 05:51] LABS: ALKALINE PHOSPHATASE 116 U/L (40-136); CREATININE SERUM 1.09 MG/DL (0.60-1.30); GFR ESTIMATED > 60
[2020-07-11 05:52] LABS: BUN/CREATININE RATIO 12
[2020-07-11 05:54] LABS: ALANINE AMINOTRANSFERASE 16 U/L (0-55)
[2020-07-11] MEDS: HYDROcodone/APAP 5 MG/325 MG (LORTAB) TAB PO PRN (06:46)
--- NOTE | 2020-07-11 08:37 | PM&R Progress Note ---
Subjective HPI/CC On Admission Date Seen by Provider: Jul 11, 2020 Time Seen by Provider: 08:45 Subjective/Events-last exam 07/11/20: Pt ambulated around pretty well Cognition will require transfer to long-term care facility His dmxrmjk-ri-qfx is at [facility] WBC 4 Hemoglobin 10 Bowels are moving well 07/10/20: Inconsistent on ambulation Walked 92 feet today with 3 rest breaks Pain controlled Hydrocodone and Ultram and APAP used 07/09/20: Walked 50 feet today Can't sit in chair due to back pain recurs DC Fentanyl patch today his request Hydrocodone helpful and has not caused confusion Transfers are improved 07/08/20: Syncopal episode again when he stood up Cardiology consulted Holding some BP meds Monitoring closely 07/07/20: Pt needs some additional pain medication changes and I went ahead and restarted the Hydrocodone and if it makes him confused I will remove it Somewhat inappropriate at times 07/06/20: Pt moving a lot better but not consistent Appears to not want to go to the senior care Threw his dinner tray on the floor after I talked to him about going to a senior care so he did get irate Bowels are moving Dressing is really good 07/05/20: Pt having a little bit of orthostasis Laid in bed most of the day today Preparing for transfer to senior care Updated over the phone regarding the plan for NH Updated patient on the fact he needed to go to a NH 07/04/20: Bowels moved on a bed pain Tramadol was given for pain No confusion Cant sit 07/03/20: Had a bad afternoon yesterday Steroid injection did not help at all No confusion noted Monitoring pain when seated Difficult to follow thought process since he has severe pain and talks about it constantly then he asked me if he really needed Fentanyl patch?? 07/02/20: Patient doing very well Cognition seems to be improved Trial of Solumedrol 80mg IM will be given today Monitor for confusion from steroids 07/01/20: Family training today appears very disappointed with his progress although I had called her 4 times since admit to tell her he had cognition issues affecting his performance very petite and cannot even push him in a wheelchair Likely nursing facility for slower recovery will be required very irritated with his lack of progress and return of good function 06/30/20: Pt much improved mentation Was able to stand on parallel bars with assistance Slow progress Didnt mention pain all day and then he reported to the nurse and the nurse did not realize his mentation has been causing a focus on pain Pt had not complained of pain at all for hours Bowels are moving 06/29/20: Pt having significant dry mouth Seroquel will be discontinued to help that Zyprexa at night will be maintained Pt still complaining of more and more pain, I did confer with Dr. Stark which the pain is out of proportion for the type of surgery and type of disease he has of the spine, so although his mentation is improved, I doubt we will be able to cross over the threshold to improve his status 06/28/20: Ultram and Tylenol working pretty well Much improved mentation Has his eyes open today Gabapentin will be increased back to his home dosing gradually Updated Dr. Stark 06/27/20: Pt still pretty confused No Haldol or Ativan required Changing dressing daily Zyprexa at night seems to be helpful Keeps his eyes closed most of the time but does open them when we try to get him to open his eyes Updated Dr. Stark 06/26/20: Confusion varies Zyprexa helped him sleep Seroquel in evening has also helped Talked about his pain and told him we will continue to support him in pain meds but he needs to move around BM large last night Ate bfast Dry mouth reported 06/25/20: Confusion last night was significant Pain out of proportion to the number of days he is out of post op is related to his cognitive deficits Hgb 9.4 Ultram and Tylenol given for pain No BM yet Impulsive Oxycodone made him very confused at [place] Seroquel 12.5 will be given now and 25mg in evening and Zyprexa 5mg at night Spoke to in-depth for 15 minutes on the phone since I knew her from [place] and it is now apparent he has cognition deficits so will try to improve and clear the delirium with antipsychotics Kept his eyes closed similar to the dementia 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 in senior unit at [facility] [place] Review of Systems General: Fatigue Musculoskeletal: back pain Neurological: Confusion Objective Exam Vital Signs Vital Signs Date Time Temp Pulse Resp B/P (MAP) Pulse Ox O2 Delivery O2 Flow Rate FiO2 2/1/21 20:28 Room Air 07/11/20 20:17 100 161/71 (101) 07/11/20 16:00 36.4 16 97 Capillary Refill : General Appearance: No Apparent Distress, WD/WN, Chronically ill HEENT: PERRL/EOMI, Normal ENT Inspection, Pharynx Normal Neck: Full Range of Motion, Normal Inspection, Non Tender, Supple, Carotid Bruit Respiratory: Chest Non Tender, Lungs Clear, Normal Breath Sounds, No Accessory Muscle Use, No Respiratory Distress Cardiovascular: Regular Rate, Rhythm, No Edema, No Gallop, No JVD, No Murmur, Normal Peripheral Pulses Gastrointestinal: Normal Bowel Sounds, No Organomegaly, No Pulsatile Mass, Non Tender, Soft Back: Normal Inspection, Decreased Range of Motion, Muscle Spasm, Vertebral Tenderness Extremity: Normal Capillary Refill, Normal Inspection, Normal Range of Motion, Non Tender, No Calf Tenderness, No Pedal Edema Neurologic/Psychiatric: Alert, Oriented x3, No Motor/Sensory Deficits, Normal Mood/Affect, Abnormal Gait, Disoriented, Motor Weakness (bilateral legs) Skin: Normal Color, Warm/Dry Lymphatic: No Adenopathy Results/Procedures Lab Patient resulted labs reviewed. FIM Transfers Therapy Code Descriptions/Definitions Functional [place] Measure: 0=Not Assessed/NA 4=Minimal Assistance 1=Total Assistance 5=Supervision or Setup 2=Maximal Assistance 6=Modified [place] 3=Moderate Assistance 7=Complete IndependenceSCALE: Activities may be completed with or without assistive devices. 2-Sromjyzrdy-tusoaqx completes the activity by him/herself with no assistance from a helper. 5-Set-up or Clean-up Assistance-helper sets up or cleans up; patient completes activity. [place] assists only prior to or following the activity. 4-Supervision or Touching Assistance-helper provides verbal cues and/or touching/steadying and/or contact guard assistance as patient completes activity. Assistance may be provided throughout the activity or intermittently. 3-Partial/Moderate Assistance-helper does LESS THAN HALF the effort. [place] lifts, holds or supports trunk or limbs, but provides less than half the effort. 2-Substantial/Maximal Assistance-helper does MORE THAN HALF the effort. [place] lifts or holds trunk or limbs and provides more than half the effort. 5-Whkxnlowp-oybrco does ALL the effort. Patient does none of the effort to complete the activity. Or, the assistance of 2 or more helpers is required for the patient to complete the activity. If activity was not attempted, code reason: 7-Patient Refused. 9-Not Applicable-not attempted and the patient did not perform the activity be fore the current illness, exacerbation or injury. 10-Not Attempted due to Environmental Limitations-(lack of equipment, weather restraints, etc.). 88-Not Attempted due to Medical Conditions or Safety Concerns. Roll Left to Right (QC): 6 Sit to Lying (QC): 3 Sit to Stand (QC): 4 Chair/Bht-mt-Rwwbn Xfer(QC): 4 Car Transfer (QC): 88 (unsafe/unable to attempt due to limited transfer status. ) Gait Training Distance: 5' Walk 10 feet (QC): 4 Walk 50 ft with 2 Turns(QC): 88 Walk 150 ft (QC): 88 Walking 10ft/uneven surface-QC: 88 Gait Persons Needed: 1 Gait Assistive Device: FWW Wheelchair Training Does the Pt Use a Wheelchair?: Yes Wheel 50 ft with 2 turns (QC): 4 Wheel 150 ft (QC): 9 Type of Wheelchair: Manual Stair Training 1 Step (curb) (QC): 88 4 Steps (QC): 9 12 Steps (QC): 9 Balance Picking up an Object (QC): 88 (back precautions forbid this) ADL-Treatment Eating (QC): 6 Oral Hygiene (QC): 6 Bathing Location: L Arm, R Arm, Abdomen Shower/Bathe Self (QC): 3 Upper Body Dressing (QC): 5 Lower Body Dressing (QC): 3 On/Off Footwear (QC): 5 Toileting Hygiene (QC): 1 Toilet Transfer (QC): 1 Assessment/Plan Assessment and Plan Assess & Plan/Chief Complaint Assessment: s/p lumbar spine surgery for stenosis now with slow recovery and severe pain Cognitive deficits contributing to slow recovery and severe pain out of proportion of expected HTN HLP BETTY Obesity Prostate cancer hx Constipation Syncopal episodes prompting Cardiology consult 07/08/20 Plan: BM regimen IRF protocol Pain meds Monitor confusion Limit pain meds due to confusion 06/25/20: Monitor confusion Dementia noted after speaking to and the interaction I had with the patient in [place] Antipsychotics 06/26/20: Anti-psychotics Monitor delirium Pain management PT OT 06/27/20: Antipsychotics Monitor closely Monitor BP 06/28/20: Improved mentation Monitor BP Pain management 06/29/20: Monitor pain Improved cognition Pain out of proportion and extended longer than expected for type of surgery per Dr Stark 06/30/20: Monitor pain Fentanyl patch Improved cognition 07/01/20: Inquire with Dr Stark about steroids as has requested Patient improved cognition Slow progress 07/02/20: Slow progress Trial steroids for pain Monitor increase confusion with steroids 07/03/20: Steroids had no effect on pain Fentanyl patch 07/04/20: Monitor pain Cognition improved Pain is a major issue 07/05/20: Needs NHP Change of pain meds will not resolve his issue of inability to walk and will cause delirium 07/06/20: Inconsistent performance with therapy Monitor progress DC Saturday either to home if able or NH 07/07/20: Monitor pain Hydrocodone trial 07/08/20: Syncopal episode consulting Cards Hydrocodone does not seem to be causing confusion 07/09/20: DC Fentanyl patch his request Hydrocodone improved pain Improved transfers and ambulation 07/10/20: Monitor closely Confusion varies 07/11/11: Cognition causes physical performance variability NH tomorrow (1) Spinal stenosis, lumbar region with neurogenic claudication (2) Prostate cancer (3) Obesity (4) Hypertension (5) Cognitive deficits (6) BETTY on CPAP (7) Hyperlipemia ERIC LUTHER DO Jul 11, 2020 08:37
[2020-07-11] MEDS: GABAPENTIN 300 MG (NEURONTIN) CAP PO SCH ×2 (08:54→11:44)
[2020-07-11] MEDS: PANTOPRAZOLE 20 MG TABLET (PROTONIX) PO SCH (08:54)
[2020-07-11] MEDS: DICLOFENAC 1% GEL 100 GM (VOLTAREN) TUBE TOP SCH ×4 (08:54→20:10)
[2020-07-11] MEDS: LACTOBACILLUS ACIDOPHILUS (PROBIOTIC) CAPSULE PO SCH ×2 (08:54→17:14)
--- NOTE | 2020-07-11 08:59 | Occupational Ther Daily Note ---
OT Current Status-Daily Note Subjective Pt alert, lying in bed. Pt agrees to therapy. Pt stated that he had pain meds 30 min prior to therapy. Pt had intermittent pain that required multiple recovery breaks then recovery breaks for decreased activity tolerance. Mental Status/Objective Patient Orientation: Person, Place, Time, Situation Attachments: Other-See Comments (back brace) ADL-Treatment Co-treat with PT ([id number]), skills of 2 clinicians required for skilled instruction and care due to pt's increased pain level, decreased activity tolerance and inconsistency of mobility. PT focusing on transfers, ambulation and B LE strengthening while OT focusing on ADLs, B UE placement during mobility and B UE strengthening. Pt was able to go from supine to EOB using bed rails by self with HOB raised. Min A for SPT from EOB to w/c. Pt sitting at sink to complete sponge bath and oral care. Set up for sponge bath, pt completed all areas(long handle sponge for feet) except buttocks. Min A for sit to stand then pt stabilized self with sink while assist to cleanse buttocks. Pt completed oral care by self. Set up for upper body dressing and footwear (sockaide). Pt able to thread clothing over feet with clinical program coordinator then min A for sit to stand while pt stabilized self with chair and assist to hike pants over hips. Therapy Code Descriptions/Definitions Functional [place] Measure: 0=Not Assessed/NA 4=Minimal Assistance 1=Total Assistance 5=Supervision or Setup 2=Maximal Assistance 6=Modified [place] 3=Moderate Assistance 7=Complete IndependenceSCALE: Activities may be completed with or without assistive devices. 2-Zaneujdedj-rdkchmk completes the activity by him/herself with no assistance from a helper. 5-Set-up or Clean-up Assistance-helper sets up or cleans up; patient completes activity. [place] assists only prior to or following the activity. 4-Supervision or Touching Assistance-helper provides verbal cues and/or touching /steadying and/or contact guard assistance as patient completes activity. Assistance may be provided throughout the activity or intermittently. 3-Partial/Moderate Assistance-helper does LESS THAN HALF the effort. [place] lifts, holds or supports trunk or limbs, but provides less than half the effort. 2-Substantial/Maximal Assistance-helper does MORE THAN HALF the effort. [place] lifts or holds trunk or limbs and provides more than half the effort. 7-Eyvogxqir-zayopl does ALL the effort. Patient does none of the effort to complete the activity. Or, the assistance of 2 or more helpers is required for the patient to complete the activity. If activity was not attempted, code reason: 7-Patient Refused. 9-Not Applicable-not attempted and the patient did not perform the activity before the current illness, exacerbation or injury. 10-Not Attempted due to Environmental Limitations-(lack of equipment, weather restraints, etc.). 88-Not Attempted due to Medical Conditions or Safety Concerns. Eating (QC): 6 (Pt able to open containers/packages by self then use regular utensils to eat.) Oral Hygiene (QC): 6 Shower/Bathe Self (QC): 3 Upper Body Dressing (QC): 5 Lower Body Dressing (QC): 3 On/Off Footwear: 5 Toileting Hygiene (QC): 2 (Using clinical judgment, pt requires assist to manipulate clothing and cleanse self after BM.) Toilet Transfer (QC): 3 (Using clinical judgment, pt able to transfer with min A.) Pt is self limiting with functional tasks. Pt is inconsistent with mobility and ability to complete functional tasks on own. Pt is set up for back brace, able to adjust by self. Other Treatment Pt propelled self to therapy gym in w/c. Pt ambulated using FWW and parallel bars, see PT notes for progress. After session, pt lying in bed with call light/phone in reach. OT Long-Term Goals Immigration Case Manager Goals Time Frame: Jul 08, 2020 Eating (QC): 6 (met) Oral Hygiene (QC): 6 (met) Toileting Hygiene (QC): 4 (not met) Shower/Bathe Self (QC): 5 (not met) Upper Body Dressing (QC): 6 (not met) Lower Body Dressing (QC): 4 (not met) On/Off Footwear (QC): 6 (not met) Additional Goals: 1-Demonstrate ADL Tasks, 2-Verbalize Understanding, 3- ImproveStrength/Aby 1=Demonstrate adherence to instructed precautions during ADL tasks. 2=Patient will verbalize/demonstrate understanding of assistive devices/modifications for ADL. 3=Patient will improve strength/tolerance for activity to enable patient to perform ADL's. OT Education/Plan Problem List/Assessment Assessment: Decreased Activ Tolerance, Decreased Safety Aware, Decreased UE Strength, Impaired Bed Mobility, Impaired Coordination, Impaired Funct Balance, Impaired Self-Care Skills Discharge Recommendations Plan/Recommendations: Continue POC Treatment Plan/Plan of Care Patient would benefit from OT for education, treatment and training to promote independence in ADL's, mobility, safety and/or upper extremity function for ADL's. Plan of Care: ADL Retraining, Caregiver Training, Concurrent Therapy, Functional Mobility, Group Exercise/Act as Ind, Orthotic Fitting/Training, UE Funct Exercise/Act, W/C Management Training Treatment Duration: Jul 08, 2020 Frequency: At least 5 of 7 days/Wk (IRF) Estimated Hrs Per Day: 1.5 hours per day Agreement: Yes Rehab Potential: Good Time/GCodes Start Time: 07:30 Stop Time: 09:00 Total Time Billed (hr/min): 90 Billed Treatment Time 1 visit-ADL 3 (45 min) FA 3 (45 min) co-treat with PT [id number], individual [id number] ROBERT MCDONOUGH Jul 11, 2020 08:59
--- NOTE | 2020-07-11 08:59 | Physical Therapy Daily Note ---
PT Daily Note-Current Subjective Patient in WC pre tx, has already been working with OT, has unrated low back pain, would like pain meds but nurse says it is too soon for him to have any, will be co-treating with OT due to poor patient mobility, strength, endurance, coordinate UE and LE during activity, safety and reduce risk of fall, severe pain with activity. Appearance Patient in bed post tx with nurse call, phone, tray, all needs met. Mental Status Patient Orientation: Person, Place, Situation back brace Transfers SCALE: Activities may be completed with or without assistive devices. 4-Fkrrdkhttu-kbhjmlc completes the activity by him/herself with no assistance from a helper. 5-Set-up or Clean-up Assistance-helper sets up or cleans up; patient completes activity. [place] assists only prior to or following the activity. 4-Supervision or Touching Assistance-helper provides verbal cues and/or touching/steadying and/or contact guard assistance as patient completes activity. Assistance may be provided throughout the activity or intermittently. 3-Partial/Moderate Assistance-helper does LESS THAN HALF the effort. [place] lifts, holds or supports trunk or limbs, but provides less than half the effort. 2-Substantial/Maximal Assistance-helper does MORE THAN HALF the effort. [place] lifts or holds trunk or limbs and provides more than half the effort. 6-[place]-xczpgz does ALL the effort. Patient does none of the effort to complete the activity. Or, the assistance of 2 or more helpers is required for the patient to complete the activity. If activity was not attempted, code reason: 7-Patient Refused. 9-Not Applicable-not attempted and the patient did not perform the activity before the current illness, exacerbation or injury. 10-Not Attempted due to Environmental Limitations-(lack of equipment, weather restraints, etc.). 88-Not Attempted due to Medical Conditions or Safety Concerns. Roll Left & Right (QC): 4 Sit to Lying (QC): 3 Lying to Sitting/Side of Bed(Q: 4 Sit to Stand (QC): 4 Chair/Upf-zz-Sjykh Xfer(QC): 4 Toilet Transfer (QC): 4 Car Transfer (QC): 3 Patient performs bed mobility with SBA, supine to sit with SBA, sit to supine with mod assist, sit <-> stand CGA, transfers CGA, car transfer min assist. Patient needs occasional cues for hand placement and positioning. Weight Bearing Full Weight Bearing Full Weight Bearing Gait Training Distance: 10'x3, 5' Walk 10 feet (QC): 4 Walk 50 ft with 2 Turns(QC): 88 Walk 150 ft (QC): 88 Walking 10ft/uneven surface-QC: 4 Gait Assistive Device: FWW slow, antalgic, wide RADHA, WC follow Wheelchair Training Does the Pt Use a Wheelchair?: Yes Wheel 50 ft with 2 turns (QC): 4 Wheel 150 ft (QC): 4 Type of Wheelchair: Manual SBA, slow, occasional rest break Stair Training Stair Training: Handrails/: uses walker #of Steps: 1 1 Step (curb) (QC): 4 4 Steps (QC): 88 12 Steps (QC): 88 Stairs: Pattern: Step to CGA Balance Picking up an Object (QC): 88 Treatments PT worked on bed mobility and transfers, ambulation, stair training, gait training, standing and positioning during dressing, OT worked on dressing, UE positioning and safety during activity Assessment Current Status: Poor Progress less distance with ambulation PT Short Term Goals Short Term Goals Time Frame: Jul 05, 2020 Roll Left & Right: 4 Sit to lyin Lying to sitting on side of be: 4 Sit to stand: 4 Chair/kng-wd-gftps transfer: 4 Toilet transfer: 4 Walk 10 feet: 4 Walk 50 feet with two turns: 4 PT Senior Care Goals Road Gang Supervisor Goals PT Road Gang Supervisor Goals Time Frame: Jul 22, 2020 Roll Left & Right (QC): 6 Sit to Lying (QC): 6 Lying-Sitting on Side/Bed(QC): 6 Sit to Stand (QC): 6 Chair/Yio-qw-Xumlm Xfer(QC): 6 Toilet Transfer (QC): 6 Car Transfer (QC): 6 Does the Patient Walk: Yes Walk 10 feet (QC): 6 Walk 50ft with 2 Turns (QC): 6 Walk 150 ft (QC): 6 Walking 10ft on Uneven Surface: 5 1 Step (curb) (QC): 4 4 Steps (QC): 9 12 Steps (QC): 9 Picking up an Object (QC): 88 Wheel 50 feet with 2 turns (QC: 9 Wheel 150 feet: 9 PT Plan Problem List Problem List: Activity Tolerance, Functional Strength, Safety, Balance, Gait, Transfer, Bed Mobility, ROM Treatment/Plan Treatment Plan: Continue Plan of Care Treatment Plan: Bed Mobility, Education, Functional Activity Aby, Functional Strength, Group Therapy, Gait, Safety, Therapeutic Exercise, Transfers Treatment Duration: Jul 22, 2020 Frequency: At least 5 of 7 days/Wk (IRF) Estimated Hrs Per Day: 1.5 hours per day Patient and/or Family Agrees t: Yes Safety Risks/Education Patient Education: Gait Training, Transfer Techniques, Steps, Correct Positioning, Reviewed Don/Doff Brace, Safety Issues Teaching Recipient: Patient Teaching Methods: Demonstration, Discussion Response to Teaching: Reinforcement Needed Time/GCodes Time In: 0800 Time Out: 0900 Total Billed Treatment Time: 60 Total Billed Treatment 1 visit FA 60' co-treated with OT for 60' JAYLYN VARGAS PT Jul 11, 2020 08:59
[2020-07-11] MEDS: DOCUSATE SODIUM 100 MG (COLACE) CAP PO SCH ×2 (09:35→20:10)
[2020-07-11] MEDS: SENNA W/DOCUSATE (SENOKOT S) TABLET PO SCH ×2 (09:36→20:11)
[2020-07-11] MEDS: polyethylene glycoL POWDER 17 GM (MIRALAX) PACK PO SCH ×2 (09:36→20:11)
--- NOTE | 2020-07-11 09:52 | NUR ---
Pt is Yazidi and declines sacraments. Computer Typesetter offered blessing.
--- NOTE | 2020-07-11 10:00 | Cardiology Progress Note ---
Subjective Date Seen by Provider: Jul 11, 2020 Time Seen by Provider: 09:58 Subjective/Events-last exam Patient is in bed, complaining of back pain. Denies any chest pain or dyspnea. Objective-Cardiology Exam Last Set of Vital Signs Vital Signs 07/11/20 07/11/20 05:41 09:00 Temp 36.5 Pulse 86 Resp 20 B/P (MAP) 129/57 (81) Pulse Ox 97 O2 Delivery Room Air Capillary Refill : I&O Intake and Output 07/11/20 00:00 Intake Total 1810 ml Output Total 1550 ml Balance 260 ml Intake Oral 1810 ml Output Urine Total 1550 ml General: Alert, Oriented X3, Cooperative HEENT: Atraumatic, PERRLA Neck: Supple, No JVD, No Thyromegaly Lungs: Clear to Auscultation, Normal Air Movement Heart: Regular Rate, Normal S1, Normal S2, Other (systolic murmur) Abdomen: Normal Bowel Sounds, Soft, No Tenderness, No Hepatosplenomegaly, No Masses Extremities: No Clubbing, No Cyanosis, No Edema, Normal Pulses, No Tenderness/Swelling Skin: No Rashes, No Breakdown, No Significant Lesion Neuro: Normal Speech, Normal Tone, Sensation Intact Psych/Mental Status: Mental Status NL, Mood NL Results Lab Laboratory Tests 07/11/20 04:27 A/P-Cardiology Admission Diagnosis Syncope Lumbar stenosis Acute renal insufficiency Hypertension Assessment/Plan Syncope, probably hypotensive episode, eating better after adjusting his medication, blood pressure controlled. No further orthostatic dizziness or syncope reported. Continue to monitor Acute renal insufficiency, returned to normal renal function, probably secondary to dehydration, losartan was discontinued. Continue to monitor Generalized weakness, debility, receiving physical therapy. History of lumbar spine stenosis, status post lumbar surgery with severe pain, multiple medication. Recovering slowly. Cognitive deficit contributing to the slow recovery, managed by Dr. Freeman Hypertension, was borderline hypotensive, blood pressure well controlled at this time, continue to monitor Hyperlipidemia, monitor lipids Obesity, BMI 39. Continue with physical therapy. Obstructive sleep apnea, managed by primary care physician History of prostate cancer. Maintained on tamsulosin Patient was seen and evaluated with Keri, examination performed, management plan was discussed, agree with the current scribed note, I made few changes to the note using Italic font Patient was seen at bedside, sitting comfortably, no new complaint Exercising better, still having back pain. Continue to monitor blood pressure, no further episodes of orthostasis or syncope were reported Clinical Quality Measures DVT/VTE Risk/Contraindication: Contraindications-Pharm: Other *list below* Other: spinal hematoma risk KERI LUNA Jul 11, 2020 10:00 RENATA MATTHEWS MD Jul 11, 2020 12:12
--- NOTE | 2020-07-11 11:35 | Physical Therapy Daily Note ---
PT Daily Note-Current Subjective Patient in bed pre tx, agrees to PT, has 7/10 back pain. Appearance Patient in bed post tx with nurse call, phone, tray, all needs met. Mental Status Patient Orientation: Person, Place, Situation back brace Transfers SCALE: Activities may be completed with or without assistive devices. 1-Dkgnxstqon-cmieuia completes the activity by him/herself with no assistance from a helper. 5-Set-up or Clean-up Assistance-helper sets up or cleans up; patient completes activity. [place] assists only prior to or following the activity. 4-Supervision or Touching Assistance-helper provides verbal cues and/or touching/steadying and/or contact guard assistance as patient completes activity. Assistance may be provided throughout the activity or intermittently. 3-Partial/Moderate Assistance-helper does LESS THAN HALF the effort. [place] lifts, holds or supports trunk or limbs, but provides less than half the effort. 2-Substantial/Maximal Assistance-helper does MORE THAN HALF the effort. [place] lifts or holds trunk or limbs and provides more than half the effort. 3-Emejdaswh-vvjcvh does ALL the effort. Patient does none of the effort to complete the activity. Or, the assistance of 2 or more helpers is required for the patient to complete the activity. If activity was not attempted, code reason: 7-Patient Refused. 9-Not Applicable-not attempted and the patient did not perform the activity before the current illness, exacerbation or injury. 10-Not Attempted due to Environmental Limitations-(lack of equipment, weather restraints, etc.). 88-Not Attempted due to Medical Conditions or Safety Concerns. Roll Left & Right (QC): 6 Sit to Lying (QC): 3 Lying to Sitting/Side of Bed(Q: 4 Sit to Stand (QC): 4 Chair/Pkj-jm-Icfkk Xfer(QC): 4 Patient needs mod assist to get legs back into bed with sit to supine. Weight Bearing Full Weight Bearing Full Weight Bearing Gait Training Distance: 150', 75'x2 Walk 10 feet (QC): 4 Walk 50 ft with 2 Turns(QC): 4 Walk 150 ft (QC): 4 Gait Persons Needed: 1 Gait Assistive Device: FWW WC follow, antalgic, very SOB after getting back to his room. Treatments bed mobility and transfers, ambulation Assessment Current Status: Fair Progress much improved ambulation PT Short Term Goals Short Term Goals Time Frame: Jul 05, 2020 Roll Left & Right: 4 Sit to lyin Lying to sitting on side of be: 4 Sit to stand: 4 Chair/eqc-fb-durcu transfer: 4 Toilet transfer: 4 Walk 10 feet: 4 Walk 50 feet with two turns: 4 PT Supervisor Stone Goals Supervisor Stone Goals PT Supervisor Stone Goals Time Frame: Jul 22, 2020 Roll Left & Right (QC): 6 Sit to Lying (QC): 6 Lying-Sitting on Side/Bed(QC): 6 Sit to Stand (QC): 6 Chair/Mec-cm-Cuufc Xfer(QC): 6 Toilet Transfer (QC): 6 Car Transfer (QC): 6 Does the Patient Walk: Yes Walk 10 feet (QC): 6 Walk 50ft with 2 Turns (QC): 6 Walk 150 ft (QC): 6 Walking 10ft on Uneven Surface: 5 1 Step (curb) (QC): 4 4 Steps (QC): 9 12 Steps (QC): 9 Picking up an Object (QC): 88 Wheel 50 feet with 2 turns (QC: 9 Wheel 150 feet: 9 PT Plan Problem List Problem List: Activity Tolerance, Functional Strength, Safety, Balance, Gait, Transfer, Bed Mobility, ROM Treatment/Plan Treatment Plan: Continue Plan of Care Treatment Plan: Bed Mobility, Education, Functional Activity Aby, Functional Strength, Group Therapy, Gait, Safety, Therapeutic Exercise, Transfers Treatment Duration: Jul 22, 2020 Frequency: At least 5 of 7 days/Wk (IRF) Estimated Hrs Per Day: 1.5 hours per day Patient and/or Family Agrees t: Yes Safety Risks/Education Patient Education: Gait Training, Transfer Techniques, Correct Positioning, Reviewed Don/Doff Brace, Safety Issues Teaching Recipient: Patient Teaching Methods: Demonstration, Discussion Response to Teaching: Reinforcement Needed Time/GCodes Time In: 1110 Time Out: 1140 Total Billed Treatment Time: 30 Total Billed Treatment 1 visit GT 30' JAYLYN VARGAS PT Jul 11, 2020 11:35
--- NOTE | 2020-07-11 12:50 | Occ Therapy Rehab Re-Cert ---
OT Re-Certification Form Plan of Care: ADL Retraining, Caregiver Training, Concurrent Therapy, Functional Mobility, Group Exercise/Act as Ind, Orthotic Fitting/Training, UE Funct Exercise/Act, W/C Management Training Recert from admission to 07/08/20. Eating (QC): 6 Oral Hygiene (QC): 6 Toileting Hygiene (QC): 4 Shower/Bathe Self (QC): 5 Upper Body Dressing (QC): 6 Lower Body Dressing (QC): 4 On/Off Footwear (QC): 6 Treatment Duration: 2 weeks; 07/22/20 Frequency: At least 5 of 7 days/Wk (IRF) Estimated Hrs Per Day: 1.5 hours per day Agreement: Yes Rehab Potential: Fair OT Emergency Room Technician Goals Emergency Room Technician Goals Time Frame: Jul 08, 2020 Eating (QC): 6 (met) Oral Hygiene (QC): 6 (met) Toileting Hygiene (QC): 4 (not met) Shower/Bathe Self (QC): 5 (not met) Upper Body Dressing (QC): 6 (not met) Lower Body Dressing (QC): 4 (not met) On/Off Footwear (QC): 6 (not met) Additional Goals: 1-Demonstrate ADL Tasks, 2-Verbalize Understanding, 3- ImproveStrength/Aby 1=Demonstrate adherence to instructed precautions during ADL tasks. 2=Patient will verbalize/demonstrate understanding of assistive devices/modifications for ADL. 3=Patient will improve strength/tolerance for activity to enable patient to perform ADL's. SHASTA LUTZ OTR Jul 11, 2020 12:50
[2020-07-11 16:00] VITALS: BP 144/50
--- NOTE | 2020-07-11 16:49 | NUR ---
CM/SS DISCHARGE Patient will discharge tomorrow to new Medicare skilled placement with [facility] in [place]. [facility] has made arrangements for [facility] to transport patient, Anoop spoke with rewriter about a target ETA of noon. [facility] will contact rewriter when enroute for a more accurate arrival time. [id number] was completed and faxed to [facility]. Kevin confirmed financial exploration and that facility had spoken with patient's Nohemi to update. Manager Report will fax final discharge orders, instructions, and Covid test results in the a.m. and complete continuum of care packet to accompany patient. IMM2 reviewed with patient and spouse, no intention to appeal noted. Nohemi plans to be here in the a.m. and accompany patient during his exit since [facility] is not allowing visitors at this time. Followup tomorrow.
[2020-07-11] MEDS: GABAPENTIN 600 MG (NEURONTIN) TAB PO SCH (17:14)
[2020-07-11] MEDS: ROSUVASTATIN 5 MG (CRESTOR) TABLET PO SCH (20:10)
[2020-07-11] MEDS: TAMSULOSIN 0.4 MG (FLOMAX) CAP PO SCH (20:10)
[2020-07-11] MEDS: OLANZapine 5 MG ODT (ZyPREXA ZYDIS) PO SCH (20:10)
[2020-07-11 20:17] VITALS: BP 161/71
[2020-07-11] MEDS ORDERED: ACHD5005 PO (20:59)
[2020-07-11] MEDS ORDERED: TRM50T PO (20:59)
[2020-07-11] MEDS ORDERED: OLAN5TAB23 PO (20:59)
[2020-07-11] MEDS ORDERED: SALI45SP MM (20:59)
[2020-07-11] MEDS ORDERED: DICL100G18 TOP (20:59)
[2020-07-11] MEDS ORDERED: GBPN600T PO (20:59)
[2020-07-11] MEDS ORDERED: SENN-20 PO (20:59)
[2020-07-11] MEDS ORDERED: Gabapentin PO (20:59)
--- NOTE | 2020-07-11 21:00 | Discharge Inst-Skilled Nursing ---
Discharge Inst-Skilled NF Reconcile Patient Problems Problems Reviewed?: Yes Patient Instructions Patient Problems: Lumbar spine surgery Dementia Consult/Follow Up/Orders Follow Up Appt.: PCP 1 week Skilled NF Admit to: Certification (SNF) I certify that SNF services are required to be given on an inpatient basis because of the above named patient's need for correction care on a continuing basis for the conditions(s) for which he/she was receiving inpatient hospital services prior to his/her transfer to the SNF. Alf Facility Order: Nursing Services, Emr Implementation Specialist-Evaluate & Treat, Physical Therapy-Evaluate & Treat, Speech Language-Evaluate & Treat Oxygen Delivery Method: Room Air Discharge Diet: No Restrictions Resuscitation Status: Full Code New & Resume Previous Orders New Medications: Diclofenac Sodium (Voltaren) 100 Gm Gel..gram. 0 GM TOP QID for 30 Days, TUBE [Gabapentin] () 300 MG CAP 300 MG PO 0800,1200, #60 CAP Gabapentin (Gabapentin) 600 Mg Tablet 600 MG PO DAILY@1800, #60 TAB Hydrocodone Bit/Acetaminophen (HYDROcodone/APAP 5 MG/325 MG TAB) 1 Tab Tab 1 TAB PO Q8HR PRN for PAIN-MODERATE (5-7), #30 TAB Olanzapine (Olanzapine Odt) 5 Mg Tab.rapdis 5 MG PO HS for 30 Days, TAB Saliva Stimulant Agents Comb.3 (Biotene Moisturizing Mouth) 1 Each [place] 0 EACH MM NEEDED PRN for DRY MOUTH for 30 Days, SPRAY Sennosides/Docusate Sodium (Senna-Time S Tablet) 1 Each Tablet 1 EA PO BID for 30 Days, TAB Continued Medications: Acetaminophen (Tylenol Extra Strength) 500 Mg Tablet 500 MG PO Q6H, TAB Aspirin (Aspirin EC) 81 Mg Tablet.dr 81 MG PO DAILY, TAB Diclofenac Sodium (Diclofenac Sodium) 100 Gm Gel..gram. 4 GM TOP TID PRN for PAIN-MILD (1-4), TUBE Ibuprofen (Ibuprofen) 200 Mg Capsule 200 MG PO Q6H PRN for PAIN-MILD (1-4), CAP Levothyroxine Sodium (Levothyroxine) 50 Mcg Capsule 50 MCG PO DAILY, CAP Loratadine (Claritin) 10 Mg Tablet 10 MG PO DAILY PRN for ALLERGY SYMPTOMS, TAB Losartan Potassium (Losartan Potassium) 100 Mg Tablet 100 MG PO HS, TAB Metoprolol Succinate (Metoprolol Succinate) 25 Mg Tab.er.24h 25 MG PO HS, TAB Omeprazole (Omeprazole) 20 Mg Capsule.dr 20 MG PO DAILY, CAP Ondansetron (Ondansetron Odt) 4 Mg Tab.rapdis 4 MG PO Q8H PRN for NAUSEA/VOMITING-1ST LINE, TAB Rosuvastatin Calcium (Crestor) 5 Mg Tablet 5 MG PO HS, TAB Tamsulosin HCl (Flomax) 0.4 Mg Cap 0.8 MG PO HS, CAP TAKES 2 (0.4MG) CAPS Tramadol HCl (Tramadol HCl) 50 Mg Tablet 50 MG PO Q6H PRN for PAIN-MODERATE (5-7), #30 TAB (This prescription has been renewed) TAKE WITH 500MG OF TYLENOL Ubidecarenone (Coq-10) 100 Mg Capsule 100 MG PO DAILY, CAP Vit A,C & E/Lutein/Minerals (Ocuvite with Lutein Tablet) 1 Each Tablet 1 EACH PO DAILY, TAB Discontinued Medications: Gabapentin (Neurontin) 300 Mg Capsule 300 MG PO Q6H, CAP TAKES ALONG WITH A DOSE OF TRAMADOL Gabapentin (Neurontin) 300 Mg Capsule 900 MG PO HS, CAP TAKES 3 (300MG) CAPS Hydrochlorothiazide (Hydrochlorothiazide) 12.5 Mg Tablet 12.5 MG PO DAILY, TAB Gosia Freeman Jul 11, 2020 20:59 GOSIA FREEMAN DO Jul 11, 2020 21:00
[2020-07-12 05:04] VITALS: BP 126/60
[2020-07-12] MEDS: MULTIVIT W/MINERALS TAB (THERAGRAN M) PO SCH (06:10)
[2020-07-12] MEDS: ACETAMINOPHEN 500 MG TAB (TYLENOL) PO SCH ×2 (06:10→11:34)
[2020-07-12] MEDS: LEVOTHYROXINE 50 MCG (LEVOTHROID) TAB PO SCH (06:10)
[2020-07-12] MEDS: ONDANSETRON 4 MG (ZOFRAN) ORAL DISSOLVE TAB PO PRN (06:34)
--- NOTE | 2020-07-12 09:14 | Discharge Summary ---
Diagnosis/Chief Complaint Date of Admission Jun 24, 2020 at 10:52 Date of Discharge Discharge Date: Jul 12, 2020 Discharge Diagnosis Assessment: s/p lumbar spine surgery for stenosis now with slow recovery and severe pain Cognitive deficits contributing to slow recovery and severe pain out of proportion of expected HTN HLP BETTY Obesity Prostate cancer hx Constipation Syncopal episodes prompting Cardiology consult 07/08/20 Plan: BM regimen IRF protocol Pain meds Monitor confusion Limit pain meds due to confusion 06/25/20: Monitor confusion Dementia noted after speaking to and the interaction I had with the patient in [place] Antipsychotics 06/26/20: Anti-psychotics Monitor delirium Pain management PT OT 06/27/20: Antipsychotics Monitor closely Monitor BP 06/28/20: Improved mentation Monitor BP Pain management 06/29/20: Monitor pain Improved cognition Pain out of proportion and extended longer than expected for type of surgery per Dr Stark 06/30/20: Monitor pain Fentanyl patch Improved cognition 07/01/20: Inquire with Dr Stark about steroids as has requested Patient improved cognition Slow progress 07/02/20: Slow progress Trial steroids for pain Monitor increase confusion with steroids 07/03/20: Steroids had no effect on pain Fentanyl patch 07/04/20: Monitor pain Cognition improved Pain is a major issue 07/05/20: Needs NHP Change of pain meds will not resolve his issue of inability to walk and will cause delirium 07/06/20: Inconsistent performance with therapy Monitor progress DC Saturday either to home if able or NH 07/07/20: Monitor pain Hydrocodone trial 07/08/20: Syncopal episode consulting Cards Hydrocodone does not seem to be causing confusion 07/09/20: DC Fentanyl patch his request Hydrocodone improved pain Improved transfers and ambulation 07/10/20: Monitor closely Confusion varies 07/11/11: Cognition causes physical performance variability NH tomorrow (1) Spinal stenosis, lumbar region with neurogenic claudication (2) Prostate cancer (3) Obesity (4) Hypertension (5) Cognitive deficits (6) BETTY on CPAP (7) Hyperlipemia Discharge Summary Discharge Physical Examination Allergies: Coded Allergies: Iodine and Iodide Containing Produc (Verified Allergy, Unknown, 06/24/20) morphine (Verified Allergy, Unknown, 06/24/20) Vitals & I&Os Vital Signs Date Time Temp Pulse Resp B/P (MAP) Pulse Ox O2 Delivery O2 Flow Rate FiO2 07/12/20 14:00 36.5 86 18 126/60 93 Room Air General Appearance: Alert, Oriented X3, Cooperative Respiratory: Clear to Auscultation Cardiovascular: Regular Rate Neuro: Normal Speech, Strength at 5/5 X4 Ext Psych/Mental Status: Mental Status NL Hospital Course Was the Problem List Reviewed?: Yes Long course in IRF after transferring from [facility] service after lumbar spine surgery with slow recovery and severe pain limiting progress. Cognition was an issue from the initial admit at [place] and it appeared after conversing with multiple times that he was exhibiting cognitive deficits for some time at home before surgery. Antipsychotics were maintained during hospital course along with Fentanyl patch and Ultram and APAP. Labs remained stable and bowel function returned to normal. Fentanyl patch was ultimately DC and Cardiology was consulted for syncope which promoted subtle changes to home BP meds. Patient was deemed stable for DC to [place] for skilled care in order to have slower recovery and strengthening and hopefully be able to return home. Labs (last 24 hrs) Laboratory Tests 06/25/20 05:46: White Blood Count 6.1, Red Blood Count 3.17L, Hemoglobin 9.4L, Hematocrit 29L, Mean Corpuscular Volume 92, Mean Corpuscular Hemoglobin 30, Mean Corpuscular Hemoglobin Concent 32, Red Cell Distribution Width 14.1, Platelet Count 207, Mean Platelet Volume 9.4, Immature Granulocyte % (Auto) 2, Neutrophils (%) (Auto) 78H, Lymphocytes (%) (Auto) 9L, Monocytes (%) (Auto) 10, Eosinophils (%) (Auto) 1, Basophils (%) (Auto) 1, Neutrophils # (Auto) 4.8, Lymphocytes # (Auto) 0.5L, Monocytes # (Auto) 0.6, Eosinophils # (Auto) 0.1, Basophils # (Auto) 0.0, Immature Granulocyte # (Auto) 0.1, Sodium Level 135, Potassium Level 4.4, Chloride Level 100, Carbon Dioxide Level 24, Anion Gap 11, Blood Urea Nitrogen 13, Creatinine 0.93, Estimat Glomerular Filtration Rate > 60, BUN/Creatinine Ratio 14, Glucose Level 98, Calcium Level 8.6, Corrected Calcium 9.4, Total Bilirubin 0.9, Aspartate Amino Transf (AST/SGOT) 19, Alanine Aminotransferase (ALT/SGPT) 14, Alkaline Phosphatase 46, Total Protein 5.1L, Albumin 3.0L 06/25/20 14:20: Urine Color YELLOW, Urine Clarity CLEAR, Urine pH 6.0, Urine Specific [place] 1.020, Urine Protein NEGATIVE, Urine Glucose (UA) NEGATIVE, Urine Ketones 3+H, Urine Nitrite NEGATIVE, Urine Bilirubin 1+H, Urine Urobilinogen 0.2, Urine Leukocyte Esterase NEGATIVE, Urine RBC (Auto) NEGATIVE, Urine RBC NONE, Urine WBC NONE, Urine Squamous Epithelial Cells 0-2, Urine Crystals NONE, Urine Bacteria NEGATIVE, Urine Casts NONE, Urine Mucus NEGATIVE, Urine Culture Indicated NO 06/27/20 05:20: White Blood Count 4.2L, Red Blood Count 3.20L, Hemoglobin 9.5L, Hematocrit 30L, Mean Corpuscular Volume 94, Mean Corpuscular Hemoglobin 30, Mean Corpuscular Hemoglobin Concent 32, Red Cell Distribution Width 14.6H, Platelet Count 254, Mean Platelet Volume 9.4, Immature Granulocyte % (Auto) 4, Neutrophils (%) (Auto) 72, Lymphocytes (%) (Auto) 10L, Monocytes (%) (Auto) 10, Eosinophils (%) (Auto) 2, Basophils (%) (Auto) 1, Neutrophils # (Auto) 3.0, Lymphocytes # (Auto) 0.4L, Monocytes # (Auto) 0.4, Eosinophils # (Auto) 0.1, Basophils # (Auto) 0.0, Immature Granulocyte # (Auto) 0.2H, Sodium Level 137, Potassium Level 4.3, Chloride Level 102, Carbon Dioxide Level 25, Anion Gap 10, Blood Urea Nitrogen 20H, Creatinine 1.18, Estimat Glomerular Filtration Rate 59, BUN/Creatinine Ratio 17, Glucose Level 97, Calcium Level 8.4L, Corrected Calcium 9.4, Total Bilirubin 0.6, Aspartate Amino Transf (AST/SGOT) 15, Alanine Aminotransferase (ALT/SGPT) 12, Alkaline Phosphatase 52, Total Protein 4.9L, Albumin 2.8L 06/29/20 13:10: Glucometer 99 07/04/20 04:35: White Blood Count 5.6, Red Blood Count 3.13L, Hemoglobin 9.2L, Hematocrit 30L, Mean Corpuscular Volume 95, Mean Corpuscular Hemoglobin 29, Mean Corpuscular Hemoglobin Concent 31L, Red Cell Distribution Width 14.9H, Platelet Count 385, Mean Platelet Volume 9.4, Immature Granulocyte % (Auto) 3, Neutrophils (%) (Auto) 71, Lymphocytes (%) (Auto) 14, Monocytes (%) (Auto) 11, Eosinophils (%) (Auto) 1, Basophils (%) (Auto) 1, Neutrophils # (Auto) 4.0, Lymphocytes # (Auto) 0.8L, Monocytes # (Auto) 0.6, Eosinophils # (Auto) 0.1, Basophils # (Auto) 0.1, Immature Granulocyte # (Auto) 0.1, Sodium Level 138, Potassium Level 4.8, Chloride Level 102, Carbon Dioxide Level 28, Anion Gap 8, Blood Urea Nitrogen 30H, Creatinine 1.37H, Estimat Glomerular Filtration Rate 50, BUN/Creatinine Ratio 22, Glucose Level 102, Calcium Level 8.8, Corrected Calcium 9.7, Total B ilirubin 0.4, Aspartate Amino Transf (AST/SGOT) 15, Alanine Aminotransferase (ALT/SGPT) 11, Alkaline Phosphatase 95, Total Protein 4.9L, Albumin 2.9L 07/08/20 08:20: Glucometer 120H 07/09/20 05:05: White Blood Count 4.2L, Red Blood Count 3.13L, Hemoglobin 9.3L, Hematocrit 29L, Mean Corpuscular Volume 94, Mean Corpuscular Hemoglobin 30, Mean Corpuscular Hemoglobin Concent 32, Red Cell Distribution Width 15.0H, Platelet Count 315, Mean Platelet Volume 9.3, Sodium Level 138, Potassium Level 4.7, Chloride Level 103, Carbon Dioxide Level 24, Anion Gap 11, Blood Urea Nitrogen 20H, Creatinine 1.11, Estimat Glomerular Filtration Rate > 60, BUN/Creatinine Ratio 18, Glucose Level 100, Calcium Level 8.6, Corrected Calcium 9.4, Total Bilirubin 0.6, Asp artate Amino Transf (AST/SGOT) 17, Alanine Aminotransferase (ALT/SGPT) 16, Alkaline Phosphatase 115, Total Protein 4.8L, Albumin 3.0L 07/09/20 05:07: Glucometer 99 07/11/20 04:27: White Blood Count 4.0L, Red Blood Count 3.46L, Hemoglobin 10.1L, Hematocrit 33L, Mean Corpuscular Volume 95, Mean Corpuscular Hemoglobin 29, Mean Corpuscular Hemoglobin Concent 31L, Red Cell Distribution Width 15.0H, Platelet Count 302, Mean Platelet Volume 9.4, Immature Granulocyte % (Auto) 2, Neutrophils (%) (Auto) 64, Lymphocytes (%) (Auto) 14, Monocytes (%) (Auto) 15H, Eosinophils (%) (Auto) 5, Basophils (%) (Auto) 1, Neutrophils # (Auto) 2.5, Lymphocytes # (Auto) 0.5L, Monocytes # (Auto) 0.6, Eosinophils # (Auto) 0.2, Basophils # (Auto) 0.0, Immature Granulocyte # (Auto) 0.1, Sodium Level 141, Potassium Level 4.5, Chloride Level 105, Carbon Dioxide Level 25, Anion Gap 11, Blood Urea Nitrogen 13, Creatinine 1.09, Estimat Glomerular Filtration Rate > 60, BUN/Creatinine Ratio 12, Glucose Level 97, Calcium Level 8.5, Corrected Calcium 9.1, Total Bilirubin 0.6, Aspartate Amino Transf (AST/SGOT) 16, Alanine Aminotransferase (ALT/SGPT) 16, Alkaline Phosphatase 116, Total Protein 5.1L, Albumin 3.2 07/11/20 11:10: Glucometer 99 07/11/20 17:10: Coronavirus 2019 ([facility]) Negative Pending Labs Laboratory Tests 06/25/20 05:46: White Blood Count 6.1, Red Blood Count 3.17, Hemoglobin 9.4, Hematocrit 29, Mean Corpuscular Volume 92, Mean Corpuscular Hemoglobin 30, Mean Corpuscular Hemoglobin Concent 32, Red Cell Distribution Width 14.1, Platelet Count 207, Mean Platelet Volume 9.4, Immature Granulocyte % (Auto) 2, Neutrophils (%) (Auto) 78, Lymphocytes (%) (Auto) 9, Monocytes (%) (Auto) 10, Eosinophils (%) (Auto) 1, Basophils (%) (Auto) 1, Neutrophils # (Auto) 4.8, Lymphocytes # (Auto) 0.5, Monocytes # (Auto) 0.6, Eosinophils # (Auto) 0.1, Basophils # (Auto) 0.0, Immature Granulocyte # (Auto) 0.1, Sodium Level 135, Potassium Level 4.4, Chloride Level 100, Carbon Dioxide Level 24, Anion Gap 11, Blood Urea Nitrogen 13, Creatinine 0.93, Estimat Glomerular Filtration Rate > 60, BUN/Creatinine Ratio 14, Glucose Level 98, Calcium Level 8.6, Corrected Calcium 9.4, Total Bilirubin 0.9, Aspartate Amino Transf (AST/SGOT) 19, Alanine Aminotransferase (ALT/SGPT) 14, Alkaline Phosphatase 46, Total Protein 5.1, Albumin 3.0 06/25/20 14:20: Urine Color YELLOW, Urine Clarity CLEAR, Urine pH 6.0, Urine Specific [place] 1.020, Urine Protein NEGATIVE, Urine Glucose (UA) NEGATIVE, Urine Ketones 3+, U rine Nitrite NEGATIVE, Urine Bilirubin 1+, Urine Urobilinogen 0.2, Urine Leukocyte Esterase NEGATIVE, Urine RBC (Auto) NEGATIVE, Urine RBC NONE, Urine WBC NONE, Urine Squamous Epithelial Cells 0-2, Urine Crystals NONE, Urine Bacteria NEGATIVE, Urine Casts NONE, Urine Mucus NEGATIVE, Urine Culture Indicated NO 06/27/20 05:20: White Blood Count 4.2, Red Blood Count 3.20, Hemoglobin 9.5, Hematocrit 30, Mean Corpuscular Volume 94, Mean Corpuscular Hemoglobin 30, Mean Corpuscular Hemoglobin Concent 32, Red Cell Distribution Width 14.6, Platelet Count 254, Mean Platelet Volume 9.4, Immature Granulocyte % (Auto) 4, Neutrophils (%) (Auto) 72, Lymphocytes (%) (Auto) 10, Monocytes (%) (Auto) 10, Eosinophils (%) (Auto) 2, Basophils (%) (Auto) 1, Neutrophils # (Auto) 3.0, Lymphocytes # (Auto) 0.4, Monocytes # (Auto) 0.4, Eosinophils # (Auto) 0.1, Basophils # (Auto) 0.0, Immature Granulocyte # (Auto) 0.2, Sodium Level 137, Potassium Level 4.3, Chloride Level 102, Carbon Dioxide Level 25, Anion Gap 10, Blood Urea Nitrogen 20, Creatinine 1.18, Estimat Glomerular Filtration Rate 59, BUN/Creatinine Ratio 17, Glucose Level 97, Calcium Level 8.4, Corrected Calcium 9.4, Total Bilirubin 0.6, Aspartate Amino Transf (AST/SGOT) 15, Alanine Aminotransferase (ALT/SGPT) 12, Alkaline Phosphatase 52, Total Protein 4.9, Albumin 2.8 06/29/20 13:10: Glucometer 99 07/04/20 04:35: White Blood Count 5.6, Red Blood Count 3.13, Hemoglobin 9.2, Hematocrit 30, Mean Corpuscular Volume 95, Mean Corpuscular Hemoglobin 29, Mean Corpuscular Hemoglobin Concent 31, Red Cell Distribution Width 14.9, Platelet Count 385, Me an Platelet Volume 9.4, Immature Granulocyte % (Auto) 3, Neutrophils (%) (Auto) 71, Lymphocytes (%) (Auto) 14, Monocytes (%) (Auto) 11, Eosinophils (%) (Auto) 1, Basophils (%) (Auto) 1, Neutrophils # (Auto) 4.0, Lymphocytes # (Auto) 0.8, Monocytes # (Auto) 0.6, Eosinophils # (Auto) 0.1, Basophils # (Auto) 0.1, Immature Granulocyte # (Auto) 0.1, Sodium Level 138, Potassium Level 4.8, Chloride Level 102, Carbon Dioxide Level 28, Anion Gap 8, Blood Urea Nitrogen 30, Creatinine 1.37, Estimat Glomerular Filtration Rate 50, BUN/Creatinine Ratio 22, Glucose Level 102, Calcium Level 8.8, Corrected Calcium 9.7, Total Bilirubin 0.4, Aspartate Amino Transf (AST/SGOT) 15, Alanine Aminotransferase (ALT/SGPT) 11, Alkaline Phosphatase 95, Total Protein 4.9, Albumin 2.9 07/08/20 08:20: Glucometer 120 07/09/20 05:05: White Blood Count 4.2, Red Blood Count 3.13, Hemoglobin 9.3, Hematocrit 29, Mean Corpuscular Volume 94, Mean Corpuscular Hemoglobin 30, Mean Corpuscular Hemoglobin Concent 32, Red Cell Distribution Width 15.0, Platelet Count 315, Mean Platelet Volume 9.3, Sodium Level 138, Potassium Level 4.7, Chloride Level 103, Carbon Dioxide Level 24, Anion Gap 11, Blood Urea Nitrogen 20, Creatinine 1.11, Estimat Glomerular Filtration Rate > 60, BUN/Creatinine Ratio 18, Glucose Level 100, Calcium Level 8.6, Corrected Calcium 9.4, Total Bilirubin 0.6, Aspartate Amino Transf (AST/SGOT) 17, Alanine Aminotransferase (ALT/SGPT) 16, Alkaline Phosphatase 115, Total Protein 4.8, Albumin 3.0 07/09/20 05:07: Glucometer 99 07/11/20 04:27: White Blood Count 4.0, Red Blood Count 3.46, Hemoglobin 10.1, Hematocrit 33, Mean Corpuscular Volume 95, Mean Corpuscular Hemoglobin 29, Mean Corpuscular Hemoglobin Concent 31, Red Cell Distribution Width 15.0, Platelet Count 302, Mean Platelet Volume 9.4, Immature Granulocyte % (Auto) 2, Neutrophils (%) (Auto) 64, Lymphocytes (%) (Auto) 14, Monocytes (%) (Auto) 15, Eosinophils (%) (Auto) 5, Basophils (%) (Auto) 1, Neutrophils # (Auto) 2.5, Lymphocytes # (Auto) 0.5, Monocytes # (Auto) 0.6, Eosinophils # (Auto) 0.2, Basophils # (Auto) 0.0, Immature Granulocyte # (Auto) 0.1, Sodium Level 141, Potassium Level 4.5, Chloride Level 105, Carbon Dioxide Level 25, Anion Gap 11, Blood Urea Nitrogen 13, Creatinine 1.09, Estimat Glomerular Filtration Rate > 60, BUN/Creatinine Ratio 12, Glucose Level 97, Calcium Level 8.5, Corrected Calcium 9.1, Total Bilirubin 0.6, Aspartate Amino Transf (AST/SGOT) 16, Alanine Aminotransferase (ALT/SGPT) 16, Alkaline Phosphatase 116, Total Protein 5.1, Albumin 3.2 07/11/20 11:10: Glucometer 99 07/11/20 17:10: Coronavirus 2019 ([facility]) Negative Discharge Home Medications: Active Scripts Active Biotene Moisturizing Mouth (Saliva Stimulant Agents Comb.3) 1 Each [place] 0 Each MM NEEDED PRN 30 Days Senna-Time S Tablet (Sennosides/Docusate Sodium) 1 Each Tablet 1 Ea PO BID 30 Days Olanzapine Odt (Olanzapine) 5 Mg Tab.rapdis 5 Mg PO HS 30 Days Gabapentin 600 Mg Tablet 600 Mg PO DAILY@1800 [Gabapentin] 300 MG Cap 300 Mg PO 0800,1200 HYDROcodone/APAP 5 MG/325 MG TAB (Acetaminophen/Hydrocodone Bitart) 1 Tab Tab 1 Tab PO Q8HR PRN Voltaren (Diclofenac Sodium) 100 Gm Gel..gram. 0 Gm TOP QID 30 Days Tramadol HCl 50 Mg Tablet 50 Mg PO Q6H PRN TAKE WITH 500MG OF TYLENOL Reported Ibuprofen 200 Mg Capsule 200 Mg PO Q6H PRN Coq-10 (Ubidecarenone) 100 Mg Capsule 100 Mg PO DAILY Diclofenac Sodium 100 Gm Gel..gram. 4 Gm TOP TID PRN Aspirin EC (Aspirin) 81 Mg Tablet.dr 81 Mg PO DAILY Flomax (Tamsulosin HCl) 0.4 Mg Cap 0.8 Mg PO HS TAKES 2 (0.4MG) CAPS Ondansetron Odt (Ondansetron) 4 Mg Tab.rapdis 4 Mg PO Q8H PRN Ocuvite with Lutein Tablet (Vit A,C & E/Lutein/Minerals) 1 Each Tablet 1 Each PO DAILY Claritin (Loratadine) 10 Mg Tablet 10 Mg PO DAILY PRN Tylenol Extra Strength (Acetaminophen) 500 Mg Tablet 500 Mg PO Q6H Crestor (Rosuvastatin Calcium) 5 Mg Tablet 5 Mg PO HS Omeprazole 20 Mg Capsule.dr 20 Mg PO DAILY Metoprolol Succinate 25 Mg Tab.er.24h 25 Mg PO HS Losartan Potassium 100 Mg Tablet 100 Mg PO HS Levothyroxine (Levothyroxine Sodium) 50 Mcg Capsule 50 Mcg PO DAILY Instructions to patient/family Please see electronic discharge instructions given to patient. Diagnosis/Problems Diagnosis/Problems (1) Spinal stenosis, lumbar region with neurogenic claudication (2) Prostate cancer (3) Obesity (4) Hypertension (5) Cognitive deficits (6) BETTY on CPAP (7) Hyperlipemia Clinical Quality Measures DVT/VTE Risk/Contraindication: Contraindications-Pharm: Other *list below* Other: spinal hematoma risk ERIC LUTHER DO Jul 12, 2020 09:13
[2020-07-12] MEDS: LACTOBACILLUS ACIDOPHILUS (PROBIOTIC) CAPSULE PO SCH (09:31)
[2020-07-12] MEDS: GABAPENTIN 300 MG (NEURONTIN) CAP PO SCH ×2 (09:31→11:34)
[2020-07-12] MEDS: PANTOPRAZOLE 20 MG TABLET (PROTONIX) PO SCH (09:31)
[2020-07-12] MEDS: FENTANYL PATCH REMOVAL TP SCH (09:37)
[2020-07-12] MEDS: polyethylene glycoL POWDER 17 GM (MIRALAX) PACK PO SCH (09:37)
[2020-07-12] MEDS: fentaNYL PATCH 25 MCG (DURAGESIC) TD SCH (09:37)
[2020-07-12] MEDS: SENNA W/DOCUSATE (SENOKOT S) TABLET PO SCH (09:37)
[2020-07-12] MEDS: DOCUSATE SODIUM 100 MG (COLACE) CAP PO SCH (09:37)
[2020-07-12] MEDS: DICLOFENAC 1% GEL 100 GM (VOLTAREN) TUBE TOP SCH ×2 (09:38→12:28)
--- NOTE | 2020-07-12 09:44 | Cardiology Progress Note ---
Subjective Date Seen by Provider: Jul 12, 2020 Time Seen by Provider: 09:40 Subjective/Events-last exam Patient is sitting up in bed, no new complaints. Being discharged to SNU today. Objective-Cardiology Exam Last Set of Vital Signs Vital Signs 07/12/20 05:04 Temp 36.5 Pulse 86 Resp 18 B/P (MAP) 126/60 (82) Pulse Ox 93 O2 Delivery Room Air Capillary Refill : I&O Intake and Output 07/12/20 00:00 Intake Total 1450 ml Output Total 1475 ml Balance -25 ml Intake Oral 1450 ml Output Urine Total 1475 ml # Voids 1 # Bowel Movements 1 General: Alert, Oriented X3, Cooperative HEENT: Atraumatic, PERRLA Neck: Supple, No JVD, No Thyromegaly Lungs: Clear to Auscultation, Normal Air Movement Heart: Regular Rate, Normal S1, Normal S2, Other (systolic murmur) Abdomen: Normal Bowel Sounds, Soft, No Tenderness, No Hepatosplenomegaly, No Masses Extremities: No Clubbing, No Cyanosis, No Edema, Normal Pulses, No Tenderness/Swelling Skin: No Rashes, No Breakdown, No Significant Lesion Neuro: Normal Speech, Normal Tone, Sensation Intact Psych/Mental Status: Mental Status NL, Mood NL A/P-Cardiology Admission Diagnosis Syncope Lumbar stenosis Acute renal insufficiency Hypertension Assessment/Plan Syncope, probably hypotensive episode, eating better after adjusting his medication, blood pressure controlled. No further orthostatic dizziness or syncope reported. Continue to monitor Acute renal insufficiency, returned to normal renal function, probably secondary to dehydration, losartan was discontinued. Continue to monitor Generalized weakness, debility, receiving physical therapy. History of lumbar spine stenosis, status post lumbar surgery with severe pain, multiple medication. Recovering slowly. Cognitive deficit contributing to the slow recovery, managed by Dr. Freeman Hypertension, was borderline hypotensive, blood pressure well controlled at this time, continue to monitor Hyperlipidemia, monitor lipids Obesity, BMI 39. Continue with physical therapy. Obstructive sleep apnea, managed by primary care physician History of prostate cancer. Maintained on tamsulosin Patient was seen and evaluated with Keri, examination performed, management plan was discussed, agree with the current scribed note, I made few changes to the note using Italic font Patient is feeling better, possible transfer to assisted facility Continue on current medication. Patient follows with state editor in [place] Clinical Quality Measures DVT/VTE Risk/Contraindication: Contraindications-Pharm: Other *list below* Other: spinal hematoma risk KERI LUNA Jul 12, 2020 09:44 RENATA MATTHEWS MD Jul 12, 2020 13:05
--- NOTE | 2020-07-12 09:47 | Therapy Team Discharge Summary ---
Therapy Discharge Summary Discharge Recommendations Date of Discharge Occupational Therapy Pt admits post Decreased Activ Tolerance, Decreased Safety Aware, Decreased UE Strength, Impaired Bed Mobility, Impaired Coordination, Impaired Funct Balance, Impaired Self-Care Skills PT Prison Goals Operating Room Surgical Technician Goals PT Prison Goals Time Frame: Jul 22, 2020 Roll Left to Right (QC): 6 Sit to Lying (QC): 6 Lying-Sitting on Side/Bed(QC): 6 Sit to Stand (QC): 6 Chair/Mfh-fo-Vbtvi Xfer(QC): 6 Car Transfer (QC): 6 Does the Patient Walk: Yes Walk 10 feet (QC): 6 Walk 10ft-Uneven Surface(QC): 5 Walk 50ft with 2 Turns (QC): 6 Walk 150 ft (QC): 6 Wheel 50 feet with 2 turns (QC: 9 1 Step (curb) (QC): 4 4 Steps (QC): 9 12 Steps (QC): 9 Picking up an Object (QC): 88 OT Operating Room Surgical Technician Goals Prison Goals Time Frame: Jul 08, 2020 Eating (QC): 6 (met) Oral Hygiene (QC): 6 (met) Shower/Bathe Self (QC): 5 (not met) Upper Body Dressing (QC): 6 (not met) Lower Body Dressing (QC): 4 (not met) On/Off Footwear (QC): 6 (not met) Toileting Hygiene (QC): 4 (not met) Toilet/Commode Transfer (QC): 6 Additional Goals: 1-Demonstrate ADL Tasks, 2-Verbalize Understanding, 3- ImproveStrength/Aby 1=Demonstrate adherence to instructed precautions during ADL tasks. 2=Patient will verbalize/demonstrate understanding of assistive devices/modifications for ADL. 3=Patient will improve strength/tolerance for activity to enable patient to perform ADL's. SHASTA LUTZ OTR Jul 12, 2020 09:47
--- NOTE | 2020-07-12 09:51 | Therapy Team Discharge Summary ---
Therapy Discharge Summary Discharge Recommendations Date of Discharge Physical Therapy Patient came to rehab following back surgery, spondylosis with myelopathy. Upon evaluation patient performed bed mobility with max assist, supine <-> sit max assist, sit <-> stand max assist, transfers mod assist, car transfer not performed due to safety issues. Patient has been performing bed mobility and transfer training, balance and endurance training, functional strengthening, stair training, gait training, and education. 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 Now, patient performs bed mobility with SBA, supine to sit with SBA, sit to supine with mod assist, sit <-> stand CGA, transfers CGA, car transfer min assist, ambulated 150' with a rolling walker with CGA but patient cannot do this consistently, sometimes he can only go 10'. He also ambulated over an uneven surface 10' with CGA. Also, patient can go up and down 1 step using a rolling walker with CGA, and can propel a manual WC 150' with SBA. Patient is being discharged from this facility today and will be discharged from PT at this time. Occupational Therapy Decreased Activ Tolerance, Decreased Safety Aware, Decreased UE Strength, Impaired Bed Mobility, Impaired Coordination, Impaired Funct Balance, Impaired S elf-Care Skills PT Life Skills Consultant Goals [facility] Goals PT Life Skills Consultant Goals Time Frame: Jul 22, 2020 Roll Left to Right (QC): 6 Sit to Lying (QC): 6 Lying-Sitting on Side/Bed(QC): 6 Sit to Stand (QC): 6 Chair/Ygp-ei-Ollyz Xfer(QC): 6 Car Transfer (QC): 6 Does the Patient Walk: Yes Walk 10 feet (QC): 6 Walk 10ft-Uneven Surface(QC): 5 Walk 50ft with 2 Turns (QC): 6 Walk 150 ft (QC): 6 Wheel 50 feet with 2 turns (QC: 9 1 Step (curb) (QC): 4 4 Steps (QC): 9 12 Steps (QC): 9 Picking up an Object (QC): 88 OT [facility] Goals Life Skills Consultant Goals Time Frame: Jul 08, 2020 Eating (QC): 6 (met) Oral Hygiene (QC): 6 (met) Shower/Bathe Self (QC): 5 (not met) Upper Body Dressing (QC): 6 (not met) Lower Body Dressing (QC): 4 (not met) On/Off Footwear (QC): 6 (not met) Toileting Hygiene (QC): 4 (not met) Toilet/Commode Transfer (QC): 6 Additional Goals: 1-Demonstrate ADL Tasks, 2-Verbalize Understanding, 3-I mproveStrength/Aby 1=Demonstrate adherence to instructed precautions during ADL tasks. 2=Patient will verbalize/demonstrate understanding of assistive devices/modifications for ADL. 3=Patient will improve strength/tolerance for activity to enable patient to perform ADL's. JAYLYN VARGAS PT Jul 12, 2020 09:51
--- NOTE | 2020-07-12 09:52 | Therapy Team Discharge Summary ---
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 Due to dx, pt limited in activity tolerance and ADL ability, completing ADLs as follows during initial evaluation: eating 6, oral care 5, shower 2, UB dress 2 (back brace), LB dressing 1, footwear 2, and toilet hygiene1. Pt and OT staff work towards higher fx IND through ADL retraining, AE training, fx activity tolerance, UE exercises, safety training, etc. Pt limited through treatment sessions by pain and syncope episodes. Pt d/c's to SNF facility with the following advances in ADL function: eating 6, oral care 6, showering 3, UB dressing 5, LB dressing 3, footwear 5, and toilet hygiene 2. OT staff recommends [facility] for home environment, pt has a java analyst/ sock aide at home. However, recommendations delayed as pt going to SNF. D/c at this time. Decreased Activ Tolerance, Decreased Safety Aware, Decreased UE Strength, Impaired Bed Mobility, Impaired Coordination, Impaired Funct Balance, Impaired Self-Care Skills PT Assistant Professor Of Religion Goals Assistant Professor Of Religion Goals PT Assistant Professor Of Religion Goals Time Frame: Jul 22, 2020 Roll Left to Right (QC): 6 Sit to Lying (QC): 6 Lying-Sitting on Side/Bed(QC): 6 Sit to Stand (QC): 6 Chair/[id number] Xfer(QC): 6 Car Transfer (QC): 6 Does the Patient Walk: Yes Walk 10 feet (QC): 6 Walk 10ft-Uneven Surface(QC): 5 Walk 50ft with 2 Turns (QC): 6 Walk 150 ft (QC): 6 Wheel 50 feet with 2 turns (QC: 9 1 Step (curb) (QC): 4 4 Steps (QC): 9 12 Steps (QC): 9 Picking up an Object (QC): 88 OT [facility] Goals Assistant Professor Of Religion Goals Time Frame: Jul 08, 2020 Eating (QC): 6 (met) Oral Hygiene (QC): 6 (met) Shower/Bathe Self (QC): 5 (not met) Upper Body Dressing (QC): 6 (not met) Lower Body Dressing (QC): 4 (not met) On/Off Footwear (QC): 6 (not met) Toileting Hygiene (QC): 4 (not met) Toilet/Commode Transfer (QC): 6 Additional Goals: 1-Demonstrate ADL Tasks, 2-Verbalize Understanding, 3-ImproveStrength/Aby 1=Demonstrate adherence to instructed precautions during ADL tasks. 2=Patient will verbalize/demonstrate understanding of assistive devices/modifications for ADL. 3=Patient will improve strength/tolerance for activity to enable patient to perform ADL's. SHASTA LUTZ OTR Jul 12, 2020 09:52
[2020-07-12] MEDS: HYDROcodone/APAP 5 MG/325 MG (LORTAB) TAB PO PRN (10:22)
[2020-07-12 14:00] VITALS: BP 126/60
--- NOTE | 2020-07-12 14:11 | NUR ---
CM/SS DISCHARGE Patient discharged as planned to new Medicare skilled placement with [facility]. Spouse here this a.m. to accompany patient up to discharge. [facility] is not allowing visitors at this time. Faxed all continuum of care as planned. Unit RN updated intermittently of timelines. Discharge complete.
== END 2020-07-12 14:00 | DRG 552 ==
PROVIDERS: ADMIT Internal Medicine; ATTEND Internal Medicine
DX: M48.062 Spinal stenosis, lumbar region with neurogenic claudication (principal); R41.89 Other symptoms and signs involving cognitive functions and awareness; I10 Essential (primary) hypertension; E78.00 Pure hypercholesterolemia, unspecified; E78.5 Hyperlipidemia, unspecified; G47.33 Obstructive sleep apnea (adult) (pediatric); M19.91 Primary osteoarthritis, unspecified site; C61 Malignant neoplasm of prostate; Z20.822 Contact with and (suspected) exposure to COVID-19; K59.00 Constipation, unspecified; E66.9 Obesity, unspecified; Z68.37 Body mass index [BMI] 37.0-37.9, adult; Z90.5 Acquired absence of kidney; Z96.651 Presence of right artificial knee joint; Z88.6 Allergy status to analgesic agent
CPT/HCPCS: 36415; 70450; 80053; 81000; 82962; 85025; 85027; 87635; 93306